=== PATIENT | female | born 1950 | race Caucasian/White ===

== ENCOUNTER 2020-07-10 07:52 | Outpatient (CLI) | payer OTHER, SELFPAY ==
--- NOTE | ~2020-07-10 | MM_ITS ---
EXAMINATION: MM screening wendi BI w jessie HISTORY: Screening mammogram TECHNIQUE: Craniocaudal and mediolateral oblique 3-D tomosynthesis images were obtained and synthetic 2-D images were generated. CAD analysis was submitted and interpreted. COMPARISON: 06/22/2019 left stereotactic biopsy and post biopsy mammogram 06/12/2019 diagnostic left digital mammogram 05/30/2019, 05/26/2018, 11/17/2011 bilateral digital screening mammogram examinations BREAST PARENCHYMAL COMPOSITION: There are scattered areas of fibroglandular density........ FINDINGS: There is spiculation/architectural distortion at the biopsy marker in the upper outer left breast. Diagnostic left mammogram is recommended with spot compression views of this area, and target ed ultrasound examination. There are scattered bilateral benign calcifications. Otherwise there is no evidence of suspicious mass, calcification, or architectural distortion to sugg est malignancy in either breast. There has been no other suspicious interval change. IMPRESSION: 1. Spiculation/architectural distortion at former stereotactic biopsy site in upper outer left breast 2. Diagnostic left mammogram and left breast ultrasound examination are recommended. BI-RADS Category 0: Incomplete: Needs additional imaging evaluation. Reviewed, dictated and finalized at location A. IMPRESSION: 1. Spiculation/architectural distortion at former stereotactic biopsy site in u pper outer left breast 2. Diagnostic left mammogram and left breast ultrasound examination are recomme nded. BI-RADS Category 0: Incomplete: Needs additional imaging evaluation.
== END 2020-07-10 07:53 | disposition home or self-care (01) ==
LOC: ANHIMG 07:56
PROVIDERS: PCP Internal Medicine; Visit Provider Nurse Practitioner
DX: Z12.31 Encounter for screening mammogram for malignant neoplasm of breast (principal); R92.8 Other abnormal and inconclusive findings on diagnostic imaging of breast
CPT/HCPCS: 77063; 77067

== ENCOUNTER 2020-07-12 00:52 | Outpatient (CLI) | payer OTHER, SELFPAY ==
[2020-07-12 17:08] LABS: SARS-CoV-2 RNA PCR Negative
== END 2020-07-12 00:53 | disposition home or self-care (01) ==
LOC: ANHCOVIDDT 00:53
PROVIDERS: PCP Internal Medicine; Visit Provider Internal Medicine Critical Care Medicine
DX: R09.89 Other specified symptoms and signs involving the circulatory and respiratory systems (principal); Z20.828 Contact with and (suspected) exposure to other viral communicable diseases
CPT/HCPCS: 87635; C9803; U0003

== ENCOUNTER 2020-07-15 08:30 | Outpatient (CLI) | payer OTHER, SELFPAY ==
--- NOTE | 2020-08-02 16:55 | WPDSLEEPSTUD ---
Sleep Study Date of Study: 07/15/20 Ordering Provider: Sharon Collins NP Interpreting Physician: Sabrina Bryant MD Sleep Study Type: Polysomnogram Height: 1.52 m Weight: 90.718 kg Body Mass Index: 39.0 [place]: 3 Reason for Sleep Study daytime fatigue and excessive daytime sleepiness Sleep History Aurea Colvin is a 70 year old female with problems waking up throughout the night, She has a history of obstructive sleep apnea years ago on a sleep study 12/15/2005 with an AHI 12.7 and minimum desaturation to 76%. Her REM AHI was 47. On a CPAP titration 01/26/2006, her optimal pressure was 14 cm water pressure. Her CPAP broke and she did not have replaced. She says currently she does not snore and nobody complains about her snoring. She does not awaken at night with heartburn belching or coughing. She does not awaken from sleep feeling short of breath she frequently has trouble sleeping with a cold. She does not gasp for breath at night, denies breathing problems reported to her by others, does not sweat excessively at night. She frequently notices her heart pounding or beating irregularly at night. She does not fall asleep during the day, does not fall asleep involuntarily or while driving. She does not have loss of muscle tone was strong emotion. She does not have daytime difficulties due to excessive sleepiness. She does not feel paralyzed on waking or falling asleep. She occasionally has vivid dreamlike scenes upon awakening or falling asleep. She has never free to go to sleep and she does not have nightmares. She occasionally remembers her dreams. She occasionally has racing thoughts. She does not feel sad or depressed. She occasionally has anxiety. She does not have muscular tension. She does not notice part of her body jerking and she does not kick at night. She occasionally has crawling and aching feelings in her legs and occasionally has leg pain at night. She denies morning jaw pain. She occasionally grinds her teeth during sleep. She occasionally is bothered by pain during the day as well as pain during the night. She frequently wakes up feeling stiff in the morning, constantly wakes with sore achy muscles and frequently wakes with pain in the neck and spine. she has fatigue and bowel disturbances. Normal bedtime is 10:00 p.m., and sometimes it may take a while for her to fall asleep. This varies. She typically will wake every 1-2 hours during the night, beginning in the first part of the night and continuing throughout he middle of the night and sql bi developer hours. When she wakes at night, she will watch television. She occasionally has heartburn at night and occasionally has morning headaches. She frequently awakes feeling refreshed always has daytime sleepiness. She denies having memory or concentration problems or daytime difficulties due to excessive sleepiness. Habits: Never smoked tobacco. Caffeine 1 soda and 1 to tea daily. No alcohol or recreational drugs. [facility] Past Medical History Medical History (Updated 08/02/20 @ 17:23 by Sabrina Bryant MD) Anemia, unspecified Chronic obstructive pulmonary disease, unspecified Essential (primary) hypertension Gastro-esophageal reflux disease without esophagitis Heart failure, unspecified Obstructive sleep apnea (adult) (pediatric) Polyosteoarthritis, unspecified Pure hypercholesterolemia Rheumatoid arthritis involving multiple sites with positive rheumatoid factor Screening for breast cancer Screening for colon cancer Surgical History Surgical History (Updated 08/02/20 @ 17:23 by Sabrina Bryant MD) Hx of CABG Family History Family History Mother Family history of coronary artery disease Father Patient's father is Acute myocardial infarction Social History Social History Smoking status: Never smoker Alcohol intake: ne
[2020-08-02 17:54] VITALS: BMI 39.0
== END 2020-07-15 08:31 | disposition home or self-care (01) ==
LOC: ANHCSM 08:30
PROVIDERS: PCP Internal Medicine; Visit Provider Nurse Practitioner
DX: G47.33 Obstructive sleep apnea (adult) (pediatric) (principal); I10 Essential (primary) hypertension; I50.9 Heart failure, unspecified; I25.10 Atherosclerotic heart disease of native coronary artery without angina pectoris; Z95.1 Presence of aortocoronary bypass graft; K21.9 Gastro-esophageal reflux disease without esophagitis; E78.5 Hyperlipidemia, unspecified
CPT/HCPCS: 95810

== ENCOUNTER 2020-07-17 11:49 | Outpatient (CLI) | payer OTHER, SELFPAY ==
--- NOTE | 2020-07-17 13:50 | ECHO_ITS ---
Patient Info Name: Aurea Colvin Age: 70 years : 1950 Gender: Female Ht: 60 in Wt: 200 lbs BSA: 2.01 m2 HR: 80 bpm BP: 126 / 73 mmHg Heart Rhythm: Sinus Rhythm Technical Quality: Good Exam Date: 07/17/2020 1:57 PM Exam Location: [facility] Patient Status: Outpatient Admit Date: 07/17/2020 Staff Ordering Physician: Sharon Collins Celery Packer: Andi Quesada RDCS Attending Provider: Sharon Collins Referring Physician: Dennis LILLY; Exam Type: CA echo doppler color flow Study Info Indications I50.9 - Heart failure, unspecified Complete two-dimensional, color flow and Doppler transthoracic echocardiogram is performed. History/Risk Factors Heart failure. Summary 1. Complete two-dimensional, color flow and Doppler transthoracic echocardiogram is performed. 2. Left ventricular chamber dimension is moderately enlarged. 3. Left ventricular systolic function is severely reduced, estimated at 30-35%. 4. There is mildly increased left ventricular wall thickness. 5. The left ventricular diastolic function is grade I diastolic dysfunction. 6. Left atrial chamber dimension is moderately enlarged. 7. The mitral valve has thickened leaflets. 8. There is mild to moderate mitral valve regurgitation. 9. There is mild tricuspid valve regurgitation. 10. There is mild pulmonic regurgitation. Left Ventricle Left ventricular chamber dimension is moderately enlarged. Left ventricular systolic function is severely reduced, estimated at 30-35%. There is mildly increased left ventricular wall thickness. The left ventricular diastolic function is grade I diastolic dysfunction. Right Ventricle Right ventricular chamber dimension is normal. Right ventricular systolic function is normal. Left Atria Left atrial chamber dimension is moderately enlarged. Right Atria Right atrial chamber dimension is normal. Atrial Septum Intact interatrial septum visualized by color flow imaging. Aortic Valve The aortic valve is trileaflet. There is mild aortic valve sclerosis. There is no aortic valve stenosis. There is trace aortic valve regurgitation. Pulmonic Valve The pulmonic valve is normal. There is no pulmonic valve stenosis. There is mild pulmonic regurgitation. Mitral Valve The mitral valve has thickened leaflets. There is no mitral valve stenosis. There is mild to moderate mitral valve regurgitation. Tricuspid Valve The tricuspid valve leaflets are normal. There is no significant tricuspid valve stenosis. There is mild tricuspid valve regurgitation. No pulmonary hypertension, estimated pulmonary arterial systolic pressure is 27 mmHg. Pericardium/Pleural The pericardium appears normal. There is no pericardial effusion. Inferior Vena Cava Normal inferior vena cava with >50% collapse upon inspiration consistent with normal right atrial pressure, 5 mmHg. Aorta The aortic root size at the sinus of Valsalva is normal. The prox ascending aorta size is not well visualized. Left Ventricular Outflow Tract Name Value Normal LVOT 2D LVOT Diameter 2.0 cm LVOT Doppler
== END 2020-07-17 11:50 | disposition home or self-care (01) ==
LOC: ANHCARD 11:50
PROVIDERS: PCP Internal Medicine; Visit Provider Nurse Practitioner
DX: I50.9 Heart failure, unspecified (principal); I08.3 Combined rheumatic disorders of mitral, aortic and tricuspid valves
CPT/HCPCS: 93306

== ENCOUNTER 2020-07-19 12:01 | Outpatient (CLI) | payer OTHER, SELFPAY ==
--- NOTE | ~2020-07-19 | MMUS_ITS ---
EXAMINATION: MM diagnostic mammo unilat LT, US breast LT limited HISTORY: Spiculation/architectural distortion in the region of a biopsy marker in the mid to upper ou ter left TECHNIQUE: Additional 3-D tomosynthesis images of the left breast were performed and synthetic 2-D im ages were generated. CAD analysis was submitted and interpreted. High resolution upper outer and lowe r-outer quadrant left breast ultrasound was performed. COMPARISON: 07/10/2020 bilateral digital screening mammogram FINDINGS: MAMMOGRAPHIC FINDINGS: There is architectural distortion at the site of a biopsy marker in the outer mid left breast. No def inite soft tissue mass is appreciated however at this location. ULTRASOUND: No suspicious mass lesion is evident in the outer upper or lower quadrants. IMPRESSION: 1. No mammographic evidence of malignancy; probable postbiopsy scarring 2. 6 month follow-up diagnostic left mammogram is recommended, with ultrasound if required BI-RADS category 3, probably benign findings. Reviewed, dictated and finalized at location A. IMPRESSION: 1. No mammographic evidence of malignancy; probable postbiopsy scarring 2. 6 month follow-up diagnostic left mammogram is recommended, with ultrasound if required BI-RADS category 3, probably benign findings.
== END 2020-07-19 12:02 | disposition home or self-care (01) ==
LOC: ANHIMG 12:02
PROVIDERS: PCP Internal Medicine; Visit Provider Nurse Practitioner
DX: R92.8 Other abnormal and inconclusive findings on diagnostic imaging of breast (principal)
CPT/HCPCS: 76642; 77065

== ENCOUNTER 2020-08-30 01:10 | Outpatient (CLI) | payer OTHER, SELFPAY ==
[2020-08-30 20:27] LABS: SARS-CoV-2 RNA PCR Negative
== END 2020-08-30 01:11 | disposition home or self-care (01) ==
LOC: ANHCOVIDDT 01:10
PROVIDERS: PCP Internal Medicine; Visit Provider Internal Medicine Critical Care Medicine
DX: Z20.828 Contact with and (suspected) exposure to other viral communicable diseases (principal)
CPT/HCPCS: 87635; C9803; U0003

== ENCOUNTER 2020-09-02 08:25 | Outpatient (CLI) | payer OTHER, SELFPAY ==
--- NOTE | 2020-10-14 09:49 | WPDSLEEPSTUD ---
Sleep Study Date of Study: 09/02/20 Ordering Provider: Adán Macias DO Interpreting Physician: Sabrina Bryant MD Sleep Study Type: CPAP Titration Height: 1.52 m Weight: 90.718 kg Body Mass Index: 39.0 Neck Circumference: 43.18 cm [place]: 9 Reason for Sleep Study Basic sleep study07/15/2020 with moderate JOSÉ with AHI 22.3, presents for a titration Sleep History Aurea Colvin is a 70 year-old female with a history of waking up throughout the night. She had a basic sleep study July 15, 2020 with moderate obstructive sleep apnea AHI 22.3 which is severe in supine sleep AHI 39.5 and severe in supine REM with AHI 47.9 Lowest desaturation was 79% with 19.7 minutes spent below 88%, 4.5% of the study. She has a history of obstructive sleep apnea years ago on a sleep study 12/15/2005; CPAP titration 01/26/2006, her optimal pressure was 14 cm water pressure. Her CPAP broke and she did not have replaced. She says currently she does not snore and nobody complains about her snoring. She does not awaken at night with heartburn belching or coughing. She does not awaken from sleep feeling short of breath she frequently has trouble sleeping with a cold. She does not gasp for breath at night, denies breathing problems reported to her by others, does not sweat excessively at night. She frequently notices her heart pounding or beating irregularly at night. She does not fall asleep during the day, does not fall asleep involuntarily or while driving. She does not have loss of muscle tone was strong emotion. She does not have daytime difficulties due to excessive sleepiness. She does not feel paralyzed on waking or falling asleep. She occasionally has vivid dreamlike scenes upon awakening or falling asleep. She has never free to go to sleep and she does not have nightmares. She occasionally remembers her dreams. She occasionally has racing thoughts. She does not feel sad or depressed. She occasionally has anxiety. She does not have muscular tension. She does not notice part of her body jerking and she does not kick at night. She occasionally has crawling and aching feelings in her legs and occasionally has leg pain at night. She denies morning jaw pain. She occasionally grinds her teeth during sleep. She occasionally is bothered by pain during the day as well as pain during the night. She frequently wakes up feeling stiff in the morning, constantly wakes with sore achy muscles and frequently wakes with pain in the neck and spine. she has fatigue and bowel disturbances. Normal bedtime is 10:00 p.m., and sometimes it may take a while for her to fall asleep. This varies. She typically will wake every 1-2 hours during the night, beginning in the first part of the night and continuing throughout he middle of the night and governor assembler hydraulic hours. When she wakes at night, she will watch television. She occasionally has heartburn at night and occasionally has morning headaches. She frequently awakes feeling refreshed always has daytime sleepiness. She denies having memory or concentration problems or daytime difficulties due to excessive sleepiness. Habits: Never smoked tobacco. Caffeine 1 soda and 1 to tea daily. No alcohol or recreational drugs. PMFSH Past Medical History Medical History Anemia, unspecified Chronic obstructive pulmonary disease, unspecified Essential (primary) hypertension Gastro-esophageal reflux disease without esophagitis Heart failure, unspecified Obstructive sleep apnea Obstructive sleep apnea (adult) (pediatric) Polyosteoarthritis, unspecified Pure hypercholesterolemia Rheumatoid arthritis involving multiple sites with positive rheumatoid factor Screening for breast cancer Screening for colon cancer Surgical History Surgical History Hx of CABG Family History Family History (Reviewed 10/14/20 @ 09:55 by Sabrina
[2020-10-14 10:07] VITALS: BMI 39.0
== END 2020-09-02 08:26 | disposition home or self-care (01) ==
LOC: ANHCSM 08:25
PROVIDERS: PCP Internal Medicine; Visit Provider Internal Medicine
DX: G47.33 Obstructive sleep apnea (adult) (pediatric) (principal)
CPT/HCPCS: 95811

== ENCOUNTER 2020-12-19 09:50 | Outpatient (CLI) | payer OTHER, SELFPAY ==
--- NOTE | ~2020-12-19 | XR_ITS ---
XR lumbar spine 2-3V DATE: 12/19/2020 10:17 INDICATION: Back pain TECHNIQUE: AP, lateral, coned lateral lumbosacral views COMPARISON: None FINDINGS: There is diffuse osteopenia. There is vertebroplasty at T12 anterior wedge moderate compression fracture deformity. There is degenerative change at the apophyseal joints in the lower lumbar and lumbosacral area with a ssociated grade 1 anterolisthesis at L4-5. There is severe degenerative disc disease at L1-2, moderately severe degenerative disc disease at L2- 3 and mild degenerative disc disease at L3-4 and L4-5. No lumbar fracture is evident. The lumbar pedicles are intact. No bone destruction is detected. The sacroiliac joints appear normal. Old fracture deformity of right superior pubic ramus. Abdominal aortic calcification. Surgical clips, right upper quadrant, likely due to cholecystectomy. IMPRESSION: Moderate anterior wedge compression fracture deformity of T12 T12 vertebroplasty Diffuse osteopenia Multilevel degenerative disc disease, most pronounced at L1-2 Grade 1 anterolisthesis at L4-5 due to degenerative change at the apophyseal joints Old fracture deformity right superior pubic ramus Reviewed, dictated and finalized at location A. AIMED PROPERTY MANAGER IMPRESSION: Moderate anterior wedge compression fracture deformity of T12 T12 vertebroplasty Diffuse osteopenia Multilevel degenerative disc disease, most pronounced at L1-2 Grade 1 anterolisthesis at L4-5 due to degenerative change at the apophyseal mary kay ints Old fracture deformity right superior pubic ramus
--- NOTE | ~2020-12-19 | XR_ITS ---
XR thoracic spine 2V DATE: 12/19/2020 10:17 INDICATION: Back pain for one month. No injury. TECHNIQUE: AP, lateral, swimmer views COMPARISON: None FINDINGS: Status post sternotomy. Cardiomegaly. Aortic calcification. Diffuse osteopenia. Mild dextroscoliosis of the thoracolumbar spine. There is diffuse idiopathic skeletal hyperostosis of the mid to lower thoracic spine. Status post vertebroplasty at T12. IMPRESSION: Diffuse osteopenia Status post vertebroplasty at T12 Diffuse idiopathic skeletal hyperostosis Reviewed, dictated and finalized at location A. EE SOMMELIER
== END 2020-12-19 09:51 | disposition home or self-care (01) ==
PROVIDERS: PCP Internal Medicine; Visit Provider Nurse Practitioner
DX: M47.815 Spondylosis without myelopathy or radiculopathy, thoracolumbar region (principal); M48.14 Ankylosing hyperostosis [Forestier], thoracic region; D64.9 Anemia, unspecified
CPT/HCPCS: 72070; 72100

== ENCOUNTER 2021-02-03 08:00 | Outpatient (RCR) | payer OTHER, SELFPAY ==
--- NOTE | 2020-12-30 09:21 | PTOPEVAL ---
Thank you for referring Aurea Colvin to [facility].? The patient is scheduled to be seen for therapy 2 x/week for 8 weeks. Please review, sign, date and return this plan of care YOJANA. I agree with and certify that the following plan of care is medically necessary. Referring Physician Date Admitting Provider: Attending Provider: Sharon Collins, BARREL RIFLER OPERATOR-C Physical Therapy Evaluation Problem Diagnosis back pain Onset 2 months Cause unknown Additional Evaluation Detail She has family living with her. Family does not assist with branch library clerk. There is severe degenerative disc disease at L1-2, moderately severe degenerative disc disease at L2-3 and mild degenerative disc disease at L3-4 and L4-5. Grade 1 anterolisthesis at L4- 5 due to degenerative change at the apophyseal joints Subjective Information She reports she has been Query Text:As Reported By Patient/ having back pain for 2 months. Family She was trying to remove some of her medication due to difficulty obtaining the medication. She is unsure if this contributed to the increased pain. She reports limitations with standing, sitting, sleeping, or performing branch library clerk. She is having problems with constipation due to the back pain. Prior to recent increase she has been having back pain for years. s/p vertebroplasty a few years ago. She had a fall in the bathroom a few years ago causing the fracture. Denies an exercise or stretching program. She has a cane, but does not use consistently. She has been using a walker recently to have something to hold onto. Diagnostic Tests X-Rays For This Problem Yes: Multilevel degenerative disc disease, most pronounced at L1-2 Previous Treatments Previous Treatments For This Problem no Pain Assessment
--- NOTE | 2021-02-03 15:18 | PTOPEVAL ---
Thank you for referring Aurea Colvin to [facility].? Aurea has attended 11 therapy visits from 12/23/20 to 02/03/21 to address her back pain. She demonstrates improved trunk motion, improved leg strength and improved functional mobility with walking speed and endurance. She has been instructed in a home program to work on her strength at home. She has partially achieved her therapy goals at this time. Will D/C skilled therapy services at this time. Please review, sign, date and return this discharge summary YOJANA. I agree with and certify that the following plan of care is medically necessary. Referring Physician Date Attending Provider: Sharon Collins, REFINERY OPERATOR ALKYLATION-C Physical Therapy Discharge Note Diagnosis back pain Onset 2 months Cause unknown Additional Evaluation Detail She has family living with her. Family does not assist with solar thermal installer. There is severe degenerative disc disease at L1-2, moderately severe degenerative disc disease at L2-3 and mild degenerative disc disease at L3-4 and L4-5. Grade 1 anterolisthesis at L4- 5 due to degenerative change at the apophyseal joints Subjective Information She reports her back pain is Query Text:As Reported By Patient/ better. She is unable to Family indicate particular activities that make the pain increase. She is performing HEP daily. She inconsistently uses the cane. Pain Assessment Bilateral Lower Back Reported Pain Level 2 Pain Description Aching,Numbness,Tightness Pain Radiation Left Leg Pain Frequency Intermittent Lowest Pain Intensity 0 Greatest Pain Intensity 2 Pain Aggravating Factors Exercise/Activity Cervical and Lumbar ROM Lumbar Flexion Active Floor Lateral Flexion right: upper thigh- painful left: superior knee region Lumbar Comments pain with extension and right lateral flex 50% of trunk ext and rotation with pain Lower Extremity Range of Motion General Lower Extremity Range of Motion Gross Lower Extremity Range of Motion painful with left hip motions Comments Cervical and Lumbar Muscle Testing Lower Abdominal Strength 3-Fair- Upper Back Extension 3-Fair- Lumbar Functional Strength Comments unable to maintain trunk in m
== END 2021-02-05 08:37 | disposition home or self-care (01) ==
LOC: ANHPT 08:00
PROVIDERS: PCP Internal Medicine; Visit Provider Nurse Practitioner
DX: M54.9 Dorsalgia, unspecified (principal)
CPT/HCPCS: 97014; 97110; 97140; 97163; 97530; G0283

== ENCOUNTER 2021-06-26 11:23 | Outpatient (CLI) | payer OTHER, SELFPAY ==
--- NOTE | ~2021-06-26 | CT_ITS ---
EXAMINATION: CT abdomen pelvis w con DATE: 06/26/2021 10:15 INDICATION: Pelvic and perineal pain. TECHNIQUE: Computed tomography (CT) of the abdomen and pelvis was performed with 100 mL Omnipaque-350 intravenous contrast. Automated exposure control and iterative reconstruction technique were employe d. The dose-length product was 1329.03 mGy-cm. COMPARISON: None FINDINGS: Lung bases are clear. Heart size is normal. No pericardial or pleural effusion. Atherosclerotic coron bryan artery calcific location. Median sternotomy wires likely from prior coronary artery bypass grafti ng. 3 low-attenuation hepatic cysts, the largest measuring 7 mm . Mild focal hepatic steatosis along the ligamentum teres. Cholecystectomy clips the gallbladder fossa. Spleen, pancreas, bilateral adrena l glands and left kidney are normal. Couple low-attenuation likely right renal cysts, the larger doreen uring 6 mm which are too small to definitively characterize. There are few scattered colonic divertic lin without adjacent inflammatory change to suggest diverticulitis. Small bowel and appendix are norm al. Subtle haziness to the fat surrounding the otherwise normal-appearing bladder which could be seen with cystitis. The uterus and right ovary are not identified and have likely been surgically resecte d. 1.3 cm left ovarian cyst. No free intraperitoneal gas or fluid. No pathologically enlarged abdomin al or pelvic lymphadenopathy. Asymmetric approximately 2 cm nodular density at the left side of the i ntroitus and location typical for a Bartholin's gland cyst but with greater than simple fluid attenua tion. Chronic T12 compression fracture with change of prior vertebroplasty. Moderate lumbar spondylos is with multilevel severe facet osteoarthritis and with 4 mm anterolisthesis L4 on L5. 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 IMPRESSION: 1. Asymmetric approximately 2 cm nodular density at the left side of the introitus in typical locatio n for ganglion cyst but with greater than simple fluid attenuation and could not exclude either neopl asm or Bartholin gland abscess. Correlate with physical exam. 2. Subtle haziness to the fat along the otherwise normal bladder which could be seen with cystitis. C orrelate with urinalysis. Reviewed, dictated and finalized at location A. IMPRESSION: 1. Asymmetric approximately 2 cm nodular density at the left side of the introi tus in typical location for ganglion cyst but with greater than simple fluid at tenuation and could not exclude either neoplasm or Bartholin gland abscess. Cor relate with physical exam. 2. Subtle haziness to the fat along the otherwise normal bladder which could be seen with cystitis. Correlate with urinalysis.
[2021-06-26 10:08] LABS: Estimated Glomerular Filt Rate 54
[2021-06-26 12:13] LABS: Add Urine Microscopic? YES; Appearance Urine Clear (Clear); Bacteria Urine Trace /hpf; Bilirubin Urine Negative (Negative); Blood Urine Negative (Negative); Color Urine Straw (Yellow); Glucose Urine UA Negative (Negative); Ketones Urine Negative (Negative); Leukocyte Esterase Ur 2+ LEU/UL (Negative); Nitrate Urine Negative (Negative); Protein Urine Negative (Negative); Squamous Epithelial Cell Urine Occasional /hpf (Few); Urobilinogen Urine Negative mg/dL (<2.0); WBC Urine 21-30 /hpf
[2021-06-26 12:16] LABS: Specific Grav Ur > 1.060 (1.001-1.035)
== END 2021-06-26 11:24 | disposition home or self-care (01) ==
PROVIDERS: PCP Internal Medicine; Visit Provider Nurse Practitioner
DX: R10.2 Pelvic and perineal pain (principal); R93.5 Abnormal findings on diagnostic imaging of other abdominal regions, including retroperitoneum
CPT/HCPCS: 74177; 81001; 87077; 87086; 87088; Q9967

== ENCOUNTER 2021-08-19 08:45 | Outpatient (CLI) | payer OTHER, SELFPAY ==
--- NOTE | ~2021-08-19 | DEXA_ITS ---
Bone Density Report Name: Aurea Colvin Age: 71 Sex: Female Ethnicity: White Date of : 1950 Indication: postmenopausal; height loss; prior fracture; hysterectomy; rheumatoid arthritis; Referring Provider: Sharon Collins Study: Bone densitometry was performed. Exam Date: August 19, 2021 Accession number: [id number] Bone Density: Region BMD T-score Z-score Classification AP Spine (L1, L2, L4) 1.232 1.8 4.1 Normal Femoral Neck (Left) 0.761 -0.8 1.2 Normal Total Hip (Left) 0.992 0.4 2.1 Normal Total Hip Bilateral Avg 0.996 0.5 2.1 Normal Femoral Neck (Right) 0.837 -0.1 1.9 Normal Total Hip (Right) 1.000 0.5 2.2 Normal World Health Organization criteria for BMD impression classify patients as: Normal (T-score at or above -1.0), Osteopenia (T-score between -1.0 and -2.5), or Osteoporosis (T-score at or below -2.5). 10-year Fracture Risk: FRAX not reported because: All T-scores for Spine Total, Hip Total, Femoral Neck at or above -1.0 Prior hip or vertebral fracture Previous Exams: Region Exam Age BMD T-score BMD Change BMD Change Date g/cm2 vs Baseline vs Previous AP Spine(L1, L2, L4) 08/19/2021 71 1.232 1.8 0.123(11.1%)* 0.123(11.1%)* 07/07/2019 69 1.109 0.7 Total Hip(Left) 08/19/2021 71 0.992 0.4 -0.028(-2.7%)* -0.028(-2.7%)* 07/07/2019 69 1.020 0.6 Total Hip(Right) 08/19/2021 71 1.000 0.5 -0.008(-0.8%) -0.008(-0.8%) 07/07/2019 69 1.008 0.5 *Denotes significance at 95% confidence level, LSC for AP Spine = 0.022 g/cm2, LSC for Total Hip = 0.027 g/cm2 Clinical Information Provided by Patient: Have had a previous hip or vertebral fracture Has had a low trauma fracture Has rheumatoid arthritis Has used the following medications: Vitamin D, Calcium Has the following medical conditions: Hysterectomy Patient maximum height was 63 Menopause Age: 37 Onset of menses at age 12 Number of children 4 Impression: The patient has normal bone mass. The patient has risk factors, including: previous fracture. The BMD for the Total Hip(Left) decreased, changing by -2.7% since the last DXA exam. Discussion: INCREASED RISK OF FRACTURE DUE TO HISTORY OF FRACTURE. The patient's previous fracture puts the patient at high risk of a future fracture. In untreated patients, the risk of osteoporotic fracture increases approximately two-fold for each 1.0 SD decrease in T-score. Low bone density is not the only risk factor for fr
== END 2021-08-19 08:46 | disposition home or self-care (01) ==
PROVIDERS: PCP Internal Medicine; Visit Provider Nurse Practitioner
DX: M81.0 Age-related osteoporosis without current pathological fracture (principal); Z78.0 Asymptomatic menopausal state
CPT/HCPCS: 77080

== ENCOUNTER 2021-08-28 10:52 | Outpatient (CLI) | payer OTHER, SELFPAY ==
--- NOTE | ~2021-08-28 | MMUS_ITS ---
2 EXAMINATION: MM diagnostic wendi BI w jessie, US breast LT limited HISTORY: Follow-up left breast asymmetry TECHNIQUE: Additional 3-D tomosynthesis images of the left breast were performed and synthetic 2-D im ages were generated. CAD analysis was submitted and interpreted. High resolution Limited left breast ultrasound was performed. COMPARISON: Comparison to multiple prior studies sequentially, with oldest reviewed study dated 06/12. BREAST PARENCHYMAL COMPOSITION: Breast composed of scattered areas of fibroglandular density. FINDINGS: MAMMOGRAPHIC FINDINGS: There are no new masses, calcifications or architectural distortion in either breast to suggest malig fransisco. There is focal architectural distortion in the upper outer quadrant of the left breast associa vaughn with tissue marker from previous stereotactic biopsy. There are benign bilateral breast calcifica tions. ULTRASOUND: Limited left breast ultrasound: Normal heterogeneous echotexture without focal solid or cystic mass. IMPRESSION: 1. No evidence for malignancy in either breast. 2. Routine yearly screening mammogram and regular clinical breast examination are recommended. BI-RADS Category 2: Benign finding(s). Reviewed, dictated and finalized at location A. IMPRESSION: 1. No evidence for malignancy in either breast. 2. Routine yearly screening mammogram and regular clinical breast examination a re recommended. BI-RADS Category 2: Benign finding(s).
== END 2021-08-28 10:53 | disposition home or self-care (01) ==
PROVIDERS: PCP Internal Medicine; Visit Provider Nurse Practitioner
DX: R92.8 Other abnormal and inconclusive findings on diagnostic imaging of breast (principal)
CPT/HCPCS: 76642; 77062; 77066; G0279

== ENCOUNTER 2021-08-29 13:58 | Outpatient (CLI) | payer OTHER, SELFPAY ==
[2021-08-29 14:30] LABS: Anion Gap 7 mmol/L (8-16); Blood Urea Nitrogen 24 mg/dL (7-17); Carbon Dioxide 35 mmol/L (22-30); Chloride 98 mmol/L (98-107); Estimated Glomerular Filt Rate 54; Glucose 102 mg/dL (65-110); Potassium 4.2 mmol/L (3.4-5.0); Sodium 140 mmol/L (137-145)
== END 2021-08-29 13:59 | disposition home or self-care (01) ==
LOC: ANHSURGERY 14:03
PROVIDERS: Anesthesiology; PCP Internal Medicine; Visit Provider Student in an Organized Health Care Education/Training Program
DX: Z01.818 Encounter for other preprocedural examination (principal); Z79.899 Other long term (current) drug therapy
CPT/HCPCS: 36415; 80048

== ENCOUNTER 2021-09-02 03:11 | Day surgery (SDC) | payer OTHER, SELFPAY ==
[2021-08-28 15:25] VITALS: BMI 39.1
--- NOTE | 2021-08-28 15:47 | PC.NURSE ---
Report to the Outpatient Waiting Room, entrance under the green pavilion located off [facility], at time _0900__ on date __09/02/21__. OR Time: __1100__. - You and your visitor will be asked a series of questions to screen for COVID 19 for your protection. - A mask is required within the hospital. - Only one visitor is allowed at this time. Patient visitors will be guided where to wait when not with patient. Preoperative COVID Testing Requirements: No COVID Test needed if: (proof is required; if not received patient will have Rapid Test prior to entry) - Patient has received COVID Vaccine at least 14 days prior to procedure date or - Patient has positive COVID test result within last 90 days of surgery date. COVID Test needed if above criteria is not met If not COVID vaccinated a COVID test must be conducted within 72 hours of surgery and patient is asked to isolate self from time of testing until procedure. You will go to the [facility] for your COVID testing. The [facility] site is located at the corner of [address] [facility]. You will only be called if COVID results are positive and your surgeon may reschedule your elective surgery date. Patients may have clear liquids (water, carbonated beverages, clear teas, apple juice) until 3 hours prior to surgery with a maximum of 20 ounces. - No food from midnight until time of surgery - Infants may have breast milk until 4 hours before surgery, infant formula 6 hours prior to surgery. - Children will be allowed to drink immediately following surgery. If applicable, please bring a bottle or sippy cup to assist with drinking. Juice, water, soda, and popsicles are readily available. For infants on formula, please bring formula the day of surgery. Pacifiers are allowed. Take the following medications with a SIP of water the morning of surgery: Medications to discontinue per physician _ASPIRIN & PLAVIX - PER DR. HIRSCH, ALL VITAMINS & SUPPLEMENTS 3 DAYS PRIOR TO SURGERY___ Date to take last dose___08/30/21 Please no make-up, nail montenegrin, hairspray, perfume, deodorant, or body powder the day of surgery. No jewelry (including any body piercings) or valuables the day of surgery, leave them at home. Please take a shower or bath the night before, or the morning of, surgery with an antibacterial soap. Wear comfortable, loose fitting clothing. Children are encouraged to wear pajamas. - Jewelry must be removed prior to entering the operating room. Rings and piercings that are not removed may be cut off. - The hospital will not accept responsibility for valuables. - Please leave all valuables, including medications, at home the day of surgery. If you are going home after surgery, a licensed dray truck driver must drive you home. - NO public transportation without another adult. - We recommend that an adult stay with you for 24 hours following discharge. - We also recommend that you do not drive, make important decision, drink alcoholic beverages, or take any drugs that were not prescribed by your health care provider for at least 24 hours after your discharge time. For Pediatric surgeries, we recommend two adults accompany the child home (only one inside the building at this time). Follow any additional instructions given to you from your surgeon. Telephone instructions given to ___PT____and asked if any additional questions and then verbalized understanding. Patient advised to call surgeon office or pre surgery nurse liaison [phone] if any additional questions.
--- NOTE | 2021-09-01 13:56 | WPDANESEPPF ---
Anes - Initial Pre Proc Eval Procedure: Operation Date: 09/02/21 11:00 Proposed Procedures p Excision Bartholin's Cyst - Penny Bourgeois MD Date/Time: 09/01/21 13:56 Surgeon: Penny Bourgeois MD Pre Op Diagnosis: bartholin's cyst Patient Data Age: 71 Gender: F Height: 1.52 m Weight: 90.9 kg Allergies Allergy/AdvReac Type Severity Reaction Status Date / Time Sulfa (Sulfonamide Allergy Intermediate Nausea Verified 09/02/21 09:02 Antibiotics) Home Medications Medication Instructions Recorded Confirmed Type albuterol sulfate 90 mcg/actuation 1 puff INHALATION Q4H PRN #18 gm 12/19/19 09/02/21 Rx aerosol inhaler ergocalciferol (vitamin D2) 1,250 See Rx Instructions .ROUTE 10/15/20 08/28/21 Rx mcg (50,000 unit) capsule .COMPLEX #3 cap aspirin 81 mg tablet,delayed 81 mg PO DAILY 12/19/20 09/02/21 History release methotrexate sodium 2.5 mg tablet 8 mg PO WEEKLY tablet 12/19/20 09/02/21 History clopidogrel 75 mg tablet See Rx Instructions .ROUTE 04/07/21 09/02/21 Rx .COMPLEX #90 tablet furosemide 40 mg tablet 40 mg PO BID #180 tablet 04/24/21 09/02/21 Rx carvedilol 6.25 mg tablet See Rx Instructions .ROUTE 07/03/21 09/02/21 Rx .COMPLEX #180 tablet spironolactone 25 mg tablet See Rx Instructions .ROUTE 07/03/21 09/02/21 Rx .COMPLEX #180 tablet acetaminophen 650 mg 650 mg PO Q8H PRN 07/23/21 09/02/21 History tablet,extended release calcium carbonate 600 mg calcium 600 mg PO DAILY 07/23/21 09/02/21 History (1,500 mg) tablet folic acid 1 mg tablet 1 mg PO DAILY 07/23/21 09/02/21 History tofacitinib 11 mg tablet,extended 11 mg PO DAILY 07/23/21 09/02/21 History release 24 hr polyethylene glycol 3350 17 17 g PO DAILY #238 g 08/04/21 09/02/21 Rx gram/dose oral powder atorvastatin 40 mg PO HS 09/02/21 09/02/21 History Other studies: Exam Date: 07/17/2020 1:57 PM Summary 1. Complete two-dimensional, color flow and Doppler transthoracic echocardiogram is performed. 2. Left ventricular chamber dimension is moderately enlarged. 3. Left ventricular systolic function is severely reduced, estimated at 30-35%. 4. There is mildly increased left ventricular wall thickness. 5. The left ventricular diastolic function is grade I diastolic dysfunction. 6. Left atrial chamber dimension is moderately enlarged. 7. The mitral valve has thickened leaflets. 8. There is mild to moderate mitral valve regurgitation. 9. There is mild tricuspid valve regurgitation. 10. There is mild pulmonic regurgitation. Patient hx anesthesia problems: none Family hx anesthesia problems: none Results Review: All pre-operative results and documents have been reviewed as part of the pre-operative evaluation. [facility] Past Medical History Medical History Anemia, unspecified Chronic obstructive pulmonary disease, unspecified Essential (primary) hypertension Gastro-esophageal reflux disease without esophagitis Heart failure, unspecified Obstructive sleep apnea Obstructive sleep apnea (adult) (pediatric) Polyosteoarthritis, unspecified Pure hypercholesterolemia Rheumatoid arthritis involving multiple sites with positive rheumatoid factor Screening for breast cancer Screening for colon cancer Surgical History Surgical History Hx of CABG S/P cholecystectomy S/P partial hysterectomy Family History Family History Mother Family history of coronary artery disease Father Patient's father is Acute myocardial infarction Social History Social History Smoking status: Never smoker Second hand tobacco smoke exposure: No Alcohol intake: never Substance use: never Substance use type: does not use Living arrangements: alone Spiritual care concerns: No Anes
--- NOTE | 2021-09-01 18:10 | PM.IMHP ---
H&P: HPI History of Present Illness Date/Time: 09/01/21 18:10 The patient is a 71 year old woman with an incidental finding of a left Bartholin's gland cyst filled with complex-appearing fluid on recent imaging obtained for complaint of pelvic and abdominal pain. Given patient's age and this particular finding, recommendation was made for further evaluation and management of cyst. Patient was offered management in office with an I&D and cyst wall biopsy, however, declined. Decision was made to proceed with management in the OR and excision of cyst. Chief Complaint: Bartholin's gland cyst Review of Systems Review of Systems: All systems reviewed & are unremarkable except as noted in HPI and below Constitutional: Constitutional: Reports as per HPI, Reports no additional constitutional complaints, Denies chills, Denies fever(s), Denies headache(s) and Denies night sweats Eyes: Eyes: Reports as per HPI and Reports no additional eye complaints ENT: Reports system reviewed and no additional complaints, except as documented, Reports as per HPI, Reports Normal hearing present and Denies headache(s) Cardiovascular: Cardiovascular: Reports as per HPI, Reports no additional cardiovascular complaints, Denies chest pain and Denies dyspnea Respiratory: Respiratory: Reports as per HPI, Reports no additional respiratory complaints, Denies cough and Denies dyspnea Gastrointestinal: Gastrointestinal: Reports as per HPI, Reports no additional gastrointestinal complaints, Denies abdominal pain, Denies change in bowel habits, Denies change in stool character, Denies nausea and Denies vomiting Genitourinary: Genitourinary: Reports no additional female genitourinary complaints, Reports as per HPI, Denies abnormal vaginal bleeding, Denies genital lesions, Denies hot flashes, Denies dyspareunia, Denies pelvic pain, Denies sexual dysfunction, Denies urinary incontinence, Denies vaginal discharge, Denies vaginal dryness and Denies vaginal odor Musculoskeletal: Musculoskeletal: Reports no additional musculoskeletal complaints and Reports as per HPI Integumentary/Breasts: Skin/Breast: Reports system reviewed and no additional complaints, except as docu, Reports as per HPI, Denies breast pain and Denies nipple discharge Neurologic: Reports system reviewed and no additional complaints, except as documented, Reports as per HPI, Reports Normal hearing present and Denies headache(s) Psychiatric: Psychiatric: Reports no additional psychiatric complaints, Reports as per HPI, Denies anxiety and Denies depression Endocrine: Endocrine: Reports no additional endocrine complaints and Reports as per HPI Hematologic/Lymphatic: Hematologic/Lymphatic: Reports no additional hematologic/lymphatic complaints and Reports as per HPI Allergic/Immunologic: Allergic/Immunologic: Reports no additional allergic/immunologic complaints and Reports as per HPI PMFSH Past Medical History Medical History Anemia, unspecified Chronic obstructive pulmonary disease, unspecified Essential (primary) hypertension Gastro-esophageal reflux disease without esophagitis Heart failure, unspecified Obstructive sleep apnea Obstructive sleep apnea (adult) (pediatric) Polyosteoarthritis, unspecified Pure hypercholesterolemia Rheumatoid arthritis involving multiple sites with positive rheumatoid factor Screening for breast cancer Screening for colon cancer Surgical History Surgical History Hx of CABG S/P cholecystectomy S/P partial hysterectomy Family History Family History Mother Family history of coronary artery disease Father Patient's father is Acute myocardial infarction Social History Social History Smoking status: Never smoker Second hand tobacco smoke exposure: No
[2021-09-02] VITALS (18 sets, daily range): BP systolic 104–132; BP diastolic 46–77; PULSE 53–88; RESP 14–16; TEMP 36.1–36.8; O2SAT 92–100
--- NOTE | ~2021-09-02 | XR_ITS ---
EXAMINATION: XR chest 1V portable DATE: 09/03/2021 14:22 INDICATION: Hypoxia. TECHNIQUE: A single frontal view of the chest was obtained. COMPARISON: Chest 2 views 07/18/2015, CT abdomen and pelvis 06/26/2021 FINDINGS: There is no pneumonia, pleural effusion, or pneumothorax. Cardiomegaly is noted. Median kyra rnotomy wires are noted. Surgical clips in the right upper quadrant are likely from cholecystectomy. IMPRESSION: 1. Cardiomegaly. Reviewed, dictated and finalized at location A. LLURGIST PROCESS IMPRESSION: 1. Cardiomegaly.
--- NOTE | ~2021-09-02 | CT_ITS ---
EXAMINATION: CTA chest PE protocol DATE: 09/04/2021 09:37 INDICATION: Hypoxia. TECHNIQUE: Computed tomography angiography (CTA) of the chest was performed with 100 mL Omnipaque-350 intravenous contrast timed to evaluate the pulmonary arteries. Coronal maximum intensity projection 3D-reconstructions were created by the technologist. Automated exposure control and iterative reconst ruction technique were employed. The dose-length product was 417.20 mGy-cm. COMPARISON: Chest CT 10/23/2009 FINDINGS: There is a 4 mm nodule in left lung lower lobe without change, likely benign. There is a 4 mm nodule in right lower lobe, likely benign. There is a 5 mm nodule left major fissure, likely benig n. No pleural effusion. The heart size is normal. There are coronary artery calcifications. No perica rdial effusion. There is no pulmonary embolus. There is 10 degrees levoscoliosis of thoracic spine. T here are bridging endplate osteophytes at multiple levels in the spine, consistent with diffuse idiop athic skeletal hyperostosis (DISH). There is a chronic burst fracture of T12 with changes of vertebro plasty. IMPRESSION: 1. No pulmonary embolus. Reviewed, dictated and finalized at location A. RESS MAN IMPRESSION: 1. No pulmonary embolus.
--- NOTE | ~2021-09-02 | US_ITS ---
EXAMINATION: US venous doppler [facility] DATE: 09/03/2021 15:24 INDICATION: Left calf pain. TECHNIQUE: Grayscale ultrasound images without and with compression and Doppler ultrasound images of the bilateral lower extremity veins were obtained. COMPARISON: Ultrasound 05/25/2006 FINDINGS: The visualized portions of right common femoral vein, profunda (deep) femoral vein, femoral vein, pop liteal vein, peroneal veins, posterior tibial veins, and greater saphenous vein outflow are patent. The visualized portions of left common femoral vein, profunda femoral vein, femoral vein, popliteal v ein, peroneal veins, posterior tibial veins, and greater saphenous vein outflow are patent. IMPRESSION: 1. No deep venous thrombosis. Reviewed, dictated and finalized at location A. CE NURSE
[2021-09-02] MEDS: LACTATED RINGERS 1,000 ML 30 ML IV CONT (09:30)
--- NOTE | 2021-09-02 11:05 | WPDHPUPDATE1 ---
History and Physical Update Update Date/Time: 09/02/21 11:05 History and Physical has been reviewed, including an updated exam of the patient. There are NO changes in the patient's condition. Risks, benefits, and alternatives have been discussed and questions answered. Patient agrees to proceed with procedure.
[2021-09-02] MEDS: LIDO 1%/EPINEPHRINE 1:100,000 50 ML VIAL INFILTRATE (11:25)
[2021-09-02] MEDS: BACITRACIN OINTMENT 15 GM TUBE 1 APPLIC TOPICAL (11:26)
--- NOTE | 2021-09-02 12:36 | W.PM.PROC2 ---
Procedure Note - Detailed Date of Procedure 09/02/21 Pre-op Diagnosis Left Bartholin's gland cyst Post-op Diagnosis same Procedure Performed Excision of left bartholin's gland Surgeon Penny Bourgeois MD Hair Spinner Sonia Guzman Anesthesia MAC Findings Approx. 3 cm left bartholin's gland cyst Description of Procedure The patient was taken to operating room where she self-transferred to the operating room table. Patient was placed in dorsal supine position. Anesthesia was administered and found to be adequate. The patient was repositioned in dorsal lithotomy position with the use of Ruiz stirrups. She was prepped and draped in usual sterile fashion. On exam, an approximate 3 cm left Bartholin's gland cyst was palpated as well as visualized. Approximately 1-2 cc of 1% lidocaine with epinephrine was injected in the skin overlying cyst. An elliptical incision was made with a #15 scalpel. Allis clamps were used to grasp the outer edges of the incision. Sharp dissection with scalpel was continued to just above cyst wall. Using a series of traction and counter traction efforts, the cyst was carefully dissected. Both sharp dissection with tenotomy scissors as well as blunt dissection using a raytec sponge were used. At different points along dissection, small to moderate areas of bleeding were noted. Some of these areas were made hemostatic with bovie, however, some bleeding persisted. Dissection continued until entire cyst was excised intact. A moderate-large size defect was remaining. Profuse bleeding noted coming from deep within excision site. Defect was closed in three layers. Deepest layer was closed with 2-0 Vicryl. Bleeding began to slow down. Subsequent layer was also closed with 2-0 Vicryl and the most superficial mucosal layer was closed with 3-0 Vicryl in a running fashion. Excellent hemostasis was noted at end of closure. Decision was made to place vaginal packing for increased pressure. Straight catheterization was performed with return of 300 cc of clear urine. Bacitracin coated vaginal packing was then placed inside of the vagina. Procedure was deemed complete. The patient was cleansed and dried. She was taken out of the dorsal lithotomy position and awakened from anesthesia without difficulty. She was transported to the recovery room in stable condition. All sponge and instrument counts were correct at the end of the procedure. Estimated Blood Loss 350 IV Fluids 700 Urine Output 300 Drains No Packing Yes (bacitracin-coated vaginal packing) Pathology yes (left Bartholin's gland) Complications No immediate complications Condition stable Disposition same day
[2021-09-02] MEDS: fentaNYL CITRATE INJ (*CRX) 100 MCG/2 ML VIAL 25 MCG IV PUSH ×3 (12:52→13:40)
[2021-09-02] MEDS: ONDANSETRON INJ 4 MG/2 ML VIAL IV PUSH (13:02)
[2021-09-02] MEDS: oxyCODONE HCL (*CRX) 5 MG TAB IR PO (13:52)
--- NOTE | 2021-09-02 14:15 | SUR.PHASEII ---
1415- Dr. Bourgeois in at bedside evaluating patient and discussing plan of care at this time.
[2021-09-02] MEDS: SCOPOLAMINE 1.5 MG PATCH TRANSDERM (14:59)
[2021-09-02] MEDS: HALOPERIDOL LACTATE 5 MG/ML VIAL 1 MG IV PUSH (14:59)
--- NOTE | 2021-09-02 15:20 | SUR.PHASEII ---
1520- Dr. Bourgeois called this RN to check on status of patient. Notified her patient unable to void when ambulated to restroom at 1450 and had episode of emesis. Orders obtained from Anesthesiologist Dr. Kang for scopolamine patch and 1MG IVP Haldol, medications administered at 1459 see DEC. Patient currently on 2 liters nasal cannula to maintain oxygen saturation in mid 90's with HR in 40's -70's. Per Dr. Bourgeois insert gaona catheter and continue monitoring patient's status. Notify Dr. Bourgeois if she does not meet anesthesia discharge criteria as patient may need to be admitted for observation.
--- NOTE | 2021-09-02 16:20 | SUR.PHASEII ---
1620- Notified Dr. Bourgeois patient now has gaona catheter in place with 300mL's clear yellow urine drained from bladder. Patient remains on 2 liters nasal cannula with oxygen saturation in mid 90's with vital signs stable. Nausea has subsided after 1MG Haldol IVP and scopolamine patch application. Notified her Dr. Kang recommended patient be admitted if unable to meet anesthesia criteria. Per Dr. Bourgeois place orders for patient to be admitted to medical floor with telemetry and continuous pulse ox. Orders obtained and to be placed by this RN for admission. Per Dr. Bourgeois continue patient's home medication regimen. Gaona catheter to remain in place and vaginal packing until tomorrow at [address] Bourgeois will discontinue both.
--- NOTE | 2021-09-02 16:55 | SUR.PHASEII ---
5606- Call to Dr. Cameron patient complaining of pain and pressure to her vagina at this time. Orders obtained for 1MG dilaudid IVP.
[2021-09-02] MEDS: HYDROmorphone HCL INJ (*CRX) 1 MG/ML SYR IV PUSH (17:01)
--- NOTE | 2021-09-02 17:31 | PC.NURSE ---
This patient, Aurea Colvin, was admitted to Medical Room 261-01. Patient/family oriented to hospital policies and general routines including ID bracelet, bed and alarms, visiting hours, pain management, procedures, bathroom and other care routines, personal items, smoking policy, room service/diet, and visiting hours. Information on how to activate the Rapid Response Team has been discussed. Patient/Family are encouraged to report perceived risks to care and to ask questions if they do not understand what they are told or what they should do.
[2021-09-02] MEDS: SPIRONOLACTONE 25 MG TABLET BY MOUTH (17:39)
[2021-09-02] MEDS: FUROSEMIDE 40 MG TABLET PO (17:40)
--- NOTE | 2021-09-02 18:06 | PM.GYNPNOP ---
FILENET P8 DEVELOPER - A/P Postoperative Procedures: Procedures Operation Date: 09/02/21 11:00 Actual Procedure Side Surgeon p Excision Bartholin's Cyst Not Applicable Penny Bourgeois MD Time Spent With Patient Time: Total time spent is greater than 50% in coordination of care (as documented) at patient's floor/unit and/or counseling patient: Time with patient: 15 - 25 minutes FILENET P8 DEVELOPER- PN:Subj Post-Op Subjective Date/time seen: 09/02/21 18:06 Patient remained in the outpatient recovery area for several hours. Initially, she remained for pain management, however, was also noted to be unable to maintain SpO2 above 92% without supplemental O2. Patient does have known cardiac issues. Since she was unable to maintain SpO2, decision made to admit patient for overnight observation as she may need additional time to recover and to allow anesthesia to wear off. All other vital signs WNL. Patient reporting some pain and discomfort, likely due to both incision as well as vaginal packing. When patient was being helped to restroom during recovery period, she experienced an episode of vomiting. She was given IV medication as well as a scopolamine patch by anesthesia. She did not, however, void. Due to this reason, will place gaona catheter as patient still has packing in place. Patient to be admitted to med-surg floor for observation. FILENET P8 DEVELOPER - PN: Obj Data Vital Signs Vital Signs: Vital Signs - 24 hr 09/02/21 09:19 09/02/21 12:29 09/02/21 12:55 Temperature 36.8 C Pulse Rate 65 84 88 Respiratory Rate 16 14 14 Blood Pressure 125/46 L 119/56 L 115/56 L Pulse Oximetry 96 92 95 09/02/21 13:25 09/02/21 13:55 09/02/21 14:25 Temperature Pulse Rate 87 65 60 Respiratory Rate 14 16 16 Blood Pressure 104/58 L 106/64 113/65 Pulse Oximetry 94 100 93 09/02/21 14:55 09/02/21 15:25 09/02/21 15:55 Temperature Pulse Rate 72 70 58 L Respiratory Rate 16 16 16 Blood Pressure 107/63 107/53 L 105/55 L Pulse Oximetry 96 95 96 09/02/21 16:25 09/02/21 16:55 09/02/21 17:13 Temperature 36.1 C L Pulse Rate 73 62 54 L Respiratory Rate 16 16 14 Blood Pressure 115/77 110/57 L 104/53 L Pulse Oximetry 97 94 97 09/02/21 17:45 Temperature 36.4 C Pulse Rate 56 L Respiratory Rate 14 Blood Pressure 132/46 L Pulse Oximetry 94 Intake/Output Intake/Output: Intake & Output 08/31/21 08/31/21 09/01/21 09/02/21 00:59 23:59 23:59 23:59 Intake Total 1000 Output Total 600 Balance 400 Meds/Results Medications: Active Medications Generic Name Dose Route Start Last Admin Trade Name Freq PRN Reason Stop Dose Admin Acetaminophen 650 mg 09/02/21 17:13 Acetaminophen 325 Mg Tablet PO Q8H PRN Pain Albuterol 1 puff 09/02/21 17:13 Albuterol Sulfate (*Sp) Aerosol 1 Puff INHALATION Q4H PRN shortness of breath or wheezing Aspirin 81 mg 09/03/21 09:00 Aspirin 81 Mg Enteric Tablet PO DAILY KRISTAL Atorvastatin Calcium 40 mg 09/02/21 21:00 Atorvastatin 40 Mg Tablet PO HS [facility] Calcium Carbonate 500 mg 09/03/21 09:00 Calcium Carbonate (Oscal) 500 Mg Tablet PO 10/03/21 08:59 DAILY [facility] Carvedilol 6.25 mg 09/02/21 21:00 Carvedilol 6.25 Mg Tablet BY MOUTH Q12HR [facility] Clopidogrel Bisulfate 75 mg 09/03/21 09:00 Clopidogrel Bisulfate 75 Mg Tablet PO DAILY [facility] Ergocalciferol 50,000 unit 10/02/21 09:00 Ergocalciferol 50,000 Unit Capsule PO MONTHLY [facility] Folic Acid 1 mg 09/03/21 09:00 Folic Acid 1 Mg Tablet PO DAILY KRISTAL Furosemide 40 mg 09/02/21 17:13 09/02/21 17:40 Furosemide 40 Mg Tablet PO 40 mg BID [facility] Administration Methotrexate 8 mg 09/09/21 09:00 Methotrexate 2.5 Mg Tab (*Chemo) PO WEEKLY [facility] Miscellaneous Information 0 each 09/02/21 00:01 Please Clarify Methotrexate Dose - We Carry 2.5mg Tablets XX 10/02/21 00:00 CLARIFY KRISTAL Miscellaneous Information 0 each 09/02/21 00:01 Xeljanz Is Nonformulary - Can Christy
[2021-09-02] MEDS: carvediloL 6.25 MG TABLET BY MOUTH (20:48)
[2021-09-02] MEDS: ATORVASTATIN 40 MG TABLET PO (20:48)
[2021-09-03] VITALS (20 sets, daily range): BP systolic 100–111; BP diastolic 40–59; PULSE 64–105; RESP 16–27; TEMP 36.2–36.6; O2SAT 84–98
--- NOTE | 2021-09-03 07:21 | WPDANESPN ---
Anes - Prog Note Post-Op Date/Time: 09/03/21 07:21 Cardiovascular status: normal Respiratory status: normal Airway patency: baseline Mental status: baseline Post-Op hydration status: normal Vital Signs: Last Vital Signs Temp 36.6 C 09/03/21 05:50 Pulse 83 09/03/21 05:50 Resp 16 09/03/21 05:50 BP 102/59 L 09/03/21 05:50 Pulse Ox 96 09/03/21 05:50 Pain Score (VAS): 2 I/O: Intake & Output 09/02/21 09/02/21 09/03/21 15:59 23:59 07:59 Intake Total 1000 100 Output Total 443 760 5750 Balance 700 -300 -1150 Post-procedural complaints: none Patient Feedback: Patient satisfied with anesthetic care.
--- NOTE | 2021-09-03 08:51 | PM.GYNPNOP ---
BRICK PAVING CHECKER - A/P Assessment and plan (1) Bartholin's gland cyst: Code(s): N75.0 - Cyst of Bartholin's gland Status: Acute Assessment and Plan: POD#1 s/p excision remained in obs overnight due to O2 requirements following procedure from fruit room hand perspective, no issues vaginal packing removed, no active bleeding noted gaona catheter removed encourage ambulation pt was on nasal canula 1L overnight due to inability to find CPAP mask last night (per RN) O2 sat 95-96% this AM will dc O2 and continue to monitor this AM anesthesia has evaluated pt this AM, no issues identified will likely be ready for dc later this AM Postoperative Procedures: Procedures Operation Date: 09/02/21 11:00 Actual Procedure Side Surgeon p Excision Bartholin's Cyst Not Applicable Penny Bourgeois MD Time Spent With Patient Time: Total time spent is greater than 50% in coordination of care (as documented) at patient's floor/unit and/or counseling patient: Time with patient: less than 15 minutes BRICK PAVING CHECKER- PN:Subj Post-Op Subjective Date/time seen: 09/03/21 08:51 Patient reports feeling better this AM. She does report feeling slightly dizzy, however, states she experiences this at baseline in the morning. Nausea resolved. Has not eaten. Denies any headache, chest pain, or SOB. Gaona catheter and vaginal packing in place. Limited ambulation overnight. Venodynes in place. Exam Const: General: cooperative, comfortable and no acute distress HENMT: Head: normal to inspection Other: nasal canula in place on 1L O2 : Other: vaginal packing removed-moderately saturated with old dark blood Urinary Catheter: Urinary Catheter: patent and draining (removed with 50cc clear urine) and urine clear Extrem: Right lower extremity: no edema Left lower extremity: no edema Other: no calf tenderness, venodynes in place and activated BRICK PAVING CHECKER - PN: Obj Data Vital Signs Vital Signs: Vital Signs - 24 hr 09/02/21 09:19 09/02/21 12:29 09/02/21 12:55 Temperature 36.8 C Pulse Rate 65 84 88 Respiratory Rate 16 14 14 Blood Pressure 125/46 L 119/56 L 115/56 L Pulse Oximetry 96 92 95 09/02/21 13:25 09/02/21 13:55 09/02/21 14:25 Temperature Pulse Rate 87 65 60 Respiratory Rate 14 16 16 Blood Pressure 104/58 L 106/64 113/65 Pulse Oximetry 94 100 93 09/02/21 14:55 09/02/21 15:25 09/02/21 15:55 Temperature Pulse Rate 72 70 58 L Respiratory Rate 16 16 16 Blood Pressure 107/63 107/53 L 105/55 L Pulse Oximetry 96 95 96 09/02/21 16:25 09/02/21 16:55 09/02/21 17:13 Temperature 36.1 C L Pulse Rate 73 62 54 L Respiratory Rate 16 16 14 Blood Pressure 115/77 110/57 L 104/53 L Pulse Oximetry 97 94 97 09/02/21 17:45 09/02/21 18:25 09/02/21 19:46 Temperature 36.4 C 36.4 C 36.8 C Pulse Rate 56 L 53 L 81 Respiratory Rate 14 14 16 Blood Pressure 132/46 L 132/50 L 124/54 L Pulse Oximetry 94 93 100 09/02/21 20:00 09/02/21 20:48 09/02/21 21:21 Temperature 36.4 C Pulse Rate 58 L 78 87 Respiratory Rate 16 Blood Pressure 116/48 L Pulse Oximetry 100 95 09/03/21 00:00 09/03/21 00:26 09/03/21 04:00 Temperature 36.6 C Pulse Rate 86 67 65 Respiratory Rate 16 Blood Pressure 106/53 L Pulse Oximetry 92 09/03/21 05:50 Temperature 36.6 C Pulse Rate 83 Respiratory Rate 16 Blood Pressure 102/59 L Pulse Oximetry 96 Intake/Output Intake/Output: Intake & Output 08/31/21 09/01/21 09/02/21 09/03/21 23:59 23:59 23:59 23:59 Intake Total 1000 100 Output Total 600 1250 Balance 400 -1150 Meds/Results Medications: Active Medications Generic Name Dose Route Start Last Admin Trade Name Freq PRN Reason Stop Dose Admin Acetaminophen 650 mg 09/02/21 17:13 Acetaminophen 325 Mg Tablet PO Q8H PRN Pain Albuterol 1 puff 09/02/21 17:13 Albuterol Sulfate (*Sp) Aerosol 1 Puff INHALATION Q4H PRN shortness of breath or wheezing Aspirin 81 mg 09/03/21 09:00 Aspirin 81 Mg Enter
[2021-09-03] MEDS: CLOPIDOGREL BISULFATE 75 MG TABLET PO (09:38)
[2021-09-03] MEDS: FUROSEMIDE 40 MG TABLET PO ×2 (09:38→17:02)
[2021-09-03] MEDS: ASPIRIN 81 MG ENTERIC TABLET PO (09:38)
[2021-09-03] MEDS: carvediloL 6.25 MG TABLET BY MOUTH ×2 (09:38→21:04)
[2021-09-03] MEDS: SPIRONOLACTONE 25 MG TABLET BY MOUTH ×2 (09:38→17:02)
[2021-09-03] MEDS: CALCIUM CARBONATE (OSCAL) 500 MG TABLET PO (09:38)
[2021-09-03] MEDS: FOLIC ACID 1 MG TABLET PO (09:38)
[2021-09-03] MEDS: polyethylene glycoL 3350 17 GM POWD.PACK PO (09:38)
--- NOTE | 2021-09-03 14:28 | PM.IMCN ---
Assessment and Plan Assessment and plan (1) Bartholin gland cyst: Code(s): N75.0 - Cyst of Bartholin's gland Status: Acute Assessment and Plan: Care as per OBGYN. The patient was kept overnight due to her hypoxia. (2) Chronic obstructive pulmonary disease, unspecified: Code(s): J44.9 - Chronic obstructive pulmonary disease, unspecified Status: Acute Assessment and Plan: The patient has oxygen on at 1 L per nasal cannula at this time. We can attempt to get her off of the oxygen however the patient is willing to be evaluated for home O2 possible. I explained that I would like to at least give her some neb treatments and some steroids and see if we can get her off the oxygen 1st however if she is not able to get off the oxygen then will need to evaluate her for home oxygen. I did start her on low-dose prednisone and nebulizer treatments. I will get a chest x-ray as well. Will get a D-dimer just to rule out any PE. The patient had been complaining of left lower leg pain so will get a venous Dopplers well. (3) Essential (primary) hypertension: Code(s): I10 - Essential (primary) hypertension Status: Acute Assessment and Plan: Resume patient's Coreg. (4) Gastro-esophageal reflux disease without esophagitis: Code(s): K21.9 - Gastro-esophageal reflux disease without esophagitis Status: Acute Assessment and Plan: Continue with home medication. (5) Heart failure, unspecified: Code(s): I50.9 - Heart failure, unspecified Status: Acute Assessment and Plan: Continue with spironolactone and her Lasix and her Coreg. I would like a chest x-ray to rule out pulmonary edema or fluid overload. She may need extra Lasix. The patient has a history of coronary artery disease and is on Coreg and Plavix. (6) Obstructive sleep apnea (adult) (pediatric): Code(s): G47.33 - Obstructive sleep apnea (adult) (pediatric) Status: Chronic Assessment and Plan: . I did order a CPAP with auto titrate. (7) Rheumatoid arthritis: Code(s): M06.9 - Rheumatoid arthritis, unspecified Status: Acute Assessment and Plan: The patient will need to bring in her home medication that is not available here. I did start her on some prednisone. (8) Pure hypercholesterolemia: Code(s): E78.00 - Pure hypercholesterolemia, unspecified Status: Chronic Assessment and Plan: Continue with atorvastatin HPI Data of Consult Consult date: 09/03/21 Requesting Physician: Penny Bourgeois MD Primary Care Provider: Adán Macias, Consult Narrative Narrative: Aurea Colvin is a 71 year old female who has been complaining of having some rectal pain. The patient did follow-up with her GI specialist Dr. raygoza who she has seen in the past. She has not been having any rectal bleeding. The patient had been found to have a bartholin cyst . The patient was seen by the OBGYN and she had an excision of the cyst. However the patient does have a history of COPD and was work wiring oxygen overnight. The patient is now down to 1 L per nasal cannula. The patient does also have sleep apnea and did not sleep with the CPAP last night. The patient is having some wheezing and decreased lung sounds. The patient is also complaining of having left calf pain. The patient was admitted to observation status per OBGYN. I thank the OBGYN team for allowing is consult on this patient. The date of service is 09/03/2021 Review of Systems Review of Systems: All systems reviewed & are unremarkable except as noted in HPI and below Constitutional: Constitutional: Reports as per HPI and Reports no additional constitutional complaints Eyes: Eyes: Reports as per HPI and Reports no additional eye complaints ENT: Reports system reviewed and no additional complaints, except as documented and Reports Normal hearing present Cardiovascular: Cardiovascular: Reports no add
[2021-09-03 15:29] LABS: D Dimer 0.88 ug/mL (<0.48)
[2021-09-03] MEDS: IPRATROPIUM BR 0.02% INH SOLN 0.5 MG/2.5 ML VIAL INHALATION (20:46)
[2021-09-03] MEDS: ALBUTEROL SULFATE NEB 2.5 MG/0.5 ML INH INHALATION (20:47)
[2021-09-03] MEDS: ATORVASTATIN 40 MG TABLET PO (21:04)
[2021-09-04] VITALS (19 sets, daily range): BP systolic 122–125; BP diastolic 45–55; PULSE 18–100; RESP 16–24; TEMP 36.3–37.1; O2SAT 90–95
[2021-09-04] MEDS: IPRATROPIUM BR 0.02% INH SOLN 0.5 MG/2.5 ML VIAL INHALATION ×3 (02:21→14:55)
[2021-09-04] MEDS: ALBUTEROL SULFATE NEB 2.5 MG/0.5 ML INH INHALATION ×3 (02:21→14:55)
[2021-09-04 06:09] LABS: Alanine Aminotransferase 27 U/L (4-35); Albumin Level 4.3 g/dL (3.5-5.1); Alkaline Phosphatase 61 U/L (38-126); Anion Gap 6 mmol/L (8-16); Aspartate Amino Transferase 36 U/L (14-36); Bilirubin,Total 0.6 mg/dL (0.2-1.3); Blood Urea Nitrogen 23 mg/dL (7-17); Calcium 9.3 mg/dL (8.4-10.2); Carbon Dioxide 38 mmol/L (22-30); Chloride 91 mmol/L (98-107); Estimated CRCL calculation 40 ml/min; Estimated Glomerular Filt Rate 49; Glucose 106 mg/dL (65-110); Lactate Dehydrogenase 632 U/L (313-618); Magnesium 2.2 mg/dL (1.6-2.3); Potassium 3.9 mmol/L (3.4-5.0); Sodium 135 mmol/L (137-145)
[2021-09-04 06:12] LABS: Lactic Acid Reflex 0.9 mmol/L (0.7-2.1)
[2021-09-04 06:33] LABS: Basophils Absolute Auto 0.1 K/mm3 (0.0-0.1); Basophils Percent Auto 0.7 % (0.2-1.2); Eosinophils Absolute Auto 0.4 K/mm3 (0-0.3); Eosinophils Percent Auto 3.3 % (0-4.4); Hematocrit 32.3 % (37.0-47.0); Immature Granulocyte Absolute 0.12 K/mm3 (0.00-0.031); Lymphocytes Absolute Auto 1.17 K/mm3 (0.9-3.2); Lymphocytes Percent Auto 9.5 % (18.3-44.2); Mean Corpuscular Hemoglobin 29.2 pg (26-34); Mean Corpuscular Volume 94.4 fl (80-100); Mean Platelet Volume 9.3 fl (7.4-10.4); Monocytes Absolute Auto 0.9 K/mm3 (0.1-0.6); Monocytes Percent Auto 7.6 % (2.6-8.5); Neutrophils Absolute Auto 9.6 K/mm3 (1.3-6.7); Neutrophils Percent Auto 77.9 % (45.5-73.1); Platelet Count Result 365 k/mm3 (150-375); Red Blood Count 3.42 M/mm3 (4.2-5.4); Red Cell Distribution Width 17.9 % (11.5-14.5); White Blood Count 12.3 K/mm3 (4.5-10.0)
[2021-09-04 08:12] LABS: Free T4 Free Thyroxine Reflex 0.97 ng/dL (0.78-2.19)
--- NOTE | 2021-09-04 08:43 | PM.GYNPNOP ---
OFFICE 365 CONSULTANT - A/P Assessment and plan (1) Bartholin gland cyst: Code(s): N75.0 - Cyst of Bartholin's gland Status: Acute Assessment and Plan: doing well from tin roller hot mill perspective scant oozing, however, no active bleeding noted advised to continue to monitor (2) Chronic obstructive pulmonary disease, unspecified: Code(s): J44.9 - Chronic obstructive pulmonary disease, unspecified Status: Acute Assessment and Plan: pt with hx COPD, JOSÉ, and heart failure remained in house after procedure due to hypoxia and O2 requirement s/p IM consult, greatly appreciated discharge pending completion of IM evaluation and further recommendations (3) Hypoxia: Code(s): R09.02 - Hypoxemia Status: Acute Postoperative Procedures: Procedures Operation Date: 09/02/21 11:00 Actual Procedure Side Surgeon p Excision Bartholin's Cyst Not Applicable Penny Bourgeois MD Time Spent With Patient Time: Total time spent is greater than 50% in coordination of care (as documented) at patient's floor/unit and/or counseling patient: Time with patient: 15 - 25 minutes OFFICE 365 CONSULTANT- PN:Subj Post-Op Subjective Date/time seen: 09/04/21 08:43 Patient doing well this AM. Denies any chest pain, SOB, N/V. Tolerating PO diet. She does report minimal-moderate amount of dark blood on peripad from overnight. Exam Const: General: cooperative, healthy appearing and no acute distress : Other: scant gao discharge on jerrod pad, vaginal wall inspected near incision site, dark red fibrinous blood clot visualized overlying incision, gently wiped with gauze, no active bleeding noted OFFICE 365 CONSULTANT - PN: Obj Data Vital Signs Vital Signs: Vital Signs - 24 hr 09/03/21 09:30 09/03/21 09:38 09/03/21 09:40 Temperature 36.4 C Pulse Rate 87 84 Respiratory Rate 16 Blood Pressure 111/47 L Pulse Oximetry 95 92 09/03/21 10:00 09/03/21 10:15 09/03/21 10:30 Temperature Pulse Rate Respiratory Rate Blood Pressure Pulse Oximetry 91 84 L 95 09/03/21 12:00 09/03/21 16:00 09/03/21 20:00 Temperature Pulse Rate 80 105 H 81 Respiratory Rate Blood Pressure Pulse Oximetry 09/03/21 20:15 09/03/21 20:46 09/03/21 20:56 Temperature 36.2 C L Pulse Rate 80 76 72 Respiratory Rate 18 18 18 Blood Pressure 111/40 L Pulse Oximetry 98 94 09/03/21 21:04 09/03/21 21:36 09/03/21 23:50 Temperature 36.6 C Pulse Rate 72 91 64 Respiratory Rate 27 H 17 Blood Pressure 100/40 L Pulse Oximetry 94 93 09/04/21 00:00 09/04/21 02:19 09/04/21 02:21 Temperature Pulse Rate 73 83 73 Respiratory Rate 24 H 16 Blood Pressure Pulse Oximetry 92 09/04/21 02:29 09/04/21 04:00 09/04/21 04:05 Temperature 37.1 C Pulse Rate 70 83 76 Respiratory Rate 16 17 Blood Pressure 122/45 L Pulse Oximetry 90 09/04/21 05:01 Temperature Pulse Rate Respiratory Rate Blood Pressure Pulse Oximetry 90 Intake/Output Intake/Output: Intake & Output 09/01/21 09/02/21 09/03/21 09/04/21 23:59 23:59 23:59 23:59 Intake Total 7820 154 0825 Output Total 600 1250 Balance 400 -550 1700 Meds/Results Medications: Active Medications Generic Name Dose Route Start Last Admin Trade Name Freq PRN Reason Stop Dose Admin Acetaminophen 650 mg 09/02/21 17:13 Acetaminophen 325 Mg Tablet PO Q8H PRN Pain Albuterol 2.5 mg 09/03/21 20:00 09/04/21 02:21 Albuterol Sulfate Neb 2.5 Mg/0.5 Ml Inh INHALATION 2.5 mg Q6HRT KRISTAL Administration Aspirin 81 mg 09/03/21 09:00 09/03/21 09:38 Aspirin 81 Mg Enteric Tablet PO 81 mg DAILY KRISTAL Administration Atorvastatin Calcium 40 mg 09/02/21 21:00 09/03/21 21:04 Atorvastatin 40 Mg Tablet PO 40 mg HS KRISTAL Administration Calcium Carbonate 500 mg 09/03/21 09:00 09/03/21 09:38 Calcium Carbonate (Oscal) 500 Mg Tablet PO 10/03/21 08:59 500 mg DAILY KRISTAL Administration Carvedilol 6.25 mg 09/02/21 21:00 09/03/21 21:04
[2021-09-04 09:15] LABS: Total Triiodothyronine (T3) 1.21 NG/ML (0.97-1.69)
[2021-09-04] MEDS: predniSONE 20 MG TABLET 40 MG PO (09:45)
[2021-09-04] MEDS: ASPIRIN 81 MG ENTERIC TABLET PO (09:45)
[2021-09-04] MEDS: CALCIUM CARBONATE (OSCAL) 500 MG TABLET PO (09:45)
[2021-09-04] MEDS: polyethylene glycoL 3350 17 GM POWD.PACK PO (09:46)
[2021-09-04] MEDS: CLOPIDOGREL BISULFATE 75 MG TABLET PO (09:46)
[2021-09-04] MEDS: FOLIC ACID 1 MG TABLET PO (09:46)
[2021-09-04] MEDS: FUROSEMIDE 40 MG TABLET PO ×2 (09:46→16:39)
[2021-09-04] MEDS: SPIRONOLACTONE 25 MG TABLET BY MOUTH ×2 (09:46→16:39)
[2021-09-04] MEDS: carvediloL 6.25 MG TABLET BY MOUTH (09:46)
[2021-09-04 11:23] LABS: NT Pro B Type Natriuretic Pept 295 pg/mL (5-100)
--- NOTE | 2021-09-04 14:17 | HOMEO2EVAL ---
Evaluation was performed at [facility] Home Oxygen Evaluation RC: Home Oxygen (O2) Evaluation Start: 09/03/21 14:43 Freq: ONCE Status: Active Protocol: RPE Activity Type Activity Date Activity User E-Sign Co-Sign Detail Recorded Client Recorded Date Recorded By Document 09/04/21 11:45 LATASHA [email or web address] 09/04/21 14:17 LATASHA Document 09/04/21 11:50 LATASHA [email or web address] 09/04/21 14:17 LATASHA Document 09/04/21 12:00 LATASHA [email or web address] 09/04/21 14:17 LATASHA 09/04/21 09/04/21 09/04/21 11:45 11:50 12:00 Home O2 Evaluation Test Phase Resting Exercise Resting Oxygen Delivery Room Air Room Air Room Air Pulse Oximetry (90-100 %) 95 92 94 Pulse Rate (60-100 beats/min) 82 100 83 Ambulation Distance (feet) 400 Home Oxygen Evaluation Comments no home o2 needed at this time.
--- NOTE | 2021-09-04 14:18 | PCRCNOTE ---
Homo2 eval done, no home O2 needed at this time. RN notified
--- NOTE | 2021-09-04 14:41 | PM.IMPN ---
Progress Note: A&P Assessment and Plan (1) Bartholin gland cyst: Code(s): N75.0 - Cyst of Bartholin's gland Status: Acute Assessment and Plan: Status post Bartholin gland excision. Management per MINERAL ECONOMIST. (2) Hypoxia: Code(s): R09.02 - Hypoxemia Status: Acute Assessment and Plan: Noted to be hypoxic postoperatively down to 84%. She required up to 2 L supplemental O2 per nasal cannula but was able to be weaned to room air. May be related to anesthesia. CXR showed cardiomegaly without evidence of pneumonia, effusion, or pneumothorax. CTA negative for pulmonary embolism or other acute pulmonary findings. Home O2 eval performed and has no need for home oxygen. (3) Chronic obstructive pulmonary disease, unspecified: Code(s): J44.9 - Chronic obstructive pulmonary disease, unspecified Status: Acute Assessment and Plan: No wheezing on exam, not in acute exacerbation. Continue albuterol as needed. Given her worsened recent dyspnea, she would benefit from having PFTs performed and consider long-acting inhalers per primary care provider. (4) Heart failure, unspecified: Code(s): I50.9 - Heart failure, unspecified Status: Acute Assessment and Plan: Echocardiogram in June 2020 showed severely reduced EF of 30-35%. No evidence of volume overload on CXR and BNP was not elevated. She would benefit from repeat echocardiogram to reassess EF given her symptoms, however this was deferred during inpatient hospitalization given lack of acute heart failure symptoms. She should follow-up with her PCP promptly to obtain repeat echo. In the meantime, continue furosemide, spironolactone, and carvedilol. (5) Essential (primary) hypertension: Code(s): I10 - Essential (primary) hypertension Status: Acute Assessment and Plan: Blood pressure reviewed and has been stable. (6) Obstructive sleep apnea (adult) (pediatric): Code(s): G47.33 - Obstructive sleep apnea (adult) (pediatric) Status: Chronic Assessment and Plan: Continue CPAP at night and with naps. She states she is almost 100% compliant with this, though occasionally will feel too tired to refill the CPAP with water and goes without. It is important that she consistently uses CPAP every night. (7) Rheumatoid arthritis: Code(s): M06.9 - Rheumatoid arthritis, unspecified Status: Acute Assessment and Plan: Resume home medications Additional Plan The patient is stable for discharge from hospitalist standpoint. Please feel free to call me for any questions. Thank you for allowing me to participate in this patient's care Subjective Date/time seen: 09/04/21 14:41 Interval history: Date of service: 09/04/2021 Aurea Colvin is a 71-year-old female with a history of COPD, hypertension, CHF, JOSÉ, rheumatoid arthritis on immunosuppressive therapy, and Bartholin cyst now s/p excision of left bartholin gland who is seen in consultation by the hospitalist service for shortness of breath. The patient is feeling better. She does endorse dyspnea on exertion that has been persistent for many months. She states that when she gets up and walk to the kitchen and begins doing dishes, she typically runs out of breath in energy and has to take a rest. She denies cough. She denies orthopnea. No PND. Denies wheezing. No chest pain. Denies swelling her extremities. Denies nausea, vomiting, fever chills. Appetite is good. No urinary symptoms. She has been passing gas. She has no additional concerns at this time. Review of Systems Review of Systems: All systems reviewed & are unremarkable except as noted in HPI and below Exam Narrative: Ms. Colvin is a well-nourished, well-appearing 71-year-old female who is sitting up in bed. She appears comfortable and is in NARD. Neuro: awake, alert and oriented x4, speech clear, no focal neuro deficit
--- NOTE | 2021-09-04 16:16 | PM.DS ---
DS: Admitting Diagnosis Discharge Date 09/04/21 Admitting Diagnosis Bartholin's gland cyst DS: Summary Hospital Course Hospital Course: Patient was admitted on 09/02/21 For outpatient surgery for management of a left Bartholin's gland cyst. Procedure was uncomplicated. While patient was in recovery room, oxygen saturation was noted to drop and patient required supplemental oxygen. After several hours in the recovery room with inability to wean off of oxygen, decision was made to admit patient overnight in observation status as initial thought was that the effects of anesthesia were contributing to symptoms. The following day, patient was still requiring oxygen to maintain higher levels of oxygen saturation. A medicine consult was requested. Several diagnostic studies were completed and all studies were negative. Patient still required a minimal amount of oxygen support on 09/03/2021. On 09/04/2021, patient was evaluated for home O2 use, however, evaluation did not show that patient required supplemental oxygen. Oxygen was discontinued and patient was able to maintain oxygen saturation in the mid 90s. Patient deemed stable for discharge. Patient was discharged home in stable condition. Strict emergency precautions were reviewed with patient. All question and concerns were addressed. Time Spent with Patient Time attestation: Total time spent providing and/or coordinating discharge services: DS: Data Data Completed and Pending Completed studies during hospitalization: Pending at discharge 09/02/21 11:27 Surgical [PTH] Routine Labs on day of discharge: Labs from last 24 hours 09/04/21 09/04/21 09/04/21 05:36 05:36 05:36 WBC RBC Hgb Hct MCV MCH MCHC RDW Plt Count MPV Immature Gran % (Auto) Neut % (Auto) Lymph % (Auto) Kane % (Auto) Eos % (Auto) Baso % (Auto) Lymph # (Auto) Kane # (Auto) Eos # (Auto) Baso # (Auto) Abs Immat Gran (auto) Absolute Neuts (auto) Absolute Nucleated RBC Nucleated RBC % Sodium Potassium Chloride Carbon Dioxide Anion Gap BUN Creatinine Estim Creat Clear Calc Estimated GFR Glucose Lactic Acid Calcium Magnesium Total Bilirubin AST ALT Alkaline Phosphatase Lactate Dehydrogenase NT-Pro-B Natriuret Pep 295 H Total Protein Albumin TSH (Reflex) Free T4 0.97 Total T3 1.21 09/04/21 09/04/21 09/04/21 05:36 05:36 05:36 WBC RBC Hgb Hct MCV MCH MCHC RDW Plt Count MPV Immature Gran % (Auto) Neut % (Auto) Lymph % (Auto) Kane % (Auto) Eos % (Auto) Baso % (Auto) Lymph # (Auto) Kane # (Auto) Eos # (Auto) Baso # (Auto) Abs Immat Gran (auto) Absolute Neuts (auto) Absolute Nucleated RBC Nucleated RBC % Sodium 135 L Potassium 3.9 Chloride 91 L Carbon Dioxide 38 H Anion Gap 6 L BUN 23 H Creatinine 1.10 H Estim Creat Clear Calc 40 Estimated GFR 49 L Glucose 106 Lactic Acid 0.9 Calcium 9.3 Magnesium 2.2 Total Bilirubin 0.6 AST 36 ALT 27 Alkaline Phosphatase 61 Lactate Dehydrogenase 632 H NT-Pro-B Natriuret Pep Total Protein 7.0 Albumin 4.3 TSH (Reflex) 4.100 Free T4 Total T3 09/04/21 05:36 WBC 12.3 H RBC 3.42 L Hgb 10.0 L Hct 32.3 L MCV 94.4 MCH 29.2 MCHC 31.0 L RDW 17.9 H Plt Count 365 MPV 9.3 Immature Gran % (Auto) 1.0 H Neut % (Auto) 77.9 H Lymph % (Auto) 9.5 L Kane % (Auto) 7.6 Eos % (Auto) 3.3 Baso % (Auto) 0.7 Lymph # (Auto) 1.17 Kane # (Auto) 0.9 H Eos # (Auto) 0.4 H Baso # (Auto) 0.1 Abs Immat Gran (auto) 0.12 H Absolute Neuts (auto) 9.6 H Absolute Nucleated RBC 0.0 Nucleated RBC % 0.0 Sodium Potassium Chloride Carbon Dioxide Anion Gap BUN Creatinine Estim Creat Clear Calc Estimated GFR Glucose Lactic
== END 2021-09-04 17:25 | disposition home or self-care (01) ==
LOC: ANHSURGERY 13:23 → ANH2MED 17:14
PROVIDERS: Nurse Practitioner; Physician Assistant; PCP Internal Medicine; Visit Provider Student in an Organized Health Care Education/Training Program
PROC: (CPT 56440; principal; 2021-09-02 11:00)
DX: N75.0 Cyst of Bartholin's gland (principal); R09.02 Hypoxemia; M79.662 Pain in left lower leg; J44.9 Chronic obstructive pulmonary disease, unspecified; I11.0 Hypertensive heart disease with heart failure; I50.9 Heart failure, unspecified; G47.33 Obstructive sleep apnea (adult) (pediatric); E78.00 Pure hypercholesterolemia, unspecified; D64.9 Anemia, unspecified; M05.89 Other rheumatoid arthritis with rheumatoid factor of multiple sites; K21.9 Gastro-esophageal reflux disease without esophagitis; Z95.1 Presence of aortocoronary bypass graft; E66.9 Obesity, unspecified; Z68.37 Body mass index [BMI] 37.0-37.9, adult; Z79.51 Long term (current) use of inhaled steroids; Z79.02 Long term (current) use of antithrombotics/antiplatelets; Z79.82 Long term (current) use of aspirin
CPT/HCPCS: 56740; 36415; 71045; 71275; 80048; 80053; 83605; 83615; 83735; 83880; 84439; 84443; 84480; 85025; 85380; 88304; 88305; 93970; 94640; A9270; J1170; J1630; J2405; J2704; J3010; J7120; J7512; Q9967

== ENCOUNTER 2021-10-08 09:01 | Outpatient (CLI) | payer OTHER, SELFPAY ==
--- NOTE | ~2021-10-08 | NM_ITS ---
EXAMINATION: NM kim stress w perfusion DATE: 10/08/2021 12:22 INDICATION: Dyspnea on exertion. TECHNIQUE: Rest images were obtained following intravenous administration of 9 mCi Tc99m tetrofosmin (Myoview). The patient was infused intravenously with Lexiscan (regadenoson). Then, 28.4 mCi Tc99m te trofosmin (Myoview) was administered intravenously, and stress images were obtained. Data was reconst ructed into short axis and horizontal and vertical long axis SPECT images. Gated SPECT images were al so obtained. COMPARISON: Myocardial perfusion imaging 09/16/2010, chest CT 09/04/2021 FINDINGS: There is a small, mild, fixed perfusion defect involving mid anterolateral and mid inferola teral segments of left ventricle, consistent with infarct. No reversible component to suggest ischemi a. There is apical hypokinesis. Left ventricular ejection fraction measures 52%. IMPRESSION: 1. Small area of mild infarct involving mid anterolateral and mid inferolateral segments of left vent ricle. 2. Apical hypokinesis with left ventricular ejection fraction measuring 52%. Reviewed, dictated and finalized at location A. MOTOR REPAIRER IMPRESSION: 1. Small area of mild infarct involving mid anterolateral and mid inferolateral segments of left ventricle. 2. Apical hypokinesis with left ventricular ejection fraction measuring 52%.
--- NOTE | 2021-10-08 09:14 | EST_ITS ---
Patient Info Name: Aurea Colvin Age: 71 years : 1950 Gender: Female Ht: 60 in Wt: 192 lbs BSA: 1.97 m2 HR: 76 bpm BP: 140 / 77 mmHg Heart Rhythm: Sinus Rhythm Exam Date: 10/08/2021 10:39 AM Exam Location: [facility] Stress Patient Status: Outpatient Admit Date: 10/08/2021 Staff Ordering Physician: Adán Macias DO Attending Provider: Adán Macias DO Exercise Technologist: Analilia Dickey CT Exercise Physician: Tre Cyr MD Exam Type: CA stress kim w NM Study Info Indications R06.00 - Dyspnea, unspecified A regadenoson stress test was performed. Summary 1. Normal sinus rhythm. 2. Nonspecific T-wave abnormality. 3. No significant ST or T abnormalities noted following Lexiscan injection. 4. None. 5. Clinically and electrocardiographically uneventful Lexiscan stress test. 6. Myocardial perfusion imaging exam to be dictated by the Radiology Department. Protocol: Lexiscan Stress ECG Details Stage: REST Duration (min): 1 min : 1 sec HR (bpm): 77 SBP (mmHg): 140 DBP (mmHg): 74 Stage: REST Duration (min): 7 min : 45 sec HR (bpm): 78 SBP (mmHg): 140 DBP (mmHg): 74 Stage: STAGE 1 Duration (min): 0 min : 59 sec HR (bpm): 106 SBP (mmHg): 140 DBP (mmHg): 74 Stage: RECOVERY Duration (min): 1 min : 0 sec HR (bpm): 103 SBP (mmHg): 106 DBP (mmHg): 63 Stage: RECOVERY Duration (min): 2 min : 0 sec HR (bpm): 96 SBP (mmHg): 106 DBP (mmHg): 63 Stage: RECOVERY Duration (min): 3 min : 0 sec HR (bpm): 94 SBP (mmHg): 122 DBP (mmHg): 66 Stage: RECOVERY Duration (min): 3 min : 59 sec HR (bpm): 95 SBP (mmHg): 122 DBP (mmHg): 66 Rest HR: 78 bpm Peak HR: 108 bpm Rest Sys BP: 140 mmHg Peak Sys BP: 122 mmHg Max Pred HR: 147 bpm % Max Pred HR: 73 % Target HR: 125 bpm Max RPP: 13,176 bpm*mmHg BP Response: Normal blood pressure response Termination Reason: Completed protocol Cardiac Symptoms: None Total Time: 1 min : 0 sec Rest Robin BP: 74 mmHg Peak Robin BP: 66 mmHg Total Dose: 0.4 mg Resting ECG Normal sinus rhythm. Nonspecific T-wave abnormality. Stress ECG No significant ST or T abnormalities noted following Lexiscan injection. Arrhythmias None. Report Signatures
== END 2021-10-08 09:02 | disposition home or self-care (01) ==
LOC: ANHCARD 09:02
PROVIDERS: PCP Internal Medicine; Visit Provider Internal Medicine
DX: R06.00 Dyspnea, unspecified (principal); I21.9 Acute myocardial infarction, unspecified
CPT/HCPCS: 78452; 93017; A9502; J2785

== ENCOUNTER 2022-02-13 08:43 | Outpatient (CLI) | payer OTHER, SELFPAY ==
--- NOTE | ~2022-02-13 | NM_ITS ---
EXAMINATION: NM kim stress w perfusion DATE: 02/13/2022 13:13 INDICATION: Chest pain TECHNIQUE: Rest images were obtained following intravenous administration of 8.5 mCi Tc99m tetrofosmi n (Myoview). The patient was infused intravenously with Lexiscan (Regadenoson). Then, 29.0 mCi Tc99m tetrofosmin (Myoview) was administered intravenously, and stress images were obtained. Data was recon structed into short axis and horizontal and vertical long axis SPECT images. Gated SPECT images were also obtained. COMPARISON: None. FINDINGS: Nonreversible mild perfusion defect involving the mid anterolateral segment on the rest and stress images consistent with infarct. Equivocal whether this extends into the adjacent apical later al and mid inferolateral segments which is seen on the non gated rest and stress images but not on th e gated post stress images. No reversible ischemia. There is normal left ventricular chamber size, wa ll motion and ejection fraction. Left ventricular ejection fraction measures 52%. IMPRESSION: 1. Small mild nonreversible infarct at the mid anterolateral segment with equivocal extension to the adjacent apical lateral and mid inferolateral segments. No reversible ischemia. 2. Left ventricular ejection fraction measuring 52%. Reviewed, dictated and finalized at location A. IMPRESSION: 1. Small mild nonreversible infarct at the mid anterolateral segment with equiv ocal extension to the adjacent apical lateral and mid inferolateral segments. N o reversible ischemia. 2. Left ventricular ejection fraction measuring 52%.
--- NOTE | 2022-02-13 08:57 | EST_ITS ---
Patient Info Name: Aurea Colvin Age: 71 years : 1950 Gender: Female Ht: 60 in Wt: 190 lbs BSA: 1.96 m2 HR: 76 bpm BP: 138 / 71 mmHg Heart Rhythm: Sinus Rhythm Exam Date: 02/13/2022 11:53 AM Exam Location: [facility] Stress Patient Status: Outpatient Admit Date: 02/13/2022 Staff Ordering Physician: Adán Macias DO Attending Provider: Adán Macias DO Exercise Technologist: Analilia Dickey CT Exercise Physician: edilberto villela Exam Type: CA stress kim w NM Study Info Indications R07.9 - Chest pain, unspecified A regadenoson stress test was performed. Summary 1. Normal sinus rhythm. 2. Occasional PVC, nonspecific T-wave abnormality. 3. No ST or T abnormalities induced by Lexiscan. 4. Occasional PVCs. 5. Clinically and electrocardiographically unremarkable Lexiscan stress test. 6. Myocardial perfusion imaging study to be reported by Radiology. Protocol: Lexiscan Stress ECG Details Stage: REST Duration (min): 2 min : 55 sec HR (bpm): 76 SBP (mmHg): 138 DBP (mmHg): 71 Stage: REST Duration (min): 7 min : 46 sec HR (bpm): 79 SBP (mmHg): 138 DBP (mmHg): 71 Stage: STAGE 1 Duration (min): 1 min : 0 sec HR (bpm): 112 SBP (mmHg): 142 DBP (mmHg): 57 Stage: RECOVERY Duration (min): 1 min : 0 sec HR (bpm): 116 SBP (mmHg): 142 DBP (mmHg): 57 Stage: RECOVERY Duration (min): 2 min : 0 sec HR (bpm): 105 SBP (mmHg): 142 DBP (mmHg): 57 Stage: RECOVERY Duration (min): 3 min : 0 sec HR (bpm): 99 SBP (mmHg): 131 DBP (mmHg): 59 Stage: RECOVERY Duration (min): 3 min : 3 sec HR (bpm): 101 SBP (mmHg): 131 DBP (mmHg): 59 Rest HR: 79 bpm Peak HR: 121 bpm Rest Sys BP: 138 mmHg Peak Sys BP: 142 mmHg Max Pred HR: 147 bpm % Max Pred HR: 82 % Target HR: 125 bpm Max RPP: 17,182 bpm*mmHg Termination Reason: Completed protocol Cardiac Symptoms: None Total Time: 1 min : 0 sec Rest Robin BP: 71 mmHg Peak Robin BP: 57 mmHg Total Dose: 0.4 mg Resting ECG Normal sinus rhythm. Occasional PVC, nonspecific T-wave abnormality. Stress ECG No ST or T abnormalities induced by Lexiscan. Arrhythmias Occasional PVCs. Report Signatures
== END 2022-02-13 08:44 | disposition home or self-care (01) ==
LOC: ANHCARD 08:50
PROVIDERS: PCP Internal Medicine; Visit Provider Internal Medicine
DX: R07.9 Chest pain, unspecified (principal); Z95.1 Presence of aortocoronary bypass graft; I21.9 Acute myocardial infarction, unspecified
CPT/HCPCS: 78452; 93017; A9502; J2785

== ENCOUNTER 2023-04-16 17:32 | Emergency (ER) | payer OTHER, SELFPAY ==
--- NOTE | ~2023-04-16 | CT_ITS ---
EXAMINATION: CT chest abdomen pelvis wo con DATE: 04/16/2023 18:04 INDICATION: thoracic back pain and right rib pain after fall . TECHNIQUE: Computed tomography (CT) of the chest, abdomen, and pelvis was performed with 100 mL Omnip aque-350 intravenous contrast. Automated exposure control and iterative reconstruction technique were employed. The dose-length product was 1438.21 mGy-cm. COMPARISON: [facility] 09/04/2021; CT abdomen pelvis 06/26/2021 FINDINGS: CHEST: No thoracic aortic injury. Mild ectasia and moderate arch calcification. Moderate coronary artery kymberly cification. Mild cardiomegaly. No mediastinal hematoma. Dilated central pulmonary arteries as can be seen with pulmonary arterial hy pertension. No pericardial effusion. No acute lung injury. Subsegmental dependent bilateral lower lobe acinar opacities and focal peripher al consolidation in the right middle lobe. No pleural effusion or pneumothorax. ABDOMEN/PELVIS: No solid organ injury. Nonobstructing right nephrolithiasis. No evidence of bowel or mesenteric injury. Status post cholecystectomy. No free fluid or free air. No retroperitoneal hematoma. Pelvic contents are atraumatic. Status post hysterectomy. MUSCULOSKELETAL: No acute fracture. No fracture or traumatic malalignment of the thoracic or lumbar spine. Old moderate burst fracture at T12, with vertebroplasty cement. IMPRESSION: No acute traumatic process detected in the chest, abdomen, or pelvis. Note, sensitivity for solid org an injury or vascular injury is decreased without the use of intravenous contrast. Small focal consolidations in the bilateral dependent lower lobes and lateral right middle lobe may r epresent foci of atelectasis, infection, and/or aspiration. Reviewed, dictated and finalized at location K. IMPRESSION: No acute traumatic process detected in the chest, abdomen, or pelvis. Note, sen sitivity for solid organ injury or vascular injury is decreased without the use of intravenous contrast. Small focal consolidations in the bilateral dependent lower lobes and lateral r ight middle lobe may represent foci of atelectasis, infection, and/or aspiratio n.
--- NOTE | ~2023-04-16 | XR_ITS ---
EXAM: XR knee LT 3V DATE: 04/16/2023 18:10 HISTORY: left knee pain after fall . COMPARISON: None available. FINDINGS: Normal mineralization. No fracture or dislocation. No lytic or blastic lesion. Tricompartm ental left knee osteoarthritis, severe in the medial compartment. Moderate volume joint fluid. No ero dani or periosteal change. Soft tissues within normal limits. IMPRESSION: No acute osseous finding in the left knee. Reviewed, dictated and finalized at location K.
[2023-04-16 17:40] VITALS: BP 185/76; PULSE 97; RESP 18; TEMP 36.6; O2SAT 95
--- NOTE | 2023-04-16 17:48 | ED.GENADULT ---
HPI - General Adult General Chief complaint: Extremity Injury, Lower Stated complaint: Back injury Time Seen by Provider: 04/16/23 17:45 History of Present Illness HPI narrative: 72-year-old female presents to the emergency room today for evaluation after having a fall around 5 PM. She fell on some steps and landed on her back. She reports having pain in her mid back and right ribs. She also was having pain in her left knee but that has eased up some now. She denies hitting her head. She denies having any headache or neck pain. No numbness or tingling. No shortness of breath or chest pain. Denies having any abdominal pain. Related Data Home Medications Medication Instructions Recorded Confirmed aspirin 81 mg tablet,delayed 81 mg PO DAILY 12/19/20 08/18/22 release (Adult Aspirin Regimen) methotrexate sodium 2.5 mg tablet 20 mg PO WEEKLY 12/19/20 08/18/22 acetaminophen 650 mg 650 mg PO Q8H PRN Pain 07/23/21 08/18/22 tablet,extended release calcium carbonate 600 mg calcium 600 mg PO DAILY 07/23/21 08/18/22 (1,500 mg) tablet (Calcium) folic acid 1 mg tablet 1 mg PO DAILY 07/23/21 08/18/22 Allergies Allergy/AdvReac Type Severity Reaction Status Date / Time Sulfa (Sulfonamide Allergy Intermediate Nausea Verified 04/16/23 18:16 Antibiotics) Review of Systems Review of Systems: CONSTITUTIONAL: Denies fever, chills, or sweats. EYES: Denies visual changes, redness, or discharge. ENT: Denies rhinorrhea, congestion, sore throat, or otalgia. CARDIOVASCULAR: Denies chest pain, palpitations, or edema. RESPIRATORY: Denies cough or dyspnea. GASTROINTESTINAL: Denies abdominal pain, nausea, vomiting, or diarrhea. GENITOURINARY: Denies dysuria or hematuria. SKIN: Denies rash or itching. MUSCULOSKELETAL: as per HPI NEUROLOGIC: Denies headache, numbness, dizziness, or weakness. PSYCHIATRIC: Denies anxiety or depression. [facility] Past Medical History Medical History Anemia, unspecified Bartholin gland cyst (~01/2021) Excised Bartholin's gland cyst Removed 09/02/21 Chronic obstructive pulmonary disease, unspecified COVID-19 Essential (primary) hypertension Gastro-esophageal reflux disease without esophagitis Heart failure, unspecified History of stillbirth Obstructive sleep apnea Obstructive sleep apnea (adult) (pediatric) She uses a CPAP machine Polyosteoarthritis, unspecified Pure hypercholesterolemia Rheumatoid arthritis Rheumatoid arthritis involving multiple sites with positive rheumatoid factor Screening for breast cancer Screening for colon cancer Surgical History Surgical History History of cataract extraction Hx of CABG 2 vessel S/P cholecystectomy S/P partial hysterectomy Family History Family History Mother Family history of coronary artery disease Father Patient's father is Acute myocardial infarction Son Acute myocardial infarction Social History Social History Social History: The patient is . She lives with her son who is rarely at home. She did have 4 children. 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 The patient states that she is a lifelong nonsmoker. She does not use any alcohol marijuana or illicit drugs. The patient does not have a durable power associate attorney but may consider her sister being her power associate attorney. Code status full code Smoking status: Never smoker Second hand tobacco smoke exposure: No Alcohol intake: never Substance use: never Substance use type: does not use Living arrangements: alone Spiritual care concerns: No Exam Narrative: GENERAL: Well-appearing, well-nourished, and in no acute distress. HEAD: Normocephalic, atraumatic. EYES: PERRLA and EOMI.
[2023-04-16 18:13] VITALS: BP 128/62; PULSE 94; RESP 22; O2SAT 94
[2023-04-16] MEDS: ONDANSETRON INJ 4 MG/2 ML VIAL IV PUSH (18:17)
[2023-04-16] MEDS: MORPHINE SULFATE (*CRX) 4 MG/ML INJ IV PUSH (18:18)
[2023-04-16 18:39] LABS: Basophils Absolute Auto 0.2 K/mm3 (0.0-0.1); Basophils Percent Auto 1.2 % (0.2-1.2); Eosinophils Absolute Auto 0.6 K/mm3 (0-0.3); Eosinophils Percent Auto 4.2 % (0-4.4); Hematocrit 39.6 % (37.0-47.0); Hemoglobin 12.5 g/dL (12.0-15.0); Immature Granulocyte Absolute 0.34 K/mm3 (0.00-0.031); Immature Granulocyte Percent A 2.5 % (0-0.5); Lymphocytes Absolute Auto 2.96 K/mm3 (0.9-3.2); Lymphocytes Percent Auto 21.5 % (18.3-44.2); Mean Corpuscular HGB Conc 31.6 g/dl (32-36); Mean Corpuscular Hemoglobin 30.5 pg (26-34); Mean Corpuscular Volume 96.6 fl (80-100); Mean Platelet Volume 10.4 fl (7.4-10.4); Monocytes Absolute Auto 1.8 K/mm3 (0.1-0.6); Monocytes Percent Auto 13.1 % (2.6-8.5); Neutrophils Absolute Auto 7.9 K/mm3 (1.3-6.7); Neutrophils Percent Auto 57.5 % (45.5-73.1); Platelet Count Result 378 k/mm3 (150-375); Red Cell Distribution Width 18.1 % (11.5-14.5); White Blood Count 13.8 K/mm3 (4.5-10.0)
[2023-04-16] MEDS: CYCLOBENZAPRINE HCL 10 MG TABLET PO (19:04)
[2023-04-16] MEDS: HYDROcodone/acetaminophen (*CRX) 7.5-325 MG TABLET 1 TAB PO (19:04)
[2023-04-16 19:19] LABS: Alanine Aminotransferase 33 U/L (6-35); Albumin Level 4.2 g/dL (3.5-5.1); Alkaline Phosphatase 80 U/L (38-126); Anion Gap 5 mmol/L (8-16); Aspartate Amino Transferase 34 U/L (14-36); Bilirubin,Total 0.5 mg/dL (0.2-1.3); Blood Urea Nitrogen 16 mg/dL (7-17); Calcium 9.1 mg/dL (8.4-10.2); Carbon Dioxide 35 mmol/L (22-30); Chloride 97 mmol/L (98-107); Estimated CRCL calculation 64 ml/min; Estimated Glomerular Filt Rate > 60; Glucose 128 mg/dL (65-110); Potassium 4.5 mmol/L (3.4-5.0); Sodium 137 mmol/L (137-145)
--- NOTE | 2023-04-16 19:50 | PC.NURSE ---
This RN entered pt's room with discharge papers. Pt verbalized understanding of instructions and did not have any questions. IV removed. Pt stated she needed to use the bathroom but requested to use bedpan. This RN questioned pt how she will go to the bathroom at home and pt said I don't know . This RN encouraged pt to get out of bed and use the bathroom. Pt proceeded to lift toilet seat up and pee standing over the toilet because she refused to sit down. Pt states I can't move if it won't move . Primary RN notified. Will notify .
--- NOTE | 2023-04-16 20:09 | PC.NURSE ---
Pt states she would rather leave to pickling grader her medications and go home. Pt taken out of department in wheelchair. Instructed pt and her family to return to ED if her symptoms worsen. Pt and family verbalized understanding.
[2023-04-16 20:10] VITALS: BP 120/78; PULSE 90; RESP 20; O2SAT 96
== END 2023-04-16 20:11 | disposition home or self-care (01) ==
PROVIDERS: Emergency Provider Nurse Practitioner Family; PCP Family Medicine
DX: M54.6 Pain in thoracic spine (principal); M25.562 Pain in left knee; W10.9XXA Fall (on) (from) unspecified stairs and steps, initial encounter; I10 Essential (primary) hypertension; K21.9 Gastro-esophageal reflux disease without esophagitis; G47.33 Obstructive sleep apnea (adult) (pediatric); E78.00 Pure hypercholesterolemia, unspecified
CPT/HCPCS: 36415; 71250; 73562; 74176; 80053; 85025; 96374; 96375; 99284; A9270; J2270; J2405

== ENCOUNTER 2023-08-24 09:10 | Emergency (ER) | payer OTHER, SELFPAY ==
--- NOTE | ~2023-08-24 | CT_ITS ---
EXAMINATION: CT cervical spine wo con DATE: 08/24/2023 10:21 INDICATION: Fall. Head injury. TECHNIQUE: Computed tomography (CT) of the cervical spine was performed without intravenous contrast. Automated exposure control and iterative reconstruction technique were employed. Exam dose: 605.33 mGy-cm total exam DLP. COMPARISON: None FINDINGS: There is mild reversal cervical curvature which may be due to muscle spasm. There is prominent degenerative change spurring and joint space narrowing at the articulation of the anterior arch of C1 and the odontoid process of C2. 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 There is minimal anterolisthesis at C3-4. Very prominent anterior spurring is noted C5-6 and C6-7, with mild degenerative disc disease at C5-6 and severe degenerative disc disease at C6-7. There is minimal anterolisthesis at C7-T1. There is fusion of the left apophyseal joints from C2-C5 and on the right from C2-C4. There is very severe degenerative change at the remaining apophyseal joints bilaterally. Very prominent degenerative spurring of the uncovertebral joints at C6-7 and to a lesser extent C5-6. No fracture or dislocation or locked facet or prevertebral soft tissue swelling. IMPRESSION: Mild reversal cervical curvature which may be due to muscle spasm Prominent cervical spondylosis No fracture or dislocation, locked facet Reviewed, dictated and finalized at Location A. Reviewed, dictated and finalized at location L.
--- NOTE | ~2023-08-24 | CT_ITS ---
EXAMINATION: CT brain wo con DATE: 08/24/2023 10:21 INDICATION: Fall. Patient takes Plavix. TECHNIQUE: Computed tomography (CT) of the head was performed without intravenous contrast. The mA wa s adjusted according to patient size. Iterative reconstruction technique was employed. Exam dose: 60 5.33 mGy-cm total exam DLP. COMPARISON: None FINDINGS: Bilateral carotid siphon internal carotid artery calcifications. No intracranial mass lesion or hemorrhage or cerebrovascular accident, midline shift or mass effect e ffect is detected. Ventricular size is normal. No subdural or epidural hematoma is detected. Left frontal cephalohematoma is noted. No skull fracture or intracranial coup or contrecoup injury is detected. The paranasal sinuses and mastoid air cells are normally developed and aerated. The orbital contents are unremarkable. IMPRESSION: Left frontal cephalohematoma; no skull fracture or acute intracranial finding Cerebral atherosclerosis Reviewed, dictated and finalized at [facility]. Reviewed, dictated and finalized at [facility]. IMPRESSION: Left frontal cephalohematoma; no skull fracture or acute intracran ial finding Cerebral atherosclerosis
[2023-08-24 09:14] VITALS: BP 144/98; PULSE 95; RESP 20; TEMP 36.4; O2SAT 99
[2023-08-24 11:14] VITALS: BP 141/67; PULSE 84; RESP 18; O2SAT 96
[2023-08-24] MEDS: TETANUS,DIPHTHERIA,AC PERTUSSIS ADULT (0.5 ML) BOOSTRIX IM (11:52)
[2023-08-24 11:55] VITALS: BP 112/84; PULSE 81; RESP 18; O2SAT 95
[2023-08-24 12:58] VITALS: BP 135/66; PULSE 80; RESP 18; O2SAT 95
--- NOTE | 2023-08-24 13:19 | ED.FALL ---
HPI - Fall General Chief Complaint: Fall Stated Complaint: Fall- hit head Time Seen by Provider: 08/24/23 11:00 History of Present Illness HPI Narrative: Patient is a 73-year-old female who presents ER after a fall. She was walking into radiology and stepped up on a curb when she tripped and fell striking her face. She did not lose consciousness. She has a laceration over the bridge of her nose. Additionally she has abrasion and swelling to her forehead. Patient does take Plavix. Since the fall patient has had some mild nausea and does have some dizziness as well. Related Data Home Medications Medication Instructions Recorded Confirmed aspirin 81 mg tablet,delayed 81 mg PO DAILY 12/19/20 08/18/22 release (Adult Aspirin Regimen) methotrexate sodium 2.5 mg tablet 20 mg PO WEEKLY 12/19/20 08/18/22 acetaminophen 650 mg 650 mg PO Q8H PRN Pain 07/23/21 08/18/22 tablet,extended release calcium carbonate 600 mg calcium 600 mg PO DAILY 07/23/21 08/18/22 (1,500 mg) tablet (Calcium) folic acid 1 mg tablet 1 mg PO DAILY 07/23/21 08/18/22 Allergies Allergy/AdvReac Type Severity Reaction Status Date / Time Sulfa (Sulfonamide Allergy Intermediate Nausea Verified 08/24/23 11:15 Antibiotics) Review of Systems Constitutional: Constitutional: Denies chills and Denies fever(s) ENT: Denies nasal congestion and Denies sore throat Comments: Pain to bridge of nose. Gastrointestinal: Gastrointestinal: Denies abdominal pain, Denies diarrhea, Reports nausea and Denies vomiting Neurologic: Reports dizziness, Denies headache(s), Denies focal weakness and Denies numbness PMFSH Past Medical History Medical History Anemia, unspecified Bartholin gland cyst (~01/2021) Excised Bartholin's gland cyst Removed 09/02/21 Chronic obstructive pulmonary disease, unspecified COVID-19 Essential (primary) hypertension Gastro-esophageal reflux disease without esophagitis Heart failure, unspecified History of stillbirth Obstructive sleep apnea Obstructive sleep apnea (adult) (pediatric) She uses a CPAP machine Polyosteoarthritis, unspecified Pure hypercholesterolemia Rheumatoid arthritis Rheumatoid arthritis involving multiple sites with positive rheumatoid factor Screening for breast cancer Screening for colon cancer Surgical History Surgical History History of cataract extraction Hx of CABG 2 vessel S/P cholecystectomy S/P partial hysterectomy Family History Family History Mother Family history of coronary artery disease Father Patient's father is Acute myocardial infarction Son Acute myocardial infarction Social History Social History Social History: The patient is . She lives with her son who is rarely at home. She did have 4 children. 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 The patient states that she is a lifelong nonsmoker. She does not use any alcohol marijuana or illicit drugs. The patient does not have a durable power civil litigation attorney but may consider her sister being her power civil litigation attorney. Code status full code Smoking status: Never smoker Second hand tobacco smoke exposure: No Alcohol intake: never Substance use: never Substance use type: does not use Living arrangements: alone Spiritual care concerns: No Exam Narrative: GENERAL: Well-appearing, well-nourished, and in no acute distress. HEAD: Normocephalic, abrasions and swelling to the central forehead. EYES: PERRL and EOMI. ENT: Mucous membranes moist. 2 cm laceration over the bridge of the nose. NECK: Supple. CHEST: Clear to auscultation. No respiratory distress. HEART: Regular rate and rhythm. Normal peripheral pulses. EXTREMITIES: Norm
[2023-08-24 13:34] VITALS: BP 114/70; PULSE 83; RESP 18; O2SAT 95
[2023-08-24] MEDS: ONDANSETRON HCL ODT 4 MG TABLET PO (13:34)
== END 2023-08-24 13:48 | disposition home or self-care (01) ==
PROVIDERS: Emergency Provider Emergency Medicine; PCP Family Medicine
DX: S06.0X0A Concussion without loss of consciousness, initial encounter (principal); S01.21XA Laceration without foreign body of nose, initial encounter; I11.0 Hypertensive heart disease with heart failure; I50.9 Heart failure, unspecified; J44.9 Chronic obstructive pulmonary disease, unspecified; Z23 Encounter for immunization; W01.0XXA Fall on same level from slipping, tripping and stumbling without subsequent striking against object, initial encounter
CPT/HCPCS: 12011; 70450; 72125; 90471; 90715; 99284; A9270

== ENCOUNTER 2023-08-24 13:50 | Outpatient (CLI) | payer OTHER, SELFPAY ==
--- NOTE | ~2023-08-24 | CT_ITS ---
EXAMINATION: CT abdomen pelvis wo con DATE: 08/24/2023 14:28 INDICATION: Epigastric abdominal pain TECHNIQUE: Computed tomography (CT) of the abdomen and pelvis was performed without intravenous contr ast. Automated exposure control and iterative reconstruction technique were employed. Exam dose: 106 8.49 mGy-cm total exam DLP. COMPARISON: 04/16/2023 CT chest abdomen pelvis FINDINGS: Minimal dependent right lower lobe atelectasis. Status post sternotomy. Borderline heart si ze. No pericardial or pleural effusion. Status post cholecystectomy. The liver, spleen, pancreas, and adrenal glands and kidneys are unremark able on this limited noncontrast examination, with the exception of a couple millimeters nonobstructi ng right renal calculus. No ureteral calculus or hydroureteronephrosis. The urinary bladder is unrema rkable. Status post hysterectomy. There is atherosclerotic calcification of the abdominal aorta and prominent calcifications at the stefany gins of the celiac, superior mesenteric and renal arteries. No abdominal aortic aneurysm. No intraper itoneal or retroperitoneal or pelvic mass lesion or adenopathy or ascites. Multiple diverticula of the sigmoid colon; no CT evidence of diverticulitis. No bowel obstruction or intraperitoneal free air. The appendix appears to be absent. Small fat-containing umbilical hernia. The left and slightly above the umbilicus is a small fat conta ining ventral abdominal wall hernia. Moderate burst fracture of T12 vertebroplasty. Diffuse idiopathic skeletal hyperostosis of the thoracic spine. Multilevel degenerative disc disease of the lumbar spine, most severe at L1-2, with mild retrolisthes is at this level as well as L2-3. Degenerative change at the apophyseal joints of the lumbar and lumbosacral area with associated grade 1 anterolisthesis at L4-5. No suspicious osteolytic or osteoblastic lesions are noted. IMPRESSION: Status post sternotomy Status post cholecystectomy and appendectomy. Status post hysterectomy Small nonobstructing right renal calculus Diverticulosis of the colon; no CT evidence of diverticulitis Burst fracture deformity and vertebroplasty at T12 Diffuse idiopathic skeletal hyperostosis of the thoracic spine Lumbar spondylosis Reviewed, dictated and finalized at [facility]. Reviewed, dictated and finalized at [facility].
== END 2023-08-24 13:51 | disposition home or self-care (01) ==
PROVIDERS: PCP Family Medicine; Visit Provider Family Medicine
DX: R10.13 Epigastric pain (principal); Z98.890 Other specified postprocedural states; N20.0 Calculus of kidney; K57.90 Diverticulosis of intestine, part unspecified, without perforation or abscess without bleeding; M48.14 Ankylosing hyperostosis [Forestier], thoracic region; M43.06 Spondylolysis, lumbar region
CPT/HCPCS: 12011; 70450; 72125; 74176; 90471; 90715; 99284; A9270

== ENCOUNTER 2024-03-10 00:05 | Day surgery (SDC) | payer OTHER, SELFPAY ==
[2024-02-29 10:47] VITALS: BMI 39.2
--- NOTE | 2024-02-29 11:29 | PC.NURSE ---
Spoke with _PATIENT_ regarding medication _PLAVIX. Pt. verbalizes understanding that the last dose of PLAVIX is to be taken on 03/05/2024 and the Endoscopist will instruct them when to restart after the procedure.
[2024-03-10 09:46] VITALS: BP 113/94; PULSE 72; RESP 18; TEMP 36.1; O2SAT 99; BMI 38.8
[2024-03-10] MEDS: LACTATED RINGERS 1,000 ML 150 ML IV CONT (09:57)
--- NOTE | 2024-03-10 10:44 | WPDANESEPPF ---
Anes - Initial Pre Proc Eval Procedure: Operation Date: 03/10/24 11:00 Proposed Procedures p Colonoscopy - Marco Vasquez MD Date/Time: 03/10/24 10:44 Surgeon: Marco Vasquez MD Pre Op Diagnosis: Personal hx. of colon polyps Patient Data Age: 73 Gender: F Height: 1.52 m Weight: 90.2 kg Last Vital Signs Temp 96.9 F L 03/10/24 09:46 Pulse 72 03/10/24 09:46 Resp 18 03/10/24 09:46 BP 113/94 H 03/10/24 09:46 Pulse Ox 99 03/10/24 09:46 O2 Del Method Room Air 03/10/24 09:46 Allergies Allergy/AdvReac Type Severity Reaction Status Date / Time Sulfa (Sulfonamide AdvReac Intermediate Nausea Verified 03/10/24 09:45 Antibiotics) Home Medications Medication Instructions Recorded Confirmed Type albuterol sulfate 90 mcg/actuation 1 puff inhalation Q4H PRN 12/19/19 03/10/24 Rx aerosol inhaler (Proventil HFA) shortness of breath or wheezing #18 grams aspirin 81 mg tablet,delayed 81 mg PO DAILY 12/19/20 03/10/24 History release (Adult Aspirin Regimen) methotrexate sodium 2.5 mg tablet 20 mg PO WEEKLY 12/19/20 03/10/24 History acetaminophen 650 mg 650 mg PO Q8H PRN Pain 07/23/21 03/10/24 History tablet,extended release calcium carbonate (Calcium 600) 600 mg PO BID 07/23/21 03/10/24 History folic acid 1 mg tablet 1 mg PO DAILY 07/23/21 03/10/24 History magnesium hydroxide 400 mg/5 mL 5 ml PO DAILY PRN constipation 12/24/21 03/10/24 Rx oral suspension (Milk of Magnesia) #3,000 mL clopidogrel 75 mg tablet See Rx Instructions .Route 09/25/22 03/10/24 Rx .COMPLEX #90 tabs furosemide 40 mg tablet 40 mg PO BID #180 tabs 10/05/22 03/10/24 Rx atorvastatin 40 mg tablet 40 mg PO HS #90 tabs 12/03/22 03/10/24 Rx carvedilol 6.25 mg tablet See Rx Instructions .Route 12/15/22 03/10/24 Rx .COMPLEX #180 tabs spironolactone 25 mg tablet See Rx Instructions .Route 12/28/22 03/10/24 Rx .COMPLEX #180 tabs cyanocobalamin (vitamin B-12) 1,000 mcg PO DAILY 02/29/24 03/10/24 History 1,000 mcg tablet (Vitamin B-12) diclofenac sodium 1 % topical gel 4 g topical QID PRN Pain 02/29/24 03/10/24 History docusate sodium 50 mg tablet 100 mg PO HS 02/29/24 03/10/24 History fluticasone 250 mcg-salmeterol 50 1 inh inhalation BID 02/29/24 03/10/24 History mcg/dose blistr powdr for inhalation (Wixela Inhub) fluticasone propionate 50 2 spray intranasal DAILY 02/29/24 03/10/24 History mcg/actuation nasal spray,suspension nitroglycerin 0.4 mg sublingual 0.4 mg sublingual Q5-15M PRN Chest 02/29/24 03/10/24 History tablet Pain pantoprazole 40 mg tablet,delayed 40 mg PO DAILY 02/29/24 03/10/24 History release peg 400-propylene glycol 0.4 %-0.3 2 drp ophthalmic (eye) BID 02/29/24 03/10/24 History % eye gel drops (Systane Gel) Patient hx anesthesia problems: none Family hx anesthesia problems: none Results Review: All pre-operative results and documents have been reviewed as part of the pre-operative evaluation. [facility] Past Medical History Medical History Anemia, unspecified Bartholin gland cyst (~01/2021) Excised Bartholin's gland cyst Removed 09/02/21 Chronic obstructive pulmonary disease, unspecified COVID-19 Essential (primary) hypertension Gastro-esophageal reflux disease without esophagitis Heart failure, unspecified History of stillbirth Obstructive sleep apnea Obstructive sleep apnea (adult) (pediatric) She uses a CPAP machine Polyosteoarthritis, unspecified Pure hypercholesterolemia Rheumatoid arthritis Rheumatoid arthritis involving multiple sites with positive rheumatoid factor Screening for breast cancer Screening for colon cancer Surgical History Surgical History History of cataract extraction Hx of CABG 2 vessel S/P cholecystectomy S/P partial hysterectomy Family History Family History (Reviewed 04/16/23
--- NOTE | 2024-03-10 10:54 | PM.HPGS ---
History of Present Illness History of Present Illness Consent: Risks, benefits, and alternatives have been discussed and questions answered. Patient agrees to proceed with procedure. Chief complaint: Personal hx. of colon polyps Narrative: Aurea Colvin is a 73 year old female with colon polyp in 2018 Review of Systems Review of Systems: All systems reviewed & are unremarkable except as noted in HPI and below PMFSH Past Medical History Medical History Anemia, unspecified Bartholin gland cyst (~01/2021) Excised Bartholin's gland cyst Removed 09/02/21 Chronic obstructive pulmonary disease, unspecified COVID-19 Essential (primary) hypertension Gastro-esophageal reflux disease without esophagitis Heart failure, unspecified History of stillbirth Obstructive sleep apnea Obstructive sleep apnea (adult) (pediatric) She uses a CPAP machine Polyosteoarthritis, unspecified Pure hypercholesterolemia Rheumatoid arthritis Rheumatoid arthritis involving multiple sites with positive rheumatoid factor Screening for breast cancer Screening for colon cancer Surgical History Surgical History History of cataract extraction Hx of CABG 2 vessel S/P cholecystectomy S/P partial hysterectomy Family History Family History Mother Family history of coronary artery disease Father Patient's father is Acute myocardial infarction Son Acute myocardial infarction Social History Social History Social History: The patient is . She lives with her son who is rarely at home. She did have 4 children. 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 The patient states that she is a lifelong nonsmoker. She does not use any alcohol marijuana or illicit drugs. The patient does not have a durable power litigation attorney associate but may consider her sister being her power litigation attorney associate. Code status full code Smoking status: Never smoker Second hand tobacco smoke exposure: No Alcohol intake: never Substance use: never Substance use type: does not use Living arrangements: with family Spiritual care concerns: No Meds Home Medications and Allergies Home Medications Medication Instructions Recorded Confirmed Type albuterol sulfate 90 mcg/actuation 1 puff inhalation Q4H PRN 12/19/19 03/10/24 Rx aerosol inhaler (Proventil HFA) shortness of breath or wheezing #18 grams aspirin 81 mg tablet,delayed 81 mg PO DAILY 12/19/20 03/10/24 History release (Adult Aspirin Regimen) methotrexate sodium 2.5 mg tablet 20 mg PO WEEKLY 12/19/20 03/10/24 History acetaminophen 650 mg 650 mg PO Q8H PRN Pain 07/23/21 03/10/24 History tablet,extended release calcium carbonate (Calcium 600) 600 mg PO BID 07/23/21 03/10/24 History folic acid 1 mg tablet 1 mg PO DAILY 07/23/21 03/10/24 History magnesium hydroxide 400 mg/5 mL 5 ml PO DAILY PRN constipation 12/24/21 03/10/24 Rx oral suspension (Milk of Magnesia) #3,000 mL clopidogrel 75 mg tablet See Rx Instructions .Route 09/25/22 03/10/24 Rx .COMPLEX #90 tabs furosemide 40 mg tablet 40 mg PO BID #180 tabs 10/05/22 03/10/24 Rx atorvastatin 40 mg tablet 40 mg PO HS #90 tabs 12/03/22 03/10/24 Rx carvedilol 6.25 mg tablet See Rx Instructions .Route 12/15/22 03/10/24 Rx .COMPLEX #180 tabs spironolactone 25 mg tablet See Rx Instructions .Route 12/28/22 03/10/24 Rx .COMPLEX #180 tabs cyanocobalamin (vitamin B-12) 1,000 mcg PO DAILY 02/29/24 03/10/24 History 1,000 mcg tablet (Vitamin B-12) diclofenac sodium 1 % topical gel 4 g topical QID PRN Pain 02/29/24 03/10/24 History docusate sodium 50 mg tablet 100 mg PO HS 02/29/24 03/10/24 History fluticasone 250 mcg-salmeterol 50 1 inh inhalation BID 02/29/24 03/10/24 History
[2024-03-10 11:22] VITALS: BP 121/45; PULSE 73; RESP 22; O2SAT 99
[2024-03-10 11:32] VITALS: BP 136/55; PULSE 70; RESP 23; O2SAT 100
[2024-03-10 11:42] VITALS: BP 139/96; PULSE 79; RESP 26; O2SAT 100
== END 2024-03-10 11:45 | disposition home or self-care (01) ==
PROVIDERS: PCP Family Medicine; Visit Provider Internal Medicine Gastroenterology
PROC: 0DJD8ZZ Inspection of Lower Intestinal Tract, Via Natural or Artificial Opening Endoscopic (ICD-10-PCS; CPT 45378; principal; 2024-03-10 11:00)
DX: Z12.11 Encounter for screening for malignant neoplasm of colon (principal); D12.0 Benign neoplasm of cecum; D12.3 Benign neoplasm of transverse colon; D12.5 Benign neoplasm of sigmoid colon; K57.30 Diverticulosis of large intestine without perforation or abscess without bleeding; K64.8 Other hemorrhoids; J44.9 Chronic obstructive pulmonary disease, unspecified; I11.0 Hypertensive heart disease with heart failure; I50.9 Heart failure, unspecified; K21.9 Gastro-esophageal reflux disease without esophagitis; G47.33 Obstructive sleep apnea (adult) (pediatric); E78.00 Pure hypercholesterolemia, unspecified; M19.90 Unspecified osteoarthritis, unspecified site; M05.89 Other rheumatoid arthritis with rheumatoid factor of multiple sites; Z79.51 Long term (current) use of inhaled steroids; Z79.82 Long term (current) use of aspirin; Z79.631 Long term (current) use of antimetabolite agent; Z79.02 Long term (current) use of antithrombotics/antiplatelets; Z95.1 Presence of aortocoronary bypass graft; E66.9 Obesity, unspecified; Z68.38 Body mass index [BMI] 38.0-38.9, adult
CPT/HCPCS: 45385; 88305; J2704; J7120

== ENCOUNTER 2024-12-15 12:31 | Outpatient (CLI) | payer OTHER, SELFPAY ==
--- NOTE | ~2024-12-15 | DEXA_ITS ---
Bone Density Report Name: WYATT HANCOCK Age: 74 Sex: Female Ethnicity: White Date of : 1950 Indication: postmenopausal; screening for osteoporosis; height loss; prior fracture; hysterectomy; Referring Provider: DAT, MARY Nichole Study: Bone densitometry was performed. Exam Date: December 15, 2024 Accession number: [id number] Bone Density: Region BMD T-score Z-score Classification AP Spine(L2, L3) 1.207 1.4 3.9 Normal Femoral Neck (Left) 0.717 -1.2 1.0 Osteopenia Total Hip (Left) 0.973 0.3 2.1 Normal Femoral Neck (Right) 0.753 -0.9 1.3 Normal Total Hip (Right) 1.034 0.8 2.6 Normal Total Hip Mean 1.003 0.6 2.4 Normal World Health Organization criteria for BMD impression classify patients as: Normal (T-score at or above -1.0), Osteopenia (T-score between -1.0 and -2.5), or Osteoporosis (T-score at or below -2.5). 10-year Fracture Risk: FRAX not reported because: Prior hip or vertebral fracture Previous Exams: Region Exam Age BMD T-score BMD Change BMD Change Date g/cm2 vs Baseline vs Previous Total Hip(Left) 12/15/2024 74 0.973 0.3 -0.047 (-4.6%) -0.020 (-2.0%) 08/19/2021 71 0.992 0.4 -0.028 (-2.7%) -0.028 (-2.7%) 07/07/2019 69 1.020 0.6 Total Hip(Right) 12/15/2024 74 1.034 0.8 0.026 (2.6%)# 0.034 (3.4%)# 08/19/2021 71 1.000 0.5 -0.008 (-0.8%) -0.008 (-0.8%) 07/07/2019 69 1.008 0.5 *Denotes significance at 95% confidence level, LSC for Total Hip = 0.027 g/cm2 # Denotes dissimilar scan types or analysis methods Clinical Information Provided by Patient: Have had a previous hip or vertebral fracture Has had a low trauma fracture Has used the following medications: Calcium Has the following medical conditions: Hysterectomy Patient maximum height was 63 Menopause Age: 37 No regular weight bearing exercise Drinks caffeinated beverages Onset of menses at age 12 Number of children 4 Impression: The patient has low bone mass, based on the Left Femoral Neck T-score. The patient has risk factors, including: previous fracture. No significant bone loss was observed. Discussion: INCREASED RISK OF FRACTURE DUE TO HISTORY OF FRACTURE. The patient's previous fracture puts the patient at high risk of a future fracture. In untreated patients, the risk of osteoporotic fracture increases approximately two-fold for each 1.0 SD decrease in T-score. Low bone density is not the only risk factor for fracture; also consider factors such as patient's age, frailty or poor health, risk of falling, risk of injury, previous osteoporotic fracture, family history of osteoporosis, cigarette smoking, low body weight, etc. Not everyone with a low trauma fracture has osteoporosis; osteomalacia and other metabolic bone disorders should also be considered. Patients who have osteoporosis should be evaluated for specific diseases and conditions (secondary causes) that may cause or contribute to bone loss and fracture risk. National Osteoporosis Foundation (NOF) recommends pharmacologic intervention for patients with a prior hip or vertebral fracture regardless of BMD T-score. The patient should follow a healthful lifestyle (good nutrition with adequate calcium and vitamin D, and appropriate weight-bearing exercise). Follow-Up: Consider a repeat BMD and Vertebral Fracture Assessment (VFA) exam in 2 years or sooner if medically necessary, to reassess this patient's status. Reported by: ELIZABETH on 12/15/2024 1:01:00 PM. Reviewed, dictated and finalized at location AScott AMARAL
--- OUTSIDE RECORDS SUMMARY | 2024-12-15 12:36 | XMS_ITS ---
Author Name Michell FATIMA, MRS. Robertson npal Address [address] [place] [address] Phone [phone] Organization [facility] ([facility]) Care Team Providers Care Refrigerator Car Icer Name Role Phone MichellDebranayana Unavailable [phone] Susan Ruff Unavailable [phone] Xiomara Covarrubias Unavailable Unavailable Rayray Lopez Unavailable [phone] Mariola Mccoy Unavailable [phone] Tre Cyr Unavailable [phone] Shawn Prieto Unavailable [phone] [facility] Tier [facility] RN (CAYLA)Xiomara navailgerardo Unavailable Reason for Referral Not Available Allergies, adverse reactions, alerts No known allergies History of medication use Medication Class Instructions Start Date End Date Albuterol Sulfate HFA 108 (9 0 Base) MCG/ACT Aerosol Solution Inhalation INHALE 2 PUFFS BY MOUTH EVERY 6 HOURS NEEDED FOR WHEEZING OR SHORTNESS OF BREATH 2024-10-04 No Data Available Breztri Aerosphere 160-9-4.8 MCG/ACT Aerosol Inhalation 2 puffs inhaled orally 2 times per day 2024-10-04 No Data Available Atorvastatin Calcium 20 mg Tab 1 tablet orally daily No Data Available Carvedilol 6.25 mg Tab 1 tablet orally 2 times per day with food 2024-10-04 No Data Available Clopidogrel Bisulfate 75 mg Tab 1 tablet orally daily 2024-10-04 No Data Available Fluticasone Propionate 50 MCG/ACT Suspension Nasal 1 spray intranasally 2 times per day in each nostril as needed 2024-10-04 No Data Available Folic Acid 1 mg Tab 1 tablet orally daily 2024-10-04 No Data Available Furosemide 40 mg Tab 1 tablet orally 2 t imes per day 2024-10-04 No Data Available Hydroxychloroquine Sulfate 2 00 mg Tab 2 tablets orally daily with food or milk 2024-10-04 No Data Available Methotrexate Sodium 2.5 mg Tab take 8 ta blets every 7 days 2024-10-04 No Data Available Nitroglycerin 0.4 mg Tab Sublingual 1 tablet sublingually 3 times per day as needed. Take every 5 minutes up to 3 times if chest pain persists 2024-10-04 No Data Available Pantoprazole Sodium 40 mg Ta b delayed rel 1 tablet orally daily 1/2 to 1 hour before morning meal 2024-10-04 No Data Available Spironolactone 25 mg Tab 1 tablet orally 2 times per day 2024-10-04 No Data Available Aspirin 81 mg Tab delayed rel 1 tablet every day 10-04 No Data Available [facility] Calcium 600 mg Tab 1 tablet orally 2 times per day with meals 2024-10-04 No Data Available [facility] Vitamin B12 1000 MCG Tab 1 tablet orally daily 02-03-11 No Data Available Docusate Sodium 100 mg Cap 1 capsule ora lly 2 times per day as needed 2024-10-04 No Data Available Tylenol Extra Strength 500 m g Tab Take 2 tablets 8 hours as needed 2024-10-04 No Data Available Systane 0.4-0.3 % Solution Ophthalmic No Data Available 2024-10-04 No Data Available Diclofenac Sodium 1 % Gel 4 grams topica lly to affected area 4 times per day as needed 2024-10-04 No Data Available Problem List Problem Status Onset Date Resolved Date Chest pain Active 2024-10-04 N/A CAD (coronary artery disease) Active 2024-10-04 N/A COPD (chronic obstructive pulmonary disease) Active 2024-10-04 N/A HLD (hyperlipidemia) Active 2024-10-04 N/A GERD (gastroesophageal reflux disease) Active 17-10-11 N/A CHF (congestive heart failure) Active 2024-10-04 N/A Seropositive erosive rheumatoid arthritis Active 2024-10-04 N/A JOSÉ (obstructive sleep apnea) Active 2024-10-04 N/A Status post cardiac catheterization Active 10-31 N/A Encounters Encounters Type Facility Date of Service Diagnosis/Co mplaint Home visit for evaluation and management of new patient requiring medically appropriate examination and moderate level of medical decision making. If using time, at least 60 minutes total time on enco [facility] [place] 10/04/2024 Chronic obstructive pulmonary disease, unspecifiedOther rheumatoid arthritis with rheumatoid factor of unspecified siteHeart failure, unspecifiedChest pain, unspecifiedAthscl heart disease of [place] coronary artery w/o ang pctrsHyperlipidemia, unspecifiedGastro-esophageal reflux disease without esophagitisObstructive sleep apnea (adult) (pediatric) Outpatient visit for evaluation and management of established patient, including medically appropriate examination and low level of medical decision making, total time 20-29 minutes [facility] 10/31/2024 Chest pain, unspecif iedAthscl heart disease of [place] coronary artery w/o ang pctrsHyperlipidemia, unspecifiedOther specified postprocedural states Home visit for evaluation and management of established patient requiring medically appropriate examination and low level of medical decision making. If using time, at least 30 minutes total time on e [facility] 12/05/2024 Chest pain, unspecif iedAthscl heart disease of [place] coronary artery w/o ang pctrsChronic obstructive pulmonary disease, unspecifiedHeart failure, unspecified Vital Signs Date of Collection Vitals 2024-10-04 09:16:11 Height - 152.4 cmWei ght - 79.83 kgBody Mass Index (BMI) - 34.37 kg/m2BP Diastolic - 78.0 mm[Hg]BP Systolic - 120.0 mm[Hg]Heart Rate - 59.0 /minRespiratory Rate - 16.0 /minBody Temperature - 37.11 CelO2 % BldC Oximetry - 95.0 % 2024-12-05 12:03:00 BP Diastolic - 68.0 mm[Hg]BP Systolic - 118.0 mm[Hg]Heart Rate - 73.0 /minRespiratory Rate - 16.0 /minBody Temperature - 37.22 CelO2 % BldC Oximetry - 97.0 % Social History Social History Social History Observation Description Effec tive Time Current Smoking Status Never smoker 2024-11-26 1 Sex Female History of Procedures Procedures Service Procedure code Service date Servicing provider Phone# Home visit for evaluation and management of new patient requiring medically appropriate examination and moderate level of medical decision making. If using time, at least 60 minutes [place] on enco [id number] 2024-10-04 No Data Available No Data Availa ble Outpatient visit for evaluation and management of established patient, including medically appropriate examination and low level of medical decision making, total time 20-29 minutes [id number] 2024-10-31 No Data Available No Data Availa ble Home visit for evaluation and management of established patient requiring medically appropriate examination and low level of medical decision making. 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 [employer] 2024-10-04 Mental Status No Information Assessments Date of Service Assessments 2024-10-04 09:16:11 Chest painChest pain CAD (coronary artery disease)COPD (chronic obstructive pulmonary disease)HLD (hyperlipidemia)GERD (gastroesophageal reflux disease)CHF (congestive heart failure)Seropositive erosive rheumatoid arthritisOSA (obstructive sleep apnea) 2024-10-31 14:39:00 Chest painCAD (coron bryan artery disease)HLD (hyperlipidemia)Status post cardiac catheterization 2024-12-05 12:03:00 Chest painCAD (coron bryan artery disease)COPD (chronic obstructive pulmonary disease)CHF (congestive heart failure) Plan of Care Date of Service Plans 2024-10-04 09:16:11 Last cardiology f/u - 4Cardiac cath appt - 10/20/2024Last rheumatology appt - 09/19/2024encouraged patient to take nitroglycerin as neededAdvised patient to call bindery production manager todayRecommend patient be seen in ER settingconsider follow up with RN next weekAdvised her to take the nitroglycerin PRN - she has not been takingHighly recommend she call her bindery production manager to update on her symptom chest pain severityRecommended she be seen ER/UC if chest pain persists today, currently refusing to goCardiac cath appt 10/20/2024hroniccontinue Plavix, aspirin, statincardiac cath Myocardial perfusion scan/stress test: Left ventricular ejection fraction is 42 %. There is mild to moderate LV dysfunction. Myocardial perfusion imaging is abnormal for a large area of moderate anterolateral/inferolateral/apical lateral ischemia. Small area of mild anteroseptal ischemia is also seen.chroniccontinue Breztri daily and Albuterol PRNstablecontinue atorvastatinheart healthy dietchroniccontinue pantoprazoleavoid food triggerschronic; stablecontinue furosemide, spironolactone and carvedilolcontinue to follow cardiologychronic; stablecontinue hydroxychloroquine and methotrexateRheumatology follow ups Q6 months - hroniccontinue CPAP at bedtime 2024-10-31 14:39:00 New PCP: Dr. Rayray Lopez in [place], appt. 11/2024very episodes in the AM x 2-3 days; s/p re-stenting 09/2024encouraged to call cardiology office if she has concernsif worsening of CP, pt advised to go to ERNitroglycerin PRNCardiology f/u 12/18/2024RN outreach call on 11/03/2024s/p cardiac catheterization w/ re-stent and expansion 10/13/2024ppears she declined cardiac rehabcardiology f/u 12/18/2024ontinue anticoagulant, statin and aspirinchronic; stablecontinue statinheart healthy dietsee #2 2024-12-05 12:03:00 intermittentAdvised using Nitroglycerin as needed for chest pains/p cardiac cath with restent in ardiology follow up 12/18/2024hroniccontinue atorvastatin 20mg daily, Plavix 75mg daily and aspirin 81 mg dailyCardiology follow up 12/18/2024hronic; stableRecommended she begin using the Breztri inhaler daily, not to be used as neededDiscussed good mouth rinsing with water or mouthwashAlbuterol PRN for wheezing or dyspneachronic; stablecontinue furosemide, spironolactone and carvedilolCardiology follow up 12/18/2024 Goals Date Goal 2024-10-31 RN to obtain vitals next week 2024-12-05 PCP 12/08/2024 2024-12-05 Cardiology Health Concerns Date Concern 2024-12-05 Your patient, Aurea Colvin, 1950 has been enrolled in [facility]. [facility] is care by a physician and/or advanced practice provider in-home or virtual as an extension of your primary care. We also have registered nurses, pharmacists, community health workers, and social workers that assist with your patient as needed. Please note that your patient will remain attributed to you. If you have any questions, please reach out directly to our team at the phone number above. We will be setting up care conferences with your practice if you want to attend those or we can set up individual care conferences at a more convenient time. Aurea Colvin is being seen today through our [facility] program for a follow up. Privacy Practices were agreed upon and signed. This visit is to assist with complex patient care and assist your team in closing any care gaps. Today the following gaps/needs have been identified:Acute concerns addressed today: 2024-12-05 Patient continues to have intermittent chest pain not on a daily basis. She has not been taking the nitroglycerin. She had her cardiology appt moved up to 12/18/2024 because of the chest pain. 2024-12-05 She reports she has not been using her Breztri inhaler. She is afraid of getting mouth blisters. Discussed she needs to rinse with water or OTC mouthwash to prevent thrush.
--- OUTSIDE RECORDS SUMMARY | 2024-12-15 12:36 | XMS_ITS | Referral Summary ---
Author Organization [facility] Address [address] [place] [address] Care Team Providers Care [place] Worker Name Role Phone Shawn Prieto MD Primary Care Provider Tre Cyr MD Unavailable Mariola Mccoy MD Unavailable Sunny Gutiérrez MD PhD Unavailable [phone] Encounters Date Type Department Care Team Description 12/13/2024 Telephone [facility] Primary Care at [address] [address] Shawn Prieto MD Dexa scan order request 11/07/2024 Telephone [facility] Organization [address] [place] [address] Keya Quiroz MA [facility] Home 10/20/2024 Telephone [facility] [address] [facility] [address] [place] [phone] Dorcas Jenkins RN Cardiac Rehab 10/13/2024 8:00 AM FINISHER BRUSH - 10/13/2024 10:20 AM FINISHER BRUSH Surgery [facility] [address] [place] [phone] Kane Jones MD PhD PCI HECTOR MAJOR CORONARY [id number] - [id number] 10/13/2024 6:35 AM FINISHER BRUSH - 10/13/2024 2:07 PM FINISHER BRUSH Hospital Encounter [facility] [place] [address] [place] [address] Kane Jones MD PhD Unstable angina (CMS/HCC) (HCC) [I20.0] (Primary Dx); 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) Discharge Disposition: Discharge to home or self care 10/12/2024 10:55 AM FINISHER BRUSH Lab [facility] [address] [place] [address] Angina at rest (HCC) 10/12/2024 Orders Only [facility] [place] [address] [place] [address] Mireille Johnson, LETY Angina at rest (HCC) (Primary Dx) 10/12/2024 Orders Only [facility] Cardiology [address] [place] [address] Advanced Medicine 8th [place] [address] [place] [address] Kane Jones MD PhD Hx of CABG (Primary Dx) 10/12/2024 Telephone [facility] [address] [place] [address] 8th [place] [address] [place] [address] Kane Jones MD PhD lab fax number 10/12/2024 9:30 AM FINISHER BRUSH Office Visit [facility] Cardiology [address] [facility] [address] [place] [address] Tre Cyr MD Hx of CABG (Primary Dx); History of coronary artery stent placement 10/11/2024 Telephone [facility] Cardiology [address] [facility] [address] [place] [address] Tre Cyr MD 10/10/2024 JOHN ED Outreach [facility] [address] [place] [address] Jessi Moore MA 10/10/2024 Documentation [facility] Rheumatology [facility] Medicine 5th [place] [address] [place] [address] Modesta Brown RMA Eye Exam 10/08/2024 2:48 PM FINISHER BRUSH - 10/08/2024 9:12 PM FINISHER BRUSH Emergency [facility] Emergency Department 1 [place] [address] Discharge Disposition: Left without being seen 10/06/2024 Telephone [facility] Cardiology [address] [place] [address] Tre Cyr MD 09/29/2024 Telephone [facility] Rheumatology [address] [facility] Advanced Medicine 5th [place] [address] [place] [address] Modesta Brown RMA 09/25/2024 Telephone [facility] Card[facility] [address] [facility] Medicine 8th [place] [address] [place] [address] Kane Jones MD PhD reschedule PCI 09/20/2024 2:20 PM FINISHER BRUSH - 09/20/2024 4:10 PM FINISHER BRUSH Surgery [facility] 1 [place] [address] Kane Jones MD PhD Discontinued Cath Case Pre Proc 09/20/2024 11:38 AM FINISHER BRUSH - 09/20/2024 4:50 PM FINISHER BRUSH Hospital Encounter [facility] 1 [place] [address] Kane Jones MD PhD Angina pectoris, unspecified (HCC) Discharge Disposition: Discharge to home or self care 09/19/2024 10:46 AM FINISHER BRUSH - 09/19/2024 11:59 PM FINISHER BRUSH Hospital Encounter [address] [address] Seropositive rheumatoid arthritis (HCC) Discharge Disposition: Discharge to home or self care 09/19/2024 11:20 AM FINISHER BRUSH Lab [facility] Endocrinology Metabolism and Lipid [address] [facility] Advanced Medicine 5th [place] [address] [place] [address] High risk medication use; Seropositive rheumatoid arthritis (HCC) 09/19/2024 10:30 AM FINISHER BRUSH Office Visit [facility] Rheumatology [address] [facility] 5th [place] [address] [place] [phone] Sunny Gutiérrez MD PhD High risk medication use (Primary Dx); Seropositive rheumatoid arthritis (HCC) from Last 3 Months Allergies No known active allergies Medications nitroglycerin (NITROSTAT) 0.[address] 1 tablet (0.4 mg total) under the tongue every 5 (five) minutes as needed for chest pain Active calcium carbonate (CALCIUM 600 ORAL) Take by mouth 2 (two) times a day Active peg 400-propylene glycol (Systane GeL) 0.4-0.3 % ophthalmic gel Administer 1 drop into both eyes Active acetaminophen ER (TYLENOL) 650 mg 8 hr tablet Take 1 tablet (650 mg total) by mouth every 8 (eight) hours as needed for pain Active albuterol HFA (PROVENTIL HFA,VENTOLIN HFA,PROAIR HFA) 90 mcg/actuation inhalerIndicati ons:COPD with acute exacerbation (HCC) Inhale 2 puffs every 6 (six) hours as needed for wheezing or shortness of breath 1 each 11 11/09/19 23 Active cyanocobalamin, vitamin B-12, (Vitamin B-12) 1,000 mcg/mL drops Take by mouth Active diclofenac sodium (VOLTAREN) 1 % gel Apply 4 g topically 4 (four) times a day 200 g 11 08/20/20 23 Active folic acid (FOLVITE) 1 mg tablet TAKE 1 TABLET BY MOUTH EVERY DAY 90 tablet 3 02/04/20 24 Active hydroxychloroqu ine (PLAQUENIL) 200 mg tabletIndicatio ns:Rheumatoid Arthritis Take 2 tablets (400 mg total) by mouth daily 180 tablet 3 06/06/20 24 025 Active acetaminophen-c odeine (TYLENOL with CODEINE #3) 300-30 mg per tablet TAKE 1 TABLET BY MOUTH EVERY 4 TO 6 HOURS 04/08/20 24 Active budesonide-glyc opyr-formoterol (BREZTRI) 160-9-4.8 mcg/actuation inhalerIndicati ons:Bronchospas m Prevention with COPD Inhale 2 puffs 2 (two) times a day 10.7 g 3 06/27/20 24 Active Additional Information Patient not taking.Reported on 10/12/2024 methotrexate 2.5 mg tabletIndicatio ns:Seropositive rheumatoid arthritis (HCC) TAKE 8 TABLETS (20 MG TOTAL) BY MOUTH EVERY 7 DAYS. 96 tablet 1 07/24/20 24 Active atorvastatin (LIPITOR) 40 mg tablet TAKE 1 TABLET BY MOUTH DAILY AT BED TIME 100 tablet 1 08/12/[address] (PROTONIX) 40 mg EC tabletIndicatio ns:Epigastric pain TAKE 1 TABLET BY MOUTH EVERY DAY 90 tablet 3 08/28/20 24 Active spironolactone (ALDACTONE) 25 mg tablet TAKE 1 TABLET BY MOUTH TWICE A DAY 180 tablet 1 09/04/20 24 Active docusate sodium (COLACE) 50 mg capsuleIndicati ons:constipatio n Take 1 capsule (50 mg total) by mouth 2 (two) times a day Active aspirin 81 mg enteric coated tablet Take 1 tablet (81 mg total) by mouth daily 30 tablet 11 10/13/20 24 Active clopidogreL (PLAVIX) 75 mg tablet Take 1 tablet (75 mg total) by mouth daily 90 tablet 11 10/13/20 24 Active furosemide (LASIX) 40 mg tablet TAKE 1 TABLET BY MOUTH TWICE A DAY 180 tablet 1 10/17/20 24 Active fluticasone propionate (FLONASE) 50 mcg/actuation nasal spray SPRAY 2 SPRAYS INTO EACH NOSTRIL EVERY DAY 48 mL 4 11/29/19 25 Active carvediloL (COREG) 6.25 mg tablet TAKE ONE TABLET BY MOUTH EVERY 12 HOURS MUST TAKE WITH A MEAL OR FOOD 200 tablet 12/02/19 25 Active fluticasone propionate (FLONASE) 50 mcg/actuation nasal spray Administer 2 sprays into each nostril daily 3 each 4 09/13/20 23 025 Discontinued carvediloL (COREG) 6.25 mg tablet TAKE ONE TABLET BY MOUTH EVERY 12 HOURS MUST TAKE WITH A MEAL OR FOOD 180 tablet 1 06/06/20 24 025 Discontinued Active Problems Problem Noted Date Diagnosed Date Angina pectoris, unspecified 09/05/2024 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 Aurea Colvin is not up to date on screening tests. She is in need of DEXA- colonoscopy performed in 2019 or 2020 per her recollection (Dr. Darnell). She is not up to date on needed preventative vaccinations; She is in need of Tdap/Td, Pneumonia (Prevnar-13 or Pneumovax-23), and Covid-19 (booster). Flu shot given at [facility], Aurea is unsure of the date. We discussed healthy lifestyle habits, educational material has been given. Medications reviewed, changes documented as per the medical record and discussed with patient along with risks vs benefits. Return in 6 months Acute bilateral low back pain without sciatica 0 04/26/2023 Assessment & Plan (04/26/2023 12:04 PM CDT): Continue PRN's, muscle relaxant (don't take together) Tylenol by itself is okay if it is sufficient, so you don't have to take much of the [place] Getting records from [place] (including imaging) Continue topical ice Establishing care with new doctor, encounter for 11/11/2022 Assessment & Plan (11/11/2022 4:30 PM FINISHER BRUSH): A(n) initial visit to establish care has been performed today. Aurea Colvin is not up to date on screening tests. She is in need of DEXA, Breast cancer screening and Colon cancer screening. She is not up to date on needed preventative vaccinations; She is in need of Tdap/Td, Pneumonia (Prevnar-13 or Pneumovax-23) and Covid-19 (booster). Medications reviewed, changes documented as per the medical record and discussed with patient along with risks vs benefits. Chest xray today Likely COPD exacerbation, but will need to rule out infectious process Prednisone x 5 days Starting Advair. Eventually, I'd like her to see a lung doctor (we have one here) BP is good Will get labs from [facility] since they were drawn recently Benign hypertension with coi ncident congestive heart failure ([facility]) 11/11/2022 Class 2 severe obesity due t o excess calories with serious comorbidity and body mass index (BMI) of 38.0 to 38.9 in adult 11/09/2022 Assessment & Plan (02/15/2023 8:59 AM CDT): BMI Follow-up includes: nutrition counseling, exercise counseling and education provided. Hx of CABG 08/13/2020 History of coronary artery stent placement 08/13 Chronic pain of left knee 12/22/2019 Assessment & Plan (12/22/2019 8:48 AM FINISHER BRUSH): Status post ultrasound-guided left knee injection today Rheumatoid arthritis involvi ng multiple sites with positive rheumatoid factor ([facility]) 12/22/2019 Assessment & Plan (11/21/2021 5:06 PM FINISHER BRUSH): The pain she is currently having does sound inflammatory in nature, though not much synovitis seen on exam. She has significant erosions on Xrays in February which were stable. Her pain could have some contribution from chronic joint damage secondary to RA. Xeljanz seem to provide benefit indicating some contribution of active inflammation to pain. Unfortunately she cannot afford this medication. Considering past history of diverticulitis, Actemra or Rinvoq would pose a risk for diverticulitis. We discussed risks and benefits of those medications verses trouble therapy with methotrexate, hydroxychloroquine, sulfasalazine. She preferred to trial triple therapy which was more effective than methotrexate monotherapy in the past but not completely effective. -start hydroxychloroquine 40 mg daily, sulfasalazine 500 mg b.i.d. with plan to up titrate to maximum dose of 1.5 g b.i.d. as tolerated -Continue MTX 20 mg weekly and folic acid daily Assessment & Plan (06/27/2021 10:59 AM CDT): The pain she is currently having does sound inflammatory in nature, though not much synovitis seen on exam. She has significant erosions on Xrays in February which were stable. Her pain could have some contribution from chronic joint damage secondary to RA. She is currently holding Xeljanz due to diverticulitis and UTI. She is contuing MTX 20 mg weekly and folic acid currently. -Hold Xeljanz while being treated for infections and restart aftetr treatment completed. Will apply for assistance program as Xeljanz is very expensive with her insurance -Continue MTX 20 mg weekly and folic acid daily She is getting her second Shingrix vaccine today. She has received Moderna vaccination and I advised her to get her booster at a local pharmacy as soon as possible. Osteoporosis 02/10/2018 Burst fracture of thoracic vertebra (CMS/HCC) Trochanteric bursitis 11/02/2017 Seropositive rheumatoid arthritis 11/13/2016 Osteopenia 07/12/2016 High risk medication use 12/10/2015 Assessment & Plan (11/21/2021 5:05 PM FINISHER BRUSH): On MTX and starting sulfasalazine and hydroxychloroquine RA. Patient has had baseline CBC, CMP, HBV, HCV and TB screening. No concerning side effects at this time. -CBC and CMP every 3 months -yearly eye exam while on hydroxychloroquine -Ok to continue MTX Assessment & Plan (06/27/2021 10:54 AM CDT): On MTX and Xeljanz for RA. Patient has had baseline CBC, CMP, HBV, HCV and TB screening. No concerning side effects thus far though she did develop 2 infections after starting Xeljanz. Holding Xeljanz currently. -CBC and CMP every 3 months -Needs lipid panel -Ok to continue MTX -Hold Xeljanz while being treated for diverticulitis and UTI Heart failure 09/05/2015 Chronic obstructive pulmonary disease 09/05/2015 Assessment & Plan (11/16/2022 9:03 AM FINISHER BRUSH): Much improved since last visit. Patient notes that she can breathe much better . Will give the daily Advair more time to work but it is already making great improvement with patient's breathing. Has not needed Albuterol inhaler since being rx'd the medication last week. Patient's tenderness on back may be r/t uncontrolled COPD prior as this has been present for 1+ months per patient. Discussed breathing exercises and to return if no improvement or worsening. Encounter for preventive health examination 11/26 Hyperlipidemia Immunizations Immunization Administration Dates Next Due Influenza, Quad, Adjuvantated, Intramuscular ,08/02/2020 Influenza, Quadrivalent, Alta l Culture-based MDCK, Preservative Free, Antibiotic Free, Intramuscular 08/09/2018 Influenza, Quadrivalent, Hig h Dose, Preservative Free, Intrr 06/30/2022,07/21/2021 Influenza, Quadrivalent, Spl it, Preservative Free, Intramuscular 08/16/2019 Influenza, Trivalent, IM (MDV) 08/16/2019 Influenza, Unspecified 06/07/2024 Pneumococcal Conjugate PCV 13 04/25/2021 Pneumococcal Conjugate Pcv20 08/16/2023 RSV Vaccine, Pref, Recombina nt, Subunit, Adjuvanted, PF, IM (Arexvy) 06/07/2024 Tdap 08/24/2023 ZOSTER Recombinant 06/27/2021,02/28/2021 Social History Tobacco Use Types Packs/Day Years Used Date Smoking Tobacco: Never Smokeless Tobacco: Never Tobacco Cessation:Counseling Given: Not Answered Alcohol Use Standard Drinks/Week Comments No 0 (1 standard drink = 0.6 oz pur e alcohol) [facility] Utilities Answer Date Recorded In the past 12 months has e [employer], gas, oil, or water [employer] threatened to shut off services in your home? No 10/11/2024 Social Connection and Isolat ion Panel [NHANES] Answer Date Recorded In a typical week, how many times do you talk on the phone with family, friends, or neighbors? Once a week 10/11/2024 How often do you get togethe r with friends or relatives? Once a week 10/11/2024 How often do you attend chur or baptism services? More than 4 times per year 10/11/2024 Do you belong to any clubs o r organizations such as congregational groups, unions, fraternal or athletic groups, or school groups? Yes 10/11/2024 How often do you attend meet ings of the clubs or organizations you belong to? More than 4 times per year 10/11/2024 Are you , , di vorced, , never , or living with a partner? Patient unable to answer 10/11/2024 AUDIT-C Answer Date Recorded Q1: How often do you have a drink containing alcohol? Never 09/20/2024 Q2: How many drinks containi ng alcohol do you have on a typical day when you are drinking? Patient does not drink Q3: How often do you have si x or more drinks on one occasion? Never 09/20/2024 Overall Financial Resource Strain (CARDIA) Answe r Date Recorded How hard is it for you to pa y for the very basics like food, housing, medical care, and heating? Not very hard 10/11/2024 PHQ-2 Answer Date Recorded PHQ-2 Total Score (If total score is 3 or more points, staff should administer the PHQ-9) 0 06/13/2024 Hunger Vital Sign Answer Date Recorded Within the past 12 months, y ou worried that your food would run out before you got the money to buy more. Never true 10/11/20 24 Within the past 12 months, t he food you bought just didn't last and you didn't have money to get more. Never true 10/11/2024 PRAPARE - Transportation Answer Date Re corded In the past 12 months, has l ack of transportation kept you from medical appointments or from getting medications? No 09/24 In the past 12 months, has l ack of transportation kept you from meetings, work, or from getting things needed for daily living? No 10/11/2024 Housing Stability Vital Sign Answer Alexander e Recorded In the last 12 months, was t here a time when you were not able to pay the mortgage or rent on time? No 10/11/2024 In the past 12 months, how m any times have you moved where you were living? 0 10/11/2024 At any time in the past 12 m [facility], were you homeless or living in a group home (including now)? No 10/11/2024 Personal Safety Answer Date Recorded Have you ever been in or are you currently in a harmful physical or emotional relationship or is someone making you feel afraid or unsafe? Denies 10/13/2024 Comments No Sex and Gender Information Value Date Recorded Sex Assigned at Not on file Legal Sex Female 11:58 PM FINISHER BRUSH Gender Identity Not on file Sexual Orientation Not on file Last Filed Vital Signs Vital Sign Reading Time Taken Comments Blood Pressure 117/58 10/13/2024 1:20 PM FINISHER BRUSH Pulse 79 10/13/2024 1:25 PM FINISHER BRUSH Temperature 37.1 C (98.8 F) 10/13/2024 7:05 AM FINISHER BRUSH Respiratory Rate 28 10/13/2024 1:25 PM FINISHER BRUSH Oxygen Saturation 96% 10/13/2024 1:25 PM FINISHER BRUSH Inhaled Oxygen Concentration - - Weight 90.4 kg (199 lb 4.8 oz) 10/13/2024 7:05 A M FINISHER BRUSH Height 152.4 cm (5') 10/13/2024 7:05 AM FINISHER BRUSH Body Mass Index 38.92 10/13/2024 7:05 AM FINISHER BRUSH Plan of Treatment Not on file Goals Goal Patient Goal Type Associated Problems Recent Progress Patient-Stated? Author Anticoagulant Goal - Patient is knowledgeable of prescribed anticoagulant and can state reason for taking, dosage, frequency and possible side effects [facility] Care Management On track(2024 12:25 PM FINISHER BRUSH) Cinthya Alarcon, RN Note: Problem: High Risk Medication (anticoagulant) Interventions: - Explain the rationale for, side effects of, and importance of taking medications as prescribed. - If warfarin is prescribed, instruct to: Keep scheduled appointments for blood draws to monitor coagulation times Avoid regular and excessive intake of alcohol. Avoid significantly changing your consumption of foods high in vitamin K (green leafy vegetables). - Take medication at the same time every day, do not stop taking medication abruptly, and do not attempt to make up for missed doses. - Report prolonged or excessive bleeding from skin, nose or mouth; red, rust- colored urine, bloody or tarry stools; blood in vomit or sputum; prolonged or excessive menses; excessive bruising; severe or persistent headaches; or sudden abdominal or back pain. - Instruct patient to inform physician of any other prescription or OTC medications they are taking. - Avoid taking OTC products containing aspirin and other NSAIDS (except Tylenol). - Instruct patient on bleeding precautions: Use electric razor, floss and brush gently, avoid putting sharp objects in mouth (toothpicks), cut nails carefully, do not blow nose forcefully, and avoid straining to have a BM. CAD Goal - Patient's cardiac status will return to baseline with increased knowledge of self-care management ACO Care Management On track(2024 12:25 PM FINISHER BRUSH) Cinthya Alarcon RN Note: Problem: Coronary Artery Disease Interventions: - Assess for worsening CAD: Activity or stress induced chest pain, shortness of breath, fatigue with exertion, palpitations, sweating, nausea, etc. - Assess patient for CAD risk factors: HTN, high cholesterol, tobacco use, Diabetes, history of heart disease, obesity, physical inactivity, high stress, excessive ETOH use. - Provide education on lifestyle changes that can improve cardiac health: smoking cessation, healthy diet, regular exercise or physical activity, loose excess weight, reduce stress, etc. - Send CAD educational materials. CAD Goal - Patient will verbalize understanding of wound care orders, signs of infection, and other complications to report to physician ACO Care Management On track(2024 12:25 PM FINISHER BRUSH) Cinthya Alarcon RN Note: Problem: Knowledge deficit related to pot op instructions and/or incisional care Interventions: - Review wound care instructions with patient. - Assess compliance with wound care instructions. - Assess for signs of infection: Increased redness, swelling, drainage or foul odor, fever. Provide education on infection symptoms and to notify physician if any are found. - If patient had a PCI: Assess for signs of hematoma. Provide education on hematoma symptoms and to notify physician if any are found. - Ensure appointment is scheduled for suture/staple removal if applicable. JOHN General Goal - Patient schedules and keeps appointments with all recommended providers ACO Care Management On track(2024 12:25 PM FINISHER BRUSH) Cinthya Alarcon RN Note: Problem: Potential for medical complications and readmission if follow-up appointments are not scheduled Interventions: - Ensure all follow-up appointments are scheduled, all prescribed medications have been received. - Address any barriers for keeping scheduled appointment. - Coordinate with patient/caregiver(s) to ensure patient is able to keep scheduled appointment. - Emphasize importance of keeping scheduled appointments. - Identify and discuss questions for next provider visit. - Follow up with patient after scheduled appointment(s) to review any new orders or changes made to medication regimen. JOHN General Goal - Patient / caregiver verbalizes lifestyle changes necessary to meet self-care needs and executes self-care activities to utmost capability ACO Care Management On track(2024 12:25 PM FINISHER BRUSH) Cinthya Alarcon, RN Note: Problem: At Risk for Self Care Deficit Interventions: - Assess patient's level of dependence on others along with current level of assistance being provided. - Use motivational interviewing to help guide the patient in accepting the needed amount of assisstance, as applicable. - Contact caregiver and assess their involvement with patient and level of assistance provided, as appropriate. - Assess appropriateness for Home Health. Start referral process if skilled need is present. - Encourage independent ADL's as appropriate. Ensure patient has the appropriate tools at home to be as independent as possible. - Provide fall prevention education to patient and caregiver. - Evaluate need for assistive devices. - Refer to SW if appropriate and patient is agreeable. Medical Devices Implanted Type Area Data Storage Specialist Device Identifier Shelf Expiration Date Model / Serial / Lot Viewpoint Angio-Seal Vip 6fr Closere Device [id number] - [id number] - [id number] Implanted:Qty: 1 on 10/13/2024 by Kane Jones MD PhD at [facility] Collagen Right: Common Femoral Artery Viewpoint 05/29/2025 [id number] / [id number] / [id number] [employer] X [id number] Resolute Alejandrina 3mm 2.1-2.7fr 18mm 140cm Rapid Exchange Radiopaque - [id number] Implanted:Qty: 1 on 09/09/2020 by Kane Jones MD PhD at [facility] Stent Medtronic Inc 04/05/2022 [id number] / / [id number] Medtronic Card Vasc Surgery 4.0 X 15mm Salyer Mckean Rx Coronary Stent [id number] - [id number] - [id number] Implanted:Qty: 1 on 10/13/2024 by Kane Jones MD PhD at [facility] Stent Left: Main Coronary Artery Medtronic Card Vasc Surgery 12/06/2026 [id number] / [id number] / [id number] [place] [id number] Angio-Seal Evolution 6fr .035in Guidewire Bypass Tube Suture - [id number] Implanted:Qty: 1 on 09/09/2020 by Kane Jones MD PhD at [facility] Viewpoint 07/24/2021 [id number] / / [id number] Procedures Procedure Name Priority Date/Time Associated Diagnosis Comments EGFR Routine 10/13/2024 12:30 PM FINISHER BRUSH BASIC METABOLIC PANEL Routine 10/13/2024 12:30 PM FINISHER BRUSH CBC WITHOUT DIFFERENTIAL Routine 10/13/2024 12:30 PM FINISHER BRUSH HECTOR MAJOR CORONARY Routine 10/13/2024 9: 42 AM FINISHER BRUSH 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) POCT ACTIVATED CLOTTING TIME, LOW RANGE Routine 10/13/2024 9:27 AM FINISHER BRUSH POCT ACTIVATED CLOTTING TIME, LOW RANGE Routine 10/13/2024 8:53 AM FINISHER BRUSH POCT ACTIVATED CLOTTING TIME, LOW RANGE Routine 10/13/2024 8:43 AM FINISHER BRUSH TYPE AND SCREEN Timed 10/13/2024 8:35 AM FINISHER BRUSH CBC WITHOUT DIFFERENTIAL Routine 10/13/2024 8:35 AM FINISHER BRUSH EGFR Routine 10/12/2024 10:56 AM FINISHER BRUSH Angina at rest (HCC) CBC WITHOUT DIFFERENTIAL Routine 10/12/2024 10:56 AM FINISHER BRUSH Angina at rest (HCC) BASIC METABOLIC PANEL Routine 10/12/2024 10:56 AM FINISHER BRUSH Angina at rest (HCC) XR CHEST PA LATERAL 2 VIEWS ED 10/08/2024 3:35 PM FINISHER BRUSH ECG 12-LEAD STAT 10/08/2024 3:32 PM FINISHER BRUSH TYPE AND SCREEN STAT 09/20/2024 12:43 PM FINISHER BRUSH ECG 12-LEAD Routine 09/20/2024 12:16 PM FINISHER BRUSH ERYTHROCYTE SEDIMENTATION RATE Routine 09/19/2024 10:46 AM FINISHER BRUSH Seropositive rheumatoid arthritis (HCC) CRP (ACUTE PHASE) Routine 09/19/2024 10: 46 AM FINISHER BRUSH Seropositive rheumatoid arthritis (HCC) COMPREHENSIVE METABOLIC PANEL Routine 09/19/2024 10:46 AM FINISHER BRUSH High risk medication use Seropositive rheumatoid arthritis (HCC) CBC WITH AUTO DIFFERENTIAL Routine 09/19/2024 10:46 AM FINISHER BRUSH High risk medication use Seropositive rheumatoid arthritis (HCC) HM COLONOSCOPY Routine 03/10/2024 HEPATITIS C ANTIBODY Routine 02/28/2021 10:24 AM CDT Rheumatoid arthritis involving multiple sites with positive rheumatoid factor (CMS/HCC) High risk medication use DEXA AXIAL SKELETON BONE DENSITY 1 OR MORE SITES Schedule Routine, Read Routine (OP Routine) 10/23/2020 10:40 AM FINISHER BRUSH Age-related osteoporosis with current pathological fracture, vertebra(e), initial encounter for fracture (CMS/HCC) Rheumatoid arthritis involving multiple sites with positive rheumatoid factor (CMS/HCC) High risk medication use Other osteoporosis with current pathological fracture with routine healing, subsequent encounter from Last 3 Months or Most Recently Relevant to Health Maintenance Results * (ABNORMAL) eGFR (10/13/2024 12:30 PM FINISHER BRUSH) [facility] eGFR 58(L) >=60 mL/min/1. 73 m2 Comment: Interpretive Data Reference Interval Normal >/= 90 mL/min/1.73m2 Mildly decreased* 60 - 89 mL/min/1.73m2 Mildly to moderately decreased 45 - 59 mL/min/1.73m2 Moderately to severely decreased 30 - 44 mL/min/1.73m2 Severely decreased 15 - 29 mL/min/1.73m2 Kidney Failure < 15 mL/min/1.73m2 *Relative to young adult level Estimated glomerular filtration rate is determined by the 2020 CKD-EPI equation recommended by the National Kidney Foundation (A Unifying Approach to GFR Estimation: Recommendations of the NKF-ASK Task Force on Reassessing the Inclusion of Race in Diagnosing Kidney Disease, JASN 202). The CKD-EPI equation should not be used for patients with unstable renal function and has not been validated in children and those over 70. Current interpretive data was last reviewed 2021. Blood 10/13/2024 12:3 0 PM FINISHER BRUSH 10/13/2024 1:29 PM FINISHER BRUSH us Alek Ly MD LAB BLOOD ORDERABLES Final Resul t [facility] Department [place] [address] * (ABNORMAL) CBC without differential (10/13/2024 12:30 PM FINISHER BRUSH) WBC 8.5 3.8 - 9.9 K/cumm Hgb 11.2(L) 11.9 - 15.5 g/dL [facility] Hct 35.5(L) 35.6 - 45.5 % [facility] Plt 271 150 - 400 K/cumm [facility] MPV 9.7 9.1 - 12.3 fL [facility] RBC 3.82(L) 3.90 - 5.20 M/cumm [facility] MCV 92.9 81.3 - 96.4 fL [facility] MCH 29.3 27.1 - 33.3 pg [facility] MCHC 31.5(L) 32.3 - 35.7 g/dL [facility] RDW CV 17.2(H) 11.1 - 14.9 % [facility] RDW SD 57.7(H) 35.7 - 48.1 fL [facility] NRBC abs 0.00 0.00 - 0.01 K/cumm [facility] Blood 10/13/2024 12:3 0 PM FINISHER BRUSH 10/13/2024 12:55 PM FINISHER BRUSH Alek Ly MD LAB BLOOD ORDERABLES Final Resul t Performing Organization Address City/[facility]/ZIP Co de Phone Number [facility] Department [place] [address] * Basic metabolic panel (10/13/2024 12:30 PM FINISHER BRUSH) Pathologist [facility] Sodium 137 135 - 145 mmol/L Potassium, pl 3.8 3.3 - 4.9 mmol/L [facility] Chloride 101 97 - 110 mmol/L [facility] CO2 30 22 - 32 mmol/L [facility] Anion gap 6 2 - 15 mmol/L [facility] BUN 23 6 - 25 mg/dL [facility] Creatinine 1.01 0.60 - 1.10 mg/dL [facility] Glucose 146 70 - 199 mg/dL [facility] Comment: Interpretive Data Fasting glucose >/= 126 mg/dl is diagnostic for diabetes. Fasting is defined as no caloric intake for at least 8 hours. Fasting glucose between 100 mg/dl to 125 mg/dl is diagnostic of prediabetes. In a patient with classic symptoms of hyperglycemia or hyperglycemic crisis, a random glucose >/= 200 mg/dl is diagnostic for diabetes. In the absence of unequivocal hyperglycemia, results should be confirmed by repeat testing. The classification and Diagnosis of Diabetes Diabetes Care 2021; 46: S19-S40. Current interpretive data was last revised 2022. Calcium 8.8 8.5 - 10.3 mg/dL [facility] Blood 10/13/2024 12:3 0 PM FINISHER BRUSH 10/13/2024 12:55 PM FINISHER BRUSH Alek Ly MD LAB BLOOD ORDERABLES Final Resul t Performing Organization Address City/[facility]/ZIP Co de Phone Number [facility] Department [place] [address] * HECTOR MAJOR CORONARY (10/13/2024 9:42 AM FINISHER BRUSH) Anatomical Region Laterality Modality X-Ray Angiograph y Narrative 10/13/2024 9:57 AM FINISHER BRUSH Cardiac catheterization hand rug braider: Dr.Rahul Ly HPI: 74-year-old female with a history of hypertension, hyperlipidemia, COPD, prior coronary bypass grafting and PCI now returns with unstable angina. Patient had coronary bypass grafting in 09/2010 with only a CALLOWAY to LAD surviving. In 2010 she underwent stenting from left main into the circumflex with subsequent known moderate restenosis of 60%. In 2019 she developed unstable angina and underwent catheterization demonstrating an ulcerated plaque in the proximal right coronary artery that underwent stenting by myself. She did Well in interval but now developed recurrent resting chest discomfort accompanied by shortness of breath and nausea. Stress test shows [id number] LV dysfunction with a large moderate inferolateral anterior lateral apical lateral ischemia. She was referred for follow-up catheterization and possible PCI. Procedure: Patient was prepped and draped in sterile fashion. 1% local lidocaine anesthesia was utilized. Fentanyl and Versed were used as premedication. Optiray was used as a contrast agent. Aspirin and Plavix were given preprocedure. Using ultrasound directed micropuncture technique, 6 [place] sheath inserted into the right femoral artery using percutaneous approach. The additional hydration was given for a newly elevated creatinines. Heparin was administered to maintain ACT of 300 seconds or greater. Catheterization was performed with a 6 [place] CALLOWAY guide catheter with side holes with the right coronary. CALLOWAY was cannulated with a 4 [place] CALLOWAY catheter. IFR and Angioplasty of the left performed with a 6 [place] EBU 3.5 guide catheter, a 0.014 in omni pressure wire, 0.014 in choice floppy wire, a 0.8 mm Steward excimer laser catheter and a 4.0 x 12 mm NC emerge 2 inflations performed up to 26 atmospheres. intravascular ultrasound performed with a [employer] [place] stebbins eye catheter. The left main into circumflex was stented with a 4 mm x 15 mm alejandrina Mckean drug-eluting stent deployed at 12 atmospheres for 20 seconds. Postdilatation was performed 4.0 x 12 mm NC emerge with 2 inflations performed up to 24 atmospheres. Intracoronary nicardipine was given prior to IFR. Upon completion of the case the right femoral artery sheath was removed area closed with a 6 [place] Angio-Seal. There were no complications. Hemodynamics: The LVEDP was 12-14 millimeter of mercury. Coronary angiography: Left coronary system- Left main has a distal taper of 40-50%. The stented segment at this juncture leading into the circumflex has a diffuse hazy 60-70% narrowing. This feeds a small 1st OM and a much larger 2nd OM. The continuation of the AV groove goes into a a tiny left posterolateral system. The ostium of the LAD has a 90% lesion. The LAD beyond has been stented in his functionally occluded. There was some competitive flow from the CALLOWAY to the LAD. Right coronary artery- the right coronary artery right coronary artery is a dominant vessel. There is a stent beginning 1 mm proximal to the ostium and is widely patent. There is minor plaquing in the AV groove and PDA. The posterolateral was a small vessel. Coronary bypass angiography: The left internal mammary artery is patent. Feeds the LAD to the apex antegrade and retrograde back to the diagonal. There is a visible stent that is functionally occluded in the proximal LAD. IFR and PCI of left main/circumflex: Omni pressure wire was normalized and placed into the distal circumflex producing an IFR of 0.82- 0.84. Co registration localizes this to the ostial circumflex and distal left main. The InStent restenosis was treated with excimer laser angioplasty using a fluence/pulse of 50-50 and 70-70. This was further pre-dilated with a 4 0 NC balloon at 38-28 atmospheres. intravascular ultrasound was used to determine the appropriate dimensions and length. In the left main into circumflex Area was treated with a 4 mm by 15 mm alejandrina Mckean drug-eluting stent post dilated with a 4 mm balloon up to 20-24 atmospheres. This left no residual, no dissection JOVANNA 3 flow. Lesion classification- this is a type C lesion with JOVANNA 3 flow pre and post. It was 15 mm long. With a dense InStent restenosis. Syntax score is intermediate. This is the culprit. Overall impression: 1. Abnormal IFR of left main into circumflex InStent restenosis treated with excimer laser angioplasty and restenting and expansion using 4 mm x 15 mm alejandrina Mckean drug-eluting stent. 2. No evidence of restenosis of ostial right coronary artery. 3. Occluded proximal LAD stent with patent CALLOWAY to distal LAD filling diagonal retrograde. 4. History of COPD 5. Moderate mitral regurgitation 6. Renal insufficiency -100 cc contrast used Therapy recommendations: The patient will be hydrated and ambulated later today. Plavix to continue for 3 months and aspirin indefinitely. Further follow-up with Dr. Tre Cyr. Kane Jones MD PhD CV CARDIAC CATH PROCEDURES Final Result * (ABNORMAL) POCT Activated clotting time, low range (10/13/2024 9:27 AM FINISHER BRUSH) ACT 300(H) 123 - 168 sec POC Performer [id number] [facility] POC Device Number [id number] [facility] Blood 10/13/2024 9:27 AM FINISHER BRUSH 10/13/2024 9:27 AM FINISHER BRUSH Kane Jones MD PhD LAB POCT ORDERABLES - LIBRA CE Final Result Performing Organization Address [facility]/ZIP Co de Phone Number [facility] [place] [place] [address] * (ABNORMAL) POCT Activated clotting time, low range (10/13/2024 8:53 AM FINISHER BRUSH) ACT 314(H) 123 - 168 sec POC Performer [id number] [facility] POC Device Number [id number] [facility] Blood 10/13/2024 8:53 AM FINISHER BRUSH 10/13/2024 8:53 AM FINISHER BRUSH Kane Jones MD PhD LAB POCT ORDERABLES - LIBRA CE Final Result Performing Organization Address City/[facility]/ZIP Co de Phone Number [facility] [place] [address] * (ABNORMAL) POCT Activated clotting time, low range (10/13/2024 8:43 AM FINISHER BRUSH) ACT 229(H) 123 - 168 sec POC Performer [id number] [facility] POC Device Number [id number] [facility] Blood 10/13/2024 8:43 AM FINISHER BRUSH 10/13/2024 8:43 AM FINISHER BRUSH Kane Jones MD PhD LAB POCT ORDERABLES - LIBRA CE Final Result Performing Organization Address [facility] Co de Phone Number [facility] Department [place] [address] * (ABNORMAL) CBC without differential (10/13/2024 8:35 AM FINISHER BRUSH) [facility] WBC 10.7(H) 3.8 - 9.9 K/cumm Hgb 11.7(L) 11.9 - 15.5 g/dL [facility] Hct 37.1 35.6 - 45.5 % [facility] Plt 312 150 - 400 K/cumm [facility] MPV 9.9 9.1 - 12.3 fL [facility] RBC 3.96 3.90 - 5.20 M/cumm [facility] MCV 93.7 81.3 - 96.4 fL [facility] MCH 29.5 27.1 - 33.3 pg [facility] MCHC 31.5(L) 32.3 - 35.7 g/dL [facility] RDW CV 17.0(H) 11.1 - 14.9 % [facility] RDW SD 57.5(H) 35.7 - 48.1 fL [facility] NRBC abs 0.00 0.00 - 0.01 K/cumm [facility] Blood 10/13/2024 8:35 AM FINISHER BRUSH 10/13/2024 10:45 AM FINISHER BRUSH us Kane Jones MD PhD LAB BLOOD ORDERABLES Final Result Performing Organization Address City/[facility]/ZIP Co de Phone Number [facility] [place] [address] * Type and screen (10/13/2024 8:35 AM FINISHER BRUSH) ABO Rh A Positive Linda, indirect Negative [facility] Blood 10/13/2024 8:35 AM FINISHER BRUSH 10/13/2024 10:48 AM FINISHER BRUSH Narrative [facility] - 10/13/2024 11:46 AM FINISHER BRUSH Has the patient had Daratumumab or Isatuximab in the past 6 months?->Unknown us Kane Jones MD PhD LAB BLOOD BANK TEST ORDERA BLES Final Result [facility] Department [place] [address] * (ABNORMAL) eGFR (10/12/2024 10:56 AM FINISHER BRUSH) eGFR 45(L) >=60 mL/min/1. 73 m2 Comment: Interpretive Data Reference Interval Normal >/= 90 mL/min/1.73m2 Mildly decreased* 60 - 89 mL/min/1.73m2 Mildly to moderately decreased 45 - 59 mL/min/1.73m2 Moderately to severely decreased 30 - 44 mL/min/1.73m2 Severely decreased 15 - 29 mL/min/1.73m2 Kidney Failure < 15 mL/min/1.73m2 *Relative to young adult level Estimated glomerular filtration rate is determined by the 2020 CKD-EPI equation recommended by the National Kidney Foundation (A Unifying Approach to GFR Estimation: Recommendations of the NKF-ASK Task Force on Reassessing the Inclusion of Race in Diagnosing Kidney Disease, JASN 2020). The CKD-EPI equation should not be used for patients with unstable renal function and has not been validated in children and those over 70. Current interpretive data was last reviewed 2021. Testing performed by: [facility], [address], [place] [address] Blood 10/12/2024 10:5 6 AM FINISHER BRUSH 10/12/2024 11:02 AM FINISHER BRUSH us Kane Jones MD PhD LAB BLOOD ORDERABLES Final Result [facility] [address] [address] Department [place] [address] * (ABNORMAL) CBC without differential (10/12/2024 10:56 AM FINISHER BRUSH) [facility] Signature WBC 10.1(H) 3.8 - 9.9 K/cumm Comment:Testing [facility] : [facility] [address], [place] [address] Hgb 12.5 11.9 - 15.5 g/dL [facility] Comment:Testing performed by : [facility] [place] [address] Hct 40.3 35.6 - 45.5 % [facility] Comment:Testing performed by : [facility] [place] [address] Plt 323 150 - 400 K/cumm [facility] Comment:Testing performed by : [facility] [address] [place] [address] MPV 9.5 9.1 - 12.3 fL [facility] Comment:Testing performed by : [facility] [address] RBC 4.24 3.90 - 5.20 M/cumm [facility] Comment:Testing performed by : [facility] [place] [address] MCV 95.0 81.3 - 96.4 fL [facility] Comment:Testing performed by : [facility] [place] [address] MCH 29.5 27.1 - 33.3 pg [facility] Comment:Testing performed by : [facility] [address] MCHC 31.0(L) 32.3 - 35.7 g/dL [facility] Comment:Testing performed by : [facility] [address] RDW CV 17.2(H) 11.1 - 14.9 % [facility] Comment:Testing performed by : [facility] [address] RDW SD 59.3(H) 35.7 - 48.1 fL [facility] Comment:Testing performed by : [facility] [place] [address] NRBC abs 0.00 0.00 - 0.01 K/cumm [facility] Comment:Testing performed by : [facility] [address], [place] [address] Blood 10/12/2024 10:5 6 AM FINISHER BRUSH 10/12/2024 11:02 AM FINISHER BRUSH Kane Jones MD PhD LAB BLOOD ORDERABLES Final Result [facility] [address] [address] Department [place] [address] * (ABNORMAL) Basic metabolic panel (10/12/2024 10:56 AM FINISHER BRUSH) Sodium 139 135 - 145 mmol/L Comment:Testing [facility] : [facility] [address] [place] [address] Potassium, pl 4.7 3.3 - 4.9 mmol/L [facility] Comment:Testing performed [facility] : [facility] [address] [place] [address] Chloride 99 97 - 110 mmol/L [facility] Comment:Testing performed by : [facility] [address] [place] [address] CO2 31 22 - 32 mmol/L [facility] Comment:Testing performed by : [facility] [address], [place] [address] Anion gap 9 2 - 15 mmol/L [facility] Comment:Testing performed by : [facility] [address] [place] [address] BUN 26(H) 6 - 25 mg/dL [facility] Comment:Testing performed by : [facility] [address] [place] [address] Creatinine 1.24(H) 0.60 - 1.10 mg/dL [facility] Comment:Testing performed [facility] : [facility] [address] [place] [address] Glucose 103 70 - 199 mg/dL [facility] Comment: Interpretive Data Fasting glucose >/= 126 mg/dl is diagnostic for diabetes. Fasting is defined as no caloric intake for at least 8 hours. Fasting glucose between 100 mg/dl to 125 mg/dl is diagnostic of prediabetes. In a patient with classic symptoms of hyperglycemia or hyperglycemic crisis, a random glucose >/= 200 mg/dl is diagnostic for diabetes. In the absence of unequivocal hyperglycemia, results should be confirmed by repeat testing. The classification and Diagnosis of Diabetes Diabetes Care 2021; 46: S19-S40. Current interpretive data was last revised 2022. Testing performed by: [facility], [place] [address] Calcium 10.2 8.5 - 10.3 mg/dL [facility] Comment:Testing performed by : [facility], [place] [address] Blood 10/12/2024 10:5 6 AM FINISHER BRUSH 10/12/2024 11:02 AM FINISHER BRUSH Kane Jones MD PhD LAB BLOOD ORDERABLES Final Result [facility] [address] [address] Department [place] [address] * XR Chest Pa Lateral 2 Views (10/08/2024 3:35 PM FINISHER BRUSH) Anatomical Region Laterality Modality Body, Chest N/A Computed Radiogr aphy 10/08/2024 3:42 PM FINISHER BRUSH Impressions 10/08/2024 4:04 PM FINISHER BRUSH Status post median sternotomy with wires aligned and intact. Mild pulmonary edema. Bibasilar atelectasis. No pleural effusion. No pneumothorax. Unchanged cardiomediastinal mediastinal silhouette. Aortic calcifications. No acute osseous abnormality. Lower thoracic spine compression fracture not significantly changed from 11/09/2022. Dictated by: Ericka Schumacher MD The radiology attending physician has personally reviewed this study, and had reviewed and/or edited this written report and agrees with it. Electronically signed by: Drake Reid MD, PHD Narrative 10/08/2024 4:04 PM FINISHER BRUSH EXAMINATION: XR CHEST PA LATERAL 2 VIEWS HISTORY: chest pain COMPARISON:Radiograph on 11/09/2022 Procedure Note Drake Reid MD PhD - 10/08/2024 EXAMINATION: XR CHEST PA LATERAL 2 VIEWS HISTORY: chest pain COMPARISON:Radiograph on 11/09/2022 IMPRESSION: Status post median sternotomy with wires aligned and intact. Mild pulmonary edema. Bibasilar atelectasis. No pleural effusion. No pneumothorax. Unchanged cardiomediastinal mediastinal silhouette. Aortic calcifications. No acute osseous abnormality. Lower thoracic spine compression fracture not significantly changed from 11/09/2022. Dictated by: Ericka Schumacher MD The radiology attending physician has personally reviewed this study, and had reviewed and/or edited this written report and agrees with it. Electronically signed by: Drake Reid MD, PHD us Jovanni West Jr., MD IMG XR PROCEDURES Hali l Result * ECG 12-LEAD (10/08/2024 3:32 PM FINISHER BRUSH) Narrative [facility] - 10/08/2024 3:32 PM FINISHER BRUSH Chuck Mcgovern MD 10/08/2024 3:34 PM ECG 12 lead Date/Time: 10/08/2024 3:32 PM Performed by: Chukc Mcgovern MD Authorized by: Jovanni West Jr., MD Rate: ECG rate: 84 ECG rate assessment: normal Rhythm: Rhythm: sinus rhythm Ectopy: Ectopy: none QRS: QRS axis: Normal QRS intervals: Normal Conduction: Conduction: abnormal Abnormal conduction: non-specific intraventricular conduction delay ST segments: ST segments: Non-specific Depression: V4, V5, V6, II and aVF T waves: T waves: non-specific Previous ECG: Previous ECG: Compared to current Date of previous EC09/20/2024 Similarity: No change Interpretation: Interpretation: No acute injury pattern Recommended Follow-up: Recommended follow up: further workup in the ED Jovanni West Jr., MD ECG ORDERABLES Final Result [facility] * Type and screen (09/20/2024 12:43 PM FINISHER BRUSH) ABO Rh A Positive Linda, indirect Negative [facility] Blood 09/20/2024 12:4 3 PM FINISHER BRUSH 09/20/2024 1:06 PM FINISHER BRUSH Mel Gutiérrez KITCHEN ASSISTANT LAB BLOOD BANK TEST ORDERABLE S Final Result Performing Organization Address City/[facility]/ZIP Co de Phone Number [facility] Department [place] [address] * ECG 12 lead (09/20/2024 12:16 PM FINISHER BRUSH) [facility] Ventricular Rate EKG/Min 79 BPM [facility] Atrial Rate 79 BPM [facility] ID-Interval (MSEC) 166 ms [facility] QRS-Interval (MSEC) 90 ms [facility] QT-Interval (MSEC) 420 ms [facility] [facility] QTc 481 ms [facility] P Delta 67 degrees [facility] R Delta -10 degrees [facility] T Delta 105 degrees [facility] Diagnosis Normal sinus rhythm Minimal voltage criteria for LVH, may be normal variant ( R in aVL ) Nonspecific ST and T wave abnormality Abnormal ECG No previous ECGs available Confirmed by CHAD NOWAK M.D ([id number]) on 09/20/2024 4:28:48 PM [facility] 09/20/2024 12:1 6 PM [facility] 09/20/2024 4:28 PM [facility] Mel Gutiérrez KITCHEN ASSISTANT ECG ORDERABLES Final Result Performing Organization Address [facility] Co de Phone Number [facility] * (ABNORMAL) CBC with auto differential (09/19/2024 10:46 AM FINISHER BRUSH) Pathologist [facility] White Blood Count 9.6 3.6 - 11.2 K/uL [facility] RBC 3.96 3.63 - 4.92 M/uL [facility] Hemoglobin 12.0 11.9 - 15.5 g/dL [facility] Hematocrit 36.6 36.1 - 44.3 % [facility] MCV 92.4 80.0 - 97.6 fL [facility] MCH 30.3 26.7 - 33.7 pg [facility] MCHC 32.7 32.7 - 35.5 g/dL [facility] RBC Dist Width 19.7(H) 12.3 - 17.0 % [facility] Platelet Count 292 140 - 440 K/uL [facility] MPV 7.6 6.8 - 10.4 fL [facility] Neutrophils % 61.0 38.7 - 74.5 % [facility] Lymphocyte % 16.8(L) 20.0 - 54.3 % [facility] Monocytes % 16.3(H) 4.3 - 13.5 % [facility] Eosinophils % 4.8 0.0 - 6.0 % [facility] Basophil % 1.1 0.0 - 3.0 % [facility] Absolute Neutrophil 5.9 1.8 - 6.6 K/uL [facility] Absolute Lymphocyte 1.6 0.8 - 3.3 K/uL [facility] Absolute Monocyte 1.6(H) 0.2 - 1.2 K/uL [facility] Absolute Eosinophil 0.5 0.0 - 0.5 K/uL [facility] Absolute Basophil 0.1 0.0 - 0.2 K/uL [facility] Nucleated RBC % 0.0 0.0 - 0.4 /100 WBC [facility] Blood 09/19/2024 10:4 6 AM [facility] 09/19/2024 11:52 AM FINISHER BRUSH us Sunny Gutiérrez MD PhD LAB BLOOD ORDERABLE S Final Result [facility] * Erythrocyte sedimentation rate (09/19/2024 10:46 AM FINISHER BRUSH) Pathologist [facility] Erythrocyte sedimentation rate 30 1 - 30 mm/hr Blood 09/19/2024 10:4 6 AM [facility] 09/19/2024 1:05 PM FINISHER BRUSH us Sunny Gutiérrez MD PhD LAB BLOOD ORDERABLE S Final Result [facility] Department [place] [address] * (ABNORMAL) CRP (acute phase) (09/19/2024 10:46 AM FINISHER BRUSH) C-Reactive Protein, Acute 6.7(H) <5.0 mg/L [facility] Blood 09/19/2024 10:4 6 AM [facility] 09/19/2024 11:52 AM FINISHER BRUSH us Sunny Gutiérrez MD PhD LAB BLOOD ORDERABLE S Final Result [facility] * (ABNORMAL) Comprehensive metabolic panel (09/19/2024 10:46 AM FINISHER BRUSH) Total Protein 7.9 6.1 - 8.4 g/dL [facility] Albumin 4.4 3.5 - 5.2 g/dL [facility] Calcium 9.5 8.6 - 10.3 mg/dL [facility] BUN 25(H) 7 - 23 mg/dL [facility] Total Bilirubin 0.33 0.20 - 1.40 mg/dL [facility] Alk Phos, Total 99 35 - 129 IU/L [facility] AST (SGOT) 25 11 - 47 IU/L [facility] ALT (SGPT) 33 6 - 53 IU/L [facility] Creatinine 0.93 0.60 - 1.10 mg/dL [facility] Sodium 140 135 - 145 mmol/L [facility] Potassium 4.2 3.3 - 5.1 mmol/L [facility] Chloride 100 95 - 107 mmol/L [facility] CO2 Content 30(H) 21 - 29 mmol/L [facility] Glucose 102(H) 64 - 99 mg/dL [facility] Comment: NONFASTING GLUCOSE RANGE = 64-199 mg/dL FASTING GLUCOSE 64 - 99 = NORMAL FASTING GLUCOSE 100 - 125 = IMPAIRED FASTING GLUCOSE FASTING GLUCOSE >=126 = PROVISIONAL DIAGNOSIS OF DIABETES eGFR 63.7 >60.0 mL/min/1.7 3 m2 [facility] Blood 09/19/2024 10:4 6 AM FINISHER BRUSH 09/19/2024 11:52 AM FINISHER BRUSH Sunny Gutiérrez MD PhD LAB BLOOD ORDERABLE S Final Result [facility] * HM COLONOSCOPY (03/10/2024) Historical Provider HEALTH MAINTENANCE Final Result * Hepatitis C antibody (02/28/2021 10:24 AM CDT) Hep C Ab Nonreactive Nonreactive [facility] Comment:Antibodies to HCV no t detected. Does NOT exclude the possibility of recent exposure to HCV. Blood specimen (specimen) 02/28/2021 10:24 AM CDT 02/28/2021 10:24 AM CDT Edmond Schofield MD LAB MICROBIOLOGY - GENER AL ORDERABLES Edited Result - Final Performing Organization Address City/[facility] Co de Phone Number [facility] [place] [address] * Dexa Axial Skeleton Bone Density 1 or 2 Site (10/23/2020 10:40 AM FINISHER BRUSH) Anatomical Region Laterality Modality Body N/A Radiographic Dalila ging Narrative 10/23/2020 9:57 PM FINISHER BRUSH Patient Name: Aurea Colvin Date of : 1950 Date of scan: 10/23/2020 Bone mineral density was performed on a [employer] Densitometer. Machine Cross-calibration and Precision studies have been performed with a least significant change of 0.024 g/cm at the spine, 0.020 g/cm at the total proximal femur, and 0.014g/cm at the forearm. HISTORY: This is a 70 y.o. postmenopausal female with a history of rheumatoid arthritis. Currently on treatment with anticoagulants, calcium and vitamin D. Previously treated with glucocorticoids. History of tobacco use: Social History Tobacco Use Smoking Status Never Smoker INDICATIONS: Menopause status. FINDINGS: BONE MINERAL DENSITY OF THE LUMBAR SPINE Bone Mineral Density (BMD) of the lumbar spine was measured from L1-L4 and the average density was calculated to be 1.223 gm/cm. This corresponds to a T-score standard deviations from the mean of young adults of 1.6. When compared to the previous study of 03/20/2016 there has been a measured 0.203 gm/cm 19.9 % increase which is considered significant. BONE MINERAL DENSITY OF THE PROXIMAL FEMUR Bone Mineral Density (BMD) of the left hip total was found to be 0.965 gm/cm2. This corresponds to a T-score standard deviations from the mean of young adults of 0.2. Femoral neck is 0.757 gm/cm2 with a T-score of -0.8. When compared to the previous study of 03/20/2016 there has been a measured 0.051 gm/cm 5.6 % increase which is considered significant. SUMMARY: Bone mineral density is near the young adult normal mean with no increased risk for fracture. There has been a significant increase in bone mineral density since the previous measurement. ADDITIONAL COMMENTS: If the patient has a history of a fragility fracture, a fracture that occurred with trauma equivalent to a fall from a standing position or less, then the diagnosis is osteoporosis. The risk of osteoporotic fracture increases approximately 2-fold for each 1.0 SD decrease in T-score. However, low bone density is not the only risk factor for fracture. Other factors include patient s age, previous osteoporotic fracture or prior fracture as an adult, loss of height of greater than 2 inches, corticosteroid use, risk of falling, risk of injury, and family history of osteoporosis. Not everyone with low bone mineral density has osteoporosis. Osteomalacia and other metabolic bone disorders should also be considered where indicated. Patients who have osteoporosis should be evaluated for specific diseases and conditions (secondary causes) that may cause or contribute to bone loss. Consider repeating this study in 1-2 years to assess the patient s response to treatment, if applicable. It is recommended that any follow up exam be performed on the same machine if possible for better accuracy. DEFINITIONS: Osteoporosis: BMD at or below -2.5 T-score Osteopenia (low bone mass): BMD between -1.0 and-2.5 T-score. The Bone Health Program adopts the following WHO definitions: Osteoporosis: BMD below -2.5 S.D. as compared to the BMD of young normal adults. Osteopenia or Low Bone Mass: BMD between -1.0 and -2.5 S.D. below the BMD of young normal adults. Normal Bone Density: BMD equal to or greater than -1.0 S.D. as compared to the BMD of young normal adults. References: 1) Jules, Annals of Internal Medicine 114(11): 919-923 (1990) 2) Ryan, Lancet 341 : 72-75 (1992) 3) Anil, Journal Bone and Mineral Research 7(6): 633-8 (1991) 4) Apolinar, Journal Bone and Mineral Research 8(10):1227-33 (1992) The history and data sections of the bone mineral density scan were prepared by RT Larry who is accredited by the International Society of Clinical Densitometry. The overall patient assessment and scan interpretation were performed by Zohreh Alexander M.D. who is certified by the International Society of Clinical Densitometry. [id number] Edmond Schofield MD IMG DXA PROCEDURES Final Result from Last 3 Months or Most Recently Relevant to Health Maintenance Insurance [employer] [facility] [employer] ADVANTAGE CHOICE PPO Member Subscriber Plan / Payer (Ef fective 2023-Present) Name:Aurea Colvin Relation to Subscriber:Self Name:Aurea Colvin Payer ID:[id number] (NAIC) Type:MEDICARE RISK OTHER Address: [address] [place] [id number] [employer] PPO Advance Directives For more information, please contact: [phone] * Full Code (Latest Code Status on File) Date Activated Date Inactivated Comments 10/13/2024 11:13 AM 10/13/2024 6:12 PM * Full Code Date Activated Date Inactivated Comments 09/20/2023 10:13 AM 09/20/2023 5:31 PM * Full Code Date Activated Date Inactivated Comments 09/09/2020 11:13 AM 09/10/2020 9:26 AM Care Teams [employer] Worker Relationship Specialty Start Date End Date Shawn Prieto MD [address] [address] PCP - General Family Medicine 11/09/22 Tre Cyr MD [address] [address] Consulting Physician Cardiology 11/09/22 Mariola Mccoy MD [address] [place] [address] Consulting Physician Rheumatology 11/09/22 Sunny Gutiérrez MD PhD [address] [place] [address] Consulting Physician Internal Medicine 02/15/23
--- OUTSIDE RECORDS SUMMARY | 2024-12-15 12:36 | XMS_ITS | Clinical Summary ---
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 Flu shot given at [facility], Aurea is unsure of the date. We [...] don't have to take much of the [place] Getting records from [place] (including imaging) Continue topical ice Establishing care with new doctor, encounter for 11/11/2022 Assessment & Plan (11/11/2022 4:30 PM LEAD NETWORK ARCHITECT): A(n) initial visit to establish care has [...] hypertension with coi ncident congestive heart failure ([facility]) 11/11/2022 Class 2 severe obesity due t [...] 12/22/2019 Assessment & Plan (12/22/2019 8:48 AM LEAD NETWORK ARCHITECT): Status post ultrasound-guided left knee injection today Rheumatoid arthritis involvi ng multiple sites with positive rheumatoid factor (CMS/[facility]) 12/22/2019 Assessment & Plan (11/21/2021 5:06 PM LEAD NETWORK ARCHITECT): The pain she is currently having does [...] 12/10/2015 Assessment & Plan (11/21/2021 5:05 PM LEAD NETWORK ARCHITECT): On MTX and starting sulfasalazine and hydroxychloroquine [...] 09/05/2015 Assessment & Plan (11/16/2022 9:03 AM LEAD NETWORK ARCHITECT): Much improved since last visit. Patient notes [...] Encounter for preventive health examination 11/26 Hyperlipidemia Encounters Date Type Department Care Team Description 12/13/2024 Telephone [facility] Primary Care at [address] [phone] Shawn Prieto MD Dexa scan order request 11/07/2024 Telephone [facility] Care Organization [address] [place] [phone] Keya Quiroz MA [facility] Primarily Home 10/20/2024 Telephone [facility] [place] [facility] [address] [place] [phone] Dorcas Jenkins RN Cardiac Rehab 10/13/2024 8:00 AM LEAD NETWORK ARCHITECT - 10/13/2024 10:20 AM LEAD NETWORK ARCHITECT Surgery [facility] [address] [place] [phone] Kane Jones MD PhD PCI HECTOR MAJOR CORONARY [id number] - [id number] 10/13/2024 6:35 AM LEAD NETWORK ARCHITECT - 10/13/2024 2:07 PM LEAD NETWORK ARCHITECT Hospital Encounter [facility] [address] [place] [phone] Kane Jones MD PhD Unstable angina (CMS/HCC) (HCC) [I20.0] (Primary Dx); 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 [address] [place] [phone] Tre Cyr MD Hx of CABG (Primary Dx); History of coronary artery stent placement 10/12/2024 Orders Only [facility] [place] [address] [place] [phone] Mireille Johnson, LETY Angina at rest (HCC) (Primary Dx) 10/12/2024 Orders Only [facility] Cardiology [facility] 8th [place] [address] [place] [address] Kane Jones MD PhD Hx of CABG (Primary Dx) 10/12/2024 Telephone [facility] Cardiology [address] [facility] 8th [place] [address] [place] [address] Kane Jones MD PhD lab fax number 10/11/2024 Telephone [facility] [address] [place] [phone] Tre Cyr MD 10/10/2024 JOHN ED Outreach [facility] Organization [address] [place] [phone] Jessi Moore MA 10/10/2024 Documentation [facility] Rheumatology [address] [facility] 5th [place] [address] [place] [phone] Modesta Brown RMA Eye Exam 10/08/2024 2:48 PM LEAD NETWORK ARCHITECT - 10/08/2024 9:12 PM LEAD NETWORK ARCHITECT Emergency [facility] Emergency Department 1 [place] [address] Discharge Disposition: Left without being seen 10/06/2024 Telephone [facility] Cardiology [address] [place] [address] Tre Cyr MD 09/29/2024 Telephone [facility] Rheumatology [address] [facility] Advanced [facility] 5th [place] [address] [place] [phone] Modesta Brown RMDayanara 09/25/2024 Telephone [facility] Cardiology [address] [facility] 8th [place] [address] [place] [phone] Kane Jones MD PhD reschedule PCI 09/20/2024 2:20 PM LEAD NETWORK ARCHITECT - 09/20/2024 4:10 PM LEAD NETWORK ARCHITECT Surgery [facility] [place] [address] [place] [phone] Kane Jones MD PhD Discontinued Cath Case Pre Proc 09/20/2024 11:38 AM LEAD NETWORK ARCHITECT - 09/20/2024 4:50 PM LEAD NETWORK ARCHITECT Hospital Encounter [facility] [place] [address] [place] [phone] Kane Jones MD PhD Angina pectoris, unspecified (HCC) Discharge Disposition: Discharge to home or self care 09/19/2024 11:20 AM LEAD NETWORK ARCHITECT Lab [facility] Endocrinology Metabolism and Lipid [address] [facility] 5th [place] [address] [place] [phone] High risk medication use; Seropositive rheumatoid arthritis (HCC) 09/19/2024 10:46 AM LEAD NETWORK ARCHITECT - 09/19/2024 11:59 PM LEAD NETWORK ARCHITECT Hospital Encounter [address] [phone] Seropositive rheumatoid arthritis (HCC) Discharge Disposition: Discharge to home or self care 09/19/2024 10:30 AM LEAD NETWORK ARCHITECT Office Visit [facility] Rheumatology [address] [facility] 5th [place] [address] [place] [address] Sunny Gutiérrez MD PhD High risk medication use (Primary Dx); Seropositive rheumatoid arthritis (HCC) from Last 3 Months Immunizations Immunization Administration Dates Next Due Influenza, [...] (Arexvy) 06/07/2024 Tdap 08/24/2023 ZOSTER Recombinant 06/27/2021,02/28/2021 Surgical History Surgery Date Site/Laterality Comments OTHER SURGICAL HISTORY rotator cuff surgery on right shoulder OTHER SURGICAL HISTORY heart bypass surgery OTHER SURGICAL HISTORY 12/23/2010 - 01/22/2011 percutaneous transluminal balloon angioplasty with insertion of stent into coronary artery VAGINAL HYSTERECTOMY 10/25/2012 - 10/24/2013 Hysterectomy, vaginal CHOLECYSTECTOMY Cholecystectomy CORONARY ARTERY BYPASS GRAFT 09/24/2010 - 10/24/2010 ESOPHAGOGASTRODUODENOSCOPY COLONOSCOPY Medical History Medical History Date Comments Hx Other Medical congestive hear t disease Hypertension Hypertension Hx Other Medical dyslipidemia Hyperlipidemia CHF (congestive heart failure) (CMS/HCC) (HCC) Coronary artery disease Mitral regurgitation COPD (chronic obstructive pulmonary disease) (HC C) JOSÉ (obstructive sleep apnea) Family History Medical History Relation Name Comments Heart disease Brother bypass 50 yrs Heart attack Father Myocardial Infa rction; Cause of : Myocardial Infarction Osteoarthritis Father Family histor y of osteoarthritis - (Added by TW Conv) Rheum arthritis Father Family histo ry of rheumatoid arthritis - (Added by TW Conv) Gout Mother Family history of gout - (Added by TW Conv) Osteoarthritis Mother Family histor y of osteoarthritis - (Added by TW Conv) Rheum arthritis Mother Family histo ry of rheumatoid arthritis - (Added by TW Conv) Other Other 1 Family history of Cancer, uterine; Heart attack Other 2 Family history of heart attack; Hypertension Other 3 Family history of Hypertension; Fibromyalgia Sister Family history of fibromyalgia - (Added by TW Conv) Relation Name Status Comments Brother Father Mother Alive Other 1 Other 2 Other 3 Sister Social History Tobacco Use Types Packs/Day Years Used Date Smoking Tobacco: Never Smokeless Tobacco: Never Tobacco Cessation:Counseling Given: Not Answered Alcohol Use Standard Drinks/Week Comments No 0 (1 standard drink = 0.6 oz pur e alcohol) [facility] Utilities Answer Date Recorded In the past 12 months has e [employer], gas, oil, or water [employer] threatened to shut off services in your home? No 10/11/2024 Social Connection and Isolat ion Panel [NHANES] Answer Date Recorded In a typical week, how many times do you talk on the phone with family, friends, or neighbors? Once a week 10/11/2024 How often do you get togethe r with friends or relatives? Once a week 10/11/2024 How often do you attend [facility] or latter-day services? More than 4 times per year 10/11/2024 Do you belong to any clubs o r organizations such as restorationism groups, unions, fraternal or athletic groups, or [...] any time in the past [address] [facility], were you homeless or living in a halfway (including now)? No 10/11/2024 Personal Safety Answer Date Recorded Have you ever been in or are you currently in a harmful physical or emotional relationship or is someone making you feel afraid or unsafe? Denies 10/13/2024 Comments No Sex and Gender Information Value Date Recorded Sex Assigned at Not on file Legal Sex Female 11:58 PM LEAD NETWORK ARCHITECT Gender Identity Not on file Sexual Orientation Not on file Obstetrics History Last Filed Vital Signs Vital Sign Reading Time Taken Comments Blood Pressure 117/58 10/13/2024 1:20 PM LEAD NETWORK ARCHITECT Pulse 79 10/13/2024 1:25 PM LEAD NETWORK ARCHITECT Temperature 37.1 C (98.8 F) 10/13/2024 7:05 AM LEAD NETWORK ARCHITECT Respiratory Rate 28 10/13/2024 1:25 PM LEAD NETWORK ARCHITECT Oxygen Saturation 96% 10/13/2024 1:25 PM LEAD NETWORK ARCHITECT Inhaled Oxygen Concentration - - Weight 90.4 kg (199 lb 4.8 oz) 10/13/2024 7:05 A M LEAD NETWORK ARCHITECT Height 152.4 cm (5') 10/13/2024 7:05 AM LEAD NETWORK ARCHITECT Body Mass Index 38.92 10/13/2024 7:05 AM LEAD NETWORK ARCHITECT Plan of Treatment Health Maintenance Due Date Last Done Comments Hepatitis B Screening 1968 Osteoporosis Screening-Bone Density Scan 10/23/2022 10/23/2020, 03/20/2016 Covid-19 Vaccine (2023-2 5 season) 2024 12/11/2021, 01/10/2021, 12/13/2020 Well Visit 65+ 08/16/2024 08/16/2023 Depression Screening 06/13/2025 06/13/2024, 12/14/2023, 09/13/2023, Additional history exists Fall Risk Assessment 10/13/2025 10/13/2024, 09/13/2023, 08/31/2023, Additional history exists DTaP/Tdap/Td Vaccine (2 - Td or Tdap) 08/24/2033 08/24/2023 Hepatitis C Screening Completed 02/28/2021 , 03/19/2017, 03/29/2015 Zoster Vaccine Completed 06/27/2021, 02/28/2021 Pneumococcal vaccine 65+ Completed 08/16/2023, 0711/2020 Colon Cancer Screening-CT Colonography Discontinued 03/10/2024, 07/12/2018 Colon Cancer Screening-Colonoscopy Discontinued 03/10/2024, 07/12/2018 Colon Cancer Screening-DNA Stool Discontinued 03/10/20, 07/12/2018 Colon Cancer Screening-FIT Discontinued 03/10/2024, Colon Cancer Screening-FOBT Discontinued 03/10/2024, 0 07/12/2018 Colon Cancer Screening-Sigmoidoscopy Discontinued 03/10/2024, 07/12/2018 Colorectal Cancer Screening Discontinued Influenza Vaccine Completed 06/07/2024, , 07/24/2022, Additional history exists Goals Goal Patient Goal Type Associated Problems Recent Progress Patient-Stated? Author Anticoagulant Goal - Patient is knowledgeable of prescribed anticoagulant and can state reason for taking, dosage, frequency and possible side effects [facility] Care Management On track(2024 12:25 PM LEAD NETWORK ARCHITECT) Cinthya Alarcon, RN Note: Problem: High Risk [...] ACO Care Management On track(2024 12:25 PM LEAD NETWORK ARCHITECT) Cinthya Alarcon RN Note: Problem: Coronary Artery [...] ACO Care Management On track(2024 12:25 PM LEAD NETWORK ARCHITECT) Cinthya Alarcon RN Note: Problem: Knowledge deficit [...] ACO Care Management On track(2024 12:25 PM LEAD NETWORK ARCHITECT) No Cinthya Lorenzana RN Note: Problem: Potential for medical complications [...] ACO Care Management On track(2024 12:25 PM LEAD NETWORK ARCHITECT) No Cinthya Lorenzana RN Note: Problem: At Risk for Self [...] is agreeable. Medical Devices Implanted Type [facility] Device Identifier Shelf Expiration Date Model / Serial / Lot Prime Connections Leidy Angio-Seal Vip 6fr Closere Device [id number] - [id number] - [id number] Implanted:Qty: 1 on 10/13/2024 by Kane Jones MD PhD at [facility] Collagen Right: Common Femoral Artery [employer] 05/29/2025 [id number] / [id number] 2 / [id number] Medtronic Usa [employer] X [id number] Resolute Alejandrina 3mm 2.1-2.7fr 18mm 140cm Rapid Exchange Radiopaque - [id number] Implanted:Qty: 1 on 09/09/2020 by Kane Jones MD PhD at [facility] Stent Medtronic Inc 04/05/2022 [id number] / / [id number] Medtronic Card Vasc Surgery 4.0 X 15mm [place] [employer] Rx Coronary Stent [id number] - [id number] - [id number] Implanted:Qty: 1 on 10/13/2024 by Kane Jones MD PhD at [facility] Stent Left: Main Coronary Artery Medtronic Card Vasc Surgery 12/06/2026 [id number] / [id number] / [id number] Daig Leidy/[employer] [id number] Angio-Seal Evolution 6fr .035in Guidewire Bypass Tube Suture - [id number] Implanted:Qty: 1 on 09/09/2020 by Kane Jones MD PhD at [facility] [employer] 07/24/2021 [id number] / / [id number] Procedures Procedure Name Priority Date/Time Associated Diagnosis Comments EGFR Routine 10/13/2024 12:30 PM LEAD NETWORK ARCHITECT BASIC METABOLIC PANEL Routine 10/13/2024 12:30 PM LEAD NETWORK ARCHITECT CBC WITHOUT DIFFERENTIAL Routine 10/13/2024 12:30 PM LEAD NETWORK ARCHITECT HECTOR MAJOR CORONARY Routine 10/13/2024 9: 42 AM LEAD NETWORK ARCHITECT Coronary artery disease of [place] artery of [place] mountain heart with stable angina pectoris (HCC) POCT ACTIVATED CLOTTING TIME, LOW RANGE Routine 10/13/2024 9:27 AM LEAD NETWORK ARCHITECT POCT ACTIVATED CLOTTING TIME, LOW RANGE Routine 10/13/2024 8:53 AM LEAD NETWORK ARCHITECT POCT ACTIVATED CLOTTING TIME, LOW RANGE Routine 10/13/2024 8:43 AM LEAD NETWORK ARCHITECT TYPE AND SCREEN Timed 10/13/2024 8:35 AM LEAD NETWORK ARCHITECT CBC WITHOUT DIFFERENTIAL Routine 10/13/2024 8:35 AM LEAD NETWORK ARCHITECT EGFR Routine 10/12/2024 10:56 AM LEAD NETWORK ARCHITECT Angina at rest (HCC) CBC WITHOUT DIFFERENTIAL Routine 10/12/2024 10:56 AM LEAD NETWORK ARCHITECT Angina at rest (HCC) BASIC METABOLIC PANEL Routine 10/12/2024 10:56 AM LEAD NETWORK ARCHITECT Angina at rest (HCC) XR CHEST PA LATERAL 2 VIEWS ED 10/08/2024 3:35 PM LEAD NETWORK ARCHITECT ECG 12-LEAD STAT 10/08/2024 3:32 PM LEAD NETWORK ARCHITECT TYPE AND SCREEN STAT 09/20/2024 12:43 PM LEAD NETWORK ARCHITECT ECG 12-LEAD Routine 09/20/2024 12:16 PM LEAD NETWORK ARCHITECT ERYTHROCYTE SEDIMENTATION RATE Routine 09/19/2024 10:46 AM LEAD NETWORK ARCHITECT Seropositive rheumatoid arthritis (HCC) CRP (ACUTE PHASE) Routine 09/19/2024 10: 46 AM LEAD NETWORK ARCHITECT Seropositive rheumatoid arthritis (HCC) COMPREHENSIVE METABOLIC PANEL Routine 09/19/2024 10:46 AM LEAD NETWORK ARCHITECT High risk medication use Seropositive rheumatoid arthritis (HCC) CBC WITH AUTO DIFFERENTIAL Routine 09/19/2024 10:46 AM LEAD NETWORK ARCHITECT High risk medication use Seropositive rheumatoid arthritis (HCC) HM COLONOSCOPY Routine 03/10/2024 HEPATITIS C ANTIBODY Routine 02/28/2021 10:24 AM CDT Rheumatoid arthritis involving multiple sites with positive rheumatoid factor (CMS/HCC) High risk medication use DEXA AXIAL SKELETON BONE DENSITY 1 OR MORE SITES Schedule Routine, Read Routine (OP Routine) 10/23/2020 10:40 AM LEAD NETWORK ARCHITECT Age-related osteoporosis with current pathological fracture, vertebra(e), initial encounter for fracture ([facility]) Rheumatoid arthritis involving multiple sites with positive rheumatoid factor (CMS/[facility]) High risk medication use Other osteoporosis with current pathological fracture with routine healing, subsequent encounter from Last 3 Months or Most Recently Relevant to Health Maintenance Results * (ABNORMAL) eGFR (10/13/2024 12:30 PM LEAD NETWORK ARCHITECT) eGFR 58(L) >=60 mL/min/1. 73 m2 Comment: [...] reviewed 2021. Blood 10/13/2024 12:3 0 PM LEAD NETWORK ARCHITECT 10/13/2024 1:29 PM LEAD NETWORK ARCHITECT us Alek Ly MD LAB BLOOD ORDERABLES Final Resul t VINNY BARTLETT [facility] Department [place] [address] * (ABNORMAL) CBC without differential (10/13/2024 12:30 PM LEAD NETWORK ARCHITECT) WBC 8.5 3.8 - 9.9 K/cumm Hgb [...] [facility] Blood 10/13/2024 12:3 0 PM LEAD NETWORK ARCHITECT 10/13/2024 12:55 PM LEAD NETWORK ARCHITECT us Alek Ly MD LAB BLOOD ORDERABLES Final Resul t [facility] Department [place] [address] * Basic metabolic panel (10/13/2024 12:30 PM LEAD NETWORK ARCHITECT) Pathologist [facility] Sodium 137 135 - 145 mmol/L Potassium, [...] 2022. Calcium 8.8 8.5 - 10.3 mg/dL VINNY DUARTE Blood 10/13/2024 12:3 0 PM LEAD NETWORK ARCHITECT 10/13/2024 12:55 PM LEAD NETWORK ARCHITECT us Alek Ly MD LAB BLOOD ORDERABLES Final Resul t VINNY BARTLETT [facility] Department [place] [address] * HECTOR MAJOR CORONARY (10/13/2024 9:42 AM LEAD NETWORK ARCHITECT) Anatomical Region Laterality Modality X-Ray Angiograph y Narrative 10/13/2024 9:57 AM LEAD NETWORK ARCHITECT Cardiac catheterization oracle bpm developer: Dr.Rahul Ly HPI: 74-year-old female with a [...] of breath and nausea. Stress test shows ndnr-[id number]-[id number] LV dysfunction with a large moderate inferolateral anterior lateral apical lateral ischemia. She was referred for follow-up catheterization and possible PCI. Procedure: Patient was prepped and draped in sterile fashion. 1% local lidocaine anesthesia was utilized. Fentanyl and Versed were used as premedication. Optiray was used as a contrast agent. Aspirin and Plavix were given preprocedure. Using ultrasound directed micropuncture technique, 6 Nepali sheath inserted into the right femoral artery using percutaneous approach. The additional hydration was given for a newly elevated creatinines. Heparin was administered to maintain ACT of 300 seconds or greater. Catheterization was performed with a 6 Nepali CALLOWAY guide catheter with side holes with the right coronary. CALLOWAY was cannulated with a 4 Nepali CALLOWAY catheter. IFR and Angioplasty of the left performed with a 6 Nepali EBU 3.5 guide catheter, a 0.014 in omni pressure wire, 0.014 in choice floppy wire, a 0.8 mm Steward excimer laser catheter and a 4.0 x 12 mm NC emerge 2 inflations performed up to 26 atmospheres. intravascular ultrasound performed with a [employer] cheesh-na manzanita eye catheter. The left main into circumflex was stented with a 4 mm x 15 mm alejandrina Bartley drug-eluting stent deployed at 12 atmospheres for 20 seconds. Postdilatation was performed 4.0 x 12 mm NC emerge with 2 inflations performed up to 24 atmospheres. Intracoronary nicardipine was given prior to IFR. Upon completion of the case the right femoral artery sheath was removed area closed with a 6 Nepali Angio-Seal. There were no complications. Hemodynamics: The [...] a 4 mm by 15 mm alejandrina Bartley drug-eluting stent post dilated with a 4 [...] using 4 mm x 15 mm alejandrina Bartley drug-eluting stent. 2. No evidence of restenosis [...] clotting time, low range (10/13/2024 9:27 AM LEAD NETWORK ARCHITECT) [facility] Signature ACT 300(H) 123 - 168 sec POC Performer [id number] [facility] POC Device Number [id number] [facility] Blood 10/13/2024 9:27 AM LEAD NETWORK ARCHITECT 10/13/2024 9:27 AM LEAD NETWORK ARCHITECT Kane Jones MD PhD LAB POCT ORDERABLES - LIBRA CE Final Result [facility] Department [place] [address] * (ABNORMAL) POCT Activated clotting time, low range (10/13/2024 8:53 AM LEAD NETWORK ARCHITECT) ACT 314(H) 123 - 168 sec POC Performer [id number] [facility] POC Device Number [id number] [facility] Blood 10/13/2024 8:53 AM LEAD NETWORK ARCHITECT 10/13/2024 8:53 AM LEAD NETWORK ARCHITECT us Kane Jones MD PhD LAB POCT ORDERABLES - LIBRA CE Final Result Performing Organization Address [facility] Co de Phone Number [facility] Department [place] [address] * (ABNORMAL) POCT Activated clotting time, low range (10/13/2024 8:43 AM LEAD NETWORK ARCHITECT) [facility] ACT 229(H) 123 - 168 sec POC Performer [id number] [facility] POC Device Number [id number] [facility] Blood 10/13/2024 8:43 AM LEAD NETWORK ARCHITECT 10/13/2024 8:43 AM LEAD NETWORK ARCHITECT us Kane Jones MD PhD LAB POCT ORDERABLES - LIBRA CE Final Result Performing Organization Address [facility] de Phone Number [facility] Department [place] [address] * (ABNORMAL) CBC without differential (10/13/2024 8:35 AM LEAD NETWORK ARCHITECT) [facility] WBC 10.7(H) 3.8 - 9.9 K/cumm Hgb [...] [facility] Blood 10/13/2024 8:35 AM LEAD NETWORK ARCHITECT 10/13/2024 10:45 AM LEAD NETWORK ARCHITECT Kane Jones MD PhD LAB BLOOD ORDERABLES Final Result Performing Organization Address [facility] Co de Phone Number [facility] Department [place] [address] * Type and screen (10/13/2024 8:35 AM LEAD NETWORK ARCHITECT) ABO Rh A Positive Linda, indirect Negative [facility] Blood 10/13/2024 8:35 AM LEAD NETWORK ARCHITECT 10/13/2024 10:48 AM LEAD NETWORK ARCHITECT Narrative [facility] - 10/13/2024 11:46 AM LEAD NETWORK ARCHITECT Has the patient had Daratumumab or Isatuximab in the past 6 months?->Unknown Kane Jones MD PhD LAB BLOOD BANK TEST ORDERA BLES Final Result Performing Organization Address [facility] Co de Phone Number [facility] Department [place] [address] * (ABNORMAL) eGFR (10/12/2024 10:56 AM LEAD NETWORK ARCHITECT) eGFR 45(L) >=60 mL/min/1. 73 m2 Comment: [...] was last reviewed 2021. [facility] [address] [place] [address] Blood 10/12/2024 10:5 6 AM LEAD NETWORK ARCHITECT 10/12/2024 11:02 AM LEAD NETWORK ARCHITECT Kane Joens MD PhD LAB BLOOD ORDERABLES Final Result [facility] [id number] [address] Department [place] [address] * (ABNORMAL) CBC without differential (10/12/2024 10:56 AM LEAD NETWORK ARCHITECT) WBC 10.1(H) 3.8 - 9.9 K/cumm Comment:[facility] performed by : [facility] [address], [place] [address] Hgb 12.5 11.9 - 15.5 g/dL VINNY Comment:Testing performed by : [facility] [address], [place] [address] Hct 40.3 35.6 - 45.5 % CERNER Comment:[facility] by : [facility] [address] [place] [address] Plt 323 150 - 400 K/cumm VINNY Comment:Testing performed by : [facility] [address], [place] [address] MPV 9.5 9.1 - 12.3 fL CERTIM Comment:Testing performed by : [facility] [address], [place] [address] RBC 4.24 3.90 - 5.20 M/cumm VINNY Comment:Testing performed by : [facility], [address], [place] [address] MCV 95.0 81.3 - 96.4 fL CERNER CH Comment:Testing performed by : [facility] [address], [place] [address] MCH 29.5 27.1 - 33.3 pg CERNER CH Comment:Testing performed by : [facility] [address], [place] [address] MCHC 31.0(L) 32.3 - 35.7 g/dL CERNER CH Comment:Testing performed by : [facility] [address], [place] [address] RDW CV 17.2(H) 11.1 - 14.9 % CERNER CH Comment:Testing performed by : [facility] [address], [place] [address] RDW SD 59.3(H) 35.7 - 48.1 fL CERNER CH Comment:Testing performed by : [facility] [address], [place] [address] NRBC abs 0.00 0.00 - 0.01 K/cumm CERNER CH Comment:Testing performed by : [facility] [address], [place] [address] Blood 10/12/2024 10:5 6 AM LEAD NETWORK ARCHITECT 10/12/2024 11:02 AM LEAD NETWORK ARCHITECT Kane Jones MD PhD LAB BLOOD ORDERABLES Final Result [facility] [address] Department [place] [address] * (ABNORMAL) Basic metabolic panel (10/12/2024 10:56 AM LEAD NETWORK ARCHITECT) Sodium 139 135 - 145 mmol/L Comment:Testing performed by : [facility] [address], [place] [address] Potassium, pl 4.7 3.3 - 4.9 mmol/L CERNER CH Comment:Testing performed by : [facility] [address], [place] [address] Chloride 99 97 - 110 mmol/L CERNER CH Comment:Testing performed by : [facility] [address], [place] [address] CO2 31 22 - 32 mmol/L CERNER CH Comment:Testing performed by : [facility] [address], [place] [address] Anion gap 9 2 - 15 mmol/L [facility] Comment:Testing performed by : [facility], [address] [facility] BUN 26(H) 6 - 25 mg/dL [facility] Comment:Testing performed by : [facility], [place] [address] [address] Creatinine 1.24(H) 0.60 - 1.10 mg/dL [facility] Comment:Testing performed by : [facility], [address] [facility] Glucose 103 70 - 199 mg/dL [facility] Comment: Interpretive Data Fasting glucose >/= 126 [...] was last revised 2022. Testing performed by: [facility], [address] [facility] Calcium 10.2 8.5 - 10.3 mg/dL [facility] Comment:Testing performed by : [facility] [place] [address] Blood 10/12/2024 10:5 6 AM LEAD NETWORK ARCHITECT 10/12/2024 11:02 AM LEAD NETWORK ARCHITECT Kane Jones MD PhD LAB BLOOD ORDERABLES Final Result [facility] [address] Department [place] [address] * XR Chest Pa Lateral 2 Views (10/08/2024 3:35 PM LEAD NETWORK ARCHITECT) Anatomical Region Laterality Modality Body, Chest N/A Computed Radiogr aphy 10/08/2024 3:42 PM LEAD NETWORK ARCHITECT Impressions 10/08/2024 4:04 PM LEAD NETWORK ARCHITECT Status post median sternotomy with wires aligned [...] Reid MD, PHD Narrative 10/08/2024 4:04 PM LEAD NETWORK ARCHITECT EXAMINATION: XR CHEST PA LATERAL 2 VIEWS [...] Electronically signed by: Drake Reid MD, PHD Jovanni West Jr., MD IMG XR PROCEDURES Hali l Result * ECG 12-LEAD (10/08/2024 3:32 PM LEAD NETWORK ARCHITECT) Narrative [facility] - 10/08/2024 3:32 PM LEAD NETWORK ARCHITECT Chuck Mcgovern MD 10/08/2024 3:34 PM ECG 12 lead Date/Time: 10/08/2024 3:32 PM Performed by: Chuck Mcgovern MD Authorized by: Jovanni West Jr., [...] West Jr., MD ECG ORDERABLES Final Result Performing Organization Address [facility] Co de Phone Number [facility] * Type and screen (09/20/2024 12:43 PM LEAD NETWORK ARCHITECT) ABO Rh A Positive Linda, indirect Negative [facility] Blood 09/20/2024 12:4 3 PM LEAD NETWORK ARCHITECT 09/20/2024 1:06 PM LEAD NETWORK ARCHITECT Mel Gutiérrez NP LAB BLOOD BANK TEST ORDERABLE S Final Result Performing Organization Address [facility] de Phone Number [facility] Department [place] [address] * ECG 12 lead (09/20/2024 12:16 PM LEAD NETWORK ARCHITECT) Ventricular Rate EKG/Min 79 BPM [facility] Atrial Rate 79 BPM [facility] ID-Interval (MSEC) 166 ms [facility] QRS-Interval (MSEC) 90 ms [facility] QT-Interval (MSEC) 420 ms [facility] QTc 481 ms [facility] P [place] 67 degrees [facility] R [place] -10 degrees [facility] T [place] 105 degrees [facility] Diagnosis Normal sinus rhythm Minimal voltage criteria for LVH, may be normal variant ( R in aVL ) Nonspecific ST and T wave abnormality Abnormal ECG No previous ECGs available Confirmed by CHAD NOWAK M.D ([id number]) on 09/20/2024 4:28:48 PM [facility] 09/20/2024 12:1 6 PM LEAD NETWORK ARCHITECT 09/20/2024 4:28 PM LEAD NETWORK ARCHITECT Mel Gutiérrez NP ECG ORDERABLES Final Result [facility] * (ABNORMAL) CBC with auto differential (09/19/2024 10:46 AM LEAD NETWORK ARCHITECT) White Blood Count 9.6 3.6 - 11.2 [...] - [facility] Blood 09/19/2024 10:4 6 AM LEAD NETWORK ARCHITECT 09/19/2024 11:52 AM LEAD NETWORK ARCHITECT us Sunny Gutiérrez MD PhD LAB BLOOD ORDERABLE S Final Result [facility] * Erythrocyte sedimentation rate (09/19/2024 10:46 AM LEAD NETWORK ARCHITECT) Erythrocyte sedimentation rate 30 1 - 30 mm/hr Blood 09/19/2024 10:4 6 AM LEAD NETWORK ARCHITECT 09/19/2024 1:05 PM LEAD NETWORK ARCHITECT us Sunny Gutiérrez MD PhD LAB BLOOD ORDERABLE S Final Result Performing Organization Address City/[facility]/ZIP Co de Phone Number [facility] Department [place] [address] * (ABNORMAL) CRP (acute phase) (09/19/2024 10:46 AM LEAD NETWORK ARCHITECT) Pathologist [facility] C-Reactive Protein, Acute 6.7(H) <5.0 mg/L [facility] Blood 09/19/2024 10:4 6 AM LEAD NETWORK ARCHITECT 09/19/2024 11:52 AM LEAD NETWORK ARCHITECT us Sunny Gutiérrez MD PhD LAB BLOOD ORDERABLE S Final Result Performing Organization Address City/[facility]/ZIP Co de Phone Number [facility] * (ABNORMAL) Comprehensive metabolic panel (09/19/2024 10:46 AM LEAD NETWORK ARCHITECT) Total Protein 7.9 6.1 - 8.4 g/dL [...] - [facility] Blood 09/19/2024 10:4 6 AM LEAD NETWORK ARCHITECT 09/19/2024 11:52 AM LEAD NETWORK ARCHITECT Sunny Gutiérrez MD PhD LAB BLOOD ORDERABLE S Final Result [facility] * HM COLONOSCOPY (03/10/2024) Historical Provider HEALTH MAINTENANCE Final Result * Hepatitis C antibody (02/28/2021 10:24 AM CDT) Hep C Ab Nonreactive Nonreactive [facility] Comment:Antibodies to HCV no t detected. Does NOT exclude the possibility of recent exposure to HCV. Blood specimen (specimen) 02/28/2021 10:24 AM CDT 02/28/2021 10:24 AM CDT Edmond Schofield MD LAB MICROBIOLOGY - GENER AL ORDERABLES Edited Result - Final [facility] Department [place] [address] * Dexa Axial Skeleton Bone Density 1 or 2 Site (10/23/2020 10:40 AM LEAD NETWORK ARCHITECT) Anatomical Region Laterality Modality Body N/A Radiographic Dalila ging Narrative 10/23/2020 9:57 PM LEAD NETWORK ARCHITECT Patient Name: Aurea Colvin Date of : 1950 Date of scan: 10/23/2020 Bone mineral density was performed on a [employer] FX Discovery Densitometer. Machine Cross-calibration and Precision studies [...] BMD of young normal adults. References: 1) Ross, Annals of Internal Medicine 114(11): 919-923 (1990) 2) Davis, Lancet 341 : 72-75 (1992) 3) Black, Journal Bone and Mineral Research 7(6): 633-8 (1991) 4) Jiang, Journal Bone and Mineral Research 8(10):1227-33 (1992) The history and data sections of the bone mineral density scan were prepared by RT Larry who is accredited by the International Society of Clinical Densitometry. The overall patient assessment and scan interpretation were performed by Zohreh Alexander M.D. who is certified by the International Society of Clinical Densitometry. [id number] Edmond Schofield MD IMG DXA PROCEDURES Final Result from Last 3 Months or Most Recently Relevant to Health Maintenance Insurance [facility] ADVANTAGE CHOICE PPO ADVANTAGE CHOICE PPO Advance Directives For more information, please contact: [phone] * Full Code (Latest Code Status on File) Date Activated Date Inactivated Comments 10/13/2024 11:13 AM 10/13/2024 6:12 PM * Full Code Date Activated Date Inactivated Comments 09/20/2023 10:13 AM 09/20/2023 5:31 PM * Full Code Date Activated Date Inactivated Comments 09/09/2020 11:13 AM 09/10/2020 9:26 AM Care Teams Manager Multicultural Relationship Specialty Start Date End Date Shawn Prieto MD [facility] [address] [place], [place] [id number] PCP - General Family Medicine 11/09/22 Tre Cyr MD [address] [facility] [address] [place], [place] [id number] Consulting Physician Cardiology 11/09/22 Mariola Mccoy MD [address] [place], [place] [id number] Consulting Physician Rheumatology 11/09/22 Sunny Gutiérrez MD PhD [address] [place] [address] Consulting Physician Internal Medicine 02/15/23
== END 2024-12-15 12:32 | disposition home or self-care (01) ==
LOC: ANHIMG 12:33
PROVIDERS: PCP Nurse Practitioner Family; Visit Provider Family Medicine
DX: Z13.820 Encounter for screening for osteoporosis (principal); Z79.51 Long term (current) use of inhaled steroids
CPT/HCPCS: 77080

== ENCOUNTER 2025-05-15 08:46 | Outpatient (CLI) | payer OTHER, SELFPAY ==
--- NOTE | ~2025-05-15 | MM_ITS ---
EXAMINATION: MM screening [facility] BI w jessie INDICATION: Asymptomatic, referred for screening mammogram COMPARISON: 07/10/2020 through 11/17/2011 TECHNIQUE: Digital Breast Tomosynthesis CC, MLO views of Both breasts were obtained with computer-ai ded detection to assist in interpretation of the study. FINDINGS: There are scattered areas of fibroglandular density. There is a new circumscribed mass that has developed in the inferior medial at posterior third of the right breast centered at 8 cm posterior to the nipple. There is a focal asymmetry with architectural distortion that has developed in the upper outer left b reast at middle depth centered at 8.5 cm posterior to the nipple. It is located adjacent to a biopsy clip. There are 2 groups of calcifications that has developed in the left breast only seen on the cc view, one is located in the outer at posterior depth centered at 11.2 cm posterior to the nipple and the ot her group of calcification is in the medial breast at middle depth centered at 8 cm posterior to the nipple. There are benign calcifications scattered throughout the breast parenchyma bilaterally which are unch anged. Elsewhere, there are no mammographic features of malignancy. IMPRESSION: 1. Right breast Mass. 2. Left breast focal asymmetry with architectural distortion and 2 groups of calcifications. RECOMMENDATION: Bilateral breast Diagnostic mammogram with true lateral, appropriate spot compression views and an ul trasound as needed. Magnification views of the left breast calcifications. BI-RADS Category 0: Incomplete: Needs additional imaging evaluation. Reviewed, dictated and finalized at location B. IMPRESSION: 1. Right breast Mass. 2. Left breast focal asymmetry with architectural distortion and 2 groups of c alcifications. RECOMMENDATION: Bilateral breast Diagnostic mammogram with true lateral, appropriate spot compr ession views and an ultrasound as needed. Magnification views of the left breast calcifications. BI-RADS Category 0: Incomplete: Needs additional imaging evaluation.
--- OUTSIDE RECORDS SUMMARY | 2025-05-15 08:50 | XMS_ITS | Referral Summary ---
Author Organization [facility] al Address [address] [place] [address] Care Team Providers Care Medical Safety Director Name Role Phone Tre Cyr MD Unavailable [phone] Mariola Mccoy MD Unavailable [phone] Sunny Gutiérrez MD PhD Unavailable [phone] Rayray Lopez MD Primary Care Provider [phone] Encounters Date Type Department Care Team Description 04/24/2025 10:45 AM CDT Lab [facility] Endocrinology Metabolism and Lipid [address] [place] [address] Seropositive rheumatoid arthritis (HCC); High risk medication use 04/24/2025 9:30 AM CDT Office Visit [facility] Rheumatology [address] [place] [address] Sunny Gutiérrez MD PhD Seropositive rheumatoid arthritis (HCC) (Primary Dx); High risk medication use; 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; Primary osteoarthritis of both knees 02/16/2025 Telephone [facility] Cardiology [address] [facility] [address] [place] [phone] Tre Cyr MD from Last 3 Months Allergies No known [...] HFA (PROVENTIL HFA,VENTOLIN HFA,PROAIR HFA) 90 mcg/actuation inhalerIndicatio ns:COPD with acute exacerbation (HCC) Inhale 2 puffs every 6 (six) hours as needed for wheezing or shortness of breath 1 each 11 3 Active cyanocobalamin, vitamin B-12, (Vitamin B-12) 1,000 mcg/mL drops Take by mouth Active diclofenac sodium (VOLTAREN) 1 % gel Apply 4 g topically 4 (four) times a day 200 g 11 3 Active acetaminophen-co deine (TYLENOL with CODEINE #3) 300-30 mg per tablet TAKE 1 TABLET BY MOUTH EVERY 4 TO 6 HOURS 4 Active budesonide-glyco pyr-formoterol (BREZTRI) 160-9-4.8 mcg/actuation inhalerIndicatio ns:Bronchospasm Prevention with COPD Inhale 2 puffs 2 (two) times a day 10.7 g 3 4 Active Additional Information Patient not taking.Reported on 04/24/2025 atorvastatin (LIPITOR) 40 mg tablet TAKE 1 TABLET BY MOUTH DAILY AT BED TIME 100 tablet [address] (PROTONIX) 40 mg EC tabletIndication s:Epigastric pain TAKE 1 TABLET BY MOUTH EVERY DAY 90 tablet 3 4 Active spironolactone (ALDACTONE) 25 mg tablet TAKE 1 TABLET BY MOUTH TWICE A DAY 180 tablet 1 4 Active docusate sodium (COLACE) 50 mg capsuleIndicatio ns:constipation Take 1 capsule (50 mg total) by mouth 2 (two) times a day Active aspirin 81 mg enteric coated tablet Take 1 tablet (81 mg total) by mouth daily 30 tablet 11 4 Active clopidogreL (PLAVIX) 75 mg tablet Take 1 tablet (75 mg total) by mouth daily 90 tablet 11 4 Active furosemide (LASIX) 40 mg tablet TAKE 1 TABLET BY MOUTH TWICE A DAY 180 tablet 1 4 Active fluticasone propionate (FLONASE) 50 mcg/actuation nasal spray SPRAY 2 SPRAYS INTO EACH NOSTRIL EVERY DAY 48 mL 4 5 Active carvediloL (COREG) 6.25 mg tablet TAKE ONE TABLET BY MOUTH EVERY 12 HOURS MUST TAKE WITH A MEAL OR FOOD 200 tablet 5 Active hydroxychloroqui ne (PLAQUENIL) 200 mg tabletIndication s:Rheumatoid Arthritis Take 2 tablets (400 mg total) by mouth daily 180 tablet 3 5 12/21/19 26 Active methotrexate 2.5 mg tabletIndication s:Rheumatoid Arthritis Take 8 tablets (20 mg total) by mouth once a week 96 tablet 1 5 Active folic acid (FOLVITE) 1 mg tablet Take 1 tablet (1,000 mcg total) by mouth daily 90 tablet 3 5 Active ondansetron (ZOFRAN) 4 mg tablet Take 1 tablet (4 mg total) by mouth every 8 (eight) hours 5 Active Hospital, Clinic, or Other Facility Administered Medication Ordered Dose Route Frequency Start Date End Date Status lidocaine (XYLOCAINE) 10 mg/mL (1 %) injection 2 mLIndications:Admini stration of Local Anesthesia 2 mL One-Time Injection 04/24/2025 5 Ended lidocaine (XYLOCAINE) 10 mg/mL (1 %) injection 2 mLIndications:Admini stration of Local Anesthesia 2 mL One-Time Injection 04/24/2025 5 Ended methylPREDNISolone acetate (DEPO-medrol) injection 40 mgIndications:Primar y osteoarthritis of both knees 40 mg intra-artic One-Time Injection 04/24/2025 5 Ended methylPREDNISolone acetate (DEPO-medrol) injection 40 mgIndications:Primar y osteoarthritis of both knees 40 mg intra-artic One-Time Injection 04/24/2025 5 Ended Active Problems Problem Noted Date Diagnosed Date Long-term use of hydroxychloroquine 12/26/2024 Degenerative joint disease involving multiple mary kay ints 12/26/2024 Primary osteoarthritis of both knees 12/26/2024 Angina pectoris, unspecified 09/05/2024 [facility] (current) use of immunomodulator 06/06 Drug-induced immunodeficiency 12/14/2023 Concussion with unknown loss of consciousness st [facility] 08/31/2023 Pharyngoesophageal dysphagia 08/17/2023 Coronary artery disease of n ative artery of [place] heart with stable angina pectoris 08/16/2023 Administrative [...] Covid-19 (booster). Flu shot given at [facility], Aurea is unsure of the date. We [...] don't have to take much of the [place] Getting records from [place] (including imaging) Continue topical ice Establishing care with new doctor, encounter for 11/11/2022 Assessment & Plan (11/11/2022 4:30 PM SIZING MACHINE OPERATOR): A(n) initial visit to establish care has [...] hypertension with coi ncident congestive heart failure 11/11/2022 Class 2 severe obesity due t [...] 12/22/2019 Assessment & Plan (12/22/2019 8:48 AM SIZING MACHINE OPERATOR): Status post ultrasound-guided left knee injection today Rheumatoid arthritis involvi ng multiple sites with positive rheumatoid factor 12/22/2019 Assessment & Plan (11/21/2021 5:06 PM SIZING MACHINE OPERATOR): The pain she is currently having does [...] Osteoporosis 02/10/2018 Burst fracture of thoracic vertebra 01/07/2018 Trochanteric bursitis 11/02/2017 Seropositive rheumatoid arthritis 11/13/2016 Osteopenia 07/12/2016 High risk medication use 12/10/2015 Assessment & Plan (11/21/2021 5:05 PM SIZING MACHINE OPERATOR): On MTX and starting sulfasalazine and hydroxychloroquine [...] 09/05/2015 Assessment & Plan (11/16/2022 9:03 AM SIZING MACHINE OPERATOR): Much improved since last visit. Patient notes that she can breathe much better. Will give the daily Advair more time [...] drink = 0.6 oz pur e alcohol) [facility] Utilities Answer Date Recorded In the past 12 months has [employer], [employer], or water [place] threatened to shut off services in your home? No 10/11/2024 Social Connection and Isolat ion Panel [NHANES] Answer Date Recorded In a typical week, how many times do you talk on the phone with family, friends, or neighbors? Once a week 10/11/2024 How often do you get togethe r with friends or relatives? Once a week 10/11/2024 How often do you attend [facility] or buddhism services? More than 4 times per year 10/11/2024 Do you belong to any clubs o r organizations such as hoahaoism groups, unions, fraternal or athletic groups, or [...] any time in the past 12 m [facility], were you homeless or living in a [facility] (including now)? No 10/11/2024 Personal Safety Answer Date Recorded Have you ever been in or are you currently in a harmful physical or emotional relationship or is someone making you feel afraid or unsafe? Denies 10/13/2024 Comments No Sex and Gender Information Value Date Recorded Sex Assigned at Not on file Legal Sex Female 11:58 PM SIZING MACHINE OPERATOR Gender Identity Not on file Sexual Orientation Not on file Last Filed Vital Signs Vital Sign Reading Time Taken Comments Blood Pressure 115/74 04/24/2025 9:41 AM CDT Pulse 66 04/24/2025 9:41 AM CDT Temperature 37.1 C (98.8 F) 10/13/2024 7:05 AM SIZING MACHINE OPERATOR Respiratory Rate 28 10/13/2024 1:25 PM SIZING MACHINE OPERATOR Oxygen Saturation 97% 04/24/2025 9:41 AM CDT Inhaled Oxygen Concentration - - Weight 88.6 kg (195 lb 6.4 oz) 04/24/2025 9:41 A M CDT Height 152.4 cm (5') 04/24/2025 9:41 AM CDT Body Mass Index 38.16 04/24/2025 9:41 AM CDT Plan of Treatment Not on file Goals Goal Patient Goal Type Associated Problems Recent Progress Patient-Stated? Author Anticoagulant Goal - Patient is knowledgeable of prescribed anticoagulant and can state reason for taking, dosage, frequency and possible side effects [facility] Care Management On track(2024 12:25 PM SIZING MACHINE OPERATOR) No Cinthya Lorenzana, RN Note: Problem: High Risk Medication (anticoagulant) [...] ACO Care Management On track(2024 12:25 PM SIZING MACHINE OPERATOR) Cinthya Alarcon RN Note: Problem: Coronary Artery [...] ACO Care Management On track(2024 12:25 PM SIZING MACHINE OPERATOR) Cinthya Alarcon RN Note: Problem: Knowledge deficit [...] ACO Care Management On track(2024 12:25 PM SIZING MACHINE OPERATOR) Cinthya Alarcon RN Note: Problem: Potential for [...] ACO Care Management On track(2024 12:25 PM SIZING MACHINE OPERATOR) Cinthya Alarcon, RN Note: Problem: At Risk [...] is agreeable. Medical Devices Implanted Type Area Booth Operator Device Identifier Shelf Expiration Date Model / Serial / Lot [employer] [place]idy Angio-Seal Vip 6fr Closere Device [id number] - [id number] - [id number] Implanted:Qty: 1 on 10/13/2024 by Kane Jones MD PhD at [facility] Collagen Right: Common Femoral Artery Zadego 05/29/2025 [id number] / [id number] / [id number] Medtronic [employer] X [id number] Resolute [place] 3mm 2.1-2.7fr 18mm 140cm Rapid Exchange Radiopaque - [id number] Implanted:Qty: 1 on 09/09/2020 by Kane Jones MD PhD at [facility] Stent Medtronic Inc 04/05/2022 [id number] / / [id number] Medtronic Card Vasc Surgery 4.0 X 15mm [place] Mobile Rx Coronary Stent [id number] - [id number] - [id number] Implanted:Qty: 1 on 10/13/2024 by Kane Jones MD PhD at [facility] Stent Left: Main Coronary Artery Medtronic Card Vasc Surgery 12/06/2026 [id number] / [id number] / [id number] [employer] [id number] Angio-Seal Evolution 6fr .035in Guidewire Bypass Tube Suture - [id number] Implanted:Qty: 1 on 09/09/2020 by Kane Jones MD PhD at [facility] [employer] Leidy 07/24/2021 [id number] / / [id number] Procedures Procedure Name Priority Date/Time Associated Diagnosis Comments CRP (ACUTE PHASE) Routine 04/24/2025 10: 38 AM CDT Seropositive rheumatoid arthritis (HCC) High risk medication use ERYTHROCYTE SEDIMENTATION RATE Routine 04/24/2025 10:38 AM CDT Seropositive rheumatoid arthritis (HCC) High risk medication use COMPREHENSIVE METABOLIC PANEL Routine 04/24/2025 10:38 AM CDT Seropositive rheumatoid arthritis (HCC) High risk medication use CBC WITH AUTO DIFFERENTIAL Routine 04/24/2025 10:38 AM CDT Seropositive rheumatoid arthritis (HCC) High risk medication use IN ARTHROCENTESIS ASPIR&/INJ MAJOR JT/BURSA W/O US Routine 04/24/2025 9:30 AM CDT Primary osteoarthritis of both knees HM DEXA SCAN Routine 12/15/2024 2:18 PM SIZING MACHINE OPERATOR HM COLONOSCOPY Routine 03/10/2024 HEPATITIS C ANTIBODY Routine 02/28/2021 10:24 AM CDT Rheumatoid arthritis involving multiple sites with positive rheumatoid factor (HCC) High risk medication use from Last 3 Months or Most Recently Relevant to Health Maintenance Results * (ABNORMAL) CBC with auto differential (04/24/2025 10:38 AM CDT) White Blood Count 10.1 3.6 - 11.2 K/uL [facility] RBC 4.25 3.63 - 4.92 M/uL [facility] Hemoglobin 12.5 11.9 - 15.5 g/dL [facility] Hematocrit 38.4 36.1 - 44.3 % [facility] MCV 90.6 80.0 - 97.6 fL [facility] MCH 29.3 26.7 - 33.7 pg [facility] MCHC 32.4(L) 32.7 - 35.5 g/dL [facility] RBC Dist Width 18.9(H) 12.3 - 17.0 % [facility] Platelet Count 306 140 - 440 K/uL [facility] MPV 7.7 6.8 - 10.4 fL [facility] Neutrophils % 63.1 38.7 - 74.5 % [facility] Lymphocyte % 15.5(L) 20.0 - 54.3 % [facility] Monocytes % 16.5(H) 4.3 - 13.5 % [facility] Eosinophils % 4.2 0.0 - 6.0 % [facility] Basophil % 0.7 0.0 - 3.0 % [facility] Absolute Neutrophil 6.4 1.8 - 6.6 K/uL [facility] Absolute Lymphocyte 1.6 0.8 - 3.3 K/uL [facility] Absolute Monocyte 1.7(H) 0.2 - 1.2 K/uL [facility] Absolute Eosinophil 0.4 0.0 - 0.5 K/uL [facility] Absolute Basophil 0.1 0.0 - 0.2 K/uL [facility] Nucleated RBC % 0.0 0.0 - 0.4 /100 WBC [facility] Blood 04/24/2025 10:3 8 AM CDT 04/24/2025 11:04 AM CDT us Sunny Gutiérrez MD PhD LAB BLOOD ORDERABLE S Final Result [facility] * (ABNORMAL) Erythrocyte sedimentation rate (04/24/2025 10:38 AM CDT) Erythrocyte Sedimentation Rate 66(H) <30 mm/hr [facility] Blood 04/24/2025 10:3 8 AM CDT 04/24/2025 11:04 AM CDT Sunny Gutiérrez MD PhD LAB BLOOD ORDERABLE S Final Result Performing Organization Address City/[facility] Co de Phone Number [facility] * (ABNORMAL) CRP (acute phase) (04/24/2025 10:38 AM CDT) Pathologist [facility] C-Reactive Protein, Acute 22.1(H) <5.0 mg/L [facility] Blood 04/24/2025 10:3 8 AM CDT 04/24/2025 11:04 AM CDT us Sunny Gutiérrez MD PhD LAB BLOOD ORDERABLE S Final Result Performing Organization Address [facility] de Phone Number [facility] * (ABNORMAL) Comprehensive metabolic panel (04/24/2025 10:38 AM CDT) Pathologist [facility] Total Protein 8.2 6.1 - 8.4 g/dL [facility] Albumin 4.3 3.5 - 5.2 g/dL [facility] Calcium 10.1 8.6 - 10.3 mg/dL [facility] BUN 22 7 - 23 mg/dL [facility] Total Bilirubin 0.44 0.20 - 1.40 mg/dL [facility] Alk Phos, Total 93 35 - 129 IU/L [facility] AST (SGOT) 25 11 - 47 IU/L [facility] ALT (SGPT) 26 6 - 53 IU/L [facility] Creatinine 0.90 0.60 - 1.10 mg/dL [facility] Sodium 139 135 - 145 mmol/L [facility] Potassium 5.1 3.3 - 5.1 mmol/L [facility] Chloride 96 95 - 107 mmol/L [facility] CO2 Content 30(H) 21 - 29 mmol/L [facility] Glucose 106(H) 64 - 99 mg/dL [facility] Comment: NONFASTING GLUCOSE RANGE = 64-199 mg/dL FASTING GLUCOSE 64 - 99 = NORMAL FASTING GLUCOSE 100 - 125 = IMPAIRED FASTING GLUCOSE FASTING GLUCOSE >=126 = PROVISIONAL DIAGNOSIS OF DIABETES eGFR 65.8 >60.0 mL/min/1.7 3 m2 [facility] Blood 04/24/2025 10:3 8 AM CDT 04/24/2025 11:04 AM CDT us Sunny Gutiérrez MD PhD LAB BLOOD ORDERABLE S Final Result [facility] * IN ARTHROCENTESIS ASPIR&/INJ MAJOR JT/BURSA W/O US (04/24/2025 9:30 AM CDT) Narrative Sunny Gutiérrez MD PhD - 04/24/2025 9:30 AM CDT Sunny Gutiérrez MD PhD 04/24/2025 11:20 AM Arthrocentesis Large Joint: bilateral knee Performed by: Sunny Gutiérrez MD PhD Authorized by: Sunny Gutiérrez MD PhD Large Joint Injection/Aspiration: Consent Given by: Patient Site marked: the procedure site was marked Timeout: prior to procedure the correct patient, procedure, and site was verified Verbal consent obtained: Yes Supporting Documentation: Indications: Pain Procedure Details: Location: Knee Site: Bilateral knee Prep: patient was prepped and draped in usual sterile fashion Needle Size: 25 G Approach: Anterolateral Ultrasound guided: No Fluroscopic guidance: No Medications Right Large Joint Injection: 2 mL lidocaine 10 mg/mL (1 %); 40 mg methylPREDNISolone acetate 40 mg/mL Medications Left Large Joint Injection: 2 mL lidocaine 10 mg/mL (1 %); 40 mg methylPREDNISolone acetate 40 mg/mL Patient tolerance: Patient tolerated the procedure well with no immediate complications us Sunny Gutiérrez MD PhD IN CLINIC/BEDSIDE O RDERABLES Final Result * DEXA SCAN (12/15/2024 2:18 PM SIZING MACHINE OPERATOR) Historical Provider HEALTH MAINTENANCE Final Result * COLONOSCOPY (03/10/2024) Historical Provider HEALTH MAINTENANCE Final Result * Hepatitis C antibody (02/28/2021 10:24 AM CDT) Hep C Ab Nonreactive Nonreactive [facility] Comment:Antibodies to HCV no t detected. Does NOT exclude the possibility of recent exposure to HCV. Blood specimen (specimen) 02/28/2021 10:24 AM CDT 02/28/2021 10:24 AM CDT Edmond Schofield MD LAB MICROBIOLOGY - GENER AL ORDERABLES Edited Result - Final [facility] Department [place] [address] from Last 3 Months or Most Recently Relevant to Health Maintenance Insurance [facility] [employer] CHOICE PPO [facility] [employer] CHO[employer] PPO Advance Directives For more information, please contact: [phone] * Full Code (Latest Code Status on File) Date Activated Date Inactivated Comments 10/13/2024 11:13 AM 10/13/2024 6:12 PM * Full Code Date Activated Date Inactivated Comments 09/20/2023 10:13 AM 09/20/2023 5:31 PM * Full Code Date Activated Date Inactivated Comments 09/09/2020 11:13 AM 09/10/2020 9:26 AM Care Teams Medical Safety Director Relationship Specialty Start Date End Date Rayray Lopez MD [address] [place] [address] PCP - General Family Practice 12/18/24 Tre Cyr MD [address] [address] Consulting Physician Cardiology 11/09/22 Mariola Mccoy MD [address] [place] [address] Consulting Physician Rheumatology 11/09/22 Sunny Gutiérrez MD PhD [address] [place] [address] Consulting Physician Internal Medicine 02/15/23
--- OUTSIDE RECORDS SUMMARY | 2025-05-15 08:50 | XMS_ITS | Clinical Summary ---
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 Flu shot given at [facility], Aurea is unsure of the [...] don't have to take much of the [place] Getting records from [facility] (including imaging) Continue topical ice Establishing care with new doctor, encounter for 11/11/2022 Assessment & Plan (11/11/2022 4:30 PM ROLL DOUGH DIVIDER): A(n) initial visit to establish care has [...] 12/22/2019 Assessment & Plan (12/22/2019 8:48 AM ROLL DOUGH DIVIDER): Status post ultrasound-guided left knee injection today Rheumatoid arthritis involvi ng multiple sites with positive rheumatoid factor 12/22/2019 Assessment & Plan (11/21/2021 5:06 PM ROLL DOUGH DIVIDER): The pain she is currently having does [...] 12/10/2015 Assessment & Plan (11/21/2021 5:05 PM ROLL DOUGH DIVIDER): On MTX and starting sulfasalazine and hydroxychloroquine [...] 09/05/2015 Assessment & Plan (11/16/2022 9:03 AM ROLL DOUGH DIVIDER): Much improved since last visit. Patient notes [...] Team Description 04/24/2025 10:45 AM CDT Lab [facility] Endocrinology Metabolism and Lipid [facility] [facility] 5[address] [place] [address] [place] [address] Seropositive rheumatoid arthritis (HCC); High risk medication use 04/24/2025 9:30 AM CDT Office Visit [facility] Rheumatology [address] 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 No 10/11/2024 Social Connection and Isolat ion Panel [NHANES] Answer Date Recorded In a typical week, how many times do you talk on the phone with family, friends, or neighbors? Once a week 10/11/2024 How often do you get togethe r with friends or relatives? Once a week 10/11/2024 How often do you attend chur ch or pentecostal services? More than 4 times per year 10/11/2024 Do you belong to any clubs o r organizations such as rastafarian groups, unions, fraternal or athletic groups, or [...] any time in the past 12 m [facility], were you homeless or living in [...] on file Legal Sex Female 11:58 PM ROLL DOUGH DIVIDER Gender Identity Not on file Sexual Orientation Not on file Obstetrics History Last Filed Vital Signs Vital Sign Reading Time Taken Comments Blood Pressure 115/74 04/24/2025 9:41 AM CDT Pulse 66 04/24/2025 9:41 AM CDT Temperature 37.1 C (98.8 F) 10/13/2024 7:05 AM ROLL DOUGH DIVIDER Respiratory Rate 28 10/13/2024 1:25 PM ROLL DOUGH DIVIDER Oxygen Saturation 97% 04/24/2025 9:41 AM CDT Inhaled Oxygen Concentration - - Weight 88.6 kg (195 lb 6.4 oz) 04/24/2025 9:41 A M CDT Height 152.4 cm (5') 04/24/2025 9:41 AM CDT Body Mass Index 38.16 04/24/2025 9:41 AM CDT Plan of Treatment Health Maintenance Due Date Last Done Comments Hepatitis B Screening 1968 Covid-19 Vaccine (4 - 2023-2 5 season) 2024 12/11/2021, 01/10/2021, 12/13/2020 Well Visit 65+ 08/16/2024 08/16/2023 Depression Screening 06/13/2025 06/13/2024, 12/14/2023, 09/13/2023, Additional history exists Influenza Vaccine (#1) 2025 , 06/19/2023, 07/24/2022, Additional history exists Fall Risk Assessment 10/13/2025 10/13/2024, 09/13/2023, 08/31/2023, Additional history exists Osteoporosis Screening-Bone Density Scan 12/15/2026 12/15/2024, 10/23/2020, 03/20/2016 DTaP/Tdap/Td Vaccine (2 - Td or Tdap) 08/24/2033 08/24/2023 Hepatitis C Screening Completed 02/28/2021 , 03/19/2017, 03/29/2015 Zoster Vaccine Completed 06/27/2021, 02/28/2021 Pneumococcal vaccine 65+ Completed 08/16/2023, 0711/2020 Colon Cancer Screening-CT Colonography Discontinued 03/10/2024, 07/12/2018 Colon Cancer Screening-Colonoscopy Discontinued 03/10/2024, 07/12/2018 Colon Cancer Screening-DNA Stool Discontinued 03/10/20 24, 07/12/2018 Colon Cancer Screening-FIT Discontinued 03/10/2024, Colon Cancer Screening-FOBT Discontinued 03/10/2024, 0 07/12/2018 Colon Cancer Screening-Sigmoidoscopy Discontinued 03/10/2024, 07/12/2018 Colorectal Cancer Screening Discontinued Goals Goal Patient Goal Type Associated Problems Recent Progress Patient-Stated? Author Anticoagulant Goal - Patient is knowledgeable of prescribed anticoagulant and can state reason for taking, dosage, frequency and possible side effects ACO Care Management On track(01/10/ 2025 12:25 PM ROLL DOUGH DIVIDER) Cinthya Alarcon RN Note: Problem: High Risk Medication (anticoagulant) [...] ACO Care Management On track(2024 12:25 PM ROLL DOUGH DIVIDER) Cinthya Alarcon RN Note: Problem: Coronary Artery [...] ACO Care Management On track(2024 12:25 PM ROLL DOUGH DIVIDER) Cinthya Alarcon RN Note: Problem: Knowledge deficit [...] ACO Care Management On track(2024 12:25 PM ROLL DOUGH DIVIDER) Cinthya Alarcon, LETY Note: Problem: Potential for medical complications and [...] ACO Care Management On track(2024 12:25 PM ROLL DOUGH DIVIDER) Cinthya Alarcon RN Note: Problem: At Risk for Self [...] is agreeable. Medical Devices Implanted Type Area Stiff Leg Operator Device Identifier Shelf Expiration Date Model / Serial / Lot Domain Surgical Angio-Seal Vip 6fr Closere Device [id number] - [id number] - [id number] Implanted:Qty: 1 on 10/13/2024 by Kane Jones MD PhD at [facility] Collagen Right: Common Femoral Artery Domain Surgical 05/29/2025 [id number] / [id number] / [id number] Medtronic [employer] X [id number] Resolute Thornton 3mm 2.1-2.7fr 18mm 140cm Rapid Exchange Radiopaque - [id number] Implanted:Qty: 1 on 09/09/2020 by Kane Jones MD PhD at [facility] Stent Medtronic Inc 04/05/2022 [id number] / / [id number] Medtronic Card Vasc Surgery 4.0 X 15mm Thornton Noble Rx Coronary Stent [id number] - [id number] - [id number] Implanted:Qty: 1 on 10/13/2024 by Kane Jones MD PhD at [facility] Stent Left: Main Coronary Artery Medtronic Card Vasc Surgery 12/06/2026 [id number] / [id number] / [id number] Daig Leidy/[employer] [id number] Angio-Seal Evolution 6fr .035in Guidewire Bypass Tube Suture - [id number] Implanted:Qty: 1 on 09/09/2020 by Kane Jones MD PhD at [facility] TerFluencr 07/24/2021 [id number] / / [id number] Procedures Procedure Name Priority Date/Time Associated Diagnosis [...] rheumatoid arthritis (HCC) High risk medication use OK ARTHROCENTESIS ASPIR&/INJ MAJOR JT/BURSA W/O US Routine 04/24/2025 9:30 AM CDT Primary osteoarthritis of both knees HM DEXA SCAN Routine 12/15/2024 2:18 PM ROLL DOUGH DIVIDER HM COLONOSCOPY Routine 03/10/2024 HEPATITIS C ANTIBODY [...] Result Performing Organization Address [facility] Co de Phone Number [facility] * (ABNORMAL) Erythrocyte sedimentation rate (04/24/2025 10:38 AM CDT) Erythrocyte Sedimentation Rate 66(H) <30 mm/hr [facility] Blood 04/24/2025 10:3 8 AM CDT 04/24/2025 11:04 AM CDT Sunny Gutiérrez MD PhD LAB BLOOD ORDERABLE S Final Result Performing Organization Address [facility] de Phone Number [facility] * (ABNORMAL) CRP (acute phase) (04/24/2025 10:38 AM CDT) C-Reactive Protein, Acute 22.1(H) <5.0 mg/L [facility] Blood 04/24/2025 10:3 8 AM CDT 04/24/2025 11:04 AM CDT Sunny Gutiérrez MD PhD LAB BLOOD ORDERABLE S Final Result Performing Organization Address [facility] Co de Phone Number [facility] * (ABNORMAL) Comprehensive metabolic panel (04/24/2025 10:38 AM CDT) Total Protein 8.2 6.1 - 8.4 g/dL [...] IM [facility] * [place] ARTHROCENTESIS ASPIR&/INJ MAJOR JT/BURSA W/O US (04/24/2025 [...] the procedure well with no immediate complications Sunny Gutiérrez MD PhD IN CLINIC/BEDSIDE O RDERABLES Final Result * DEXA SCAN (12/15/2024 2:18 PM ROLL DOUGH DIVIDER) Historical Provider HEALTH MAINTENANCE Final Result * COLONOSCOPY (03/10/2024) Historical Provider [facility] Final Result * Hepatitis C antibody (02/28/2021 10:24 AM CDT) Hep C Ab Nonreactive Nonreactive [facility] Comment:Antibodies to HCV no t detected. Does NOT exclude the possibility of recent exposure to HCV. Blood specimen (specimen) 02/28/2021 10:24 AM CDT 02/28/2021 10:24 AM CDT Edmond Schofield MD LAB MICROBIOLOGY - GENER AL ORDERABLES Edited Result - Final [facility] [place] [address] from Last 3 Months or Most Recently Relevant to Health Maintenance Insurance [facility] ADVANTAGE CHOICE PPO ADVANTAGE CHOICE PPO Advance Directives For more information, please contact: [phone] * Full Code (Latest Code Status on File) Date Activated Date Inactivated Comments 10/13/2024 11:13 AM 10/13/2024 6:12 PM * Full Code Date Activated Date Inactivated Comments 09/20/2023 10:13 AM 09/20/2023 5:31 PM * Full Code Date Activated Date Inactivated Comments 09/09/2020 11:13 AM 09/10/2020 9:26 AM Care Teams Bail Bonding Agent Relationship Specialty Start Date End Date Rayray Lopez MD [address] [place] [address] PCP - General Family Practice 12/18/24 Tre Cyr MD [address] [facility] [address] [place] [address] Consulting Physician Cardiology 11/09/22 Mariola Mccoy MD [address] [place], [place] [id number] Consulting Physician Rheumatology 11/09/22 Sunny Gutiérrez MD PhD [address] [place], [place] [id number] Consulting Physician Internal Medicine 02/15/23
--- OUTSIDE RECORDS SUMMARY | 2025-05-15 08:51 | XMS_ITS ---
Author Name Luis Johnson DO Address [address] [facility] [place] [address] Phone [phone] Organization [facility] Care Team Providers Care It Instructor Name Role Phone Luis Johnson Unavailable [phone] Susan Ruff Unavailable [phone] Xiomara Covarrubias Unavailable Unavailable Rayray Lopez Unavailable [phone] Mariola Mccoy Unavailable [phone] Adrien Galarza Unavailable [phone] Tre Cyr Unavailable [phone] Shawn Prieto Unavailable [phone] [facility] Tier 1 RN (STMary)Xiomara navailgerardo Unavailable Reason for Referral Not Available [...] List Problem Status Onset Date Resolved Date Synopsis Chest pain Active 2024-10-04 N/A N/A CAD (coronary artery disease) Active 2024-10-04 N/A N/A COPD (chronic obstructive pulmonary disease) Active 17-10-11 N/A N/A HLD (hyperlipidemia) Active 2024-10-04 N/A N/A GERD (gastroesophageal reflux disease) Active N/A N/A CHF (congestive heart failure) Active 2024-10-04 N/A N/A Seropositive erosive rheumatoid arthritis Active 10-04 N/A N/A JOSÉ (obstructive sleep apnea) Active 2024-10-04 N/A N/A Status post cardiac catheterization Active 2024-10-31 N/A N/A Encounters Encounters Type Facility Date of Service Diagnosis/Co mplaint Home visit for evaluation and management of new patient requiring medically appropriate examination and moderate level of medical decision making. If using time, at least 60 minutes total time on enco [facility] 10/04/2024 Chronic obstructive pulmonary disease, unspecifiedOther rheumatoid arthritis with rheumatoid factor of unspecified siteHeart failure, unspecifiedChest pain, unspecifiedAthscl heart disease of blackfeet coronary artery w/o ang pctrsHyperlipidemia, unspecifiedGastro-esophageal reflux disease without esophagitisObstructive sleep apnea (adult) (pediatric) Outpatient visit for evaluation and management of established patient, including medically appropriate examination and low level of medical decision making, total time 20-29 minutes [facility] 10/31/2024 Chest pain, unspecif iedAthscl heart disease of blackfeet coronary artery w/o ang pctrsHyperlipidemia, unspecifiedOther specified postprocedural states Home visit for evaluation and management of established patient requiring medically appropriate examination and low level of medical decision making. If using time, at least 30 minutes total time on e [facility] 12/05/2024 Chest pain, unspecif iedAthscl heart disease of blackfeet coronary artery w/o ang pctrsChronic obstructive pulmonary [...] tive Time Current Smoking Status Never smoker 2025-04-25 2 Sex Female History of Procedures Procedures Service Procedure code Service date Servicing provider Phone# Home visit for evaluation and management of new patient requiring medically appropriate examination and moderate level of medical decision making. If using time, at least 60 minutes [place] time on enco [id number] 2024-10-04 No Data Available No Data Availa ble Outpatient visit for evaluation and management of established patient, including medically appropriate examination and low level of medical decision making, total time 20-29 minutes [id number] 2024-10-31 No Data Available No Data Availa ble Home visit for evaluation and management of established patient requiring medically appropriate examination and low level of medical decision making. 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 Rayray Lopez in [place], appt. 11/2024very episodes in the AM x [...]
== END 2025-05-15 08:47 | disposition home or self-care (01) ==
LOC: ANHIMG 08:48
PROVIDERS: PCP Nurse Practitioner Family; Visit Provider Nurse Practitioner Family
DX: Z12.31 Encounter for screening mammogram for malignant neoplasm of breast (principal); R92.8 Other abnormal and inconclusive findings on diagnostic imaging of breast
CPT/HCPCS: 77063; 77067

== ENCOUNTER 2025-06-07 12:37 | Outpatient (CLI) | payer OTHER, SELFPAY ==
--- NOTE | ~2025-06-07 | MMUS_ITS ---
EXAMINATION: MM diagnostic wendi BI w jessie, US breast BI complete HISTORY: Bilateral breast asymmetries on prior mammogram. TECHNIQUE: Additional 3-D tomosynthesis images of the breasts were performed and synthetic 2-D images were generated. CAD analysis was submitted and interpreted. High resolution bilateral complete breas t ultrasound was performed. COMPARISON: Comparison to multiple prior studies sequentially, with oldest reviewed study dated 07/10. BREAST PARENCHYMAL COMPOSITION: Not dense: There are scattered areas of fibroglandular density. FINDINGS: MAMMOGRAPHIC FINDINGS: There is a persistent mass lower inner quadrant of the right breast, middle third. There are no discr ete masses, suspicious clustered calcifications or architectural distortion in the left breast to sug gest malignancy. ULTRASOUND: Complete US of all 4 quadrants of the breast/s and retroareolar region was reviewed. Right breast: At 5:00, 5 cm from the nipple there is an 8 mm cyst corresponding to the mass seen on m ammography. Left breast: At 1:00, 7 cm from the nipple there is a 9 mm cyst. At 11:00, 2 cm from the nipple there is a 4 mm cyst. In the subareolar location of the left breast there is a 9 mm oval parallel oriented hypoechoic mass without internal vascularity or posterior features. IMPRESSION: 1. Suspicious heterogeneous 9 mm left breast mass in the subareolar location of the left breast. 2. Stereotactic left breast biopsy recommended. BI-RADS category 4, suspicious findings. Reviewed, dictated and finalized at location A. IMPRESSION: 1. Suspicious heterogeneous 9 mm left breast mass in the subareolar location of the left breast. 2. Stereotactic left breast biopsy recommended. BI-RADS category 4, suspicious findings.
--- OUTSIDE RECORDS SUMMARY | 2025-06-07 12:42 | XMS_ITS | Clinical Summary ---
Author Organization [facility] Address [address] [place] [address] Care Team Providers Care Rail Flaw Detector Operator Name Role Phone Tre Cyr MD Unavailable [phone] Mariola Mccoy MD Unavailable [phone] Sunny Gutiérrez MD PhD Unavailable [phone] Rayray Lopez MD Primary Care Provider [phone] Allergies No known active allergies Medications nitroglycerin [...] day 200 g 11 08/20/20 23 Active acetaminophen-c odeine (TYLENOL with CODEINE #3) [...] OR FOOD 200 tablet 12/02/19 25 Active hydroxychloroqu ine (PLAQUENIL) 200 mg tabletIndicatio ns:Rheumatoid Arthritis Take 2 tablets (400 mg total) by mouth daily 180 tablet 3 12/27/19 25 026 Active folic acid (FOLVITE) 1 mg tablet Take 1 tablet (1,000 mcg total) by mouth daily 90 tablet 3 12/27/19 25 Active ondansetron (ZOFRAN) 4 mg tablet Take 1 tablet (4 mg total) by mouth every 8 (eight) hours 04/10/20 25 Active methotrexate 2.5 mg tabletIndicatio ns:Rheumatoid Arthritis Take 8 tablets (20 mg total) by mouth once a week 96 tablet 1 06/07/20 25 Active methotrexate 2.5 mg tabletIndicatio ns:Rheumatoid Arthritis Take 8 tablets (20 mg total) by mouth once a week 96 tablet 1 12/27/19 25 025 Discontinued Active Problems Problem Noted Date Diagnosed Date Long-term use of hydroxychloroquine 12/26/2024 Degenerative joint disease involving multiple mary kay ints 12/26/2024 Primary osteoarthritis of both knees 12/26/2024 Angina pectoris, unspecified 09/05/2024 terminologist (current) use of immunomodulator 06/06 Drug-induced immunodeficiency 12/14/2023 Concussion with unknown loss of consciousness st atus 08/31/2023 Pharyngoesophageal dysphagia 08/17/2023 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 Flu shot given at [facility], Aurea is unsure of the date. We [...] don't have to take much of the [place] Getting records from [place] (including imaging) Continue topical ice Establishing care with new doctor, encounter for 11/11/2022 Assessment & Plan (11/11/2022 4:30 PM FIRESTOPPER TECHNICIAN): A(n) initial visit to establish care has [...] 12/22/2019 Assessment & Plan (12/22/2019 8:48 AM FIRESTOPPER TECHNICIAN): Status post ultrasound-guided left knee injection today Rheumatoid arthritis involvi ng multiple sites with positive rheumatoid factor 12/22/2019 Assessment & Plan (11/21/2021 5:06 PM FIRESTOPPER TECHNICIAN): The pain she is currently having does [...] 12/10/2015 Assessment & Plan (11/21/2021 5:05 PM FIRESTOPPER TECHNICIAN): On MTX and starting sulfasalazine and hydroxychloroquine [...] 09/05/2015 Assessment & Plan (11/16/2022 9:03 AM FIRESTOPPER TECHNICIAN): Much improved since last visit. Patient notes [...] Team Description 04/24/2025 10:45 AM CDT Lab [facility] Endocrinology Metabolism and Lipid [address] [place] [address] Seropositive rheumatoid arthritis (HCC); High risk medication use 04/24/2025 9:30 AM CDT Office Visit [facility] Rheumatology [address] [place] [address] [place] [address] Sunny Gutiérrez MD PhD Seropositive rheumatoid arthritis (HCC) (Primary Dx); High risk medication use; terminologist (current) use of immunomodulator; Primary osteoarthritis of both knees from Last 3 Months Immunizations Immunization Administration [...] Mitral regurgitation COPD (chronic obstructive pulmonary disease) JOSÉ (obstructive sleep apnea) Family History Medical [...] drink = 0.6 oz pur e alcohol) [facility] Utilities Answer Date Recorded In the past 12 months has e [employer], gas, oil, or water [employer] threatened to shut off services in your home? No 10/11/2024 Social Connection and Isolation Panel Answer Date Recorded In a typical week, how many times do you talk on the phone with family, friends, or neighbors? Once a week 10/11/2024 How often do you get togethe r with friends or relatives? Once a week 10/11/2024 How often do you attend chur ch or bahai services? More than 4 times per year 10/11/2024 Do you belong to any clubs o r organizations such as mandaen groups, unions, fraternal or athletic groups, or [...] any time in the past 12 m [facility], were you homeless or living in a detention (including now)? No 10/11/2024 Personal Safety Answer Date Recorded Have you ever been in or are you currently in a harmful physical or emotional relationship or is someone making you feel afraid or unsafe? Denies 10/13/2024 Comments No Sex and Gender Information Value Date Recorded Sex Assigned at Not on file Legal Sex Female 11:58 PM FIRESTOPPER TECHNICIAN Gender Identity Not on file Sexual Orientation Not on file Obstetrics History Last Filed Vital Signs Vital Sign Reading Time Taken Comments Blood Pressure 115/74 04/24/2025 9:41 AM CDT Pulse 66 04/24/2025 9:41 AM CDT Temperature 37.1 C (98.8 F) 10/13/2024 7:05 AM FIRESTOPPER TECHNICIAN Respiratory Rate 28 10/13/2024 1:25 PM FIRESTOPPER TECHNICIAN Oxygen Saturation 97% 04/24/2025 9:41 AM CDT Inhaled Oxygen Concentration - - Weight 88.6 kg (195 lb 6.4 oz) 04/24/2025 9:41 A M CDT Height 152.4 cm (5') 04/24/2025 9:41 AM CDT Body Mass Index 38.16 04/24/2025 9:41 AM CDT Plan of Treatment Health Maintenance Due Date Last Done Comments Hepatitis B Screening 1968 Covid-19 Vaccine ( - 2023-2 5 season) 2024 12/11/2021, 01/10/2021, [...] 06/27/2021, 02/28/2021 Pneumococcal vaccine 65+ Completed 08/16/2023, 11/2020 Colon Cancer Screening-CT Colonography Discontinued 03/10/2024, 07/12/2018 [...] ACO Care Management On track(2024 12:25 PM FIRESTOPPER TECHNICIAN) Cinthya Alarcon, RN Note: Problem: High Risk [...] ACO Care Management On track(2024 12:25 PM FIRESTOPPER TECHNICIAN) Cinthya Alarcon RN Note: Problem: Coronary Artery [...] ACO Care Management On track(2024 12:25 PM FIRESTOPPER TECHNICIAN) Cinthya Alarcon RN Note: Problem: Knowledge deficit [...] ACO Care Management On track(2024 12:25 PM FIRESTOPPER TECHNICIAN) Cinthya Alarcon RN Note: Problem: Potential for [...] ACO Care Management On track(2024 12:25 PM FIRESTOPPER TECHNICIAN) Cinthya Alarcon, LETY Note: Problem: At Risk for Self Care [...] is agreeable. Medical Devices Implanted Type Area Medical Technologist Prn Device Identifier Shelf Expiration Date Model / Serial / Lot TerOnepager Leidy Angio-Seal Vip 6fr Closere Device [id number] - [id number] - [id number] Implanted:Qty: 1 on 10/13/2024 by Kane Jones MD PhD at [facility] Collagen Right: Common Femoral Artery Positron 05/29/2025 [id number] / [id number] / [id number] Medtronic [employer] X [id number] Resolute Amari 3mm 2.1-2.7fr 18mm 140cm Rapid Exchange Radiopaque - [id number] Implanted:Qty: 1 on 09/09/2020 by Kane Jones MD PhD at [facility] Stent Medtronic Inc 04/05/2022 [id number] / / [id number] Medtronic Card Vasc Surgery 4.0 X 15mm [place] Rx Coronary Stent [id number] - [id number] - [id number] Implanted:Qty: 1 on 10/13/2024 by Kane Jones MD PhD at [facility] Stent Left: Main Coronary Artery Medtronic Card Vasc Surgery 12/06/2026 [id number] / [id number] / [id number] Convergent Radiotherapy/[employer] [id number] Angio-Seal Evolution 6fr .035in Guidewire Bypass Tube Suture - [id number] Implanted:Qty: 1 on 09/09/2020 by Kane Jones MD PhD at [facility] Positron 07/24/2021 [id number] / / [id number] Procedures Procedure Name Priority Date/Time Associated Diagnosis [...] rheumatoid arthritis (HCC) High risk medication use [place] ARTHROCENTESIS ASPIR&/INJ MAJOR JT/BURSA W/O US Routine 04/24/2025 9:30 AM CDT Primary osteoarthritis of both knees HM DEXA SCAN Routine 12/15/2024 2:18 PM FIRESTOPPER TECHNICIAN HM COLONOSCOPY Routine 03/10/2024 HEPATITIS C ANTIBODY [...] PhD LAB BLOOD ORDERABLE S Final Result [facility] * (ABNORMAL) Erythrocyte sedimentation rate (04/24/2025 10:38 AM CDT) Erythrocyte Sedimentation Rate 66(H) <30 mm/hr [facility] Blood 04/24/2025 10:3 8 AM CDT 04/24/2025 11:04 AM CDT Sunny Gutiérrez MD PhD LAB BLOOD ORDERABLE S Final Result Performing Organization Address [facility]/[place] Co de Phone Number [facility] * (ABNORMAL) CRP (acute phase) (04/24/2025 10:38 AM CDT) Pathologist [facility] C-Reactive Protein, Acute 22.1(H) <5.0 mg/L [facility] Blood 04/24/2025 10:3 8 AM CDT 04/24/2025 11:04 AM CDT us Sunny Gutiérrez MD PhD LAB BLOOD ORDERABLE S Final Result Performing Organization Address [facility] Co de Phone Number [facility] * (ABNORMAL) [...] IM [facility] * [place] ARTHROCENTESIS ASPIR&/INJ MAJOR JT/BURSA W/O US (04/24/2025 [...] Result * DEXA SCAN (12/15/2024 2:18 PM FIRESTOPPER TECHNICIAN) Historical Provider HEALTH MAINTENANCE Final Result * COLONOSCOPY (03/10/2024) Historical Provider HEALTH MAINTENANCE Final Result * Hepatitis C antibody (02/28/2021 10:24 AM CDT) Hep C Ab Nonreactive Nonreactive [facility] Comment:Antibodies to HCV no t detected. Does NOT exclude the possibility of recent exposure to HCV. Blood specimen (specimen) 02/28/2021 10:24 AM CDT 02/28/2021 10:24 AM CDT Edmond Schofield MD LAB MICROBIOLOGY - GENER AL ORDERABLES Edited Result - Final Performing Organization Address City/State/[place] Co de Phone Number [facility] Department [place] [address] from Last 3 Months or Most Recently Relevant to Health Maintenance Insurance [facility] ADVANTAGE CHOICE PPO [facility] ADVANTAGE CHOICE PPO Advance Directives For more information, please contact: [phone] * Full Code (Latest Code Status on File) Date Activated Date Inactivated Comments 10/13/2024 11:13 AM 10/13/2024 6:12 PM * Full Code Date Activated Date Inactivated Comments 09/20/2023 10:13 AM 09/20/2023 5:31 PM * Full Code Date Activated Date Inactivated Comments 09/09/2020 11:13 AM 09/10/2020 9:26 AM Care Teams Rail Flaw Detector Operator Relationship Specialty Start Date End Date Rayray Lopez MD [address] [place] [address] PCP - General Family Practice 12/18/24 Tre Cyr MD [address] [place] [address] Consulting Physician Cardiology 11/09/22 Mariola Mccoy MD [address] [place], [place] [id number] Consulting Physician Rheumatology 11/09/22 Sunny Gutiérrez MD PhD [address] [place], [place] [id number] Consulting Physician Internal Medicine 02/15/23
--- OUTSIDE RECORDS SUMMARY | 2025-06-07 12:42 | XMS_ITS ---
Author Name Luis Johnson DO Address [address] [place] [address] Phone [phone] Organization [facility] Care Team Providers Care Sofa Cover Inspector Name Role Phone Luis Johnson Unavailable [phone] Susan Ruff Unavailable [phone] Xiomara Covarrubias Unavailable Unavailable Rayray Lopez Unavailable [phone] Mariola Mccoy Unavailable [phone] Adrien Galarza Unavailable [phone] Tre Cyr Unavailable [phone] Shawn Prieto Unavailable [phone] Primarily Home Tier 1 RN (STMary)Xiomara navailgerardo [...] 60 minutes total time on enco [facility] 10/04/2024 Chronic obstructive pulmonary disease, unspecifiedOther rheumatoid arthritis with rheumatoid factor of unspecified siteHeart failure, unspecifiedChest pain, unspecifiedAthscl heart disease of jena coronary artery w/o ang pctrsHyperlipidemia, unspecifiedGastro-esophageal reflux disease without esophagitisObstructive sleep apnea (adult) (pediatric) Outpatient visit for evaluation and management of established patient, including medically appropriate examination and low level of medical decision making, total time 20-29 minutes [facility] 10/31/2024 Chest pain, unspecif iedAthscl heart disease of jena coronary artery w/o ang pctrsHyperlipidemia, unspecifiedOther specified postprocedural states Home visit for evaluation and management of established patient requiring medically appropriate examination and low level of medical decision making. If using time, at least 30 minutes total time on e [facility] 12/05/2024 Chest pain, unspecif iedAthscl heart disease of jena coronary artery w/o ang pctrsChronic obstructive pulmonary [...] tive Time Current Smoking Status Never smoker 2025-05-25 4 Sex Female History of Procedures Procedures Service Procedure code Service date Servicing provider Phone# Home visit for evaluation and management of new patient requiring medically appropriate examination and moderate level of medical decision making. If using time, at least 60 minutes [place] on enco [id number] 2024-10-04 No Data Available No Data Availa ble Outpatient visit for evaluation and management of established patient, including medically appropriate examination and low level of medical decision making, total time 20-29 minutes [id number] 2024-10-31 No Data Available No Data Availa ble Home visit for evaluation and management of established patient requiring medically appropriate examination and low level of medical decision making. 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 Rayray Lopez in [place], appt. 11/2024very episodes in the AM x [...]
== END 2025-06-07 12:38 | disposition home or self-care (01) ==
LOC: ANHIMG 12:40
PROVIDERS: PCP Nurse Practitioner Family; Visit Provider Nurse Practitioner Family
DX: R92.8 Other abnormal and inconclusive findings on diagnostic imaging of breast (principal); N63.42 Unspecified lump in left breast, subareolar
CPT/HCPCS: 76641; 77062; 77066; G0279

== ENCOUNTER 2025-07-05 08:09 | Outpatient (CLI) | payer OTHER, SELFPAY ==
--- NOTE | ~2025-07-05 | MMUS_ITS ---
PROCEDURE: US breast biopsy LT w image, MM post biopsy diagnostic LT CLINICAL HISTORY: 75-year-old female with suspicious heterogeneous left breast intraductal mass subareolar location presents for ultrasound-guided core needle biopsy procedure. COMPARISON: 06/07/2025 Following informed consent including risks, benefits, and possible complications, the patient was brought to the ultrasound suite. A time-out procedure was performed. A preliminary ultrasound of the left breast was performed, redemonstrating a heterogeneous hypoechoic intraductal mass in the subareolar location. The patient was prepped and draped in the usual sterile fashion. 1% lidocaine was instilled into the subcutaneous tissues. 1% lidocaine without epinephrine was injected into the deep tissues just inferior to the lesion. Approximately 15cc lidocaine was administered. A small skin edgardo was made. Multiple core samples were obtained with a 14-gauge multi pass biopsy needle. A post biopsy coil HydroMark marker was placed at the biopsy site. Postprocedural mammogram of the left breast in craniocaudal and mediolateral projections reveal the post biopsy coil HydroMark marker in good position. The patient tolerated the procedure well and was without immediate postprocedural complications. IMPRESSION: Successful ultrasound guided biopsy of left breast intraductal mass. A post biopsy coil HydroMark marker was placed at the biopsy site, which is seen on postprocedural mammogram. The patient tolerated the procedure well without immediate postprocedure complications. The patient was given postprocedural instructions and sent home in stable condition. Reviewed, dictated and finalized at location C. IMPRESSION: Successful ultrasound guided biopsy of left breast intraductal mass . A post biopsy coil HydroMark marker was placed at the biopsy site, which is s een on postprocedural mammogram. The patient tolerated the procedure well without immediate postprocedure compli cations. The patient was given postprocedural instructions and sent home in sta ble condition.
--- OUTSIDE RECORDS SUMMARY | 2025-07-05 08:34 | XMS_ITS | Clinical Summary ---
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 Flu shot given at [facility], Aurea is unsure of the date. [...] don't have to take much of the [place] Getting records from [facility] (including imaging) Continue topical ice Establishing care with new doctor, encounter for 11/11/2022 Assessment & Plan (11/11/2022 4:30 PM PRESIDENTIAL SUPPORT SPECIALIST): A(n) initial visit to establish care has [...] 12/22/2019 Assessment & Plan (12/22/2019 8:48 AM PRESIDENTIAL SUPPORT SPECIALIST): Status post ultrasound-guided left knee injection today Rheumatoid arthritis involvi ng multiple sites with positive rheumatoid factor 12/22/2019 Assessment & Plan (11/21/2021 5:06 PM PRESIDENTIAL SUPPORT SPECIALIST): The pain she is currently having does [...] 12/10/2015 Assessment & Plan (11/21/2021 5:05 PM PRESIDENTIAL SUPPORT SPECIALIST): On MTX and starting sulfasalazine and hydroxychloroquine [...] 09/05/2015 Assessment & Plan (11/16/2022 9:03 AM PRESIDENTIAL SUPPORT SPECIALIST): Much improved since last visit. Patient notes [...] Encounters Date Type Department Care Team Description 06/08/2025 10:15 AM CDT Office Visit [facility] Cardiology [address] [place] [address] Tre Cyr MD Hx of CABG (Primary Dx); History of coronary artery stent placement 04/24/2025 10:45 AM CDT Lab [facility] Endocrinology Metabolism and Lipid [address] 5[address] [place] [address] [place] [address] Seropositive rheumatoid arthritis (HCC); High risk medication use 04/24/2025 9:30 AM CDT Office Visit [facility] Medicine Rheumatology [address] [place] [address] [place] [address] Sunny Gutiérrez MD PhD Seropositive rheumatoid arthritis (HCC) (Primary Dx); High risk medication use; 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 No 10/11/2024 Social Connection and Isolation Panel Answer Date Recorded In a typical week, how many times do you talk on the phone with family, friends, or neighbors? Once a week 10/11/2024 How often do you get togethe r with friends or relatives? Once a week 10/11/2024 How often do you attend chur ch or jew services? More than 4 times per year 10/11/2024 Do you belong to any clubs o r organizations such as christian groups, unions, fraternal or athletic groups, or [...] any time in the past 12 m [facility], were you homeless or living in a skilled nursing (including now)? No 10/11/2024 Personal Safety Answer Date Recorded Have you ever been in or are you currently in a harmful physical or emotional relationship or is someone making you feel afraid or unsafe? Denies 10/13/2024 Comments No Sex and Gender Information Value Date Recorded Sex Assigned at Not on file Legal Sex Female 11:58 PM PRESIDENTIAL SUPPORT SPECIALIST Gender Identity Not on file Sexual Orientation Not on file Obstetrics History Last Filed Vital Signs Vital Sign Reading Time Taken Comments Blood Pressure 100/66 06/08/2025 9:36 AM CDT Pulse 66 06/08/2025 9:36 AM CDT Temperature 37.1 C (98.8 F) 10/13/2024 7:05 AM PRESIDENTIAL SUPPORT SPECIALIST Respiratory Rate 28 10/13/2024 1:25 PM PRESIDENTIAL SUPPORT SPECIALIST Oxygen Saturation 92% 06/08/2025 9:36 AM CDT Inhaled Oxygen Concentration - - Weight 89.7 kg (197 lb 12.8 oz) 06/08/2025 9:36 AM CDT Height 152.4 cm (5') 06/08/2025 9:36 AM CDT Body Mass Index 38.63 06/08/2025 9:36 AM CDT Plan of Treatment Health Maintenance Due Date Last Done Comments Hepatitis B Screening 1968 Covid-19 Vaccine (2023-2 5 season) 2024 12/11/2021, [...] ACO Care Management On track(2024 12:25 PM PRESIDENTIAL SUPPORT SPECIALIST) Cinthya Alarcon, RN Note: Problem: High Risk [...] ACO Care Management On track(2024 12:25 PM PRESIDENTIAL SUPPORT SPECIALIST) Cinthya Alarcon RN Note: Problem: Coronary Artery [...] ACO Care Management On track(2024 12:25 PM PRESIDENTIAL SUPPORT SPECIALIST) Cinthya Alarcon RN Note: Problem: Knowledge deficit [...] ACO Care Management On track(2024 12:25 PM PRESIDENTIAL SUPPORT SPECIALIST) No Cinthya Lorenzana RN Note: Problem: Potential [...] ACO Care Management On track(2024 12:25 PM PRESIDENTIAL SUPPORT SPECIALIST) Cinthya Alarcon RN Note: Problem: At Risk [...] is agreeable. Medical Devices Implanted Type Area Spring Winder Device Identifier Shelf Expiration Date Model / Serial / Lot [employer] Angio-Seal Vip 6fr Closere Device [id number] - [id number] - [id number] Implanted:Qty: 1 on 10/13/2024 by Kane Jones MD PhD at [facility] Collagen Right: Common Femoral Artery [employer] 05/29/2025 [id number] / [id number] / [id number] [employer] X [id number] Resolute Amari 3mm 2.1-2.7fr 18mm 140cm Rapid Exchange Radiopaque - [id number] Implanted:Qty: 1 on 09/09/2020 by Kane Jones MD PhD at [facility] Stent Medtronic Inc 04/05/2022 [id number] / / [id number] Medtronic Card Vasc Surgery 4.0 X 15mm [place] Rx Coronary Stent [id number] - [id number] - [id number] Implanted:Qty: 1 on 10/13/2024 by Kane Jones MD PhD at [facility] Stent Left: Main Coronary Artery Medtronic Card Vasc Surgery 12/06/2026 [id number] / [id number] / [id number] Ultimate Software/[employer] [id number] Angio-Seal Evolution 6fr .035in Guidewire Bypass Tube Suture - [id number] Implanted:Qty: 1 on 09/09/2020 by Kane Jones MD PhD at [facility] Terumo [employer] Leidy 07/24/2021 [id number] / / [id number] Procedures Procedure Name Priority Date/Time Associated Diagnosis [...] rheumatoid arthritis (HCC) High risk medication use [place] ARTHROCENTESIS ASPIR&/INJ MAJOR JT/BURSA W/O US Routine 04/24/2025 9:30 AM CDT Primary osteoarthritis of both knees HM DEXA SCAN Routine 12/15/2024 2:18 PM PRESIDENTIAL SUPPORT SPECIALIST HM COLONOSCOPY Routine 03/10/2024 HEPATITIS C ANTIBODY [...] ORDERABLE S Final Result Performing Organization Address [facility] Co de Phone Number [facility] * (ABNORMAL) Erythrocyte sedimentation rate (04/24/2025 10:38 AM CDT) Erythrocyte Sedimentation Rate 66(H) <30 mm/hr [facility] Blood 04/24/2025 10:3 8 AM CDT 04/24/2025 11:04 AM CDT Sunny Gutiérrez MD PhD LAB BLOOD ORDERABLE S Final Result Performing Organization Address [facility] de Phone Number [facility] * (ABNORMAL) CRP (acute phase) (04/24/2025 10:38 AM CDT) C-Reactive Protein, Acute 22.1(H) <5.0 mg/L [facility] Blood 04/24/2025 10:3 8 AM CDT 04/24/2025 11:04 AM CDT Sunny Gutiérrez MD PhD LAB BLOOD ORDERABLE S Final Result Performing Organization Address [facility] Co de Phone Number [facility] * [...] IM [facility] * [place] ARTHROCENTESIS ASPIR&/INJ MAJOR JT/BURSA W/O US (04/24/2025 [...] Result * DEXA SCAN (12/15/2024 2:18 PM PRESIDENTIAL SUPPORT SPECIALIST) Historical Provider MD HEALTH MAINTENANCE Final Result * COLONOSCOPY (03/10/2024) Historical Provider HEALTH MAINTENANCE Final Result * Hepatitis C antibody (02/28/2021 10:24 AM CDT) Hep C Ab Nonreactive Nonreactive [facility] Comment:Antibodies to HCV no t detected. Does NOT exclude the possibility of recent exposure to HCV. Blood specimen (specimen) 02/28/2021 10:24 AM CDT 02/28/2021 10:24 AM CDT Edmond Schofield MD LAB MICROBIOLOGY - GENER AL ORDERABLES Edited Result - Final Performing Organization Address City/State/[facility] Co de Phone Number [facility] [place] [address] from Last 3 Months or Most Recently Relevant to Health Maintenance Insurance [facility] [email or web address] ADVANTAGE CHOICE PPO Member Subscriber Plan / Payer (Ef fective 2023-Present) Name:Aurea Colvin Relation to Subscriber:Self Name:Aurea Colvin Payer ID:[id number] (NAIC) Type:MEDICARE RISK OTHER Address: [address] [facility] ADVANTAGE CHOICE PPO Advance Directives For more information, please contact: [phone] * Full Code (Latest Code Status on File) Date Activated Date Inactivated Comments 10/13/2024 11:13 AM 10/13/2024 6:12 PM * Full Code Date Activated Date Inactivated Comments 09/20/2023 10:13 AM 09/20/2023 5:31 PM * Full Code Date Activated Date Inactivated Comments 09/09/2020 11:13 AM 09/10/2020 9:26 AM Care Teams Body Sander Relationship Specialty Start Date End Date Rayray Lopez MD [address] [place] [address] PCP - General Family Practice 12/18/24 Tre Cyr MD [address] [place] [address] Consulting Physician Cardiology 11/09/22 Mariola Mccoy MD [address] [place], [place] [id number] Consulting Physician Rheumatology 11/09/22 Sunny Gutiérrez MD PhD [address] [place], [place] [id number] Consulting Physician Internal Medicine 02/15/23
--- OUTSIDE RECORDS SUMMARY | 2025-07-05 08:34 | XMS_ITS ---
Author Name Luis Johnson DO Address [address] [address] [facility] [address] [place] [address] Phone [phone] Organization [facility] Care Team Providers Care Biogeographer Name Role Phone Luis Johnson Unavailable [phone] Susan Ruff Unavailable [phone] Xiomara Covarrubias Unavailable Unavailable Rayray Lopez Unavailable [phone] Mariola Mccoy Unavailable [phone] Adrien Galarza Unavailable [phone] Tre Cyr Unavailable [phone] Shawn Prieto Unavailable [phone] Primarily Home Tier 1 RN (STMary)Xiomara navailgerardo [...] 60 minutes total time on enco [facility] 10/04/2024 Chronic obstructive pulmonary disease, unspecifiedOther rheumatoid arthritis with rheumatoid factor of unspecified siteHeart failure, unspecifiedChest pain, unspecifiedAthscl heart disease of [place] coronary artery w/o ang pctrsHyperlipidemia, unspecifiedGastro-esophageal reflux disease without esophagitisObstructive sleep apnea (adult) (pediatric) Outpatient visit for evaluation and management of established patient, including medically appropriate examination and low level of medical decision making, total time 20-29 minutes [facility] 10/31/2024 Chest pain, unspecif iedAthscl heart disease of [place] coronary artery w/o ang pctrsHyperlipidemia, unspecifiedOther specified postprocedural states Home visit for evaluation and management of established patient requiring medically appropriate examination and low level of medical decision making. If using time, at least 30 minutes total time on e [facility] 12/05/2024 Chest pain, unspecif iedAthscl heart disease of [place] coronary artery w/o ang pctrsChronic obstructive pulmonary [...] tive Time Current Smoking Status Never smoker 2025-06-25 1 Sex Female History of Procedures Procedures Service Procedure code Service date Servicing provider Phone# Home visit for evaluation and management of new patient requiring medically appropriate examination and moderate level of medical decision making. If using time, at least 60 minutes total time on enco [id number] 2024-10-04 No Data Available No Data Availa ble Outpatient visit for evaluation and management of established patient, including medically appropriate examination and low level of medical decision making, total time 20-29 minutes [id number] 2024-10-31 No Data Available No Data Availa ble Home visit for evaluation and management of established patient requiring medically appropriate examination and low level of medical decision making. 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 Rayray Lopez in [place], appt. 11/2024very episodes in the AM x [...]
--- NOTE | 2025-07-05 10:07 | S_PTH ---
PATIENT: Aurea Colvin LOC: [facility] U#:[id number] AGE/SX: 75/F ROOM: RE07/05/[address]: Lidia Mathews APRN : [id number] BED: DIS: 07/05/2025 SPEC #: [id number] RECD: 07/05/25 11:11 STATUS: LUKE ROTHMAN #: [id number] CHARLA: 07/05/25 10:[address]: Lidia Mathews DEPT: [facility] Surgical RECD BY: Joanna Escobedo Tissues: A - Breast Biopsy Procedures: Hematoxylin and Eosin Stain Gross and Microscopic Level 4
== END 2025-07-05 08:10 | disposition home or self-care (01) ==
PROVIDERS: PCP Nurse Practitioner Family; Visit Provider Nurse Practitioner Family
DX: R92.8 Other abnormal and inconclusive findings on diagnostic imaging of breast (principal)
CPT/HCPCS: 19083; 77065; 88305; A4648

== ENCOUNTER 2025-08-27 07:45 | Outpatient (CLI) | payer OTHER, SELFPAY ==
--- OUTSIDE RECORDS SUMMARY | 2025-08-27 07:47 | XMS_ITS ---
Author Name Luis Johnson DO Address [address] [place] [address] Phone [phone] Organization [facility] Care Team Providers Care Equal Employment Opportunity Officer Name Role Phone Luis Johnson Unavailable [phone] Susan Ruff Unavailable [phone] Rayray Lopez Unavailable [phone] Mariola Mccoy Unavailable [phone] Adrien Galarza Unavailable [phone] Tre Cyr Unavailable [phone] Shawn Prieto Unavailable [phone] Primarily Home Tier 1 RN (CAYLA)Xiomara Unavailable Reason for Referral Not Available Allergies, [...] minutes total time on enco [facility] 10/04/2024 Chronic obstructive pulmonary disease, unspecifiedOther rheumatoid arthritis with rheumatoid factor of unspecified siteHeart failure, unspecifiedChest pain, unspecifiedAthscl heart disease of [place] coronary artery w/o ang pctrsHyperlipidemia, unspecifiedGastro-esophageal reflux disease without esophagitisObstructive sleep apnea (adult) (pediatric) Outpatient visit for evaluation and management of established patient, including medically appropriate examination and low level of medical decision making, total time 20-[address] [facility] 10/31/2024 Chest pain, unspecif iedAthscl heart disease of [place] coronary artery w/o ang pctrsHyperlipidemia, unspecifiedOther specified postprocedural states Home visit for evaluation and management of established patient requiring medically appropriate examination and low level of medical decision making. If using time, at least 30 minutes total time on e [facility] [place] 12/05/2024 Chest pain, unspecif iedAthscl heart disease of [place] coronary artery w/o ang pctrsChronic obstructive pulmonary [...] tive Time Current Smoking Status Never smoker 3 Sex Female History of Procedures Procedures Service Procedure code Service date Servicing provider Phone# Home visit for evaluation and management of new patient requiring medically appropriate examination and moderate level of medical decision making. If using time, at least 60 minutes total time on enco [id number] 2024-10-04 No Data Available No Data Availa ble Outpatient visit for evaluation and management of established patient, including medically appropriate examination and low level of medical decision making, total time 20-29 minutes [id number] 2024-10-31 No Data Available No Data Availa ble Home visit for evaluation and management of established patient requiring medically appropriate examination and low level of medical decision making. 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 [employer] 2024-10-04 Mental Status No Information Assessments Date [...] take nitroglycerin as neededAdvised patient to call spray cementer todayRecommend patient be seen in ER settingconsider follow up with RN next weekAdvised her to take the nitroglycerin PRN - she has not been takingHighly recommend she call her spray cementer to update on her symptom chest pain severityRecommended she be seen ER/UC if chest pain persists today, currently refusing to goCardiac cath appt 10/20/2024hroniccontinue Plavix, aspirin, statincardiac cath /2023 Myocardial perfusion scan/stress test: Left ventricular ejection [...] 14:39:00 New PCP: Dr. Rayray Lopez in [place], appt. 11/2024very episodes in the AM x [...]
--- OUTSIDE RECORDS SUMMARY | 2025-08-27 07:48 | XMS_ITS | Clinical Summary ---
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 Production Line Mechanic Name Role Phone Tre Cyr MD Unavailable [phone] Mariola Mccoy MD Unavailable [phone] Sunny Gutiérrez MD PhD Unavailable [phone] Rayray Lopez MD Primary Care Provider [phone] Allergies No known active allergies Medications nitroglycerin [...] Active Additional Information Patient not taking.Reported on 07/31/2025 atorvastatin (LIPITOR) 40 mg tablet TAKE 1 TABLET BY MOUTH DAILY AT BED TIME 100 tablet [address] (PROTONIX) 40 mg EC tabletIndication s:Epigastric pain TAKE 1 TABLET BY MOUTH EVERY DAY 90 tablet 3 4 Active Additional Information Patient not taking.Reported on 07/31/2025 spironolactone (ALDACTONE) 25 mg tablet TAKE 1 [...] 180 tablet 3 5 12/21/19 26 Active folic acid (FOLVITE) 1 mg tablet Take 1 tablet (1,000 mcg total) by mouth daily 90 tablet 3 5 Active ondansetron (ZOFRAN) 4 mg tablet Take 1 tablet (4 mg total) by mouth every 8 (eight) hours 5 Active methotrexate 2.5 mg tabletIndication s:Rheumatoid Arthritis Take 8 tablets (20 mg total) by mouth once a week 96 tablet 1 5 Active Active Problems Problem Noted Date Diagnosed Date Long-term use of hydroxychloroquine 12/26/2024 Degenerative joint disease involving multiple mary kay ints 12/26/2024 Primary osteoarthritis of both knees 12/26/2024 Angina pectoris, unspecified 09/05/2024 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 Flu shot given at [facility], Aurea is unsure of the date. 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 Patient notes [...] Encounters Date Type Department Care Team Description 07/31/2025 11:40 AM CDT Lab [facility] Medicine Endocrinology Metabolism and Lipid [address] [place] [address] [place] [address] Rheumatoid arthritis involving multiple sites with positive rheumatoid factor (HCC) 07/31/2025 11:00 AM CDT Office Visit [facility] Medicine Rheumatology [address] [place] [address] [place] [address] Sunny Gutiérrze MD PhD Rheumatoid arthritis involving multiple sites with positive rheumatoid factor (HCC) (Primary Dx); High risk medication use; 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 More than 4 times per year 10/11/2024 Do you belong to any clubs o r organizations such as moravian groups, unions, fraternal or athletic groups, or [...] any time in the past 12 m [facility], were you homeless or living in a nursing home (including now)? No 10/11/2024 Personal Safety Answer Date Recorded Have you ever been in or are you currently in a harmful physical or emotional relationship or is someone making you feel afraid or unsafe? Denies 10/13/2024 Comments No Sex and Gender Information Value Date Recorded Sex Assigned at Not on file Legal Sex Female 11:58 PM FIRE WATCHER Gender Identity Not on file Sexual Orientation Not on file Last Filed Vital Signs Vital Sign Reading Time Taken Comments Blood Pressure 122/73 07/31/2025 10:58 AM CDT Pulse 72 07/31/2025 10:58 AM CDT Temperature 36.7 C (98.1 F) 07/31/2025 10:58 AM CDT Respiratory Rate 28 10/13/2024 1:25 PM FIRE WATCHER Oxygen Saturation 92% 06/08/2025 9:36 AM CDT Inhaled Oxygen Concentration - - Weight 88 kg (194 lb) 07/31/2025 10:58 AM CDT Height 152.4 cm (5') 07/31/2025 10:58 AM CDT Body Mass Index 37.89 07/31/2025 10:58 AM CDT Plan of Treatment Health Maintenance Due Date Last Done Comments Hepatitis B Screening 1968 Well Visit 65+ 08/16/2024 08/16/2023 Depression Screening 06/13/2025 06/13/2024, 12/14/2023, 09/13/2023, Additional history exists Covid-19 Vaccine (2024- 6 season) 2025 12/11/2021, 01/10/2021, 12/13/2020 Influenza Vaccine (#1) 2025 , 06/19/2023, 07/24/2022, Additional history exists Fall Risk Assessment 10/13/2025 10/13/2024, 09/13/2023, 08/31/2023, Additional history exists Osteoporosis Screening-Bone Density Scan 12/15/2026 12/15/2024, 10/23/2020, 03/20/2016 DTaP/Tdap/Td Vaccine (2 - Td or Tdap) 08/24/2033 08/24/2023 Hepatitis C Screening Completed 02/28/2021 , 03/19/2017, 03/29/2015 Zoster Vaccine Completed 06/27/2021, 02/28/2021 Pneumococcal vaccine 65+ Completed 023, 04/25/2021, 08/02/2010 Colon Cancer Screening-CT Colonography Discontinued 03/10/2024, 07/12/2018 [...] [facility] Care Management On track(2024 12:25 PM FIRE WATCHER) Cinthya Alarcon, RN Note: Problem: High Risk [...] ACO Care Management On track(2024 12:25 PM FIRE WATCHER) Cinthya Alarcon RN Note: Problem: Coronary Artery [...] ACO Care Management On track(2024 12:25 PM FIRE WATCHER) Cinthya Alarcon RN Note: Problem: Knowledge deficit [...] ACO Care Management On track(2024 12:25 PM FIRE WATCHER) Cinthya Alarcon, RN Note: Problem: Potential for medical complications [...] ACO Care Management On track(2024 12:25 PM FIRE WATCHER) Cinthya Alarcon, RN Note: Problem: At Risk [...] is agreeable. Medical Devices Implanted Type Area Rock Drill Operator Device Identifier Shelf Expiration Date Model / Serial / Lot Enliken Angio-Seal Vip 6fr Closere Device [id number] - [id number] - [id number] Implanted:Qty: 1 on 10/13/2024 by Kane Jones MD PhD at [facility] Collagen Right: Common Femoral Artery Syndiant Leidy 05/29/2025 [id number] / [id number] / [id number] Medtronic [employer] X [id number] Resolute [place] 3mm 2.1-2.7fr 18mm 140cm Rapid Exchange Radiopaque - [id number] Implanted:Qty: 1 on 09/09/2020 by Kane Jones MD PhD at [facility] Stent Medtronic Inc 04/05/2022 [id number] / / [id number] Medtronic Card Vasc Surgery 4.0 X 15mm Amari [place] Rx Coronary Stent [id number] - [id number] - [id number] Implanted:Qty: 1 on 10/13/2024 by Kane Jones MD PhD at [facility] Stent Left: Main Coronary Artery Medtronic Card Vasc Surgery 12/06/2026 [id number] / [id number] / [id number] [employer] Leidy/[employer] [id number] Angio-Seal Evolution 6fr .035in Guidewire Bypass Tube Suture - [id number] Implanted:Qty: 1 on 09/09/2020 by Kane Jones MD PhD at [facility] TerPyron Solar Leidy 07/24/2021 [id number] / / [id number] Procedures Procedure Name Priority Date/Time Associated Diagnosis Comments CBC WITH AUTO DIFFERENTIAL Routine 07/31/2025 11:43 AM CDT Rheumatoid arthritis involving multiple sites with positive rheumatoid factor (HCC) COMPREHENSIVE METABOLIC PANEL Routine 07/31/2025 11:43 AM CDT Rheumatoid arthritis involving multiple sites with positive rheumatoid factor (HCC) ERYTHROCYTE SEDIMENTATION RATE Routine 07/31/2025 11:43 AM CDT Rheumatoid arthritis involving multiple sites with positive rheumatoid factor (HCC) CRP (ACUTE PHASE) Routine 07/31/2025 11: 43 AM CDT Rheumatoid arthritis involving multiple sites with positive rheumatoid factor (HCC) HM DEXA SCAN Routine 12/15/2024 2:18 PM FIRE WATCHER HM COLONOSCOPY Routine 03/10/2024 HEPATITIS C ANTIBODY Routine 02/28/2021 10:24 AM CDT Rheumatoid arthritis involving multiple sites with positive rheumatoid factor (HCC) High risk medication use from Last 3 Months or Most Recently Relevant to Health Maintenance Results * (ABNORMAL) CBC with auto differential (07/31/2025 11:43 AM CDT) White Blood Count 9.6 3.6 - 11.2 K/uL [facility] RBC 3.98 3.63 - 4.92 M/uL [facility] Hemoglobin 12.2 11.9 - 15.5 g/dL [facility] Hematocrit 37.2 36.1 - 44.3 % [facility] MCV 93.5 80.0 - 97.6 fL [facility] MCH 30.7 26.7 - 33.7 pg [facility] MCHC 32.8 32.7 - 35.5 g/dL [facility] RBC Dist Width 18.6(H) 12.3 - 17.0 % [facility] Platelet Count 254 140 - 440 K/uL [facility] MPV 7.9 6.8 - 10.4 fL [facility] Neutrophils % 62.9 38.7 - 74.5 % [facility] Lymphocyte % 15.7(L) 20.0 - 54.3 % [facility] Monocytes % 15.1(H) 4.3 - 13.5 % [facility] Eosinophils % 5.7 0.0 - 6.0 % [facility] Basophil % 0.6 0.0 - 3.0 % [facility] Absolute Neutrophil 6.1 1.8 - 6.6 K/uL [facility] Absolute Lymphocyte 1.5 0.8 - 3.3 K/uL [facility] Absolute Monocyte 1.5(H) 0.2 - 1.2 K/uL [facility] Absolute Eosinophil 0.6(H) 0.0 - 0.5 K/uL [facility] Absolute Basophil 0.1 0.0 - 0.2 K/uL [facility] Nucleated RBC % 0.0 0.0 - 0.4 /100 WBC [facility] Blood 07/31/2025 11:4 3 AM CDT 07/31/2025 12:32 PM CDT us Sunny Gutiérrez MD PhD LAB BLOOD ORDERABLE S Final Result [facility] * (ABNORMAL) Erythrocyte sedimentation rate (07/31/2025 11:43 AM CDT) Erythrocyte Sedimentation Rate 40(H) <30 mm/hr [facility] Blood 07/31/2025 11:4 3 AM CDT 07/31/2025 12:32 PM CDT us Sunny Gutiérrez MD PhD LAB BLOOD ORDERABLE S Final Result Performing Organization Address [facility] Co de Phone Number [facility] * CRP (acute phase) (07/31/2025 11:43 AM CDT) Pathologist [facility] C-Reactive Protein, Acute <3.0 <5.0 mg/L [facility] Blood 07/31/2025 11:4 3 AM CDT 07/31/2025 12:32 PM CDT us Sunny Gutiérrez MD PhD LAB BLOOD ORDERABLE S Final Result Performing Organization Address [facility] Co de Phone Number [facility] * (ABNORMAL) Comprehensive metabolic panel (07/31/2025 11:43 AM CDT) Total Protein 7.8 6.1 - 8.4 g/dL [facility] Albumin 4.4 3.5 - 5.2 g/dL [facility] Calcium 9.8 8.6 - 10.3 mg/dL [facility] BUN 16 7 - 23 mg/dL [facility] Total Bilirubin 0.32 0.20 - 1.40 mg/dL [facility] Alk Phos, Total 83 35 - 129 IU/L [facility] AST (SGOT) 26 11 - 47 IU/L [facility] ALT (SGPT) 30 6 - 53 IU/L [facility] Creatinine 0.90 0.60 - 1.10 mg/dL [facility] Sodium 143 135 - 145 mmol/L [facility] Potassium 4.2 3.3 - 5.1 mmol/L [facility] Chloride 102 95 - 107 mmol/L [facility] CO2 Content 32(H) 21 - 29 mmol/L [facility] Glucose 99 64 - 99 mg/dL [facility] Comment: NONFASTING GLUCOSE RANGE = 64-199 mg/dL FASTING GLUCOSE 64 - 99 = NORMAL FASTING GLUCOSE 100 - 125 = IMPAIRED FASTING GLUCOSE FASTING GLUCOSE >=126 = PROVISIONAL DIAGNOSIS OF DIABETES eGFR 65.8 >60.0 mL/min/1.7 3 m2 [facility] Comment:eGFR is calculated b y the CKD-EPIcr() equation (2020). Blood 07/31/2025 11:4 3 AM CDT 07/31/2025 12:32 PM CDT Result [facility] Sunny Gutiérrez MD PhD LAB BLOOD ORDERABLE S Final Result Performing Organization Address City/[facility]/ZIP Co de Phone Number [facility] * DEXA SCAN (12/15/2024 2:18 PM FIRE WATCHER) Historical Provider HEALTH MAINTENANCE Final Result * COLONOSCOPY (03/10/2024) Historical Provider HEALTH MAINTENANCE Final Result * Hepatitis C antibody (02/28/2021 10:24 AM CDT) Hep C Ab Nonreactive Nonreactive [facility] Comment:Antibodies to HCV no t detected. Does NOT exclude the possibility of recent exposure to HCV. Blood specimen (specimen) 02/28/2021 10:24 AM CDT 02/28/2021 10:24 AM CDT Edmond Schofield MD LAB MICROBIOLOGY - GENER AL ORDERABLES Edited Result - Final [facility] Department [place] [address] from Last 3 Months or Most Recently Relevant to Health Maintenance Insurance [facility] ADVANTAGE CHOICE PPO [facility] ADVANTAGE CHOICE PPO Advance Directives For more information, please contact: [phone] * Full Code (Latest Code Status on File) Date Activated Date Inactivated Comments 10/13/2024 11:13 AM 10/13/2024 6:12 PM * Full Code Date Activated Date Inactivated Comments 09/20/2023 10:13 AM 09/20/2023 5:31 PM * Full Code Date Activated Date Inactivated Comments 09/09/2020 11:13 AM 09/10/2020 9:26 AM Care Teams Production Line Mechanic Relationship Specialty Start Date End Date Rayray Lopez MD [address] [place], [place] [id number] PCP - General Family Practice 12/18/24 Tre Cyr MD [address] [place] [address] Consulting Physician Cardiology 11/09/22 Mariola Mccoy MD [address] [place], [place] [id number] Consulting Physician Rheumatology 11/09/22 Sunny Gutiérrez MD PhD [address] [place], [place] [id number] Consulting Physician Internal Medicine 02/15/23
--- NOTE | 2025-08-27 07:56 | ECG_ITS ---
Test Date: 2025-08-27 08:15:39 Measurements Intervals [place] Rate: 79 P: 0 MN: 0 QRS: -12 QRSD: 97 T: 105 QT: 376 QTc: 432 Interpretive Statements SINUS RHYTHM LEFT VENTRICULAR HYPERTROPHY AND ST-T CHANGE [VOLTAGE CRITERIA PLUS ST/T ABNORMALITY] POSSIBLE ANTERIOR MYOCARDIAL INFARCTION [30 ms Q WAVE IN V3/V4, OR R < 0.2 mV IN V4], PROBABLY OLD No previous ECG available for comparison Electronically Signed On 08-27-2025 09:42:06 HEART DOCTOR by Johnathan Amato M.D.
[2025-08-27 08:41] LABS: Anion Gap 9 mmol/L (4-12); Blood Urea Nitrogen 18 mg/dL (7-17); Calcium 9.3 mg/dL (8.4-10.2); Carbon Dioxide 29 mmol/L (22-30); Chloride 97 mmol/L (98-107); Estimated Glomerular Filt Rate > 60; Glucose 104 mg/dL (65-110); Potassium 4.2 mmol/L (3.4-5.0); Sodium 135 mmol/L (137-145)
== END 2025-08-27 07:46 | disposition home or self-care (01) ==
LOC: ANHSURGERY 07:45
PROVIDERS: Anesthesiology; PCP Nurse Practitioner Family; Visit Provider Surgery
DX: Z01.818 Encounter for other preprocedural examination (principal); I11.9 Hypertensive heart disease without heart failure
CPT/HCPCS: 36415; 80048; 93005

== ENCOUNTER 2025-08-27 09:18 | Inpatient (IN) | payer OTHER, SELFPAY ==
--- NOTE | ~2025-08-27 | CT_ITS ---
EXAMINATION: CT forearm LT w con DATE: 08/27/2025 12:02 INDICATION: Left forearm cellulitis and abscess TECHNIQUE: High resolution computed tomography (CT) of the left forearm was performed with 100 mL Omnipaque-350 intravenous contrast. Additional sagittal and coronal reconstructions were performed. Automated exposure control and iterative reconstruction technique were employed. The dose-length product was 703.68 mGy-cm. COMPARISON: None FINDINGS: There is skin thickening and subcutaneous edema extending along the posterior and ulnar sides of the left forearm from the elbow to the wrist consistent with cellulitis. This surrounds a 1.4 x 0.8 x 1.9 cm low-attenuation region in the superficial subcutaneous tissues which bulges the overlying skin surface position at the ulnar side of the proximal forearm approximately 12 cm distal to the proximal tip of the olecranon. There is no well-defined peripheral enhancing wall to suggest organized abscess in this more likely represent a region of phlegmonous change progressing towards abscess formation. The underlying muscles appear normal with no inflammatory stranding in the intervening fat. No soft ti ssue gas to suggest necrotizing fasciitis. Polyarticular osteoarthritis, moderate to severe at the left wrist and several joints in the carpus and mild at the elbow. No elbow joint effusion. IMPRESSION: 1. Prominent synovitis along the dorsal and ulnar sides of the forearm surrounding a small superficial subcutaneous region of phlegmonous change progressing towards abscess but without a well defined organized peripheral enhancing wall. Reviewed, dictated and finalized at location A. 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 Prominent synovitis along the dorsal and ulnar sides of the forearm surround ing a small superficial subcutaneous region of phlegmonous change progressing t owards abscess but without a well defined organized peripheral enhancing wall.
[2025-08-27 09:38] VITALS: BP 142/92; PULSE 82; RESP 16; TEMP 36.7; O2SAT 95
--- NOTE | 2025-08-27 09:50 | ED.SKABFB ---
HPI - Skin/Abscess/Foreign Bdy General Chief complaint: Skin/Abscess/Foreign Body <KUSHAL Sahni Last Filed: 08/27/25 13:46> Stated complaint: infection left arm <KUSHAL Sahni Last Filed: 08/27/25 13:46> Time Seen by Provider: 08/27/25 09:24 <KUSHAL Sahni Last Filed: 08/27/25 13:46> Source: patient and old records reviewed <KUSHAL Sahni Last Filed: 08/27/25 13:46> Mode of arrival: ambulatory <KUSHAL Sahni Filed: 08/27/25 13:46> Limitations: no limitations <KUSHAL Sahni Filed: 08/27/25 13:46> History of Present Illness HPI narrative: Patient is a 75-year-old female who presents the ED with report of an abscess to her left forearm. Patient is currently seeing Dr. Case for a left breast subareolar mass. Was seen in the office today for a preop visit before biopsy. Was noted to have a left forearm abscess and sent here for further evaluation. Patient reports this has been present for the last few days. Started as a small pimple like lesion and has developed into an abscess that she attempted to drain herself. Was seen at an urgent care yesterday and Rx'd augmentin. The abscess has been draining some. She denies fevers. She is not a diabetic. Denies history of similar abscesses/previous MRSA. <KUSHAL Sahni Last Filed: 08/27/25 13:46> Related Data Home medications: Home Medications ?Medication ?Instructions ?Recorded ?Confirmed ?Last Taken ?Type aspirin 81 mg tablet,delayed 81 mg PO DAILY 12/19/20 08/24/25 09/02/21 07:00 History release (Adult Aspirin Regimen) methotrexate sodium 2.5 mg tablet 20 mg PO WEEKLY 12/19/20 08/24/25 09/01/21 History acetaminophen 650 mg 650 mg PO Q8H PRN Pain 07/23/21 08/24/25 09/01/21 History tablet,extended release calcium carbonate (Calcium 600) 600 mg PO BID 07/23/21 08/24/25 09/02/21 06:00 History folic acid 1 mg tablet 1 mg PO DAILY 07/23/21 08/24/25 09/02/21 07:00 History diclofenac sodium 1 % topical gel 4 g topical QID PRN Pain 02/29/24 08/24/25 Unknown History nitroglycerin 0.4 mg sublingual 0.4 mg sublingual Q5-15M PRN Chest 02/29/24 08/24/25 Unknown History tablet Pain peg 400-propylene glycol 0.4 %-0.3 2 drp ophthalmic (eye) BID 02/29/24 08/24/25 Unknown History % eye gel drops (Systane Gel) docusate sodium 50 mg tablet 100 mg PO BID 12/08/24 08/24/25 Unknown History hydroxychloroquine 200 mg tablet 400 mg PO DAILY 12/08/24 08/24/25 Unknown History (Plaquenil) ondansetron HCl 4 mg tablet 4 mg PO PRN 04/25/25 08/24/25 Unknown History <Clover Dickinson PA-C - Last Filed: 08/27/25 13:46> Allergies/Adverse reactions: Allergies Allergy/AdvReac Type Severity Reaction Status Date / Time Sulfa (Sulfonamide AdvReac Intermediate Nausea Verified 08/27/25 09:19 Antibiotics) <Clover Dickinson PA-C - Last Filed: 08/27/25 13:46> Review of Systems Review of Systems: All systems reviewed & are unremarkable except as noted in HPI. <Clover Dickinson PA-C - Last Filed: 08/27/25 13:46> All systems reviewed & are unremarkable except as noted in HPI and below <Clover Dickinson PA-C - Last Filed: 08/27/25 13:46> [facility] Past Medical History Medical History: Medical History Abnormal mammogram Pelvic pain Abdominal pain Rectal pain [facility] (current[facility] drug therapy Elevated glucose level COVID-19 History of stillbirth Bartholin gland cyst (~01/2021) Excised Rheumatoid arthritis Bartholin's gland cyst Removed 09/02/21 Obstructive sleep apnea Screening for breast cancer Anemia, unspecified Chronic obstructive pulmonary disease, unspecified Essential (primary) hypertension Gastro-esophageal reflux disease without esophagitis Heart failure, unspecified Polyosteoarthritis, unspecified Pure hypercholesterolemia <Clover Dickinson PA-C - Last Filed: 08/27/25 13:46> Surgical History Surgical History: Surgical History History of cataract extraction S/P partial hysterectomy S/P cholecystectomy Hx of CABG 2 vessel <Clover Dickinson PA-C - Last Filed: 08/27/25 13:46> Family History Family History: Family History Mother Family history of coronary artery disease Father Patient's father is Acute myocardial infarction Son Acute myocardial infarction <Clover Dickinson PA-C - Last Filed: 08/27/25 13:46> Social History Social History: Social History Social History: The patient is . She lives with her son who is rarely at home. She did have 4 children. 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 The patient states that she is a lifelong nonsmoker. She does not use any alcohol marijuana or illicit drugs. The patient does not have a durable power attorney general but may consider her sister being her power attorney general. Code status full code Smoking status: Never smoker Second hand tobacco smoke exposure: No Alcohol intake: never Substance use: never Substance use type: does not use Do You Feel Safe in your Home?: Yes Lack of Transportation: No Lack of Food: Never True Current Housing: I Have Housing Concerned About Future Housing: No Difficulty Paying Gas/Electric Bills: No Difficulty Paying for Meds: No Education: High School Diploma/GED Difficulty w/ Childcare or Family Care: No Living arrangements: with family Spiritual care concerns: No <Clover Dickinson PA-C - Last Filed: 08/27/25 13:46> Exam Narrative: GENERAL: Elderly, obese with BMI of 37.3, non-toxic, in no acute distress. HEAD: Normocephalic, atraumatic. RESPIRATORY: Airway patent, respirations nonlabored. CARDIOVASCULAR: Regular rate and rhythm without murmurs, rubs, or gallops. Radial pulses strong and easily palpable MUSCULOSKELETAL: Moves all extremities. No gross deformities. 3x3cm focal abscess to L volar forearm with central open area draining purulent material. Skin of abscess is discolored purple/deep red. Surrounding induration, erythema, warmth, focal TTP. Erythema and warmth extending throughout entirety of volar forearm and up to approximately and mid upper arm medially SKIN: Warm, dry, normal color. NEURO: A&O X3. Speech clear. No ataxic movements. PSYCHIATRIC: Appropriate mood and affect. Normal interaction. <Clover Dickinson PA-C - Last Filed: 08/27/25 13:46> Course LEVERS LACE MACHINE OPERATOR/PA Physician Supervision This visit was performed by both a physician and an APC; I performed all aspects of the medical decision making component of this evaluation as documented. Briefly, patient sent by her breast surgeon for a large abscess on her left arm, had been started on Augmentin at Urgent Care, on exam large area of induration and fluctuance, with some streaking, given her abnormal blood work and the streaking, we did feel she would benefit from admission. Bedside I and D performed by Clover HU. patient agreeable to plan. <Radha Kenny MD - Last Filed: 08/27/25 13:14> Vital Signs Vital signs: Vital Signs Temperature 98.0 F 08/27/25 09:38 Pulse Rate 82 08/27/25 09:38 Respiratory Rate 16 08/27/25 09:38 Blood Pressure 142/92 H 08/27/25 09:38 Pulse Oximetry 95 08/27/25 09:38 Temperature 98.0 F 08/27/25 09:38 Pulse Rate 88 08/27/25 11:13 Respiratory Rate 14 08/27/25 11:13 Blood Pressure 142/92 H 08/27/25 11:13 Pulse Oximetry 98 08/27/25 11:13 <Clover Dickinson PA-C - Last Filed: 08/27/25 13:46> Vital Signs Temperature 98.0 F 08/27/25 09:38 Pulse Rate 82 08/27/25 09:38 Respiratory Rate 16 08/27/25 09:38 Blood Pressure 142/92 H 08/27/25 09:38 Pulse Oximetry 95 08/27/25 09:38 Temperature 98.0 F 08/27/25 09:38 Pulse Rate 88 08/27/25 11:13 Respiratory Rate 14 08/27/25 11:13 Blood Pressure 142/92 H 08/27/25 11:13 Pulse Oximetry 98 08/27/25 11:13 <Radha Kenny MD - Last Filed: 08/27/25 13:14> Procedures Abscess I/D upper extremity: Date of Incision: 08/27/25 <Clover Dickinson PA-C - Last Filed: 08/27/25 13:46> Time of Incision: 10:47 <Clover Dickinson PA-C - Last Filed: 08/27/25 13:46> Side (if applicable): left <Clover Dickinson PA-C - Last Filed: 08/27/25 13:46> Local Anesthetic: lidocaine 1% <Clover Dickinson PA-C - Last Filed: 08/27/25 13:46> Amount of anesthesia used (mL): 5 <KUSHAL Sahni Last Filed: 08/27/25 13:46> Technique: incised with #11 blade and probed loculations <Clover Dickinson PA-C - Last Filed: 08/27/25 13:46> Amount of fluid expressed (mL): 4 <KUSHAL Sahni Last Filed: 08/27/25 13:46> Irrigation: Yes <KUSHAL Sahni Last Filed: 08/27/25 13:46> Packing used?: none <KUSHAL Sahni Last Filed: 08/27/25 13:46> I&D Results: Pus and Blood <KUSHAL Sahni Last Filed: 08/27/25 13:46> Complications: pain <KUSHAL Sahni Last Filed: 08/27/25 13:46> MDM - Skin/Abscess/Foreign Bdy MDM Narrative Medical decision making narrative: Patient presented to ED with abscess to L forearm. Present for the past few days. Started on augmentin by UC yesterday. VSS upon arrival. Patient afebrile. Abscess actively draining on exam. Wound cx obtained. CBC with marked leukocytosis of nearly 18,000, neutrophil predominance. No bandemia. Lactic WNL. CMP performed earlier today reviewed in system, unremarkable, stable kidney function. I&D performed, small amount of purulence expressed. Blood cx obtained. Patient will be started on vancomycin and admitted for IV antibiotics given extent of abscess and surrounding cellulitis. Discussed case with Dr. Ly, hospitalist, recommended CT of the forearm before admission, discussion with general surgery. CT L forearm: IMPRESSION: 1. Prominent cellulitis along the dorsal and ulnar sides of the forearm surrounding a small superficial subcutaneous region of phlegmonous change progressing towards abscess but without a well defined organized peripheral enhancing wall. Discussed case with RJ Hassan hospitalist, accepted patient for admission. Discussed case with Candice/Charmaine, midlevels with general surgery, in ED to see patient, will consult. No indication for debridement at this time, but will follow. Patient is in agreement with plan and need for admission. <Clover Dickinson PA-C - Last Filed: 08/27/25 13:46> Medical Records Attestation: I reviewed the patient's medical records. <KUSHAL Sahni Last Filed: 08/27/25 13:46> Lab Data Attestation: I reviewed the patient's lab results. <KUSHAL Sahni Last Filed: 08/27/25 13:46> Result diagrams: 08/27/25 09:58 <KUSHAL Sahni Last Filed: 08/27/25 13:46> Labs: Lab Results 08/27/25 Range/Units 09:58 WBC 17.9 H (4.5-10.0) K/mm3 RBC 3.77 L (4.2-5.4) M/mm3 Hgb 11.4 L (12.0-15.0) g/dL Hct 35.9 L (37.0-47.0) % MCV 95.2 (80-100) fl MCH 30.2 (26-34) pg MCHC 31.8 L (32-36) g/dl RDW 16.7 H (11.5-14.5) % Plt Count 237 (150-375) k/mm3 MPV 9.5 (7.4-10.4) fl Immature Gran % (Auto) 1.5 H (0-0.5) % Neut % (Auto) 73.6 H (45.5-73.1) % Lymph % (Auto) 8.7 L (18.3-44.2) % [place] % (Auto) 14.1 H (2.6-8.5) % Eos % (Auto) 1.5 (0-4.4) % Baso % (Auto) 0.6 (0.2-1.2) % Lymph # (Auto) 1.55 (0.9-3.2) K/mm3 [place] # (Auto) 2.5 H (0.1-0.6) K/mm3 Eos # (Auto) 0.3 (0-0.3) K/mm3 Baso # (Auto) 0.1 (0.0-0.1) K/mm3 Abs Immat Gran (auto) 0.26 H (0.00-0.031) K/mm3 Absolute Neuts (auto) 13.2 H (1.3-6.7) K/mm3 Absolute Nucleated RBC 0.000 (0.0-0.012) K/mm3 Nucleated RBC % 0.0 (0.0-0.2) % ESR 123 H (0-20) mm/hr Lactic Acid 1.1 (0.7-2.0) mmol/L C-Reactive Protein 14.0 H (<1.0) mg/dL <Clover Dickinson PA-C - Last Filed: 08/27/25 13:46> Lab Results 08/27/25 Range/Units 09:58 WBC 17.9 H (4.5-10.0) K/mm3 RBC 3.77 L (4.2-5.4) M/mm3 Hgb 11.4 L (12.0-15.0) g/dL Hct 35.9 L (37.0-47.0) % MCV 95.2 (80-100) fl MCH 30.2 (26-34) pg MCHC 31.8 L (32-36) g/dl RDW 16.7 H (11.5-14.5) % Plt Count 237 (150-375) k/mm3 MPV 9.5 (7.4-10.4) fl Immature Gran % (Auto) 1.5 H (0-0.5) % Neut % (Auto) 73.6 H (45.5-73.1) % Lymph % (Auto) 8.7 L (18.3-44.2) % [place] % (Auto) 14.1 H (2.6-8.5) % Eos % (Auto) 1.5 (0-4.4) % Baso % (Auto) 0.6 (0.2-1.2) % Lymph # (Auto) 1.55 (0.9-3.2) K/mm3 [place] # (Auto) 2.5 H (0.1-0.6) K/mm3 Eos # (Auto) 0.3 (0-0.3) K/mm3 Baso # (Auto) 0.1 (0.0-0.1) K/mm3 Abs Immat Gran (auto) 0.26 H (0.00-0.031) K/mm3 Absolute Neuts (auto) 13.2 H (1.3-6.7) K/mm3 Absolute Nucleated RBC 0.000 (0.0-0.012) K/mm3 Nucleated RBC % 0.0 (0.0-0.2) % ESR 123 H (0-20) mm/hr Lactic Acid 1.1 (0.7-2.0) mmol/L C-Reactive Protein 14.0 H (<1.0) mg/dL <Radha Kenny MD - Last Filed: 08/27/25 13:14> Imaging Data Attestation: I personally reviewed and interpreted this imaging study as follows: <Clover Dickinson PA-C - Last Filed: 08/27/25 13:46> Radiologist's impression: ITS Impressions Forearm CT 08/27/25 12:17 IMPRESSION: 1. Prominent synovitis along the dorsal and ulnar sides of the forearm surrounding a small superficial subcutaneous region of phlegmonous change progressing towards abscess but without a well defined organized peripheral enhancing wall. <Clover Dickinson PA-C - Last Filed: 08/27/25 13:46> Discharge Plan Discharge Clinical Impression: Cellulitis and abscess of upper extremity <Clover Dickinson PA-C - Last Filed: 08/27/25 13:46> Patient Disposition: Still a Patient <KUSHAL Sahni Last Filed: 08/27/25 13:46> Condition: Serious <KUSHAL Sahni Last Filed: 08/27/25 13:46>
--- OUTSIDE RECORDS SUMMARY | 2025-08-27 09:52 | XMS_ITS ---
Author Name Luis Johnson DO Address [address] [address] [place] [address] Phone [phone] Organization [facility] Care Team Providers Care Traffic Analyst Name Role Phone Luis Johnson Unavailable [phone] Susan Ruff Unavailable [phone] Rayray Lopez Unavailable [phone] Mariola Mccoy Unavailable [phone] Adrien Galarza Unavailable [phone] Tre Cyr Unavailable [phone] Shawn Prieto Unavailable [phone] [facility] Tier 1 RN (CAYLA)Xiomara Unavailable [...] minutes total time on enco [facility] 10/04/2024 Chronic obstructive pulmonary disease, unspecifiedOther rheumatoid arthritis with rheumatoid factor of unspecified siteHeart failure, unspecifiedChest pain, unspecifiedAthscl heart disease of [place] coronary artery w/o ang pctrsHyperlipidemia, unspecifiedGastro-esophageal reflux disease without esophagitisObstructive sleep apnea (adult) (pediatric) Outpatient visit for evaluation and management of established patient, including medically appropriate examination and low level of medical decision making, total time 20-29 minutes [facility] 10/31/2024 Chest pain, unspecif iedAthscl heart disease of [place] coronary artery w/o ang pctrsHyperlipidemia, unspecifiedOther specified postprocedural states Home visit for evaluation and management of established patient requiring medically appropriate examination and low level of medical decision making. If using time, at least 30 minutes total time on e [facility] 12/05/2024 Chest pain, unspecif iedAthscl heart disease of [place] coronary artery w/o ang pctrsChronic obstructive pulmonary [...] least 60 minutes total time on enco [id number] 2024-10-04 No Data Available No Data Availa ble Outpatient visit for evaluation and management of established patient, including medically appropriate examination and low level of medical decision making, total time 20-29 minutes [id number] 2024-10-31 No Data Available No Data Availa ble Home visit for evaluation and management of established patient requiring medically appropriate examination and low level of medical decision making. 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 Rayray Lopez in [place], appt. 11/2024very episodes in the AM x [...]
--- OUTSIDE RECORDS SUMMARY | 2025-08-27 09:53 | XMS_ITS | Clinical Summary ---
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 Flu shot given at [facility], Aurea is unsure of the date. [...] don't have to take much of the [place] Getting records from [place] (including imaging) Continue topical ice Establishing care with new doctor, encounter for 11/11/2022 Assessment & Plan (11/11/2022 4:30 PM METAL RIVETING MACHINE OPERATOR): A(n) initial visit to establish [...] 12/22/2019 Assessment & Plan (12/22/2019 8:48 AM METAL RIVETING MACHINE OPERATOR): Status post ultrasound-guided left knee injection today Rheumatoid arthritis involvi ng multiple sites with positive rheumatoid factor 12/22/2019 Assessment & Plan (11/21/2021 5:06 PM METAL RIVETING MACHINE OPERATOR): The pain she is currently [...] 12/10/2015 Assessment & Plan (11/21/2021 5:05 PM METAL RIVETING MACHINE OPERATOR): On MTX and starting sulfasalazine [...] 09/05/2015 Assessment & Plan (11/16/2022 9:03 AM METAL RIVETING MACHINE OPERATOR): Much improved since last visit. [...] Team Description 07/31/2025 11:40 AM CDT Lab [facility] Medicine Endocrinology Metabolism and Lipid [address] [address] [place] [address] [place] [address] Rheumatoid arthritis involving multiple sites with positive rheumatoid factor (HCC) 07/31/2025 11:00 AM CDT Office Visit [facility] Medicine Rheumatology [address] [facility] 5[address] [place] [address] [place] [address] Sunny Gutiérrez MD PhD Rheumatoid arthritis involving multiple sites with positive rheumatoid factor (HCC) (Primary Dx); High risk medication use; rn long term care (current) use of immunomodulator; Long-term use of hydroxychloroquine; Primary osteoarthritis involving multiple joints 06/08/2025 10:15 AM CDT Office Visit [facility] Cardiology [address] [place] [address] Tre Cyr MD Hx of [...] drink = 0.6 oz pur e alcohol) [facility] Utilities Answer Date Recorded In the [...] often do you attend chur ch or congregation services? More than 4 times per year 10/11/2024 Do you belong to any clubs o r organizations such as quaker groups, unions, fraternal or athletic groups, or [...] any time in the past 12 m [facility], were you homeless or living in [...] on file Legal Sex Female 11:58 PM METAL RIVETING MACHINE OPERATOR Gender Identity Not on file Sexual Orientation Not on file Last Filed Vital Signs Vital Sign Reading Time Taken Comments Blood Pressure 122/73 07/31/2025 10:58 AM CDT Pulse 72 07/31/2025 10:58 AM CDT Temperature 36.7 C (98.1 F) 07/31/2025 10:58 AM CDT Respiratory Rate 28 10/13/2024 1:25 PM METAL RIVETING MACHINE OPERATOR Oxygen Saturation 92% 06/08/2025 9:36 AM CDT [...] ACO Care Management On track(2024 12:25 PM METAL RIVETING MACHINE OPERATOR) Cinthya Alarcon, RN Note: Problem: High Risk [...] ACO Care Management On track(2024 12:25 PM METAL RIVETING MACHINE OPERATOR) Cinthya Alarcon RN Note: Problem: [...] ACO Care Management On track(2024 12:25 PM METAL RIVETING MACHINE OPERATOR) Cinthya Alarcon RN Note: Problem: [...] ACO Care Management On track(2024 12:25 PM METAL RIVETING MACHINE OPERATOR) Cinthya Alarcon, RN Note: Problem: Potential for [...] ACO Care Management On track(2024 12:25 PM METAL RIVETING MACHINE OPERATOR) Cinthya Alarcon, RN Note: Problem: [...] is agreeable. Medical Devices Implanted Type Area Milieu Therapist Device Identifier Shelf Expiration Date Model / Serial / Lot Bridg Angio-Seal Vip 6fr Closere Device [id number] - [id number] - [id number] Implanted:Qty: 1 on 10/13/2024 by Kane Jones MD PhD at [facility] Collagen Right: Common Femoral Artery Mogujie Leidy 05/29/2025 [id number] / [id number] / [id number] Medtronic [employer] X [id number] Resolute Apex 3mm 2.1-2.7fr 18mm 140cm Rapid Exchange Radiopaque - [id number] Implanted:Qty: 1 on 09/09/2020 by Kane Jones MD PhD at [facility] Stent Medtronic Inc 04/05/2022 [id number] / / [id number] Medtronic Card Vasc Surgery 4.0 X 15mm Amari [place] Rx Coronary Stent [id number] - [id number] - [id number] Implanted:Qty: 1 on 10/13/2024 by Kane Jones MD PhD at [facility] Stent Left: Main Coronary Artery Medtronic Card Vasc Surgery 12/06/2026 [id number] / [id number] / [id number] DaiInnolume Leidy/[employer] [facility] [employer] [id number] Angio-Seal Evolution 6fr .035in Guidewire Bypass Tube Suture - [id number] Implanted:Qty: 1 on 09/09/2020 by Kane Jones MD PhD at [facility] [employer] Leidy 07/24/2021 [id number] / / [id number] Procedures Procedure Name Priority Date/Time Associated Diagnosis [...] HM DEXA SCAN Routine 12/15/2024 2:18 PM METAL RIVETING MACHINE OPERATOR HM COLONOSCOPY Routine 03/10/2024 HEPATITIS [...] PhD LAB BLOOD ORDERABLE S Final Result [facility] * (ABNORMAL) Erythrocyte sedimentation rate (07/31/2025 11:43 AM CDT) Erythrocyte Sedimentation Rate 40(H) <30 mm/hr [facility] Blood 07/31/2025 11:4 3 AM CDT 07/31/2025 12:32 PM CDT us Sunny Gutiérrez MD PhD LAB BLOOD ORDERABLE S Final Result Performing Organization Address [facility] Co de Phone Number [facility] * CRP (acute phase) (07/31/2025 11:43 AM CDT) Pathologist [facility] C-Reactive Protein, Acute <3.0 <5.0 mg/L [facility] Blood 07/31/2025 11:4 3 AM CDT 07/31/2025 12:32 PM CDT us Sunny Gutiérrez MD PhD LAB BLOOD ORDERABLE S Final Result Performing Organization Address [facility] Co de Phone Number [facility] * [...] AM CDT 07/31/2025 12:32 PM CDT Result [facility] Sunny Gutiérrez MD PhD LAB BLOOD ORDERABLE S Final Result Performing Organization Address City/[facility]/ZIP Co de Phone Number [facility] * DEXA SCAN (12/15/2024 2:18 PM METAL RIVETING MACHINE OPERATOR) Historical Provider HEALTH MAINTENANCE Final Result * COLONOSCOPY (03/10/2024) Historical Provider HEALTH MAINTENANCE Final Result * Hepatitis C antibody (02/28/2021 10:24 AM CDT) Hep C Ab Nonreactive Nonreactive [facility] Comment:Antibodies to HCV no t detected. Does NOT exclude the possibility of recent exposure to HCV. Blood specimen (specimen) 02/28/2021 10:24 AM CDT 02/28/2021 10:24 AM CDT Edmond Schofield MD LAB MICROBIOLOGY - GENER AL ORDERABLES Edited Result - Final [facility] [place] [address] from Last 3 Months or Most Recently Relevant to Health Maintenance Insurance [facility] [employer] [facility] PPO [facility] [employer] [facility] PPO Advance Directives For more information, please contact: [phone] * Full Code (Latest Code Status on File) Date Activated Date Inactivated Comments 10/13/2024 11:13 AM 10/13/2024 6:12 PM * Full Code Date Activated Date Inactivated Comments 09/20/2023 10:13 AM 09/20/2023 5:31 PM * Full Code Date Activated Date Inactivated Comments 09/09/2020 11:13 AM 09/10/2020 9:26 AM Care Teams Private Duty Lpn Relationship Specialty Start Date End Date Rayray Lopez MD [address] [place], [place] [id number] PCP - General Family Practice 12/18/24 Tre Cyr MD [address] [place] [address] Consulting Physician Cardiology 11/09/22 Mariola Mccoy MD [address] [place], [place] [id number] Consulting Physician Rheumatology 11/09/22 Sunny Gutiérrez MD PhD [address] [place], [place] [id number] Consulting Physician Internal Medicine 02/15/23
[2025-08-27 10:22] LABS: Hematocrit 35.9 % (37.0-47.0); Hemoglobin 11.4 g/dL (12.0-15.0); Immature Granulocyte Percent A 1.5 % (0-0.5); Lymphocytes Absolute Auto 1.55 K/mm3 (0.9-3.2); Mean Corpuscular HGB Conc 31.8 g/dl (32-36); Mean Corpuscular Hemoglobin 30.2 pg (26-34); Mean Corpuscular Volume 95.2 fl (80-100); Nucleated Red Blood Cells Absolute Auto 0.000 K/mm3 (0.0-0.012); Nucleated Red Blood Cells Perc 0.0 % (0.0-0.2); Platelet Count Result 237 k/mm3 (150-375); Red Blood Count 3.77 M/mm3 (4.2-5.4); White Blood Count 17.9 K/mm3 (4.5-10.0)
[2025-08-27 11:13] VITALS: BP 142/92; PULSE 88; RESP 14; O2SAT 98
[2025-08-27 11:22] LABS: CRP 14.0 mg/dL (<1.0)
[2025-08-27] MEDS: VANCOMYCIN 1,250 MG/NS 250 ML BAG 166.67 MG IVPB (12:06)
--- NOTE | 2025-08-27 12:51 | PM.IMHP ---
H&P: HPI History of Present Illness Date/Time: 08/27/25 12:51 Chief Complaint: Abscess left forearm Narrative: 75-year-old female with past medical history of RA, JOSÉ, COPD, heart failure, CABG, left breast subareolar mass presents to the ED on 08/27/2025 with complaints of abscess/cellulitis to her left forearm. Patient saw Dr. Case this morning for a preop appointment regarding her left breast mass. She has surgery planned on 09/05. The patient was directed to the ED by her breast surgeon for further treatment of the abscess. Patient states it started about 3 days ago as a small pimple like lesion that she try to drain herself. She was seen at urgent care yesterday and prescribed Augmentin. The abscess has been draining some purulence, serosanguineous fluid on its own. It is sore to touch and warm. Some streaking noted in the ED. Patient denies any trauma or injury to the area. She denies fevers, chills, or any previous abscesses or MRSA infections. Bedside I&D in the ED with packing placed. Initial vital signs 142/92, 82 heart rate, respirations 16, patient afebrile and 95% on room air Labs revealed leukocytosis with left shift, ESR 123, CRP 14 ECG shows sinus rhythm with left ventricular hypertrophy and ST changes, likely old possible anterior AR Left forearm CT (post I&D) shows skin thickening and subcutaneous edema extending along the posterior and ulnar side of the left forearm from elbow to the wrist consistent with cellulitis. No well-defined peripheral enhancing wall to suggest organized abscess, area of phalegmonous change progressing towards abscess formation. 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 Elevated glucose level COVID-19 History of stillbirth Bartholin gland cyst (~01/2021) Excised Rheumatoid arthritis Bartholin's gland cyst Removed 09/02/21 Obstructive sleep apnea Screening for breast cancer Anemia, unspecified Chronic obstructive pulmonary disease, unspecified Essential (primary) hypertension Gastro-esophageal reflux disease without esophagitis Heart failure, unspecified Polyosteoarthritis, unspecified Pure hypercholesterolemia Surgical History Surgical History History of cataract extraction S/P partial hysterectomy S/P cholecystectomy Hx of CABG 2 vessel Family History Family History (Updated 08/27/25 @ 14:29 by Atif Ulloa RN) Mother Family history of coronary artery disease Patient's father is Father Acute myocardial infarction Patient's father is Son Acute myocardial infarction Patient's father is Social History Social History Social History: The patient is . She lives with her son who is rarely at home. She did have 4 children. 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 The patient states that she is a lifelong nonsmoker. She does not use any alcohol marijuana or illicit drugs. The patient does not have a durable power civil attorney but may consider her sister being her power civil attorney. Code status full code Smoking status: Never smoker Second hand tobacco smoke exposure: No Alcohol intake: never Substance use: never Substance use type: does not use Do You Feel Safe in your Home?: Yes Lack of Transportation: No Lack of Food: Never True Current Housing: I Have Housing Concerned About Future Housing: No Difficulty Paying Gas/Electric Bills: No Difficulty Paying for Meds: No Education: High School Diploma/GED Difficulty w/ Childcare or Family Care: No Living arrangements: with family Spiritual care concerns: No Meds Home Medications and Allergies Home Medications ?Medication ?Instructions ?Recorded ?Confirmed ?Type aspirin 81 mg tablet,delayed 81 mg PO DAILY 12/19/20 08/27/25 History release (Adult Aspirin Regimen) methotrexate sodium 2.5 mg tablet 20 mg PO WEEKLY 12/19/20 08/27/25 History acetaminophen 650 mg 650 mg PO Q8H PRN Pain 07/23/21 08/27/25 History tablet,extended release calcium carbonate (Calcium 600) 600 mg PO BID 07/23/21 08/27/25 History folic acid 1 mg tablet 1 mg PO DAILY 07/23/21 08/27/25 History diclofenac sodium 1 % topical gel 4 g topical QID PRN Pain 02/29/24 08/27/25 History nitroglycerin 0.4 mg sublingual 0.4 mg sublingual Q5-15M PRN Chest 02/29/24 08/27/25 History tablet Pain peg 400-propylene glycol 0.4 %-0.3 2 drp ophthalmic (eye) BID 02/29/24 08/27/25 History % eye gel drops (Systane Gel) docusate sodium 50 mg tablet 100 mg PO BID 12/08/24 08/27/25 History hydroxychloroquine 200 mg tablet 400 mg PO DAILY 12/08/24 08/27/25 History (Plaquenil) psyllium husk 3 gram/3 gram oral 30 g PO DAILY #340 grams 12/08/24 08/27/25 Rx powder albuterol sulfate 90 mcg/actuation 1 puff inhalation Q4H PRN 02/07/25 08/27/25 Rx aerosol inhaler (Proventil HFA) shortness of breath or wheezing #18 grams carvedilol 6.25 mg tablet See Rx Instructions .Route 02/07/25 08/27/25 Rx .COMPLEX #180 tabs fluticasone propionate 50 2 spray intranasal DAILY #16 grams 02/07/25 08/27/25 Rx mcg/actuation nasal spray,suspension magnesium hydroxide 400 mg/5 mL 5 ml PO DAILY PRN constipation 02/07/25 08/27/25 Rx oral suspension (Milk of Magnesia) #3,000 mL pantoprazole 40 mg tablet,delayed 40 mg PO DAILY #90 tabs 02/07/25 08/27/25 Rx release spironolactone 25 mg tablet See Rx Instructions .Route 02/07/25 08/27/25 Rx .COMPLEX #180 tabs clopidogrel 75 mg tablet See Rx Instructions .Route 07/02/25 08/27/25 Rx .COMPLEX #90 tabs atorvastatin 40 mg tablet See Rx Instructions .Route 07/30/25 08/27/25 Rx .COMPLEX #90 tabs furosemide 40 mg tablet See Rx Instructions .Route 07/30/25 08/27/25 Rx .COMPLEX #180 tabs Allergies Allergy/AdvReac Type Severity Reaction Status Date / Time Sulfa (Sulfonamide AdvReac Intermediate Nausea Verified 08/27/25 14:23 Antibiotics) Vital Signs Vital Signs - 24 hr 08/27/25 09:38 08/27/25 11:13 Temperature 98.0 F Pulse Rate 82 88 Respiratory Rate 16 14 Blood Pressure 142/92 H 142/92 H Pulse Oximetry 95 98 Exam Narrative: GENERAL: non-toxic appearing, in no acute distress. HEAD: Normocephalic, atraumatic. EYES: PERRLA. Conjunctivae clear. NOSE: Normal no drainage. THROAT: Pharynx clear, no exudate. NECK: Trachea midline. No adenopathy, no masses. RESPIRATORY: Airway patent, respirations nonlabored. CTA. CARDIOVASCULAR: Regular rate and rhythm. Distal pulses intact BREASTS: Defer GASTROINTESTINAL: Abdomen is soft and nontender. No organomegaly. Bowel sounds normal in all quadrants. GENITOURINARY: Defer MUSCULOSKELETAL: Moves all extremities. No gross deformities. No calf tenderness. SKIN: Warm, dry, normal color with exception of left arm. Left lateral forearm abscess with central opening status I&D. Tender to palpation. Erythema and edema extend distally to the wrist in proximally to mid bicep area. Pulses intact. Sensation intact NEURO: A&O X4. Speech clear PSYCHIATRIC: Normal interaction H&P: Results Labs Labs: Short CBC 08/27/25 Range/Units 09:58 WBC 17.9 H (4.5-10.0) K/mm3 Hgb 11.4 L (12.0-15.0) g/dL Hct 35.9 L (37.0-47.0) % Plt Count 237 (150-375) k/mm3 Assessment and Plan Assessment and plan (1) Cellulitis and abscess of upper extremity: Code(s): L03.119 - Cellulitis of unspecified part of limb; L02.419 - Cutaneous abscess of limb, unspecified Status: Acute Assessment and Plan: Complaints of abscess/cellulitis to her left forearm. Patient states it started about 3 days ago as a small pimple like lesion that she try to drain herself. She was seen at urgent care yesterday and prescribed Augmentin. The abscess has been draining some purulence, serosanguineous fluid on its own. Left forearm CT (post I&D) shows skin thickening and subcutaneous edema extending along the posterior and ulnar side of the left forearm from elbow to the wrist consistent with cellulitis. No well-defined peripheral enhancing wall to suggest organized abscess, area of phalegmonous change progressing towards abscess formation. -bedside I&D in the ED with small amount of purulence expressed. Packed with 1/4 in iodoform gauze -vancomycin started on 09/23 -blood cultures pending -wound cultures pending -general surgery consult for further recommendations -trend CBC, renal function -wound care consult (2) Essential (primary) hypertension: Code(s): I10 - Essential (primary) hypertension Status: Chronic Assessment and Plan: BP 142/92 on admit -continue carvedilol (3) Subareolar lump of left breast: Code(s): N63.42 - Unspecified lump in left breast, subareolar Status: Acute Assessment and Plan: Follow-up with Dr. Case as planned. No need for inpatient intervention. (4) Heart failure, unspecified: Qualifiers: Heart failure chronicity: chronic Heart failure type: unspecified Qualified Code(s): I50.9 - Heart failure, unspecified Code(s): I50.9 - Heart failure, unspecified Status: Acute Assessment and Plan: Not in acute exacerbation -continue Lasix, spironolactone (5) Rheumatoid arthritis: Qualifiers: Rheumatoid arthritis location: unspecified site Rheumatoid factor presence: with rheumatoid factor Qualified Code(s): M05.9 - Rheumatoid arthritis with rheumatoid factor, unspecified Code(s): M06.9 - Rheumatoid arthritis, unspecified Status: Acute Assessment and Plan: Continue Plaquenil 400 mg daily. Resume methotrexate at home Plan Diet: Regular GI prophylaxis: NA DVT prophylaxis: SCDs lines/drains: PIV Fluids: NA Code status: Full Quality VTE Prophylaxis VTE prophylaxis: mechanical ordered Hospitalist MIPS Advance Care Plan I have confirmed that the patient's Advanced Care Plan is present, code status is documented, or surrogate decision maker is listed in patient medical record.: Yes Medication Reconciliation I have utilized all available resources to obtain, update and review the patients current medications (includes all prescriptions, OTC, herbals, cannabis, and nutritional supplements).: Yes
--- NOTE | 2025-08-27 13:37 | WPDCN ---
Assessment and Plan Assessment and plan (1) Cellulitis and abscess of upper extremity: Code(s): L03.119 - Cellulitis of unspecified part of limb; L02.419 - Cutaneous abscess of limb, unspecified Status: Acute Assessment and Plan: Patient presented to the ED today with a left forearm abscess present for the last 3-4 days. She was seen at breast surgery office today for preop appointment for excisional biopsy when she was instructed by her provider to come to the ED to have arm abscess and cellulitis evaluated. Patient does not recall any bug bite or trauma to the area. States she initially thought it was a pimple and attempted to squeeze out fluid with no sucess until yesterday when it started draining. Workup in the ED demonstrated a WBC of 17.9. CT showed a prominent synovitis along dorsal and ulnar sides of the forearm surrounding a small superficial subcutaneous region of phlegmonous change progressing towards abscess but without a well defined organized peripheral enhancing wall. ED provider was able to I&D the abscess and culture it. Upon exam, the left forearm has evident cellulitis throughout anterior aspect extending from wrist to mid biceps area. Reactive epitrochlear lymph node. Abscess packed with 1/4 in iodoform gauze. Patient being admitted to hospitalist service. Continue IV vancomycin. Cultures pending. Will continue to follow up with serial exams and labs. Wound care consulted to evaluate abscess. Regular diet. Plan Discussed patient's case and plan of care with Dr. Osorio. HPI Data of Consult Date/Time: 08/27/25 13:37 Requesting Physician: Sandra Ly MD Primary Care Provider: Lidia Mathews APRN Consult Narrative Reason for consult: abscess/cellulitis L forearm Narrative: Aurea Colvin is a 75 year old female who presented to the ED today with a L forearm abscess and cellulitis. She was seen this morning at Dr. Case's office for a preop evaluation for excisional biopsy of left breast subareolar mass and was instructed to present to the ED for evaluation of left forearm. Patient denies any known bug bites or trauma to the area. She states that she first noticed it last last week on /Wednesday and initially thought that it was a pimple. She manipulated it and attempted to squeeze fluid out. No drainage noted until yesterday. Denies any fever, but endorses some nausea yesterday. States that she was very swollen down into her finger tips and had some numbness and tingling that has since resolved. Still able to move fingers, wrist, and elbow. Labs revealed leukocytosis of 17.9. Afebrile. Forearm CT demonstrated prominent synovitis along the dorsal and ulnar sides of the forearm surrounding a small superficial subcutaneous region of phlegmonous change progressing towards abscess but without a well defined organized peripheral enhancing wall. ED provider performed I&D and was able to express a few CCs of purulent fluid. Cultures sent and pending. Patient being admitted to hospitalist service. General surgery team consulted for workup of abscess and cellulitis. 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 Elevated glucose level COVID-19 History of stillbirth Bartholin gland cyst (~01/2021) Excised Rheumatoid arthritis Bartholin's gland cyst Removed 09/02/21 Obstructive sleep apnea Screening for breast cancer Anemia, unspecified Chronic obstructive pulmonary disease, unspecified Essential (primary) hypertension Gastro-esophageal reflux disease without esophagitis Heart failure, unspecified Polyosteoarthritis, unspecified Pure hypercholesterolemia Surgical History Surgical History History of cataract extraction S/P partial hysterectomy S/P cholecystectomy Hx of CABG 2 vessel Family History Family History Mother Family history of coronary artery disease Father Patient's father is Acute myocardial infarction Son Acute myocardial infarction Social History Social History Social History: The patient is . She lives with her son who is rarely at home. She did have 4 children. 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 The patient states that she is a lifelong nonsmoker. She does not use any alcohol marijuana or illicit drugs. The patient does not have a durable power mergers and acquisitions attorney but may consider her sister being her power mergers and acquisitions attorney. Code status full code Smoking status: Never smoker Second hand tobacco smoke exposure: No Alcohol intake: never Substance use: never Substance use type: does not use Do You Feel Safe in your Home?: Yes Lack of Transportation: No Lack of Food: Never True Current Housing: I Have Housing Concerned About Future Housing: No Difficulty Paying Gas/Electric Bills: No Difficulty Paying for Meds: No Education: High School Diploma/GED Difficulty w/ Childcare or Family Care: No Living arrangements: with family Spiritual care concerns: No Meds Home Medications and Allergies Home Medications ?Medication ?Instructions ?Recorded ?Confirmed ?Type aspirin 81 mg tablet,delayed 81 mg PO DAILY 12/19/20 08/27/25 History release (Adult Aspirin Regimen) methotrexate sodium 2.5 mg tablet 20 mg PO WEEKLY 12/19/20 08/27/25 History acetaminophen 650 mg 650 mg PO Q8H PRN Pain 07/23/21 08/27/25 History tablet,extended release calcium carbonate (Calcium 600) 600 mg PO BID 07/23/21 08/27/25 History folic acid 1 mg tablet 1 mg PO DAILY 07/23/21 08/27/25 History diclofenac sodium 1 % topical gel 4 g topical QID PRN Pain 02/29/24 08/27/25 History nitroglycerin 0.4 mg sublingual 0.4 mg sublingual Q5-15M PRN Chest 02/29/24 08/27/25 History tablet Pain peg 400-propylene glycol 0.4 %-0.3 2 drp ophthalmic (eye) BID 02/29/24 08/27/25 History % eye gel drops (Systane Gel) docusate sodium 50 mg tablet 100 mg PO BID 12/08/24 08/27/25 History hydroxychloroquine 200 mg tablet 400 mg PO DAILY 12/08/24 08/27/25 History (Plaquenil) psyllium husk 3 gram/3 gram oral 30 g PO DAILY #340 grams 12/08/24 08/27/25 Rx powder albuterol sulfate 90 mcg/actuation 1 puff inhalation Q4H PRN 02/07/25 08/27/25 Rx aerosol inhaler (Proventil HFA) shortness of breath or wheezing #18 grams carvedilol 6.25 mg tablet See Rx Instructions .Route 02/07/25 08/27/25 Rx .COMPLEX #180 tabs fluticasone propionate 50 2 spray intranasal DAILY #16 grams 02/07/25 08/27/25 Rx mcg/actuation nasal spray,suspension magnesium hydroxide 400 mg/5 mL 5 ml PO DAILY PRN constipation 02/07/25 08/27/25 Rx oral suspension (Milk of Magnesia) #3,000 mL pantoprazole 40 mg tablet,delayed 40 mg PO DAILY #90 tabs 02/07/25 08/27/25 Rx release spironolactone 25 mg tablet See Rx Instructions .Route 02/07/25 08/27/25 Rx .COMPLEX #180 tabs clopidogrel 75 mg tablet See Rx Instructions .Route 07/02/25 08/27/25 Rx .COMPLEX #90 tabs atorvastatin 40 mg tablet See Rx Instructions .Route 07/30/25 08/27/25 Rx .COMPLEX #90 tabs furosemide 40 mg tablet See Rx Instructions .Route 07/30/25 08/27/25 Rx .COMPLEX #180 tabs Allergies Allergy/AdvReac Type Severity Reaction Status Date / Time Sulfa (Sulfonamide AdvReac Intermediate Nausea Verified 08/27/25 14:23 Antibiotics) Vital Signs Vital Signs - 24 hr 08/27/25 09:38 08/27/25 11:13 Temperature 98.0 F Pulse Rate 82 88 Respiratory Rate 16 14 Blood Pressure 142/92 H 142/92 H Pulse Oximetry 95 98 Exam Const: General: comfortable and no acute distress Eyes: General: appearance normal, both eyes and all related structures Neck: Neck: supple Resp: Effort & Inspection: normal respiratory effort Cardio: Rate: regular rate Neuro: Speech: normal speech Extrem: Elbow/forearm/wrist images:  1. Left lateral forearm abscess. Roughly 3 x 3.5 cm area of purple discoloration and induration. Central opening with serosanguineous drainage s/p I&D. Small amount of undermining. Superficial skin sloughing surrounding central area. Skin appears to be ischemic, but not yet necrotic. Exquisitely tender to palpation. Surrounding erythema and skin tightening to anterior forearm down to wrist. Erythema and edema tracking up to medial bicep area. Small nodule with surrounding edema to just above medial elbow resembling reactive epitrochlear lymph node. Sensation intact to all distal phalanges. Strong brachial and radial pulses. Good manager educational strength. Good capillary refill. Psych: Mental Status: mental status grossly normal Results Labs 08/27/25 09:58 Labs: Short CBC 08/27/25 Range/Units 09:58 WBC 17.9 H (4.5-10.0) K/mm3 Hgb 11.4 L (12.0-15.0) g/dL Hct 35.9 L (37.0-47.0) % Plt Count 237 (150-375) k/mm3 Imaging Radiologist's impression: ITS Impressions Forearm CT 08/27/25 12:17 IMPRESSION: 1. Prominent synovitis along the dorsal and ulnar sides of the forearm surrounding a small superficial subcutaneous region of phlegmonous change progressing towards abscess but without a well defined organized peripheral enhancing wall.
[2025-08-27] MEDS: ACETAMINOPHEN 500 MG TABLET 1000 MG PO ×2 (13:45→20:29)
[2025-08-27 13:47] VITALS: PULSE 86; RESP 14; O2SAT 95
[2025-08-27 14:19] VITALS: BMI 37.3
[2025-08-27 14:39] VITALS: BP 124/62; PULSE 83; RESP 17; TEMP 36.8; O2SAT 98
--- NOTE | 2025-08-27 15:09 | ADMGEN ---
This patient, Aurea Colvin, was admitted to [facility] Surg Room 306-02. Patient/family oriented to hospital policies and general routines including ID bracelet, bed and alarms, visiting hours, pain management, procedures, bathroom and other care routines, personal items, smoking policy, room service/diet, and visiting hours. Information on how to activate the Rapid Response Team has been discussed. Patient/Family are encouraged to report perceived risks to care and to ask questions if they do not understand what they are told or what they should do. received report from edgar.
[2025-08-27] MEDS: CALCIUM CARBONATE (OSCAL) 500 MG TABLET PO (16:25)
[2025-08-27] MEDS: FUROSEMIDE 40 MG TABLET BY MOUTH (16:25)
[2025-08-27] MEDS: SPIRONOLACTONE 25 MG TABLET BY MOUTH (16:25)
[2025-08-27] MEDS: DOCUSATE SODIUM 100 MG CAPSULE PO (20:30)
[2025-08-27] MEDS: ATORVASTATIN 40 MG TABLET BY MOUTH (20:31)
[2025-08-27] MEDS: ARTIFICIAL TEARS OPHTH SOLN 15 ML BOTTLE 2 DROP EACH EYE (20:31)
[2025-08-27 21:44] VITALS: BP 123/59; PULSE 77; RESP 20; TEMP 36.1; O2SAT 99
[2025-08-28 05:17] VITALS: BP 132/62; PULSE 76; RESP 20; TEMP 36.2; O2SAT 99
[2025-08-28 06:12] LABS: Hematocrit 37.5 % (37.0-47.0); Hemoglobin 11.7 g/dL (12.0-15.0); Immature Granulocyte Percent A 1.5 % (0-0.5); Lymphocytes Absolute Auto 1.02 K/mm3 (0.9-3.2); Mean Corpuscular HGB Conc 31.2 g/dl (32-36); Mean Corpuscular Hemoglobin 30.0 pg (26-34); Mean Corpuscular Volume 96.2 fl (80-100); Nucleated Red Blood Cells Absolute Auto 0.000 K/mm3 (0.0-0.012); Nucleated Red Blood Cells Perc 0.0 % (0.0-0.2); Platelet Count Result 244 k/mm3 (150-375); Red Blood Count 3.90 M/mm3 (4.2-5.4); White Blood Count 13.8 K/mm3 (4.5-10.0)
[2025-08-28 06:56] LABS: Alanine Aminotransferase 21 U/L (6-35); Albumin Level 3.8 g/dL (3.5-5.1); Alkaline Phosphatase 69 U/L (38-126); Anion Gap 10 mmol/L (4-12); Aspartate Amino Transferase 21 U/L (14-36); Bilirubin,Total 0.5 mg/dL (0.2-1.3); Blood Urea Nitrogen 19 mg/dL (7-17); Calcium 9.0 mg/dL (8.4-10.2); Carbon Dioxide 28 mmol/L (22-30); Chloride 99 mmol/L (98-107); Estimated CRCL calculation 51 ml/min; Estimated Glomerular Filt Rate > 60; Glucose 104 mg/dL (65-110); Potassium 3.8 mmol/L (3.4-5.0); Sodium 137 mmol/L (137-145); Total Protein 6.9 g/dL (6.3-8.2)
--- NOTE | 2025-08-28 07:39 | P.PNIM_ITS ---
Progress Note: A&P Assessment and Plan (1) Cellulitis and abscess of upper extremity: Code(s): L03.119 - Cellulitis of unspecified part of limb; L02.419 - Cutaneous abscess of limb, unspecified Status: Acute Assessment and Plan: Complaints of abscess/cellulitis to her left forearm. Patient states it started about 3 days ago as a small pimple like lesion that she try to drain herself. She was seen at urgent care prior to admission and prescribed Augmentin. The abscess has been draining some purulence, serosanguineous fluid on its own. -Left forearm CT (post I&D) shows skin thickening and subcutaneous edema extending along the posterior and ulnar side of the left forearm from elbow to the wrist consistent with cellulitis. No well-defined peripheral enhancing wall to suggest organized abscess, area of phlegmonous change progressing towards abscess formation. -bedside I&D in the ED with small amount of purulence expressed. Packed with 1/4 in iodoform gauze -vancomycin started on 09/23 -blood cultures pending -wound cultures pending -general surgery consulted - recommended to continue IV antibiotics for now -trend CBC, CRP, renal function. Leukocytosis improving. Afebrile. -wound care consult (2) Essential (primary) hypertension: Code(s): I10 - Essential (primary) hypertension Status: Chronic Assessment and Plan: BP stable -continue carvedilol (3) Subareolar lump of left breast: Code(s): N63.42 - Unspecified lump in left breast, subareolar Status: Acute Assessment and Plan: -Follow-up with Dr. Case as planned. No need for inpatient intervention. (4) Heart failure, unspecified: Qualifiers: Heart failure chronicity: chronic Heart failure type: unspecified Qualified Code(s): I50.9 - Heart failure, unspecified Code(s): I50.9 - Heart failure, unspecified Status: Acute Assessment and Plan: - no echo to review -Not in acute exacerbation -continue Lasix, spironolactone (5) Rheumatoid arthritis: Qualifiers: Rheumatoid arthritis location: unspecified site Rheumatoid factor presence: with rheumatoid factor Qualified Code(s): M05.9 - Rheumatoid arthritis with rheumatoid factor, unspecified Code(s): M06.9 - Rheumatoid arthritis, unspecified Status: Acute Assessment and Plan: -Continue Plaquenil 400 mg daily. Resume methotrexate at home Plan Diet: Regular DVT prophylaxis: Lovenox Code status: Full Subjective Date/time seen: 08/28/25 07:39 Interval history: Patient seen and examined at bedside. Still with swelling around I&D site with purulent drainage. Cellulitis and swelling is improved per patients. Review of Systems Review of Systems: All systems reviewed & are unremarkable except as noted in HPI and below Exam Narrative: General: NAD Eyes: EOMI ENT: neck supple Cardiovascular: Regular rate and rhythm Respiratory: Clear to auscultation, respirations even and unlabored on RA Gastrointestinal: Soft, non tender Genitourinary: no suprapubic tenderness Musculoskeletal: No edema Skin: warm, dry. L forearm I&D site with mild amount of surrounding induration and erythema with purulent drainage. Tenderness to palpation of the I&D site and surrounding area. Neuro: Alert. Psych: Mood appropriate Objective Data Vital Signs Vital Signs: Vital Signs - 24 hr 08/27/25 09:38 08/27/25 11:13 08/27/25 13:47 Temperature 98.0 F Pulse Rate 82 88 86 Respiratory Rate 16 14 14 Blood Pressure 142/92 H 142/92 H Pulse Oximetry 95 98 95 Oxygen Delivery 08/27/25 13:55 08/27/25 14:39 08/27/25 21:44 Temperature 98.2 F 97.0 F L Pulse Rate 83 77 Respiratory Rate 17 20 Blood Pressure 124/62 123/59 L Pulse Oximetry 98 99 Oxygen Delivery Room Air 08/28/25 05:17 Temperature 97.2 F L Pulse Rate 76 Respiratory Rate 20 Blood Pressure 132/62 Pulse Oximetry 99 Oxygen Delivery Intake/Output Intake/Output: Intake & Output 08/25/25 08/26/25 08/27/25 08/28/25 23:59 22:59 23:59 23:59 Intake Total 490 350 Balance 490 350 Meds/Results Medications: Active Medications Generic Name Dose Route Start Last Admin Trade Name Freq PRN Reason Stop Dose Admin Acetaminophen 1,000 mg 08/27/25 12:51 08/27/25 20:29 Acetaminophen 500 Mg Tablet PO 1,000 mg Q6H PRN Administration Mild Pain (1-3) or Fever Albuterol 1 puff 08/27/25 14:35 Albuterol Sulfate (*Sp) Aerosol 1 Puff INHALATION Q4H PRN Shortness Of Breath Or Wheezing Artificial Tears 2 drop 08/27/25 21:00 08/27/25 20:31 Artificial Tears Ophth Soln 15 Ml Bottle EACH EYE 2 drop Q12HR KRISTAL Administration Aspirin 81 mg 08/28/25 09:00 Aspirin 81 Mg Enteric Tablet PO DAILY KRISTAL Atorvastatin Calcium 40 mg 08/27/25 21:00 08/27/25 20:31 Atorvastatin 40 Mg Tablet BY MOUTH 40 mg HS KRISTAL Administration Calcium Carbonate 500 mg 08/27/25 17:00 08/27/25 16:25 Calcium Carbonate (Oscal) 500 Mg Tablet PO 500 mg BID KRISTAL Administration Carvedilol 6.25 mg 08/27/25 21:00 08/27/25 20:31 Carvedilol 6.25 Mg Tablet BY MOUTH 6.25 mg Q12HR KRISTAL Administration Clopidogrel Bisulfate 75 mg 08/27/25 14:35 08/27/25 15:23 Clopidogrel Bisulfate 75 Mg Tablet BY MOUTH Not Given DAILY KRISTAL Dextrose 12.5 gm 08/27/25 12:55 Dextrose 50% 25 Gm/50 Ml Syringe IV PUSH PRN PRN Hypoglycemia Protocol Docusate Sodium 100 mg 08/27/25 21:00 08/27/25 20:30 Docusate Sodium 100 Mg Capsule PO 100 mg Q12HR KRISTAL Administration Fluticasone Propionate 2 spray 08/28/25 09:00 Fluticasone Propionate 0.05% Na Spr 16 Gm Btl (*Bkc) NASAL DAILY COUNTS INCLUDE 234 BEDS AT THE [facility] Folic Acid 1 mg 08/28/25 09:00 Folic Acid 1 Mg Tablet PO DAILY COUNTS INCLUDE 234 BEDS AT THE [facility] Furosemide 40 mg 08/27/25 17:00 08/27/25 16:25 Furosemide 40 Mg Tablet BY MOUTH 40 mg BID KRISTAL Administration Glucagon 1 mg 08/27/25 12:55 Glucagon For Inj 1 Mg Vial IM PRN PRN Hypoglycemia Protocol Glucose 15 gm 08/27/25 12:55 Glucose Oral Gel 15 Gm Of Glucse In 37.5 Gm Tube PO PRN PRN Hypoglycemia Protocol Hydroxychloroquine Sulfate 400 mg 08/28/25 09:00 Hydroxychloroquine Sulfate 200 Mg Tablet PO DAILY COUNTS INCLUDE 234 BEDS AT THE [facility] Vancomycin HCl 1,250 mg in 250 mls @ 166.667 mls/hr 08/28/25 12:00 Vancomycin 1,250 Mg/Ns 250 Ml IVPB Q24H COUNTS INCLUDE 234 BEDS AT THE [facility] Dextrose 1,000 mls @ 100 mls/hr 08/27/25 12:55 Dextrose 5% 1,000 Ml IVPB PRN PRN Hypoglycemia Protocol Magnesium Hydroxide 5 ml 08/27/25 14:35 Magnesium Hydroxide Susp 30 Ml Udc PO DAILY PRN Constipation Morphine Sulfate 2 mg 08/27/25 12:51 Morphine Sulfate (*Crx) 4 Mg/Ml Inj IV PUSH Q2H PRN Pain Rated 7-10 Ondansetron HCl 4 mg 08/27/25 12:51 Ondansetron Inj 4 Mg/2 Ml Vial IV PUSH Q4H PRN Nausea Psyllium Hydrophilic Mucilloid 1 packet 08/28/25 09:00 Psyllium Powder Packet PO DAILY KRISTAL Spironolactone 25 mg 08/27/25 17:00 08/27/25 16:25 Spironolactone 25 Mg Tablet BY MOUTH 25 mg BID KRISTAL Administration Radiology Results: ITS Impressions Forearm CT 08/27/25 12:17 IMPRESSION: 1. Prominent synovitis along the dorsal and ulnar sides of the forearm surrounding a small superficial subcutaneous region of phlegmonous change progressing towards abscess but without a well defined organized peripheral enhancing wall. Labs Labs: Laboratory Results - last 24 hr 08/27/25 08/28/25 09:58 05:14 WBC 17.9 H 13.8 H RBC 3.77 L 3.90 L Hgb 11.4 L 11.7 L Hct 35.9 L 37.5 MCV 95.2 96.2 MCH 30.2 30.0 MCHC 31.8 L 31.2 L RDW 16.7 H 16.7 H Plt Count 237 244 MPV 9.5 10.1 Immature Gran % (Auto) 1.5 H 1.5 H Neut % (Auto) 73.6 H 73.9 H Lymph % (Auto) 8.7 L 7.4 L [place] % (Auto) 14.1 H 13.2 H Eos % (Auto) 1.5 3.3 Baso % (Auto) 0.6 0.7 Lymph # (Auto) 1.55 1.02 [place] # (Auto) 2.5 H 1.8 H Eos # (Auto) 0.3 0.5 H Baso # (Auto) 0.1 0.1 Abs Immat Gran (auto) 0.26 H 0.21 H Absolute Neuts (auto) 13.2 H 10.2 H Absolute Nucleated RBC 0.000 0.000 Nucleated RBC % 0.0 0.0 ESR 123 H Sodium 137 Potassium 3.8 Chloride 99 Carbon Dioxide 28 Anion Gap 10 BUN 19 H Creatinine 0.78 Estim Creat Clear Calc 51 Estimated GFR > 60 Glucose 104 Lactic Acid 1.1 Calcium 9.0 Total Bilirubin 0.5 AST 21 ALT 21 Alkaline Phosphatase 69 C-Reactive Protein 14.0 H Total Protein 6.9 Albumin 3.8 Quality VTE Prophylaxis VTE prophylaxis: mechanical ordered
[2025-08-28 08:35] VITALS: PULSE 82
[2025-08-28] MEDS: FLUTICASONE PROPIONATE 0.05% NA SPR 16 GM BTL (*BKC) 2 SPRAY NASAL (08:35)
[2025-08-28] MEDS: ARTIFICIAL TEARS OPHTH SOLN 15 ML BOTTLE 2 DROP EACH EYE (08:38)
[2025-08-28] MEDS: ENOXAPARIN 40 MG/0.4 ML SYRINGE SUB-Q (08:38)
[2025-08-28] MEDS: FOLIC ACID 1 MG TABLET PO (08:39)
[2025-08-28] MEDS: CLOPIDOGREL BISULFATE 75 MG TABLET BY MOUTH (08:39)
[2025-08-28] MEDS: SPIRONOLACTONE 25 MG TABLET BY MOUTH ×2 (08:39→16:21)
[2025-08-28] MEDS: ACETAMINOPHEN 500 MG TABLET 1000 MG PO ×2 (08:39→16:21)
[2025-08-28] MEDS: CALCIUM CARBONATE (OSCAL) 500 MG TABLET PO ×2 (08:39→16:21)
[2025-08-28] MEDS: DOCUSATE SODIUM 100 MG CAPSULE PO ×2 (08:39→20:15)
[2025-08-28] MEDS: ASPIRIN 81 MG ENTERIC TABLET PO (08:39)
[2025-08-28] MEDS: FUROSEMIDE 40 MG TABLET BY MOUTH ×2 (08:39→16:21)
[2025-08-28] MEDS: HYDROXYCHLOROQUINE SULFATE 200 MG TABLET 400 MG PO (08:44)
[2025-08-28] MEDS: PSYLLIUM POWDER PACKET 1 PACKET PO (08:44)
[2025-08-28 10:23] LABS: CRP 16.2 mg/dL (<1.0)
[2025-08-28] MEDS: VANCOMYCIN 1,250 MG/NS 250 ML 1,250 MG/250 ML BAG 166.67 MG IVPB (12:01)
[2025-08-28] MEDS: MORPHINE SULFATE (*CRX) 4 MG/ML INJ 2 MG IV PUSH (13:31)
[2025-08-28 14:00] VITALS: BP 121/81; PULSE 86; RESP 20; TEMP 36.5; O2SAT 96
--- NOTE | 2025-08-28 15:05 | P.PNGS_ITS ---
Progress Note: A&P Assessment and Plan (1) Cellulitis and abscess of upper extremity: Code(s): L03.119 - Cellulitis of unspecified part of limb; L02.419 - Cutaneous abscess of limb, unspecified Status: Acute Assessment and Plan: * Wound repacked today. Evaluated by wound care nurse who agrees to continue packing with 1/4 in iodoform and cover with ABD pad and kerlix wrap. Less erythematous and edematous than yesterday. Still fairly tender, but improved from yesterday. * Continue IV vancomycin. Abscess and blood cultures pending. * Will continue to follow up with serial exams and labs. * Regular diet. Plan Discussed patient's case and plan of care with Dr. Osorio. Subjective Subjective Date/Time Seen: 08/28/25 15:05 Patient reports: no new complaints, feels better and tolerating a regular diet Interval history: Patient doing well. Notes less pain and swelling to L arm. WBC down to 13.8. Afebrile. Exam Const: General: comfortable and no acute distress Extrem: Other: Left lateral forearm abscess appears less erythematous and edematous than yesterday. Small amount of purulent drainage expressed today. Wound repacked. Patient tolerated well. Small amount of undermining. Superficial skin sloughing surrounding central area. Skin appears to be ischemic, but less so than yesterday. fourdrinier tender, but not as muc has she was yesterday. Surrounding erythema and skin tightening seems to have improved. Epitrochlear lymph node less tender. Sensation intact to all distal phalanges. Strong brachial and radial pulses. Good credit interviewer strength. Good capillary refill. Psych: Mental Status: mental status grossly normal Objective Data Vital Signs Vital Signs: Vital Signs - 24 hr 08/27/25 21:44 08/28/25 05:17 08/28/25 08:35 Temperature 97.0 F L 97.2 F L Pulse Rate 77 76 82 Respiratory Rate 20 20 Blood Pressure 123/59 L 132/62 Pulse Oximetry 99 99 Oxygen Delivery 08/28/25 09:03 08/28/25 14:00 Temperature 97.7 F Pulse Rate 86 Respiratory Rate 20 Blood Pressure 121/81 Pulse Oximetry 96 Oxygen Delivery Room Air Intake/Output Intake/Output: Intake & Output 08/25/25 08/26/25 08/27/25 08/28/25 23:59 22:59 23:59 23:59 Intake Total 490 830 Balance 490 830 Meds/Results Medications: Active Medications Generic Name Dose Route Start Last Admin Trade Name Freq PRN Reason Stop Dose Admin Acetaminophen 1,000 mg 08/27/25 12:51 08/28/25 08:39 Acetaminophen 500 Mg Tablet PO 1,000 mg Q6H PRN Administration Mild Pain (1-3) or Fever Albuterol 1 puff 08/27/25 14:35 Albuterol Sulfate (*Sp) Aerosol 1 Puff INHALATION Q4H PRN Shortness Of Breath Or Wheezing Artificial Tears 2 drop 08/27/25 21:00 08/28/25 08:38 Artificial Tears Ophth Soln 15 Ml Bottle EACH EYE 2 drop Q12HR KRISTAL Administration Aspirin 81 mg 08/28/25 09:00 08/28/25 08:39 Aspirin 81 Mg Enteric Tablet PO 81 mg DAILY KRISTAL Administration Atorvastatin Calcium 40 mg 08/27/25 21:00 08/27/25 20:31 Atorvastatin 40 Mg Tablet BY MOUTH 40 mg HS KRISTAL Administration Calcium Carbonate 500 mg 08/27/25 17:00 08/28/25 08:39 Calcium Carbonate (Oscal) 500 Mg Tablet PO 500 mg BID KRISTAL Administration Carvedilol 6.25 mg 08/27/25 21:00 08/28/25 08:35 Carvedilol 6.25 Mg Tablet BY MOUTH 6.25 mg Q12HR KRISTAL Administration Clopidogrel Bisulfate 75 mg 08/27/25 14:35 08/28/25 08:39 Clopidogrel Bisulfate 75 Mg Tablet BY MOUTH 75 mg DAILY KRISTAL Administration Dextrose 12.5 gm 08/27/25 12:55 Dextrose 50% 25 Gm/50 Ml Syringe IV PUSH PRN PRN Hypoglycemia Protocol Docusate Sodium 100 mg 08/27/25 21:00 08/28/25 08:39 Docusate Sodium 100 Mg Capsule PO 100 mg Q12HR KRISTAL Administration Enoxaparin Sodium 40 mg 08/28/25 09:00 08/28/25 08:38 Enoxaparin 40 Mg/0.4 Ml Syringe SUB-Q 40 mg DAILY KRISTAL Administration Fluticasone Propionate 2 spray 08/28/25 09:00 08/28/25 08:35 Fluticasone Propionate 0.05% Na Spr 16 Gm Btl (*Bkc) NASAL 2 spray DAILY KRISTAL Administration Folic Acid 1 mg 08/28/25 09:00 08/28/25 08:39 Folic Acid 1 Mg Tablet PO 1 mg DAILY KRISTAL Administration Furosemide 40 mg 08/27/25 17:00 08/28/25 08:39 Furosemide 40 Mg Tablet BY MOUTH 40 mg BID KRISTAL Administration Glucagon 1 mg 08/27/25 12:55 Glucagon For Inj 1 Mg Vial IM PRN PRN Hypoglycemia Protocol Glucose 15 gm 08/27/25 12:55 Glucose Oral Gel 15 Gm Of Glucse In 37.5 Gm Tube PO PRN PRN Hypoglycemia Protocol Hydroxychloroquine Sulfate 400 mg 08/28/25 09:00 08/28/25 08:44 Hydroxychloroquine Sulfate 200 Mg Tablet PO 400 mg DAILY KRISTAL Administration Vancomycin HCl 1,250 mg in 250 mls @ 166.667 mls/hr 08/28/25 12:00 08/28/25 12:01 Vancomycin 1,250 Mg/Ns 250 Ml IVPB 166.67 mls/hr Q24H KRISTAL Administration Dextrose 1,000 mls @ 100 mls/hr 08/27/25 12:55 Dextrose 5% 1,000 Ml IVPB PRN PRN Hypoglycemia Protocol Magnesium Hydroxide 5 ml 08/27/25 14:35 Magnesium Hydroxide Susp 30 Ml Udc PO DAILY PRN Constipation Morphine Sulfate 2 mg 08/27/25 12:51 08/28/25 13:31 Morphine Sulfate (*Crx) 4 Mg/Ml Inj IV PUSH 2 mg Q2H PRN Administration Pain Rated 7-10 Ondansetron HCl 4 mg 08/27/25 12:51 Ondansetron Inj 4 Mg/2 Ml Vial IV PUSH Q4H PRN Nausea Psyllium Hydrophilic Mucilloid 1 packet 08/28/25 09:00 08/28/25 08:44 Psyllium Powder Packet PO 1 packet DAILY KRISTAL Administration Spironolactone 25 mg 08/27/25 17:00 08/28/25 08:39 Spironolactone 25 Mg Tablet BY MOUTH 25 mg BID KRISTAL Administration Radiology Results: ITS Impressions Forearm CT 08/27/25 12:17 IMPRESSION: 1. Prominent synovitis along the dorsal and ulnar sides of the forearm surrounding a small superficial subcutaneous region of phlegmonous change progressing towards abscess but without a well defined organized peripheral enhancing wall. Labs Labs: Laboratory Results - last 24 hr 08/28/25 05:14 WBC 13.8 H RBC 3.90 L Hgb 11.7 L Hct 37.5 MCV 96.2 MCH 30.0 MCHC 31.2 L RDW 16.7 H Plt Count 244 MPV 10.1 Immature Gran % (Auto) 1.5 H Neut % (Auto) 73.9 H Lymph % (Auto) 7.4 L [place] % (Auto) 13.2 H Eos % (Auto) 3.3 Baso % (Auto) 0.7 Lymph # (Auto) 1.02 [place] # (Auto) 1.8 H Eos # (Auto) 0.5 H Baso # (Auto) 0.1 Abs Immat Gran (auto) 0.21 H Absolute Neuts (auto) 10.2 H Absolute Nucleated RBC 0.000 Nucleated RBC % 0.0 Sodium 137 Potassium 3.8 Chloride 99 Carbon Dioxide 28 Anion Gap 10 BUN 19 H Creatinine 0.78 Estim Creat Clear Calc 51 Estimated GFR > 60 Glucose 104 Calcium 9.0 Total Bilirubin 0.5 AST 21 ALT 21 Alkaline Phosphatase 69 C-Reactive Protein 16.2 H Total Protein 6.9 Albumin 3.8
--- NOTE | 2025-08-28 17:11 | PCRCNOTE ---
asked pt if she would like to wear her own cpap or use one of ours while she is here, she declined both.
[2025-08-28 20:15] VITALS: PULSE 76
[2025-08-28] MEDS: ATORVASTATIN 40 MG TABLET BY MOUTH (20:15)
[2025-08-28 20:19] VITALS: BP 118/49; PULSE 73; RESP 18; TEMP 36.6; O2SAT 97
[2025-08-29 06:00] VITALS: BP 123/55; PULSE 76; RESP 18; TEMP 36.4; O2SAT 96
[2025-08-29 06:37] LABS: Hematocrit 34.5 % (37.0-47.0); Hemoglobin 10.7 g/dL (12.0-15.0); Immature Granulocyte Percent A 2.4 % (0-0.5); Lymphocytes Absolute Auto 1.36 K/mm3 (0.9-3.2); Mean Corpuscular HGB Conc 31.0 g/dl (32-36); Mean Corpuscular Hemoglobin 30.0 pg (26-34); Mean Corpuscular Volume 96.6 fl (80-100); Nucleated Red Blood Cells Absolute Auto 0.000 K/mm3 (0.0-0.012); Nucleated Red Blood Cells Perc 0.0 % (0.0-0.2); Platelet Count Result 265 k/mm3 (150-375); Red Blood Count 3.57 M/mm3 (4.2-5.4); White Blood Count 9.7 K/mm3 (4.5-10.0)
[2025-08-29 07:01] LABS: Alanine Aminotransferase 23 U/L (6-35); Albumin Level 4.1 g/dL (3.5-5.1); Alkaline Phosphatase 60 U/L (38-126); Anion Gap 7 mmol/L (4-12); Aspartate Amino Transferase 27 U/L (14-36); Bilirubin,Total 0.2 mg/dL (0.2-1.3); Blood Urea Nitrogen 21 mg/dL (7-17); Calcium 9.0 mg/dL (8.4-10.2); Carbon Dioxide 28 mmol/L (22-30); Chloride 102 mmol/L (98-107); Estimated CRCL calculation 48 ml/min; Estimated Glomerular Filt Rate > 60; Glucose 128 mg/dL (65-110); Potassium 4.0 mmol/L (3.4-5.0); Sodium 137 mmol/L (137-145); Total Protein 7.5 g/dL (6.3-8.2)
[2025-08-29 07:15] LABS: CRP 11.5 mg/dL (<1.0)
--- NOTE | 2025-08-29 07:55 | P.PNIM_ITS ---
Progress Note: A&P Assessment and Plan (1) Cellulitis and abscess of upper extremity: Code(s): L03.119 - Cellulitis of unspecified part of limb; L02.419 - Cutaneous abscess of limb, unspecified Status: Acute Assessment and Plan: Complaints of abscess/cellulitis to her left forearm. Patient states it started about 3 days ago as a small pimple like lesion that she try to drain herself. She was seen at urgent care prior to admission and prescribed Augmentin. The abscess has been draining some purulence, serosanguineous fluid on its own. -Left forearm CT (post I&D) shows skin thickening and subcutaneous edema extending along the posterior and ulnar side of the left forearm from elbow to the wrist consistent with cellulitis. No well-defined peripheral enhancing wall to suggest organized abscess, area of phlegmonous change progressing towards abscess formation. -bedside I&D in the ED with small amount of purulence expressed. Packed with 1/4 in iodoform gauze -vancomycin started on 09/23 -blood cultures pending -wound cultures pending -general surgery consulted - recommended to continue IV antibiotics for now -trend CBC, CRP, renal function. Leukocytosis improving. Afebrile. -wound care consult (2) Essential (primary) hypertension: Code(s): I10 - Essential (primary) hypertension Status: Chronic Assessment and Plan: BP stable -continue carvedilol (3) Subareolar lump of left breast: Code(s): N63.42 - Unspecified lump in left breast, subareolar Status: Acute Assessment and Plan: -Follow-up with Dr. Case as planned. No need for inpatient intervention. (4) Heart failure, unspecified: Qualifiers: Heart failure chronicity: chronic Heart failure type: unspecified Qualified Code(s): I50.9 - Heart failure, unspecified Code(s): I50.9 - Heart failure, unspecified Status: Acute Assessment and Plan: - no echo to review -Not in acute exacerbation -continue Lasix, spironolactone (5) Rheumatoid arthritis: Qualifiers: Rheumatoid arthritis location: unspecified site Rheumatoid factor presence: with rheumatoid factor Qualified Code(s): M05.9 - Rheumatoid arthritis with rheumatoid factor, unspecified Code(s): M06.9 - Rheumatoid arthritis, unspecified Status: Acute Assessment and Plan: -Continue Plaquenil 400 mg daily. Resume methotrexate at home Plan Diet: Regular DVT prophylaxis: Lovenox Code status: Full Subjective Date/time seen: 08/29/25 07:55 Interval history: Patient seen at bedside during examination. Still continues to have purulent drainage with swelling around to I&D site. Leukocytosis has resolved. Remains afebrile. Blood and wound culture still pending. Review of Systems Review of Systems: All systems reviewed & are unremarkable except as noted in HPI and below Exam Narrative: General: NAD Eyes: EOMI ENT: neck supple Cardiovascular: Regular rate and rhythm Respiratory: Clear to auscultation, respirations even and unlabored on RA Gastrointestinal: Soft, non tender Genitourinary: no suprapubic tenderness Musculoskeletal: No edema Skin: warm, dry. L forearm I&D site with mild amount of surrounding induration and erythema with purulent drainage. Tenderness to palpation of the I&D site and surrounding area. Neuro: Alert. Psych: Mood appropriate Objective Data Vital Signs Vital Signs: Vital Signs - 24 hr 08/28/25 08:35 08/28/25 09:03 08/28/25 14:00 Temperature 97.7 F Pulse Rate 82 86 Respiratory Rate 20 Blood Pressure 121/81 Pulse Oximetry 96 Oxygen Delivery Room Air 08/28/25 20:15 08/28/25 20:19 08/29/25 06:00 Temperature 97.9 F 97.6 F Pulse Rate 76 73 76 Respiratory Rate 18 18 Blood Pressure 118/49 L 123/55 L Pulse Oximetry 97 96 Oxygen Delivery Intake/Output Intake/Output: Intake & Output 08/26/25 08/27/25 08/28/25 08/29/25 22:59 23:59 23:59 23:59 Intake Total 490 2070 Balance 490 2070 Meds/Results Medications: Active Medications Generic Name Dose Route Start Last Admin Trade Name Freq PRN Reason Stop Dose Admin Acetaminophen 1,000 mg 08/27/25 12:51 08/28/25 16:21 Acetaminophen 500 Mg Tablet PO 1,000 mg Q6H PRN Administration Mild Pain (1-3) or Fever Albuterol 1 puff 08/27/25 14:35 Albuterol Sulfate (*Sp) Aerosol 1 Puff INHALATION Q4H PRN Shortness Of Breath Or Wheezing Artificial Tears 2 drop 08/27/25 21:00 08/28/25 20:14 Artificial Tears Ophth Soln 15 Ml Bottle EACH EYE Not Given Q12HR KRISTAL Aspirin 81 mg 08/28/25 09:00 08/28/25 08:39 Aspirin 81 Mg Enteric Tablet PO 81 mg DAILY KRISTAL Administration Atorvastatin Calcium 40 mg 08/27/25 21:00 08/28/25 20:15 Atorvastatin 40 Mg Tablet BY MOUTH 40 mg HS KRISTAL Administration Calcium Carbonate 500 mg 08/27/25 17:00 08/28/25 16:21 Calcium Carbonate (Oscal) 500 Mg Tablet PO 500 mg BID KRISTAL Administration Carvedilol 6.25 mg 08/27/25 21:00 08/28/25 20:15 Carvedilol 6.25 Mg Tablet BY MOUTH 6.25 mg Q12HR KRISTAL Administration Clopidogrel Bisulfate 75 mg 08/27/25 14:35 08/28/25 08:39 Clopidogrel Bisulfate 75 Mg Tablet BY MOUTH 75 mg DAILY KRISTAL Administration Dextrose 12.5 gm 08/27/25 12:55 Dextrose 50% 25 Gm/50 Ml Syringe IV PUSH PRN PRN Hypoglycemia Protocol Docusate Sodium 100 mg 08/27/25 21:00 08/28/25 20:15 Docusate Sodium 100 Mg Capsule PO 100 mg Q12HR KRISTAL Administration Enoxaparin Sodium 40 mg 08/28/25 09:00 08/28/25 08:38 Enoxaparin 40 Mg/0.4 Ml Syringe SUB-Q 40 mg DAILY KRISTAL Administration Fluticasone Propionate 2 spray 08/28/25 09:00 08/28/25 08:35 Fluticasone Propionate 0.05% Na Spr 16 Gm Btl (*Bkc) NASAL 2 spray DAILY KRISTAL Administration Folic Acid 1 mg 08/28/25 09:00 08/28/25 08:39 Folic Acid 1 Mg Tablet PO 1 mg DAILY KRISTAL Administration Furosemide 40 mg 08/27/25 17:00 08/28/25 16:21 Furosemide 40 Mg Tablet BY MOUTH 40 mg BID KRISTAL Administration Glucagon 1 mg 08/27/25 12:55 Glucagon For Inj 1 Mg Vial IM PRN PRN Hypoglycemia Protocol Glucose 15 gm 08/27/25 12:55 Glucose Oral Gel 15 Gm Of Glucse In 37.5 Gm Tube PO PRN PRN Hypoglycemia Protocol Hydroxychloroquine Sulfate 400 mg 08/28/25 09:00 08/28/25 08:44 Hydroxychloroquine Sulfate 200 Mg Tablet PO 400 mg DAILY KRISTAL Administration Vancomycin HCl 1,250 mg in 250 mls @ 166.667 mls/hr 08/28/25 12:00 08/28/25 12:01 Vancomycin 1,250 Mg/Ns 250 Ml IVPB 166.67 mls/hr Q24H KRISTAL Administration Dextrose 1,000 mls @ 100 mls/hr 08/27/25 12:55 Dextrose 5% 1,000 Ml IVPB PRN PRN Hypoglycemia Protocol Magnesium Hydroxide 5 ml 08/27/25 14:35 Magnesium Hydroxide Susp 30 Ml Udc PO DAILY PRN Constipation Morphine Sulfate 2 mg 08/27/25 12:51 08/28/25 13:31 Morphine Sulfate (*Crx) 4 Mg/Ml Inj IV PUSH 2 mg Q2H PRN Administration Pain Rated 7-10 Ondansetron HCl 4 mg 08/27/25 12:51 Ondansetron Inj 4 Mg/2 Ml Vial IV PUSH Q4H PRN Nausea Psyllium Hydrophilic Mucilloid 1 packet 08/28/25 09:00 08/28/25 08:44 Psyllium Powder Packet PO 1 packet DAILY KRISTAL Administration Spironolactone 25 mg 08/27/25 17:00 08/28/25 16:21 Spironolactone 25 Mg Tablet BY MOUTH 25 mg BID KRISTAL Administration Radiology Results: ITS Impressions Forearm CT 08/27/25 12:17 IMPRESSION: 1. Prominent synovitis along the dorsal and ulnar sides of the forearm surrounding a small superficial subcutaneous region of phlegmonous change progressing towards abscess but without a well defined organized peripheral enhancing wall. Labs Labs: Laboratory Results - last 24 hr 08/28/25 08/29/25 05:14 06:03 WBC 9.7 RBC 3.57 L Hgb 10.7 L Hct 34.5 L MCV 96.6 MCH 30.0 MCHC 31.0 L RDW 16.4 H Plt Count 265 MPV 9.5 Immature Gran % (Auto) 2.4 H Neut % (Auto) 58.9 Lymph % (Auto) 14.1 L [place] % (Auto) 18.6 H Eos % (Auto) 5.3 H Baso % (Auto) 0.7 Lymph # (Auto) 1.36 [place] # (Auto) 1.8 H Eos # (Auto) 0.5 H Baso # (Auto) 0.1 Abs Immat Gran (auto) 0.23 H Absolute Neuts (auto) 5.7 Absolute Nucleated RBC 0.000 Nucleated RBC % 0.0 Sodium 137 Potassium 4.0 Chloride 102 Carbon Dioxide 28 Anion Gap 7 BUN 21 H Creatinine 0.83 Estim Creat Clear Calc 48 Estimated GFR > 60 Glucose 128 H Calcium 9.0 Total Bilirubin 0.2 AST 27 ALT 23 Alkaline Phosphatase 60 C-Reactive Protein 16.2 H 11.5 H Total Protein 7.5 Albumin 4.1 Quality VTE Prophylaxis VTE prophylaxis: mechanical ordered
[2025-08-29] MEDS: DOCUSATE SODIUM 100 MG CAPSULE PO ×2 (08:28→20:18)
[2025-08-29] MEDS: CALCIUM CARBONATE (OSCAL) 500 MG TABLET PO ×2 (08:29→17:37)
[2025-08-29] MEDS: SPIRONOLACTONE 25 MG TABLET BY MOUTH ×2 (08:29→17:38)
[2025-08-29] MEDS: ASPIRIN 81 MG ENTERIC TABLET PO (08:30)
[2025-08-29] MEDS: FOLIC ACID 1 MG TABLET PO (08:30)
[2025-08-29] MEDS: CLOPIDOGREL BISULFATE 75 MG TABLET BY MOUTH (08:31)
[2025-08-29] MEDS: HYDROXYCHLOROQUINE SULFATE 200 MG TABLET 400 MG PO (08:31)
[2025-08-29] MEDS: FUROSEMIDE 40 MG TABLET BY MOUTH ×2 (08:31→17:38)
[2025-08-29] MEDS: PSYLLIUM POWDER PACKET 1 PACKET PO (08:32)
[2025-08-29] MEDS: FLUTICASONE PROPIONATE 0.05% NA SPR 16 GM BTL (*BKC) 2 SPRAY NASAL (08:32)
[2025-08-29] MEDS: ENOXAPARIN 40 MG/0.4 ML SYRINGE SUB-Q (08:33)
[2025-08-29] MEDS: ARTIFICIAL TEARS OPHTH SOLN 15 ML BOTTLE 2 DROP EACH EYE ×2 (08:33→20:18)
[2025-08-29] MEDS: VANCOMYCIN 1,250 MG/NS 250 ML 1,250 MG/250 ML BAG 166.67 MG IVPB (13:17)
[2025-08-29] MEDS: ACETAMINOPHEN 500 MG TABLET 1000 MG PO ×2 (13:18→20:17)
[2025-08-29 14:00] VITALS: BP 125/50; PULSE 79; RESP 16; TEMP 36.5; O2SAT 98
--- NOTE | 2025-08-29 16:08 | P.PNGS_ITS ---
Progress Note: A&P Assessment and Plan (1) Cellulitis and abscess of upper extremity: Code(s): L03.119 - Cellulitis of unspecified part of limb; L02.419 - Cutaneous abscess of limb, unspecified Status: Acute Assessment and Plan: * Patient continues to improve. Wound repacked today by nursing staff. Patient continues to improve. Upon discharge, we will switch from iodoform gauze rope to silver rope. Home health will change packing every other day. * Continue IV vancomycin. Abscess and blood cultures pending - preliminarily growing staph aureus. * Will sign off of this patient. No follow up with general surgery necessary. She should follow with her PCP. Plan Discussed patient's case and plan of care with Dr. Osorio. Subjective Subjective Date/Time Seen: 08/29/25 16:08 Patient reports: no new complaints and feels better Interval history: Patient doing well today. She states that she was feeling ill this morning with some nausea, but this has since resolved. Less redness and pain to left arm. VSS. WBC normalized. Dressing changed and wound repacked by nursing staff today. Exam Const: General: comfortable and no acute distress Eyes: General: appearance normal, both eyes and all related structures Neck: Neck: supple Resp: Effort & Inspection: normal respiratory effort Cardio: Rate: regular rate Neuro: Speech: normal speech Extrem: Other: Left lateral forearm abscess continues to improve. Packing and dressing changed by nursing staff today. Reportedly, still some purulent drainage. Redness and swelling improved. Superficial skin sloughing surrounding central area. Skin appears to be ischemic, but less so than yesterday. 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 Surrounding erythema and skin tightening seems to have improved. Epitrochlear lymph node no longer palpable or tender. Sensation intact to all distal phalanges. Strong brachial and radial pulses. 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 Good capillary refill. Psych: Mental Status: mental status grossly normal Objective Data Vital Signs Vital Signs: Vital Signs - 24 hr 08/28/25 20:15 08/28/25 20:19 08/29/25 06:00 Temperature 97.9 F 97.6 F Pulse Rate 76 73 76 Respiratory Rate 18 18 Blood Pressure 118/49 L 123/55 L Pulse Oximetry 97 96 Oxygen Delivery 08/29/25 08:00 08/29/25 14:00 Temperature 97.7 F Pulse Rate 79 Respiratory Rate 16 Blood Pressure 125/50 L Pulse Oximetry 98 Oxygen Delivery Room Air Intake/Output Intake/Output: Intake & Output 08/26/25 08/27/25 08/28/25 08/29/25 22:59 23:59 23:59 23:59 Intake Total 490 2320 440 Balance 490 2320 440 Meds/Results Medications: Active Medications Generic Name Dose Route Start Last Admin Trade Name Freq PRN Reason Stop Dose Admin Acetaminophen 1,000 mg 08/27/25 12:51 08/29/25 13:18 Acetaminophen 500 Mg Tablet PO 1,000 mg Q6H PRN Administration Mild Pain (1-3) or Fever Albuterol 1 puff 08/27/25 14:35 Albuterol Sulfate (*Sp) Aerosol 1 Puff INHALATION Q4H PRN Shortness Of Breath Or Wheezing Artificial Tears 2 drop 08/27/25 21:00 08/29/25 08:33 Artificial Tears Ophth Soln 15 Ml Bottle EACH EYE 2 drop Q12HR KRISTAL Administration Aspirin 81 mg 08/28/25 09:00 08/29/25 08:30 Aspirin 81 Mg Enteric Tablet PO 81 mg DAILY KRISTAL Administration Atorvastatin Calcium 40 mg 08/27/25 21:00 08/28/25 20:15 Atorvastatin 40 Mg Tablet BY MOUTH 40 mg HS KRISTAL Administration Calcium Carbonate 500 mg 08/27/25 17:00 08/29/25 08:29 Calcium Carbonate (Oscal) 500 Mg Tablet PO 500 mg BID KRISTAL Administration Carvedilol 6.25 mg 08/27/25 21:00 08/29/25 08:29 Carvedilol 6.25 Mg Tablet BY MOUTH 6.25 mg Q12HR KRISTAL Administration Clopidogrel Bisulfate 75 mg 08/27/25 14:35 08/29/25 08:31 Clopidogrel Bisulfate 75 Mg Tablet BY MOUTH 75 mg DAILY KRISTAL Administration Dextrose 12.5 gm 08/27/25 12:55 Dextrose 50% 25 Gm/50 Ml Syringe IV PUSH PRN PRN Hypoglycemia Protocol Docusate Sodium 100 mg 08/27/25 21:00 08/29/25 08:28 Docusate Sodium 100 Mg Capsule PO 100 mg Q12HR KRISTAL Administration Enoxaparin Sodium 40 mg 08/28/25 09:00 08/29/25 08:33 Enoxaparin 40 Mg/0.4 Ml Syringe SUB-Q 40 mg DAILY KRISTAL Administration Fluticasone Propionate 2 spray 08/28/25 09:00 08/29/25 08:32 Fluticasone Propionate 0.05% Na Spr 16 Gm Btl (*Bkc) NASAL 2 spray DAILY KRISTAL Administration Folic Acid 1 mg 08/28/25 09:00 08/29/25 08:30 Folic Acid 1 Mg Tablet PO 1 mg DAILY KRISTAL Administration Furosemide 40 mg 08/27/25 17:00 08/29/25 08:31 Furosemide 40 Mg Tablet BY MOUTH 40 mg BID KRISTAL Administration Glucagon 1 mg 08/27/25 12:55 Glucagon For Inj 1 Mg Vial IM PRN PRN Hypoglycemia Protocol Glucose 15 gm 08/27/25 12:55 Glucose Oral Gel 15 Gm Of Glucse In 37.5 Gm Tube PO PRN PRN Hypoglycemia Protocol Hydroxychloroquine Sulfate 400 mg 08/28/25 09:00 08/29/25 08:31 Hydroxychloroquine Sulfate 200 Mg Tablet PO 400 mg DAILY KRISTAL Administration Vancomycin HCl 1,250 mg in 250 mls @ 166.667 mls/hr 08/28/25 12:00 08/29/25 13:17 Vancomycin 1,250 Mg/Ns 250 Ml IVPB 166.67 mls/hr Q24H KRISTAL Administration Dextrose 1,000 mls @ 100 mls/hr 08/27/25 12:55 Dextrose 5% 1,000 Ml IVPB PRN PRN Hypoglycemia Protocol Magnesium Hydroxide 5 ml 08/27/25 14:35 Magnesium Hydroxide Susp 30 Ml Udc PO DAILY PRN Constipation Morphine Sulfate 2 mg 08/27/25 12:51 08/28/25 13:31 Morphine Sulfate (*Crx) 4 Mg/Ml Inj IV PUSH 2 mg Q2H PRN Administration Pain Rated 7-10 Ondansetron HCl 4 mg 08/27/25 12:51 Ondansetron Inj 4 Mg/2 Ml Vial IV PUSH Q4H PRN Nausea Psyllium Hydrophilic Mucilloid 1 packet 08/28/25 09:00 08/29/25 08:32 Psyllium Powder Packet PO 1 packet DAILY KRISTAL Administration Spironolactone 25 mg 08/27/25 17:00 08/29/25 08:29 Spironolactone 25 Mg Tablet BY MOUTH 25 mg BID KRISTAL Administration Radiology Results: ITS Impressions Forearm CT 08/27/25 12:17 IMPRESSION: 1. Prominent synovitis along the dorsal and ulnar sides of the forearm surrounding a small superficial subcutaneous region of phlegmonous change pro gressing towards abscess but without a well defined organized peripheral enhancing wall. Labs Labs: Laboratory Results - last 24 hr 08/29/25 06:03 WBC 9.7 RBC 3.57 L Hgb 10.7 L Hct 34.5 L MCV 96.6 MCH 30.0 MCHC 31.0 L RDW 16.4 H Plt Count 265 MPV 9.5 Immature Gran % (Auto) 2.4 H Neut % (Auto) 58.9 Lymph % (Auto) 14.1 L [place] % (Auto) 18.6 H Eos % (Auto) 5.3 H Baso % (Auto) 0.7 Lymph # (Auto) 1.36 [place] # (Auto) 1.8 H Eos # (Auto) 0.5 H Baso # (Auto) 0.1 Abs Immat Gran (auto) 0.23 H Absolute Neuts (auto) 5.7 Absolute Nucleated RBC 0.000 Nucleated RBC % 0.0 Sodium 137 Potassium 4.0 Chloride 102 Carbon Dioxide 28 Anion Gap 7 BUN 21 H Creatinine 0.83 Estim Creat Clear Calc 48 Estimated GFR > 60 Glucose 128 H Calcium 9.0 Total Bilirubin 0.2 AST 27 ALT 23 Alkaline Phosphatase 60 C-Reactive Protein 11.5 H Total Protein 7.5 Albumin 4.1
[2025-08-29] MEDS: ATORVASTATIN 40 MG TABLET BY MOUTH (20:17)
[2025-08-29 21:17] VITALS: TEMP 36.5
[2025-08-29 21:29] VITALS: BP 127/66; PULSE 81; RESP 16; TEMP 36.5; O2SAT 97
[2025-08-30] MEDS: ACETAMINOPHEN 500 MG TABLET 1000 MG PO (05:31)
[2025-08-30 06:00] VITALS: BP 122/58; PULSE 96; RESP 14; TEMP 36.5; O2SAT 96
[2025-08-30 06:35] LABS: Hematocrit 34.1 % (37.0-47.0); Hemoglobin 10.4 g/dL (12.0-15.0); Immature Granulocyte Percent A 3.3 % (0-0.5); Lymphocytes Absolute Auto 1.77 K/mm3 (0.9-3.2); Mean Corpuscular HGB Conc 30.5 g/dl (32-36); Mean Corpuscular Hemoglobin 29.9 pg (26-34); Mean Corpuscular Volume 98.0 fl (80-100); Nucleated Red Blood Cells Absolute Auto 0.000 K/mm3 (0.0-0.012); Nucleated Red Blood Cells Perc 0.0 % (0.0-0.2); Platelet Count Result 273 k/mm3 (150-375); Red Blood Count 3.48 M/mm3 (4.2-5.4); White Blood Count 8.5 K/mm3 (4.5-10.0)
[2025-08-30 07:02] LABS: Alanine Aminotransferase 22 U/L (6-35); Albumin Level 3.9 g/dL (3.5-5.1); Alkaline Phosphatase 53 U/L (38-126); Anion Gap 5 mmol/L (4-12); Aspartate Amino Transferase 25 U/L (14-36); Bilirubin,Total 0.2 mg/dL (0.2-1.3); Blood Urea Nitrogen 20 mg/dL (7-17); CRP 5.1 mg/dL (<1.0); Calcium 8.9 mg/dL (8.4-10.2); Carbon Dioxide 28 mmol/L (22-30); Chloride 104 mmol/L (98-107); Estimated CRCL calculation 52 ml/min; Estimated Glomerular Filt Rate > 60; Glucose 106 mg/dL (65-110); Potassium 4.4 mmol/L (3.4-5.0); Sodium 137 mmol/L (137-145); Total Protein 7.2 g/dL (6.3-8.2)
--- NOTE | 2025-08-30 07:43 | P.PNIM_ITS ---
Progress Note: A&P Assessment and Plan (1) Cellulitis and abscess of upper extremity: Code(s): L03.119 - Cellulitis of unspecified part of limb; L02.419 - Cutaneous abscess of limb, unspecified Status: Acute Assessment and Plan: Complaints of abscess/cellulitis to her left forearm. Patient states it started about 3 days ago as a small pimple like lesion that she try to drain herself. She was seen at urgent care prior to admission and prescribed Augmentin. The abscess has been draining some purulence, serosanguineous fluid on its own. -Left forearm CT (post I&D) shows skin thickening and subcutaneous edema extending along the posterior and ulnar side of the left forearm from elbow to the wrist consistent with cellulitis. No well-defined peripheral enhancing wall to suggest organized abscess, area of phlegmonous change progressing towards abscess formation. -bedside I&D in the ED with small amount of purulence expressed. Packed with 1/4 in iodoform gauze -vancomycin started on 09/23 -blood cultures pending -wound cultures pending -general surgery consulted - recommended to continue IV antibiotics for now -trend CBC, CRP, renal function. Leukocytosis improving. Afebrile. -wound care consult (2) Essential (primary) hypertension: Code(s): I10 - Essential (primary) hypertension Status: Chronic Assessment and Plan: BP stable -continue carvedilol (3) Subareolar lump of left breast: Code(s): N63.42 - Unspecified lump in left breast, subareolar Status: Acute Assessment and Plan: -Follow-up with Dr. Case as planned. No need for inpatient intervention. (4) Heart failure, unspecified: Qualifiers: Heart failure type: unspecified Heart failure chronicity: chronic Qualified Code(s): I50.9 - Heart failure, unspecified Code(s): I50.9 - Heart failure, unspecified Status: Acute Assessment and Plan: - no echo to review -Not in acute exacerbation -continue Lasix, spironolactone (5) Rheumatoid arthritis: Qualifiers: Rheumatoid arthritis location: unspecified site Rheumatoid factor presence: with rheumatoid factor Qualified Code(s): M05.9 - Rheumatoid arthritis with rheumatoid factor, unspecified Code(s): M06.9 - Rheumatoid arthritis, unspecified Status: Acute Assessment and Plan: -Continue Plaquenil 400 mg daily. Resume methotrexate at home Plan Diet: Regular DVT prophylaxis: Lovenox Code status: Full Subjective Date/time seen: 08/30/25 07:43 Review of Systems Review of Systems: All systems reviewed & are unremarkable except as noted in HPI and below Exam Narrative: General: NAD Eyes: EOMI ENT: neck supple Cardiovascular: Regular rate and rhythm Respiratory: Clear to auscultation, respirations even and unlabored on RA Gastrointestinal: Soft, non tender Genitourinary: no suprapubic tenderness Musculoskeletal: No edema Skin: warm, dry. L forearm I&D site with mild amount of surrounding induration and erythema with purulent drainage. Tenderness to palpation of the I&D site and surrounding area. Neuro: Alert. Psych: Mood appropriate Objective Data Vital Signs Vital Signs: Vital Signs - 24 hr 08/29/25 08:00 08/29/25 14:00 08/29/25 21:17 Temperature 97.7 F 97.7 F Pulse Rate 79 Respiratory Rate 16 Blood Pressure 125/50 L Pulse Oximetry 98 Oxygen Delivery Room Air 08/29/25 21:29 08/30/25 06:00 Temperature 97.7 F 97.7 F Pulse Rate 81 96 Respiratory Rate 16 14 Blood Pressure 127/66 122/58 L Pulse Oximetry 97 96 Oxygen Delivery Intake/Output Intake/Output: Intake & Output 08/27/25 08/28/25 08/29/25 08/30/25 23:59 23:59 23:59 23:59 Intake Total 490 2320 680 1030 Balance 490 2320 680 1030 Meds/Results Medications: Active Medications Generic Name Dose Route Start Last Admin Trade Name Freq PRN Reason Stop Dose Admin Acetaminophen 1,000 mg 08/27/25 12:51 08/30/25 05:31 Acetaminophen 500 Mg Tablet PO 1,000 mg Q6H PRN Administration Mild Pain (1-3) or Fever Albuterol 1 puff 08/27/25 14:35 Albuterol Sulfate (*Sp) Aerosol 1 Puff INHALATION Q4H PRN Shortness Of Breath Or Wheezing Artificial Tears 2 drop 08/27/25 21:00 08/29/25 20:18 Artificial Tears Ophth Soln 15 Ml Bottle EACH EYE 2 drop Q12HR KRISTAL Administration Aspirin 81 mg 08/28/25 09:00 08/29/25 08:30 Aspirin 81 Mg Enteric Tablet PO 81 mg DAILY KRISTAL Administration Atorvastatin Calcium 40 mg 08/27/25 21:00 08/29/25 20:17 Atorvastatin 40 Mg Tablet BY MOUTH 40 mg HS KRISTAL Administration Calcium Carbonate 500 mg 08/27/25 17:00 08/29/25 17:37 Calcium Carbonate (Oscal) 500 Mg Tablet PO 500 mg BID KRISTAL Administration Carvedilol 6.25 mg 08/27/25 21:00 08/29/25 20:18 Carvedilol 6.25 Mg Tablet BY MOUTH 6.25 mg Q12HR KRISTAL Administration Clopidogrel Bisulfate 75 mg 08/27/25 14:35 08/29/25 08:31 Clopidogrel Bisulfate 75 Mg Tablet BY MOUTH 75 mg DAILY KRISTAL Administration Dextrose 12.5 gm 08/27/25 12:55 Dextrose 50% 25 Gm/50 Ml Syringe IV PUSH PRN PRN Hypoglycemia Protocol Docusate Sodium 100 mg 08/27/25 21:00 08/29/25 20:18 Docusate Sodium 100 Mg Capsule PO 100 mg Q12HR KRISTAL Administration Enoxaparin Sodium 40 mg 08/28/25 09:00 08/29/25 08:33 Enoxaparin 40 Mg/0.4 Ml Syringe SUB-Q 40 mg DAILY KRISTAL Administration Fluticasone Propionate 2 spray 08/28/25 09:00 08/29/25 08:32 Fluticasone Propionate 0.05% Na Spr 16 Gm Btl (*Bkc) NASAL 2 spray DAILY KRISTAL Administration Folic Acid 1 mg 08/28/25 09:00 08/29/25 08:30 Folic Acid 1 Mg Tablet PO 1 mg DAILY KRISTAL Administration Furosemide 40 mg 08/27/25 17:00 08/29/25 17:38 Furosemide 40 Mg Tablet BY MOUTH 40 mg BID KRISTAL Administration Glucagon 1 mg 08/27/25 12:55 Glucagon For Inj 1 Mg Vial IM PRN PRN Hypoglycemia Protocol Glucose 15 gm 08/27/25 12:55 Glucose Oral Gel 15 Gm Of Glucse In 37.5 Gm Tube PO PRN PRN Hypoglycemia Protocol Hydroxychloroquine Sulfate 400 mg 08/28/25 09:00 08/29/25 08:31 Hydroxychloroquine Sulfate 200 Mg Tablet PO 400 mg DAILY KRISTAL Administration Vancomycin HCl 1,250 mg in 250 mls @ 166.667 mls/hr 08/28/25 12:00 08/29/25 13:17 Vancomycin 1,250 Mg/Ns 250 Ml IVPB 166.67 mls/hr Q24H KRISTAL Administration Dextrose 1,000 mls @ 100 mls/hr 08/27/25 12:55 Dextrose 5% 1,000 Ml IVPB PRN PRN Hypoglycemia Protocol Magnesium Hydroxide 5 ml 08/27/25 14:35 Magnesium Hydroxide Susp 30 Ml Udc PO DAILY PRN Constipation Morphine Sulfate 2 mg 08/27/25 12:51 08/28/25 13:31 Morphine Sulfate (*Crx) 4 Mg/Ml Inj IV PUSH 2 mg Q2H PRN Administration Pain Rated 7-10 Ondansetron HCl 4 mg 08/27/25 12:51 Ondansetron Inj 4 Mg/2 Ml Vial IV PUSH Q4H PRN Nausea Psyllium Hydrophilic Mucilloid 1 packet 08/28/25 09:00 08/29/25 08:32 Psyllium Powder Packet PO 1 packet DAILY KRISTAL Administration Spironolactone 25 mg 08/27/25 17:00 08/29/25 17:38 Spironolactone 25 Mg Tablet BY MOUTH 25 mg BID KRISTAL Administration Radiology Results: ITS Impressions Forearm CT 08/27/25 12:17 IMPRESSION: 1. Prominent synovitis along the dorsal and ulnar sides of the forearm collette rounding a small superficial subcutaneous region of phlegmonous change progressing towards abscess but without a well defined organized peripheral enhancing wall. Labs Labs: Laboratory Results - last 24 hr 08/30/25 06:28 WBC 8.5 RBC 3.48 L Hgb 10.4 L Hct 34.1 L MCV 98.0 MCH 29.9 MCHC 30.5 L RDW 16.3 H Plt Count 273 MPV 9.2 Immature Gran % (Auto) 3.3 H Neut % (Auto) 51.5 Lymph % (Auto) 20.8 Harlan % (Auto) 16.5 H Eos % (Auto) 7.5 H Baso % (Auto) 0.4 Lymph # (Auto) 1.77 Harlan # (Auto) 1.4 H Eos # (Auto) 0.6 H Baso # (Auto) 0.0 Abs Immat Gran (auto) 0.28 H Absolute Neuts (auto) 4.4 Absolute Nucleated RBC 0.000 Nucleated RBC % 0.0 Sodium 137 Potassium 4.4 Chloride 104 Carbon Dioxide 28 Anion Gap 5 BUN 20 H Creatinine 0.77 Estim Creat Clear Calc 52 Estimated GFR > 60 Glucose 106 Calcium 8.9 Total Bilirubin 0.2 AST 25 ALT 22 Alkaline Phosphatase 53 C-Reactive Protein 5.1 H Total Protein 7.2 Albumin 3.9 Quality VTE Prophylaxis VTE prophylaxis: mechanical ordered
[2025-08-30] MEDS: CLOPIDOGREL BISULFATE 75 MG TABLET BY MOUTH (09:40)
[2025-08-30] MEDS: DOCUSATE SODIUM 100 MG CAPSULE PO (09:40)
[2025-08-30] MEDS: HYDROXYCHLOROQUINE SULFATE 200 MG TABLET 400 MG PO (09:40)
[2025-08-30] MEDS: ENOXAPARIN 40 MG/0.4 ML SYRINGE SUB-Q (09:40)
[2025-08-30 09:41] VITALS: PULSE 81
[2025-08-30] MEDS: CALCIUM CARBONATE (OSCAL) 500 MG TABLET PO (09:41)
[2025-08-30] MEDS: SPIRONOLACTONE 25 MG TABLET BY MOUTH (09:41)
[2025-08-30] MEDS: ASPIRIN 81 MG ENTERIC TABLET PO (09:41)
[2025-08-30] MEDS: FOLIC ACID 1 MG TABLET PO (09:41)
[2025-08-30] MEDS: FUROSEMIDE 40 MG TABLET BY MOUTH (09:41)
[2025-08-30] MEDS: PSYLLIUM POWDER PACKET 1 PACKET PO (09:42)
[2025-08-30] MEDS: ARTIFICIAL TEARS OPHTH SOLN 15 ML BOTTLE 2 DROP EACH EYE (09:43)
--- NOTE | 2025-08-30 10:10 | P.DS_ITS ---
DS: Admitting Diagnosis Discharge Date 08/30/2025 Admitting Diagnosis Cellulitis and abscess of upper extremity DS: Discharge Diagnosis Discharge Diagnosis (1) Cellulitis and abscess of upper extremity: Code(s): L03.119 - Cellulitis of unspecified part of limb; L02.419 - Cutaneous abscess of limb, unspecified Status: Acute Assessment and Plan: Complaints of abscess/cellulitis to her left forearm. Patient states it started about 3 days ago as a small pimple like lesion that she try to drain herself. She was seen at urgent care prior to admission and prescribed Augmentin. The abscess has been draining some purulence, serosanguineous fluid on its own. -Left forearm CT (post I&D) shows skin thickening and subcutaneous edema extending along the posterior and ulnar side of the left forearm from elbow to the wrist consistent with cellulitis. No well-defined peripheral enhancing wall to suggest organized abscess, area of phlegmonous change progressing towards abscess formation. -bedside I&D in the ED with small amount of purulence expressed. Packed with 1/4 in iodoform gauze -vancomycin started on 09/23 -blood cultures pending -wound cultures pending -general surgery consulted - recommended to continue IV antibiotics for now -trend CBC, CRP, renal function. Leukocytosis improving. Afebrile. -wound care consult (2) Essential (primary) hypertension: Code(s): I10 - Essential (primary) hypertension Status: Chronic Assessment and Plan: BP stable -continue carvedilol (3) Subareolar lump of left breast: Code(s): N63.42 - Unspecified lump in left breast, subareolar Status: Acute Assessment and Plan: -Follow-up with Dr. Case as planned. No need for inpatient intervention. (4) Heart failure, unspecified: Qualifiers: Heart failure chronicity: chronic Heart failure type: unspecified Qualified Code(s): I50.9 - Heart failure, unspecified Code(s): I50.9 - Heart failure, unspecified Status: Acute Assessment and Plan: - no echo to review -Not in acute exacerbation -continue Lasix, spironolactone (5) Rheumatoid arthritis: Qualifiers: Rheumatoid arthritis location: unspecified site Rheumatoid factor presence: with rheumatoid factor Qualified Code(s): M05.9 - Rheumatoid arthritis with rheumatoid factor, unspecified Code(s): M06.9 - Rheumatoid arthritis, unspecified Status: Acute Assessment and Plan: -Continue Plaquenil 400 mg daily. Resume methotrexate at home Plan Diet: Regular DVT prophylaxis: Lovenox Code status: Full DS: Summary Hospital Course Reason for hospitalization: Abscess left forearm Hospital Course: Per HPI: 75-year-old female with past medical history of RA, JOSÉ, COPD, heart failure, CABG, left breast subareolar mass presents to the ED on 08/27/2025 with complaints of abscess/cellulitis to her left forearm. Patient saw Dr. Case this morning for a preop appointment regarding her left breast mass. She has surgery planned on 09/05. The patient was directed to the ED by her breast surgeon for further treatment of the abscess. Patient states it started about 3 days ago as a small pimple like lesion that she try to drain herself. She was seen at urgent care yesterday and prescribed Augmentin. The abscess has been draining some purulence, serosanguineous fluid on its own. It is sore to touch and warm. Some streaking noted in the ED. Patient denies any trauma or injury to the area. She denies fevers, chills, or any previous abscesses or MRSA infections. Bedside I&D in the ED with packing placed. Initial vital signs 142/92, 82 heart rate, respirations 16, patient afebrile and 95% on room air Labs revealed leukocytosis with left shift, ESR 123, CRP 14 ECG shows sinus rhythm with left ventricular hypertrophy and ST changes, likely old possible anterior [place] Left forearm CT (post I&D) shows skin thickening and subcutaneous edema extending along the posterior and ulnar side of the left forearm from elbow to the wrist consistent with cellulitis. No well-defined peripheral enhancing wall to suggest organized abscess, area of phalegmonous change progressing towards abscess formation. Hospital course: General surgery consulted regarding cellulitis and abscess of upper extremity. Recommended continuing IV vancomycin with cultures pending and following up with serial exams/labs. Wound care consulted as well. I&D site continued to have purulent drainage with swelling and pain on palpation. This continued to progress and improve throughout hospitalization. On 08/28, it was noted that the cellulitis and induration continued to decrease. Recommend continuing wound repacked aging and local wound care with IV antibiotics. Blood cultures have shown no growth to date so far. Wound culture obtained which showed growth of Staphylococcus aureus with resistant to be to erythromycin and penicillin but otherwise susceptible. Leukocytosis resolved and patient remained afebrile. General surgery signed off on patient, recommend switching from iodoform gauze roll to silver rope upon discharge. Patient will be discharged on home with home health services. Pt has no other concerns or complaints -she can be discharged home at this time. Recommend to continue to follow up with Dr. Teschke regarding subareolar or lump of left breast. Status at Discharge Functional status at discharge: independent ambulation Overall status at discharge: patient is progressing back to baseline Time Spent with Patient Time attestation: Total time spent providing and/or coordinating discharge services: 31 Exam Narrative: General: NAD Eyes: EOMI ENT: neck supple Cardiovascular: Regular rate and rhythm Respiratory: Clear to auscultation, respirations even and unlabored on RA Gastrointestinal: Soft, non tender Genitourinary: no suprapubic tenderness Musculoskeletal: No edema Skin: Still purulent drainage on left lateral forearm abscess but improvement is noted. Some superficial skin sloughing in the central area. Erythema and skin tightening improving as well, remains neurovascularly intact. Neuro: Alert. Psych: Mood appropriate DS: Data Data Completed and Pending Labs on day of discharge: Labs from last 24 hours 08/30/25 06:28 WBC 8.5 RBC 3.48 L Hgb 10.4 L Hct 34.1 L MCV 98.0 MCH 29.9 MCHC 30.5 L RDW 16.3 H Plt Count 273 MPV 9.2 Immature Gran % (Auto) 3.3 H Neut % (Auto) 51.5 Lymph % (Auto) 20.8 Drew % (Auto) 16.5 H Eos % (Auto) 7.5 H Baso % (Auto) 0.4 Lymph # (Auto) 1.77 Drew # (Auto) 1.4 H Eos # (Auto) 0.6 H Baso # (Auto) 0.0 Abs Immat Gran (auto) 0.28 H Absolute Neuts (auto) 4.4 Absolute Nucleated RBC 0.000 Nucleated RBC % 0.0 Sodium 137 Potassium 4.4 Chloride 104 Carbon Dioxide 28 Anion Gap 5 BUN 20 H Creatinine 0.77 Estim Creat Clear Calc 52 Estimated GFR > 60 Glucose 106 Calcium 8.9 Total Bilirubin 0.2 AST 25 ALT 22 Alkaline Phosphatase 53 C-Reactive Protein 5.1 H Total Protein 7.2 Albumin 3.9 Preliminary micro results at discharge 08/27/25 11:52 Blood Culture - Preliminary Blood 08/27/25 11:52 Blood Culture - Preliminary Blood Discharge Plan Discharge Attending physician on discharge: Yue Martino Consulting providers: Annabelle Osorio; Kandi Vicente; Mata Sun Discharging Clinician: Mata Sun Anticipated Discharge Date/Time: 08/30/25 10:07 Patient Disposition: Home with Home Health Service Discharge Instructions: Patient to discharge with [facility] ([phone]) for fpc services. Agency will call to arrange initial visit. Continue to pack left arm wound with silver rope every other day. Cover with 4x4 gauze and secure with Medipore tape. Change dressing more frequently if saturated. Discharge disposition: Home with home health services Take medications as prescribed. You will be prescribed Keflex 500 mg to be taken 4 times a day for the next 7 days. Monitor blood pressures Take caution while standing, rising, or moving Change positions slowly taking a break between each position change If you standing feel dizzy sit back down and take a break Encouraged to continue with yearly vaccinations Return to the emergency department if you develop sudden shortness of breath, chest pain, nausea, vomiting, upset stomach or intractable diarrhea Return to the emergency department if you develop fever greater than 101.5 Follow-up with the primary care physician within 1-2 weeks Thank you for choosing [facility] for your healthcare needs Patient Instructions: Antibiotic Form Patient Language: Setswana Stand Alone Forms: General Discharge Information Follow-up/Referrals: Lidia Mathews APRN [Primary Care Provider, Internal Medicine] Discharge Medications: New cephalexin 500 mg Capsule 500 mg PO Q6HR Qty: 28 0RF Continued folic acid 1 mg tablet 1 mg PO DAILY calcium carbonate [Calcium 600] 600 mg calcium (1,500 mg) tablet 600 mg PO BID acetaminophen 650 mg tablet extended release 650 mg PO Q8H PRN (Reason: Pain) aspirin [Adult Aspirin Regimen] 81 mg tablet,delayed release (DR/EC) 81 mg PO DAILY methotrexate sodium 2.5 mg tablet 20 mg PO WEEKLY Patient Comments: STATES ON WEDNESDAY hydroxychloroquine [Plaquenil] 200 mg tablet 400 mg PO DAILY psyllium husk 3 gram/3 gram powder 30 g PO DAILY Qty: 340 2RF nitroglycerin 0.4 mg Tablet, Sublingual 0.4 mg SUBLINGUAL Q5-15M PRN (Reason: Chest Pain) Rx Instructions: do not exceed 3 doses per episode diclofenac sodium 1 % gel 4 g TOPICAL QID PRN (Reason: Pain) Systane Gel 0.4-0.3 % Drops,Gel 2 drp OPHTHALMIC (EYE) BID spironolactone 25 mg tablet See Rx Instructions .ROUTE .COMPLEX Qty: 180 1RF Dose Instruction: TAKE ONE TABLET BY MOUTH TWICE A DAY Rx Instructions: TAKE ONE TABLET BY MOUTH TWICE A DAY carvedilol 6.25 mg tablet See Rx Instructions .ROUTE .COMPLEX Qty: 180 1RF Dose Instruction: TAKE ONE TABLET BY MOUTH EVERY 12 HOURS MUST TAKE WITH A MEAL OR FOOD Rx Instructions: TAKE ONE TABLET BY MOUTH EVERY 12 HOURS MUST TAKE WITH A MEAL OR FOOD fluticasone propionate 50 mcg/actuation spray,suspension 2 spray INTRANASAL DAILY Qty: 16 1RF magnesium hydroxide [Milk of Magnesia] 400 mg/5 mL suspension 5 ml PO DAILY PRN (Reason: constipation) Qty: 3000 0RF pantoprazole 40 mg tablet,delayed release (DR/EC) 40 mg PO DAILY Qty: 90 1RF clopidogrel 75 mg tablet See Rx Instructions .ROUTE .COMPLEX Qty: 90 1RF Dose Instruction: TAKE 1 TABLET (75MG) BY MOUTH DAILY Rx Instructions: TAKE 1 TABLET (75MG) BY MOUTH DAILY furosemide 40 mg tablet See Rx Instructions .ROUTE .COMPLEX Qty: 180 1RF Dose Instruction: TAKE 1 TABLET BY MOUTH TWICE A DAY Rx Instructions: TAKE 1 TABLET BY MOUTH TWICE A DAY atorvastatin 40 mg tablet See Rx Instructions .ROUTE .COMPLEX Qty: 90 1RF Dose Instruction: TAKE 1 TABLET BY MOUTH EVERYDAY AT BEDTIME Rx Instructions: TAKE 1 TABLET BY MOUTH EVERYDAY AT BEDTIME Discontinued docusate sodium 50 mg tablet 100 mg PO BID albuterol sulfate [Proventil HFA] 90 mcg/actuation HFA aerosol inhaler 1 puff INHALATION Q4H PRN (Reason: shortness of breath or wheezing) Qty: 18 6RF Date of admission: 08/28/25 14:41 Primary Care Provider: Lidia Mathews Admitting Provider: Sandra Ly Attending physician on admission: Sandra Ly Condition: Stable Quality VTE Prophylaxis VTE prophylaxis: mechanical ordered
[2025-08-30] MEDS: CEPHALEXIN 500 MG CAPSULE PO (13:21)
== END 2025-08-30 14:15 | disposition home health service (06) | DRG 603 ==
LOC: ANHED 13:14 → ANH3MEDSUR 13:26
PROVIDERS: Nurse Practitioner Adult Health; Physician Assistant; Admitting Provider Internal Medicine; Emergency Provider Physician Assistant; PCP Nurse Practitioner Family; Visit Provider Physician Assistant
DX: L03.114 Cellulitis of left upper limb (principal); Z16.24 Resistance to multiple antibiotics; L02.414 Cutaneous abscess of left upper limb; N63.42 Unspecified lump in left breast, subareolar; I11.9 Hypertensive heart disease without heart failure; I50.9 Heart failure, unspecified; J44.9 Chronic obstructive pulmonary disease, unspecified; G47.33 Obstructive sleep apnea (adult) (pediatric); K21.9 Gastro-esophageal reflux disease without esophagitis; E78.00 Pure hypercholesterolemia, unspecified; M06.9 Rheumatoid arthritis, unspecified; B95.61 Methicillin susceptible Staphylococcus aureus infection as the cause of diseases classified elsewhere; Z20.822 Contact with and (suspected) exposure to COVID-19; Z79.82 Long term (current) use of aspirin; Z79.51 Long term (current) use of inhaled steroids; Z95.5 Presence of coronary angioplasty implant and graft; Z86.16 Personal history of COVID-19; Z79.2 Long term (current) use of antibiotics; I25.2 Old myocardial infarction
CPT/HCPCS: 10060; 36415; 73201; 80053; 83605; 85025; 85652; 86140; 87040; 87070; 87075; 87186; 87205; 96365; 99213; 99285; A9270; G0378; G0463; J1650; J2270; J3373; Q9967